=== PATIENT | female | born 1940 | race Caucasian/White ===

== ENCOUNTER 2016-09-26 11:26 | Inpatient (IN) | payer OTHER ==
[2016-09-26] MEDS ORDERED: CARDIZEM INJ 125 MG VIAL 125 MG in NS 100 ML IV 100 ML IV PRN (11:44)
[2016-09-26] MEDS ORDERED: CARDIZEM INJ 125 MG VIAL ONE (12:11)
[2016-09-26] MEDS ORDERED: NS 100 ML IV 100 ML IV ONE (12:13)
[2016-09-26 12:27] LABS: BASOPHILS % (AUTO) 0.8 % (0.2-1.0); EOSINOPHILS # (AUTO) 0.1 x10^3/uL (0.0-0.2); EOSINOPHILS % (AUTO) 2.4 % (0.9-2.9); HEMATOCRIT 35.2 % (36.0-47.0); HEMOGLOBIN 11.7 g/dL (12.0-16.0); LYMPHOCYTES # (AUTO) 0.9 X10^3/uL (1.3-2.9); LYMPHOCYTES % (AUTO) 17.8 % (21.0-51.0); MEAN CORPUSCULAR HEMOGLOBIN 33.5 pg (27.0-34.0); MEAN CORPUSCULAR HGB CONC 33.4 g/dL (33.0-35.0); MEAN CORPUSCULAR VOLUME 100.4 fL (80.0-100.0); MEAN PLATELET VOLUME 8.9 fL (7.4-11.0); MONOCYTES # (AUTO) 0.7 x10^3/uL (0.3-0.8); MONOCYTES % (AUTO) 14.4 % (0.0-13.0); NEUTROPHILS # (AUTO) 3.2 x10^3/uL (2.2-4.8); NEUTROPHILS % (AUTO) 64.6 % (42.0-75.0); PLATELET COUNT 133 X10^3/uL (150.0-450.0); RED CELL DISTRIBUTION WIDTH 14.3 % (11.6-16.5)
[2016-09-26] MEDS: NS 1000 ML 1,000 ML IV SCH (12:30)
[2016-09-26 12:38] LABS: ALANINE AMINOTRANSFERASE 25 Units/L (12-78); ALBUMIN 3.7 g/dL (3.4-5.0); ALKALINE PHOSPHATASE 39 Units/L (46-116); ASPARTATE AMINO TRANSFERASE 18 Units/L (15-37); BLOOD UREA NITROGEN 30 mg/dL (7-18); CALCIUM 8.9 mg/dL (8.5-10.1); CARBON DIOXIDE 30.7 mmol/L (21-32); CHLORIDE 103 mmol/L (98-107); CREATININE 1.57 mg/dL (0.55-1.02); GLUCOSE 108 mg/dL (65-99); MAGNESIUM 2.1 mg/dL (1.7-2.9); SODIUM 138 mmol/L (136-145); eGFR BLACK RACES 41 (>60); eGFR NON BLACK RACES 34 (>60)
[2016-09-26 12:51] LABS: CKMB % 0.9 % (<4); CREATINE KINASE 109 Units/L (26-192); TROPONIN I < 0.02 ng/mL (0-1.5)
[2016-09-26 13:05] VITALS: BMI 22.1
[2016-09-26 13:51] LABS: BILIRUBIN,URINE NEGATIVE (NEGATIVE); BLOOD/HEMOGLOBIN,URINE 1+ (NEGATIVE); GLUCOSE, URINE NEGATIVE (NEGATIVE); KETONES,URINE NEGATIVE (NEGATIVE); LEUKOCYTE ESTERASE ,URINE NEGATIVE (NEGATIVE); NITRITES,URINE NEGATIVE (NEGATIVE); PROTEIN,URINE NEGATIVE (NEGATIVE); UROBILINOGEN,URINE NORMAL (NORMAL)
[2016-09-26 14:00] LABS: APPEARANCE,URINE HAZY (CLEAR); BACTERIA,URINE NEGATIVE /HPF (NEGATIVE); COLOR,URINE STRAW (YELLOW); SQUAMOUS EPITHELIAL CELL,UR NEGATIVE /HPF (NEGATIVE)
[2016-09-26] MEDS ORDERED: XANAX PO PRN (14:01)
--- NOTE | 2016-09-26 14:14 | DR.H&P ---
H&P - History & Physical for Day of: H&P Date: 09/26/16 - Chief Complaint Chief Complaint: WEAKNESS, PALPITATION, DAHL - Allergies Allergies/Adverse Reactions: Allergies Allergy/AdvReac Type Severity Reaction Status Date / Time Acetaminophen Allergy Verified 09/26/16 13:06 [From NyQuil Nighttime Cold/Flu Medicine] Dextromethorphan Allergy Verified 09/26/16 13:06 [From NyQuil Nighttime Cold/Flu Medicine] Doxylamine Allergy Verified 09/26/16 13:06 [From NyQuil Nighttime Cold/Flu Medicine] Ethanol Allergy Verified 09/26/16 13:06 [From NyQuil Nighttime Cold/Flu Medicine] Pseudoephedrine Allergy Verified 09/26/16 13:06 [From NyQuil Nighttime Cold/Flu Medicine] - History of Present Illness History of Present Illness: PT IS 76WF DIRECT ADMIT FROM OUTPT STRESS TEST WITH AFIB WITH UNCONTROLLED RATE. PT SEEN BY DR SUE FOR DAHL, PALPITATIONS AND WEAKNESS. PT HAD 1/4 KIDNEY AND RENAL MASS REMOVED FEB 29, 2016, AFTER SUGERY PT HAD EPISODES OF A FIB, BUT RESOLVED. PT HAS NOT BEEN ON ANY MEDICATION FOR AFIB. PT HAS BEEN TAKING LOPRESSOR FOR SEVERAL WEEKS, WITH HAS IMPROVED PALPITATIONS. PT HAS PMH OF RENAL MASS, HTN, OA, LUPUS, RENAL INSUFF, ANEMIA. PLAN TO ADMIT TO ICU, START CARDIZEM DRIP, CARDIAC MONITORING - Past Medical History Past Medical History: Anxiety, Arthritis, Hypertension Additional Medical History: LUPUS, HX RENAL MASS - Past Surgical History Surgical History: Hysterectomy, Ortho Surgery, Other (1) Additional Surgical History: LEFT RENAL MASS AND 1/4 LEFT KIDNEY REMOVED PER [facility] [place]. FEB 29, 2016 - Family History Family Medical History: CT, Heart Failure, Hypertension - Social History Does patient currently use any type of tobacco product: No Have you used tobacco products in the last 12 months: No Type of Tobacco Use: None Does any household member use tobacco: No Alcohol Use: None Drug Use: None - Medications Home Medications: Gabapentin 300 mg PO HS 09/26/16 [History Confirmed 09/26/16] Lorazepam [ATIVAN 0.5 MG TAB *] 0.5 - 1 tab PO HS PRN 09/26/16 [History Confirmed 09/26/16] Metoprolol Tartrate [LOPRESSOR 25 MG *] 12.5 mg PO BID 09/26/16 [History Confirmed 09/26/16] Tizanidine HCl 4 mg PO HS 09/26/16 [History Confirmed 09/26/16] Tramadol HCl 1 tab PO BID PRN 09/26/16 [History Confirmed 09/26/16] - Review of Systems Constitutional: Weakness Eyes: No Symptoms Reported ENT: No Symptoms Reported Respiratory: Shortness of Breath Cardiovascular: Palpitations Gastrointestinal: No Symptoms Reported Genitourinary: No Symptoms Reported Musculoskeletal: No Symptoms Reported Skin: No Symptoms Reported Neurological: No Symptoms Reported - Physical Exam Vital Signs: Temperature 99.2 F Pulse Rate [Apical] 101 Respiratory Rate 19 Blood Pressure [Left Arm] 175/91 Blood Pressure [Right Arm] 118/71 Blood Pressure 175/91 O2 Sat by Pulse Oximetry 96 Oriented: Normal Eyes: Normal Ear: Normal Nose: Normal Throat: Normal Respiratory: RLL Diminished, LLL Diminished Cardiovascular: Tachycardia, Irregular : Normal Auscultation: Bowel Sounds: Normal Palpation: Normal Tenderness: Normal Skin: Normal Musculoskeletal: Normal Psychiatric: Anxiety Affect: Anxious Speech Pattern: Clear, Appropriate - Assessment/Plan (1) Afib Qualifiers: Atrial fibrillation type: A Status: Acute Plan: ADMIT ICU SERIAL CARDIAC ENZYMES, EKG'S. CARDIZEM DRIP, BP CONTROL. CONTINUOUS CARDIAC MONITORING (2) Lupus Qualifiers: Systemic lupus erythematosus type: S Systemic lupus erythematosus organ involvement: S Status: Acute (3) Hypertension Qualifiers: Hypertension type: H Status: Chronic
--- NOTE | 2016-09-26 14:29 | RAD ---
HISTORY: Atrial fibrillation Study: Portable chest Comparison: March 14, 2016 Findings: The trachea is midline. The cardiac silhouette is unremarkable. The lungs are clear without focal infiltrate or effusion. The bony thorax is unremarkable. IMPRESSION: 1. No acute cardiopulmonary disease. Reported By:
[2016-09-26 19:09] LABS: CKMB % 1.4 % (<4); CREATINE KINASE 73 Units/L (26-192); CREATINE KINASE MB < 1.0 ng/mL (0-4.0); TROPONIN I < 0.02 ng/mL (0-1.5)
[2016-09-26] MEDS: LOVENOX INJ 60 MG SYR SC SCH (20:58)
[2016-09-26] MEDS ORDERED: ULTRAM PO PRN ×2 (22:32→22:49)
[2016-09-26] MEDS ORDERED: ZYRTEC TAB 10 MG PO PRN (22:49)
[2016-09-26] MEDS ORDERED: NEURONTIN CAP 300 MG PO ONE (23:14)
[2016-09-26] MEDS: ATIVAN TAB 0.5 MG PO PRN (23:18)
[2016-09-26] MEDS: NEURONTIN CAP 300 MG PO SCH (23:19)
[2016-09-26] MEDS: CORDARONE TAB 200 MG PO SCH (23:19)
[2016-09-26 23:57] LABS: CKMB % 0.7 % (<4); CREATINE KINASE 155 Units/L (26-192); CREATINE KINASE MB < 1.0 ng/mL (0-4.0); TROPONIN I < 0.02 ng/mL (0-1.5)
[2016-09-27] MEDS: NS 1000 ML 1,000 ML IV SCH ×3 (02:36→20:18)
[2016-09-27 05:42] LABS: BASOPHILS % (AUTO) 0.2 % (0.2-1.0); EOSINOPHILS # (AUTO) 0.2 x10^3/uL (0.0-0.2); EOSINOPHILS % (AUTO) 4.1 % (0.9-2.9); HEMATOCRIT 31.7 % (36.0-47.0); HEMOGLOBIN 10.7 g/dL (12.0-16.0); LYMPHOCYTES % (AUTO) 26.7 % (21.0-51.0); MEAN CORPUSCULAR HGB CONC 33.8 g/dL (33.0-35.0); MEAN CORPUSCULAR VOLUME 100.5 fL (80.0-100.0); MEAN PLATELET VOLUME 8.7 fL (7.4-11.0); MONOCYTES # (AUTO) 0.7 x10^3/uL (0.3-0.8); MONOCYTES % (AUTO) 19.6 % (0.0-13.0); NEUTROPHILS # (AUTO) 1.8 x10^3/uL (2.2-4.8); NEUTROPHILS % (AUTO) 49.4 % (42.0-75.0); PLATELET COUNT 116 X10^3/uL (150.0-450.0); RED BLOOD COUNT 3.15 X10^6/uL (3.5-5.4); RED CELL DISTRIBUTION WIDTH 14.2 % (11.6-16.5); WHITE BLOOD COUNT 3.7 X10^3/uL (3.6-10.0)
[2016-09-27 05:50] LABS: ALANINE AMINOTRANSFERASE 20 Units/L (12-78); ALBUMIN 3.3 g/dL (3.4-5.0); ALKALINE PHOSPHATASE 33 Units/L (46-116); ASPARTATE AMINO TRANSFERASE 16 Units/L (15-37); BLOOD UREA NITROGEN 23 mg/dL (7-18); CALCIUM 8.7 mg/dL (8.5-10.1); CARBON DIOXIDE 28.6 mmol/L (21-32); CHLORIDE 107 mmol/L (98-107); CHOL/HDL RATIO 5.9 (0.0-5.0); CHOLESTEROL 142 mg/dL (0-200); COR CA(FOR HYPOALB) 9.3 mg/dL (8.5-10.1); GLUCOSE 98 mg/dL (65-99); HDL CHOLESTEROL 24 mg/dL (40-60); SODIUM 143 mmol/L (136-145); TOTAL PROTEIN 6.2 g/dL (6.4-8.2); TRIGLYCERIDES 166 mg/dL (0-150); eGFR BLACK RACES 51 (>60); eGFR NON BLACK RACES 42 (>60)
[2016-09-27] MEDS ORDERED: ZESTRIL TAB 20 MG ONE (08:16)
[2016-09-27] MEDS: LOVENOX INJ 60 MG SYR SC SCH ×2 (08:18→20:15)
[2016-09-27] MEDS: FOLIC ACID TAB 1 MG PO SCH (08:20)
[2016-09-27] MEDS: CORDARONE TAB 200 MG PO SCH ×2 (08:21→20:15)
[2016-09-27] MEDS: ZESTRIL TAB 20 MG PO SCH (08:21)
[2016-09-27] MEDS: PRILOSEC PO SCH ×2 (08:21→20:14)
[2016-09-27] MEDS: ASPIRIN EC 81 MG PO SCH (08:21)
[2016-09-27] MEDS: HYDROCHLOROTHIAZIDE 25 MG TAB PO SCH (08:21)
--- NOTE | 2016-09-27 17:59 | PCM.PROG ---
Progress Note - Progress Note for Day of Date: 09/27/16 - Subjective Subjective: PATIENT IS A 76-YEAR-OLD WHITE FEMALE WHO WAS ADMITTED ONE DAY AGO WITH COMPLAINTS OF PALPITATIONS AND SHORTNESS OF BREATH. pATIENT WAS HAVING A NUCLEAR STRESS TEST OUTPATIENT PER [facility] [place] WHEN HER ekg REVEALED ATRIAL FREE OF UNCONTROLLED RATE. pATIENT WAS ADMITTED TO icu WITH SERIAL CARDIAC ENZYMES WHICH WERE NEGATIVE. pATIENT WAS STARTED ON cARDIZEM DRIP ON ADMISSION AND AFTER BOLUS RATE IMPROVED. pATIENT WAS STARTED ON AMIODARONE AND CONVERTED TO NORMAL SINUS RHYTHM. pATIENT IS ON lOVENOX ANTICOAGULANT THERAPY. tHIS MORNING THE PATIENT'S cARDIZEM DRIP WAS AT 2.5 MG AND SHE REMAINED IN SINUS RHYTHM, SO DRIP WAS dc'D. pATIENT CONTINUES TO FEEL SLIGHT GENERALIZED WEAKNESS , BLOOD PRESSURE CONTROLLED. - Past Medical Family Social History Past Med/Fam/Surg Hx: No changes since H&P Allergies: Allergies Acetaminophen [From OrQuky Nighttime Cold/Flu Medicine] Allergy (Verified 13:06) Dextromethorphan [From OrQuky Nighttime Cold/Flu Medicine] Allergy (Verified 13:06) Doxylamine [From OrQuil Nighttime Cold/Flu Medicine] Allergy (Verified 09/26/16 13:06) Ethanol [From OrQuky Nighttime Cold/Flu Medicine] Allergy (Verified 09/26/16 13: 06) Pseudoephedrine [From OrQuky Nighttime Cold/Flu Medicine] Allergy (Verified 13:06) - Review of Systems ROS: No change since H&P - Vital Signs and I&O's Vital Signs: Temperature 98.7 F Pulse Rate [Apical] 72 Respiratory Rate 14 Blood Pressure [Left Arm] 175/91 Blood Pressure [Right Arm] 148/73 Blood Pressure 175/91 O2 Sat by Pulse Oximetry 98 Intake and Output: Intake & Output 09/25/16 09/26/16 09/27/16 09/28/16 11:59 11:59 11:59 11:59 Intake Total 1535 935 Output Total 500 800 Balance 1035 135 - Physical Exam Oriented: Normal Eyes: Normal Ear: Normal Nose: Normal Throat: Normal Cardiovascular: Tachycardia, Irregular : Normal Auscultation: Bowel Sounds: Normal Tenderness: Normal Skin: Normal Musculoskeletal: Normal Psychiatric: Anxiety Affect: Anxious Speech Pattern: Clear, Appropriate - Laboratory and Diagnostics Result Diagrams: 09/27/16 05:20 09/27/16 05:20 Labs: Laboratory WBC 3.7 X10^3/uL (3.6-10.0) 09/27/16 05:20 RBC 3.15 X10^6/uL (3.5-5.4) L 09/27/16 05:20 Hgb 10.7 g/dL (12.0-16.0) L 09/27/16 05:20 Hct 31.7 % (36.0-47.0) L 09/27/16 05:20 MCV 100.5 fL (80.0-100.0) H 09/27/16 05:20 MCH 34.0 pg (27.0-34.0) 09/27/16 05:20 MCHC 33.8 g/dL (33.0-35.0) 09/27/16 05:20 RDW 14.2 % (11.6-16.5) 09/27/16 05:20 Plt Count 116 X10^3/uL (150.0-450.0) L 09/27/16 05:20 MPV 8.7 fL (7.4-11.0) 09/27/16 05:20 Neut % 49.4 % (42.0-75.0) 09/27/16 05:20 Lymph % 26.7 % (21.0-51.0) 09/27/16 05:20 Hudson % 19.6 % (0.0-13.0) H 09/27/16 05:20 Eos % 4.1 % (0.9-2.9) H 09/27/16 05:20 Baso % 0.2 % (0.2-1.0) 09/27/16 05:20 Neut # 1.8 x10^3/uL (2.2-4.8) L 09/27/16 05:20 Lymph # 1.0 X10^3/uL (1.3-2.9) L 09/27/16 05:20 Hudson # 0.7 x10^3/uL (0.3-0.8) 09/27/16 05:20 Eos # 0.2 x10^3/uL (0.0-0.2) 09/27/16 05:20 Baso # 0.0 X10^3/uL (0.0-0.1) 09/27/16 05:20 Absolute Nucleated RBC 0.1 /100WBC 09/27/16 05:20 INR Target Range - 09/26/16 12:13 INR 1.02 (0.8-1.3) 09/26/16 12:13 PTT 22.0 SECONDS (22.9-36.5) L 09/26/16 12:13 PTT Comment - 09/26/16 12:13 Sodium 143 mmol/L (136-145) 09/27/16 05:20 Corrected Sodium TNP 09/27/16 05:20 Potassium 4.0 mmol/L (3.5-5.1) 09/27/16 05:20 Chloride 107 mmol/L (98-107) 09/27/16 05:20 Carbon Dioxide 28.6 mmol/L (21-32) 09/27/16 05:20 BUN 23 mg/dL (7-18) H 09/27/16 05:20 Creatinine 1.30 mg/dL (0.55-1.02) H 09/27/16 05:20 Est GFR (MDRD) Af Amer 51 (>60) L 09/27/16 05:20 Est GFR (MDRD) Non-Af 42 (>60) L 09/27/16 05:20 Glucose 98 mg/dL (65-99) 09/27/16 05:20 Calcium 8.7 mg/dL (8.5-10.1) 09/27/16 05:20 Corrected Calcium 9.3 mg/dL (8.5-10.1) 09/27/16 05:20 Magnesium 2.1 mg/dL (1.7-2.9) 09/26/16 12:13 Total Bilirubin 0.20 mg/dL (0.2-1.0) 09/27/16 05:20 AST 16 Units/L (15-37) 09/27/16 05:20 ALT 20 Units/L (12-78) 09/27/16 05:20 Alkaline Phosphatase 33 Units/L (46-116) L 09/27/16 05:20 Creatine Kinase 155 Units/L (26-192) 09/26/16 23:30 CK-MB (CK-2) < 1.0 ng/mL (0-4.0) 09/26/16 23:30 CK/CKMB % Calc 0.7 % (<4) 09/26/16 23:30 Troponin I < 0.02 ng/mL (0-1.5) 09/26/16 23:30 Total Protein 6.2 g/dL (6.4-8.2) L 09/27/16 05:20 Albumin 3.3 g/dL (3.4-5.0) L 09/27/16 05:20 Globulin 2.9 g/dL (2.5-4.5) 09/27/16 05:20 Albumin/Globulin Ratio 1.1 Ratio (1.1-2.1) 09/27/16 05:20 Triglycerides 166 mg/dL (0-150) H 09/27/16 05:20 Cholesterol 142 mg/dL (0-200) 09/27/16 05:20 LDL Cholesterol, Calc 85 mg/dL (0-100) 09/27/16 05:20 HDL Cholesterol 24 mg/dL (40-60) L 09/27/16 05:20 Cholesterol/HDL Ratio 5.9 (0.0-5.0) H 09/27/16 05:20 Specimen Type Clean catch urine 09/26/16 13:22 Urine Color Straw (YELLOW) 09/26/16 13:22 Urine Appearance Hazy (CLEAR) 09/26/16 13:22 Urine pH 7.0 (5.0 - 8.0) 09/26/16 13:22 Ur Specific Bath 1.005 (1.000-1.030) 09/26/16 13:22 Urine Protein Negative (NEGATIVE) 09/26/16 13:22 Urine Glucose (UA) Negative (NEGATIVE) 09/26/16 13:22 Urine Ketones Negative (NEGATIVE) 09/26/16 13:22 Urine Occult Blood 1+ (NEGATIVE) 09/26/16 13:22 Urine Nitrite Negative (NEGATIVE) 09/26/16 13:22 Urine Bilirubin Negative (NEGATIVE) 09/26/16 13:22 Urine Urobilinogen Normal (NORMAL) 09/26/16 13:22 Ur Leukocyte Esterase Negative (NEGATIVE) 09/26/16 13:22 Urine RBC 1-2 /HPF (NEGATIVE) 09/26/16 13:22 Urine WBC 0 /HPF (NEGATIVE) 09/26/16 13:22 Ur Squamous Epith Cells Negative /HPF (NEGATIVE) 09/26/16 13:22 Urine Bacteria Negative /HPF (NEGATIVE) 09/26/16 13:22 Ur Culture Indicated? No/not indicated 09/26/16 13:22 - Plan (1) Afib Status: Acute Qualifiers: Atrial fibrillation type: A Plan: CONTINUE CARDIAC MONITORING, ON LOVENOX AND AMIODERONE. D/C CARDIZEM DRIP. BP CONTROL (2) Lupus Status: Chronic Qualifiers: Systemic lupus erythematosus type: S Systemic lupus erythematosus organ involvement: S Plan: SYMPTOMATIC MANAGEMENT (3) Hypertension Status: Chronic Qualifiers: Hypertension type: H Plan: BP CONTROL. REPEAT AM LABS
[2016-09-27] MEDS: NEURONTIN CAP 300 MG PO SCH (20:14)
[2016-09-27] MEDS: NYSTATIN POWDER TOP SCH (20:21)
[2016-09-27] MEDS ORDERED: ZOCOR TAB 20 MG PO SCH (21:00)
[2016-09-27] MEDS: ATIVAN TAB 0.5 MG PO PRN (21:21)
[2016-09-28 05:23] LABS: BASOPHILS % (AUTO) 0.2 % (0.2-1.0); EOSINOPHILS # (AUTO) 0.1 x10^3/uL (0.0-0.2); EOSINOPHILS % (AUTO) 3.8 % (0.9-2.9); HEMATOCRIT 33.3 % (36.0-47.0); HEMOGLOBIN 11.3 g/dL (12.0-16.0); LYMPHOCYTES # (AUTO) 0.8 X10^3/uL (1.3-2.9); LYMPHOCYTES % (AUTO) 21.5 % (21.0-51.0); MEAN CORPUSCULAR HEMOGLOBIN 34.2 pg (27.0-34.0); MEAN CORPUSCULAR HGB CONC 33.9 g/dL (33.0-35.0); MEAN CORPUSCULAR VOLUME 100.8 fL (80.0-100.0); MONOCYTES # (AUTO) 0.7 x10^3/uL (0.3-0.8); MONOCYTES % (AUTO) 18.8 % (0.0-13.0); NEUTROPHILS # (AUTO) 2.1 x10^3/uL (2.2-4.8); NEUTROPHILS % (AUTO) 55.7 % (42.0-75.0); PLATELET COUNT 125 X10^3/uL (150.0-450.0); RED CELL DISTRIBUTION WIDTH 14.5 % (11.6-16.5); WHITE BLOOD COUNT 3.8 X10^3/uL (3.6-10.0)
[2016-09-28 05:38] LABS: ALANINE AMINOTRANSFERASE 20 Units/L (12-78); ALBUMIN 3.2 g/dL (3.4-5.0); ALKALINE PHOSPHATASE 36 Units/L (46-116); ASPARTATE AMINO TRANSFERASE 16 Units/L (15-37); BLOOD UREA NITROGEN 18 mg/dL (7-18); CALCIUM 8.8 mg/dL (8.5-10.1); CHLORIDE 106 mmol/L (98-107); COR CA(FOR HYPOALB) 9.4 mg/dL (8.5-10.1); CREATININE 1.25 mg/dL (0.55-1.02); GLUCOSE 100 mg/dL (65-99); SODIUM 142 mmol/L (136-145); TOTAL PROTEIN 6.3 g/dL (6.4-8.2); eGFR BLACK RACES 53 (>60); eGFR NON BLACK RACES 44 (>60)
[2016-09-28] MEDS: NS 1000 ML 1,000 ML IV SCH (05:59)
--- NOTE | 2016-09-28 07:04 | RAD ---
HISTORY: Atrial fibrillation, hypertension, shortness of breath Study: Single-view chest, done portably Comparison: September 26, 2016 Findings: Cardiac monitoring electrodes are noted on the chest. The trachea is midline. Heart size is upper no rmal with atherosclerotic calcification and uncoiling of the aortic arch. There is mild hyperinflati on of the lungs without infiltrate, CHF, pleural fluid or pneumothorax. Osseous structures are intac t. IMPRESSION: No acute cardiopulmonary disease. Reported By:
[2016-09-28] MEDS ORDERED: ZESTRIL TAB 20 MG ONE (08:30)
[2016-09-28] MEDS: FOLIC ACID TAB 1 MG PO SCH (09:12)
[2016-09-28] MEDS: HYDROCHLOROTHIAZIDE 25 MG TAB PO SCH (09:12)
[2016-09-28] MEDS: PRILOSEC PO SCH (09:12)
[2016-09-28] MEDS: ZESTRIL TAB 20 MG PO SCH (09:13)
[2016-09-28] MEDS: CORDARONE TAB 200 MG PO SCH (09:13)
[2016-09-28] MEDS: LOVENOX INJ 60 MG SYR SC SCH (09:13)
[2016-09-28] MEDS: NYSTATIN POWDER TOP SCH (09:13)
[2016-09-28] MEDS: ASPIRIN EC 81 MG PO SCH (09:13)
[2016-09-28] MEDS ORDERED: ELIQUIS PO SCH (12:45)
[2016-09-28 14:31] VITALS: BP 149/70
== END 2016-09-28 14:25 | disposition home or self-care (01) | DRG 310 ==
LOC: ICU 11:26
PROVIDERS: ADMIT Internal Medicine; ATTEND Internal Medicine
DX: I48.91 Unspecified atrial fibrillation (principal); R07.89 Other chest pain; R07.2 Precordial pain; R06.09 Other forms of dyspnea; R53.1 Weakness; I10 Essential (primary) hypertension; M32.8 Other forms of systemic lupus erythematosus; R06.02 Shortness of breath
CPT/HCPCS: 36415; 71010; 78452; 80053; 80061; 81001; 82550; 82553; 83735; 84484; 85025; 85610; 85730; 93005; 93010; 93017; A4222; A9502; J1650; J2785

== ENCOUNTER → 2016-09-26 | Outpatient (CLI) | payer OTHER ==
[2016-03-17 12:40] VITALS: BP 175/91
[~2016-09-26] MED LIST: LEXISCAN IV ONE
== END ==
LOC: RAD 08:04
PROVIDERS: ATTEND Physician Assistant
DX: R07.2 Precordial pain (principal)
CPT/HCPCS: 78452; 93017; A4222; A9502; J2785

== ENCOUNTER → 2017-03-24 | Outpatient (CLI) | payer OTHER | LOC: LAB 15:05 | PROVIDERS: ATTEND Internal Medicine Gastroenterology | DX: K64.0 First degree hemorrhoids (principal) | CPT/HCPCS: 82270 ==

== ENCOUNTER 2017-06-21 10:31 | Emergency (ER) | payer OTHER ==
[2017-06-21 10:33] VITALS: BP 130/63; BMI 24.7
--- NOTE | 2017-06-21 10:40 | DR.EXTPAIN ---
HPI - Time seen Time seen: 10:40 - PCP Primary Care Physician: NELSON NIELSON - Complaint/Symptoms Chief Complaint Doctor Comments: Patient reports that she fell today; presents with pain of the right gluteal area and ecchymosis of the right forearm. Chief Complaint:: PT. C/O RIGHT HIP PAIN S/P FALL. - Source History Provided: Patient - Mode of arrival Mode of Arrival: Wheelchair - Timing Onset of Chief Complaint: 06/20/17 PMH - PMH Past Medical History: Yes Past Medical History: Anxiety, Arthritis, Hypertension Past Surgical History: Yes Surgical History: Hysterectomy, Ortho Surgery, Other - Family History History of Family Medical Conditions: Yes Family Medical History: [place], Heart Failure, Hypertension - Social History Does patient currently use any type of tobacco product: No Have you used tobacco products in the last 12 months: No Type of Tobacco Use: None Does any household member use tobacco: No Alcohol Use: None Do you use any recreational Drugs:: No Lives With: Spouse Lives Where: Home - infectious screening In the last 2 months have you had wt loss of >10#?: NO Have you had fever, night sweats or hemotysis?: No Have you traveled outside the country in the last 6 months?: No Isolation: Standard ROS - Review of Systems Eyes: No Symptoms Reported ENTM: No Symptoms Reported Respiratoy: No Symptoms Reported Cardiovascular: No Symptoms Reported Gastrointestinal/Abdominal: No Symptoms Reported Genitourinary: No Symptoms Reported Neurological: No Symptoms Reported Musculoskeletal: No Symptoms Reported Integumentary: Lesions (ecchymosis of right forearm and right gluteus rahel) Hematologic/Lymphatic: No Symptoms Reported Endocrine: No Symptoms Reported Psychiatric: No Symptoms Reported All Other Systems: Reviewed and Negative PE - Vital Signs Vitals: Temperature 98.2 F Pulse Rate 82 Respiratory Rate 17 Blood Pressure [Left Arm] 175/91 Blood Pressure [Right Arm] 149/70 Blood Pressure 130/63 O2 Sat by Pulse Oximetry 97 - General Limitations: No Limitations General Appearance: Alert, Anxious - Head Head Exam: Normal Inspection, Atraumatic - Eyes Eye exam: Normal Appearance, PERRL, EOMI - ENT ENT Exam: Normal Exam - Neck Neck Exam: Normal Inspection, Full ROM - Chest Chest Inspection: Normal Inspection, Symmetric Chest Wall Rise - Respiratory Respiratory Exam: Normal Lung Sounds Bilat Respiratory Exam: Bilateral Clear to Auscultation - Cardiovascular Cardiovascular Exam: Regular Rate, Normal Rhythm - Abdominal Exam Abdominal Exam: Normal Inspection, Normal Bowel Sounds Abdominal Tenderness: negative: RUQ, RLQ, LUQ, LLQ, Epigastrium, Suprapubic, Diffuse, Mild, Moderate, Severe, Other - Extremities Extremities Exam: Tenderness (right forearm with ecchymosis of the proximal area ) - Upper Extremities Shoulder Exam: Normal Inspection Arm Exam: Normal Inspection Elbow Exam: Normal Inspection Forearm Exam: Normal Inspection, Abrasion, Ecchymosis (right ) Hand Exam: Normal Inspection Neuromotor Exam: Normal Exam Neurosensory Exam: Normal Exam Hand Tendon Exam: Flexor Digitorium Profundus (Location) - Lower Extremities Hip/Pelvis Exam: Tenderness, Ecchymosis (right glute) Course - Education/Counseling Educated On: Treatment, Diagnosis, Prognosis, Needs for Follow Up ROR - XRAY XRAY Interpreted by: Radiologist (Right forearm: No definite radial or ulnar fracture/dislocation. A tiny bone fragment at the tip of the ulnar styloid process may not be acute. Impression: No definite fracture. Follow up views of the wrist recommended if patient has sustained trauma to the ulnar styloid. Right Hip: No definite fracture or dislocation. Joint narrowing and bone proliferation at the acetabular margin. Feh demoral head is in normal poosition. Impressin: Osteoarthritis, no recent hip injury identified.) - Diagnosis Discharge Problem: Contusion of right forearm Qualifiers: Encounter type: initial encounter Qualified Code(s): S50.11XA - Contusion of right forearm, initial encounter Osteoarthritis of right hip Qualifiers: Osteoarthritis type: primary Qualified Code(s): M16.11 - Unilateral primary osteoarthritis, right hip - Discharge Plan Condition: Stable - Follow ups/Referrals Follow ups/Referrals: WAYLON ELKINS [Primary Care Provider] - 3 days - Instructions
[2017-06-21] MEDS ORDERED: MORPHINE SULFATE INJ 4 MG IM ONE (10:41)
[2017-06-21] MEDS ORDERED: MORPHINE SULFATE INJ 4 MG ONE (10:43)
--- NOTE | 2017-06-21 11:46 | RAD ---
Examination: Right forearm, two views History: Fell Findings: No definite radial or ulnar fracture/dislocation. A tiny bone fragment at the tip of the ul shira styloid process may not be acute. Impression: No definite fracture. See above description. Follow-up views of the wrist recommended if patient has sustained trauma to the ulnar styloid. Reported By:
--- NOTE | 2017-06-21 11:47 | RAD ---
Examination: Right hip, two views History: Fell Findings: No definite fracture or dislocation. Joint narrowing and bone proliferation at the acetabul ar margin. The femoral head is in normal position. Impression: Osteoarthritis, no recent hip injury identified. Reported By:
== END 2017-06-21 12:10 | disposition home or self-care (01) ==
LOC: ER 10:36
DX: S50.11XA Contusion of right forearm, initial encounter (principal); M16.11 Unilateral primary osteoarthritis, right hip; W19.XXXA Unspecified fall, initial encounter; Y92.9 Unspecified place or not applicable
CPT/HCPCS: 73090; 73501; 96372; 99282; J2270

== ENCOUNTER → 2017-07-12 | Outpatient (CLI) | payer OTHER ==
[2017-06-21 10:33] VITALS: BP 130/63
--- NOTE | 2017-07-12 15:54 | RAD ---
The examination: Lumbar spine, five views History: Pain after falling Findings: Frontal and lateral views were obtained including lateral projections in flexion and extens ion. There is a dextroscoliosis centered at L3. Alignment of vertebrae is normal. Disc space narrowing and osteophyte formation noted at multiple levels, most marked at L2-3 and L4-5. There is no instability or other vertebral displacement identified on flexion/extension. Impression: Lumbar scoliosis. Multilevel degenerative disc disease and spondylosis. No fracture or morteza mbar instability identified. Reported By:
--- NOTE | 2017-07-12 16:02 | US ---
History: Hematoma of right buttocks after fall 1 month ago Study: Ultrasound of the right buttock Findings: There is a new mass in the right buttock subcutaneously measuring 3.72 x 3.66 x 5.33 cm. Th e hematoma is heterogeneous in echogenicity. Impression: Large subcutaneous hematoma and right buttock Reported By:
== END ==
LOC: RAD 14:31
PROVIDERS: ATTEND Nurse Practitioner Family
DX: S06.5X0D Traumatic subdural hemorrhage without loss of consciousness, subsequent encounter (principal); X58.XXXD Exposure to other specified factors, subsequent encounter; M54.5 Low back pain
CPT/HCPCS: 72110; 76881

== ENCOUNTER → 2017-11-14 | Outpatient (CLI) | payer OTHER ==
[2017-11-14 09:54] LABS: BASOPHILS % (AUTO) 0.5 % (0.2-1.0); EOSINOPHILS # (AUTO) 0.1 x10^3/uL (0.0-0.2); EOSINOPHILS % (AUTO) 3.7 % (0.9-2.9); HEMATOCRIT 35.4 % (36.0-47.0); HEMOGLOBIN 12.1 g/dL (12.0-16.0); LYMPHOCYTES # (AUTO) 0.6 X10^3/uL (1.3-2.9); LYMPHOCYTES % (AUTO) 17.1 % (21.0-51.0); MEAN CORPUSCULAR HEMOGLOBIN 32.8 pg (27.0-34.0); MEAN CORPUSCULAR HGB CONC 34.1 g/dL (33.0-35.0); MEAN CORPUSCULAR VOLUME 96.1 fL (80.0-100.0); MEAN PLATELET VOLUME 7.8 fL (7.4-11.0); MONOCYTES # (AUTO) 0.6 x10^3/uL (0.3-0.8); MONOCYTES % (AUTO) 16.5 % (0.0-13.0); NEUTROPHILS # (AUTO) 2.1 x10^3/uL (2.2-4.8); NEUTROPHILS % (AUTO) 62.2 % (42.0-75.0); PLATELET COUNT 121 X10^3/uL (150.0-450.0); RED BLOOD COUNT 3.68 X10^6/uL (3.5-5.4); RED CELL DISTRIBUTION WIDTH 16.9 % (11.6-16.5); WHITE BLOOD COUNT 3.4 X10^3/uL (3.6-10.0)
[2017-11-14 10:19] LABS: ALBUMIN 3.9 g/dL (3.4-5.0); BILIRUBIN,DIRECT 0.07 mg/dL (0-0.2); FREE T4 (FREE THYROXINE) 1.37 ng/dL (0.76-1.46); TOTAL PROTEIN 7.3 g/dL (6.4-8.2); TSH (3RD GENERATION) 1.222 uIU/mL (0.358-3.74)
== END ==
LOC: LAB 08:56
PROVIDERS: ATTEND Physician Assistant
DX: I48.91 Unspecified atrial fibrillation (principal); Z79.899 Other long term (current) drug therapy; I10 Essential (primary) hypertension
CPT/HCPCS: 36415; 80076; 84439; 84443; 85025

== ENCOUNTER → 2017-11-22 | Outpatient (CLI) | payer OTHER | LOC: RAD 14:52 | PROVIDERS: ATTEND Physician Assistant | DX: I48.91 Unspecified atrial fibrillation (principal) | CPT/HCPCS: 93306 ==

== ENCOUNTER 2019-05-13 16:02 | Observation (INO) ==
[2019-05-13] MEDS ORDERED: TUSSIONEX PENNKINETIC SUSP PO PRN (16:23)
--- NOTE | 2019-05-13 16:58 | RAD ---
History: Shortness of breath and cough Study: PA and lateral chest Comparison: September 28, 2016 Findings: The lungs are clear and the heart and mediastinum are unremarkable. There is no edema or effusion or congestion. There is minimal dextroscoliosis of the thoracic spine. Impression: No evidence for active cardiopulmonary disease Reported By:
[2019-05-13] MEDS ORDERED: LEVAQUIN PREMIX IV 500 MG 500 MG/100 ML BAG IV SCH (17:00)
[2019-05-13] MEDS ORDERED: XOPENEX 1.25 MG/3 ML NEBULE NEB SCH (17:00)
[2019-05-13 17:14] LABS: BASOPHILS % (AUTO) 0.4 % (0.2-1.0); EOSINOPHILS % (AUTO) 0.3 % (0.9-2.9); HEMATOCRIT 39.3 % (36.0-47.0); HEMOGLOBIN 13.2 g/dL (12.0-16.0); LYMPHOCYTES # (AUTO) 0.7 X10^3/uL (1.3-2.9); LYMPHOCYTES % (AUTO) 8.8 % (21.0-51.0); MEAN CORPUSCULAR HEMOGLOBIN 32.7 pg (27.0-34.0); MEAN CORPUSCULAR HGB CONC 33.7 g/dL (33.0-35.0); MEAN CORPUSCULAR VOLUME 96.9 fL (80.0-100.0); MEAN PLATELET VOLUME 8.1 fL (7.4-11.0); MONOCYTES # (AUTO) 0.9 x10^3/uL (0.3-0.8); MONOCYTES % (AUTO) 10.5 % (0.0-13.0); NEUTROPHILS # (AUTO) 6.7 x10^3/uL (2.2-4.8); PLATELET COUNT 188 X10^3/uL (150.0-450.0); RED BLOOD COUNT 4.05 X10^6/uL (3.5-5.4); RED CELL DISTRIBUTION WIDTH 16.8 % (11.6-16.5); WHITE BLOOD COUNT 8.4 X10^3/uL (3.6-10.0)
[2019-05-13] MEDS ORDERED: NS 1000 ML 1,000 ML ONE (17:17)
[2019-05-13] MEDS ORDERED: ROCEPHIN VIAL 1 GRAM ONE (17:17)
[2019-05-13] MEDS ORDERED: PROTONIX INJ 40 MG VIAL ONE (17:18)
[2019-05-13] MEDS ORDERED: SOLU-Medrol 40 MG VIAL ONE (17:18)
[2019-05-13] MEDS ORDERED: NS 100 ML IV + SPIKE MINIBAG* 100 ML IV ONE (17:19)
[2019-05-13] MEDS ORDERED: LEVAQUIN PREMIX IV 500 MG 500 MG/100 ML BAG IV ONE (17:19)
[2019-05-13 17:27] LABS: ALANINE AMINOTRANSFERASE 29 Units/L (12-78); ALBUMIN 4.5 g/dL (3.4-5.0); ALKALINE PHOSPHATASE 55 Units/L (46-116); ASPARTATE AMINO TRANSFERASE 26 Units/L (15-37); BLOOD UREA NITROGEN 17 mg/dL (7-18); CALCIUM 9.7 mg/dL (8.5-10.1); CARBON DIOXIDE 31.7 mmol/L (21-32); CHLORIDE 98 mmol/L (98-107); CREATININE 1.72 mg/dL (0.55-1.02); SODIUM 139 mmol/L (136-145); TOTAL PROTEIN 8.5 g/dL (6.4-8.2); eGFR NON BLACK RACES 30 (>60)
[2019-05-13] MEDS: ROCEPHIN VIAL 1 GRAM 1 G in NS 100 ML IV + SPIKE MINIBAG* 100 ML IV SCH (17:52)
[2019-05-13] MEDS: NS 1000 ML 1,000 ML IV SCH (17:53)
[2019-05-13] MEDS: SOLU-Medrol 40 MG VIAL IVP SCH ×2 (17:53→22:30)
[2019-05-13] MEDS: PROTONIX INJ 40 MG VIAL IVP SCH (17:55)
--- NOTE | 2019-05-13 18:06 | DR.H&P ---
H&P - History & Physical for Day of: H&P Date: 05/13/19 - Chief Complaint Chief Complaint: fever, ccc, wheezing, weakness - History of Present Illness History of Present Illness: PT IS 79 WF DIRECT ADMIT FROM DR ROSE OFFICE WITH FEVER 101, DIFFUSE WHEEZING ON EXAM AND HOARSE BARKING COUGH. PT CO ONSET END OF LAST WEEK. PT CO NAUSEA WITH VOMITING X 1. PT HAD HX OF "KIDNEY CANCER, IN REMISSION" HTN, OA, MIKE, AFIB. PT ADMITTED FOR TREATMENT OF ACUTE ILLNESS. - Past Medical History Past Medical History: Anxiety, Arthritis, Hypertension, Renal Disease Additional Medical History: LUPUS, HX RENAL MASS, AFIB - Past Surgical History Surgical History: Hysterectomy, Ortho Surgery, Other Additional Surgical History: LEFT RENAL MASS AND 1/4 LEFT KIDNEY REMOVED PER [place] FEB 29, 2016 - Family History Family Medical History: [place], Heart Failure, Hypertension - Social History Does patient currently use any type of tobacco product: No Have you used tobacco products in the last 12 months: No Type of Tobacco Use: None Does any household member use tobacco: No Alcohol Use: None Drug Use: None Risks, benefits, and alternatives of opioids discussed: Yes Prescription drug monitoring program results: PDMP reviewed and no concerns identified - Medications Home Medications: dextromethorphan [From NyQuil] Allergy (Verified 06/21/17 10:39) doxylamine [From NyQuil] Allergy (Verified 06/21/17 10:39) pseudoephedrine [From NyQuil] Allergy (Verified 06/21/17 10:39) - Review of Systems Constitutional: Fever, Chills, Weakness Eyes: No Symptoms Reported ENT: Nose Congestion, Mouth Pain, Throat Pain Respiratory: Cough, Shortness of Breath, SOB with Excertion, Pleuritic Pain, Wheezing Cardiovascular: No Symptoms Reported, Edema Gastrointestinal: Nausea, Vomiting Genitourinary: No Symptoms Reported Musculoskeletal: Back Pain Skin: No Symptoms Reported Neurological: Weakness - Physical Exam Vital Signs: Blood Pressure [Left Arm] 175/91 Blood Pressure [Right Arm] 149/70 Blood Pressure 130/63 Oriented: Normal Eyes: Normal Ear: Normal Nose: Normal Throat: Red, Dry Respiratory: Wheezes Throughout Cardiovascular: Irregular. negative: Edema : Normal Auscultation: Bowel Sounds: Normal Palpation: Normal Tenderness: Normal Skin: Decreased Turgur Musculoskeletal: Back:Thoracic, Back:Lumbar Psychiatric: Anxiety Affect: Anxious Speech Pattern: Clear, Appropriate - Assessment/Plan (1) Acute bronchitis Status: Acute Plan: ADMIT, RESP CONSULT. BLOOD AND SPUTUM CULTURE ON ADMISSION. CBC CMP FLU SWAB. GENTLE IV HYDRATION, CXR AND EKG ON ADMISSION. IV ATBX THERAPY, STRICT I & OS, BP CONTROL (2) Fever Status: Acute (3) Afib Status: Acute (4) GERD (gastroesophageal reflux disease) Status: Chronic (5) Hypertension Status: Chronic (6) Lupus Status: Chronic - Allergies Allergies/Adverse Reactions: Allergies Allergy/AdvReac Type Severity Reaction Status Date / Time dextromethorphan Allergy Verified 06/21/17 10:39 [From NyQuil] doxylamine [From NyQuil] Allergy Verified 06/21/17 10:39 pseudoephedrine [From NyQuil] Allergy Verified 06/21/17 10:39
[2019-05-13 18:22] VITALS: BMI 24.0
[2019-05-13] MEDS: PULMICORT NEB TX 0.5 MG NEB SCH ×2 (18:31→21:10)
[2019-05-13] MEDS: XOPENEX 1.25 MG/3 ML NEBULE NEB SCH (18:31)
[2019-05-13] MEDS ORDERED: AMBIEN PO PRN (21:00)
[2019-05-13] MEDS ORDERED: PREVNAR 13 IM ONE (21:00)
[2019-05-13] MEDS ORDERED: AFLURIA II4 or FLUARIX II4 IM ONE (21:00)
[2019-05-13] MEDS: ELIQUIS PO SCH (21:50)
[2019-05-13] MEDS ORDERED: NEURONTIN CAP 300 MG PO SCH (22:04)
[2019-05-13] MEDS: LOPRESSOR TAB 25 MG PO SCH (22:30)
[2019-05-13 22:54] LABS: BILIRUBIN,URINE NEGATIVE (NEGATIVE); BLOOD/HEMOGLOBIN,URINE 1+ (NEGATIVE); GLUCOSE, URINE NEGATIVE (NEGATIVE); KETONES,URINE NEGATIVE (NEGATIVE); LEUKOCYTE ESTERASE ,URINE 2+ (NEGATIVE); NITRITES,URINE NEGATIVE (NEGATIVE); PROTEIN,URINE 1+ (NEGATIVE); UROBILINOGEN,URINE NORMAL (NORMAL)
[2019-05-13 23:04] LABS: APPEARANCE,URINE CLEAR (CLEAR); BACTERIA,URINE TRACE /HPF (NEGATIVE); COLOR,URINE YELLOW (YELLOW); RBC,URINE 0-2 /HPF (0-3); SQUAMOUS EPITHELIAL CELL,UR RARE /HPF (NEGATIVE)
[2019-05-14] MEDS: XOPENEX 1.25 MG/3 ML NEBULE NEB SCH ×4 (00:55→17:51)
[2019-05-14] MEDS ORDERED: AFLURIA II4 or FLUARIX II4 IM ONE (05:26)
[2019-05-14] MEDS: SOLU-Medrol 40 MG VIAL IVP SCH ×3 (05:29→21:59)
[2019-05-14 05:32] LABS: BASOPHILS % (AUTO) 0 % (0.2-1.0); HEMATOCRIT 37.5 % (36.0-47.0); HEMOGLOBIN 12.5 g/dL (12.0-16.0); LYMPHOCYTES # (AUTO) 0.4 X10^3/uL (1.3-2.9); LYMPHOCYTES % (AUTO) 8.9 % (21.0-51.0); MEAN CORPUSCULAR HEMOGLOBIN 32.6 pg (27.0-34.0); MEAN CORPUSCULAR HGB CONC 33.4 g/dL (33.0-35.0); MEAN CORPUSCULAR VOLUME 97.5 fL (80.0-100.0); MEAN PLATELET VOLUME 8.7 fL (7.4-11.0); MONOCYTES # (AUTO) 0.1 x10^3/uL (0.3-0.8); MONOCYTES % (AUTO) 2.3 % (0.0-13.0); NEUTROPHILS # (AUTO) 4.3 x10^3/uL (2.2-4.8); NEUTROPHILS % (AUTO) 88.8 % (42.0-75.0); PLATELET COUNT 164 X10^3/uL (150.0-450.0); RED BLOOD COUNT 3.84 X10^6/uL (3.5-5.4); RED CELL DISTRIBUTION WIDTH 16.6 % (11.6-16.5); WHITE BLOOD COUNT 4.9 X10^3/uL (3.6-10.0)
[2019-05-14 05:44] LABS: ALANINE AMINOTRANSFERASE 17 Units/L (12-78); ALBUMIN 3.6 g/dL (3.4-5.0); ALKALINE PHOSPHATASE 50 Units/L (46-116); ASPARTATE AMINO TRANSFERASE 20 Units/L (15-37); BLOOD UREA NITROGEN 18 mg/dL (7-18); CALCIUM 8.8 mg/dL (8.5-10.1); CARBON DIOXIDE 26.3 mmol/L (21-32); CHLORIDE 100 mmol/L (98-107); COR NA(FOR HYPERGLY) 140 mmol/L (136-145); SODIUM 138 mmol/L (136-145); TOTAL PROTEIN 7.3 g/dL (6.4-8.2); eGFR NON BLACK RACES 33 (>60)
[2019-05-14] MEDS ORDERED: POTASSIUM CHL 40 MEQ/NS 0.45% 500 ML IV PRN (05:59)
[2019-05-14] MEDS ORDERED: MAGNESIUM SULFATE 1 GRAM/100 mL PREMIX 1 GM/100 ML BAG IV PRN (05:59)
[2019-05-14] MEDS ORDERED: POTASSIUM CHL 60 MEQ/NS 0.45% 500 ML IV PRN (05:59)
[2019-05-14] MEDS ORDERED: KLOR-CON PO PRN (05:59)
[2019-05-14] MEDS ORDERED: K-DUR TAB 20 MEQ PO PRN (05:59)
[2019-05-14] MEDS ORDERED: MICRO K EXTEN CAP 10 MEQ PO PRN (05:59)
[2019-05-14] MEDS ORDERED: K-RIDER 10 MEQ/NS 100 ML 10 MEQ/100 ML BAG IV PRN (05:59)
[2019-05-14] MEDS ORDERED: POTASSIUM CHLORIDE LIQ 20 MEQ UDC PO PRN (05:59)
[2019-05-14] MEDS: NS 1000 ML 1,000 ML IV SCH ×3 (07:40→21:59)
[2019-05-14] MEDS ORDERED: LEVAQUIN PREMIX IV 250 MG 250 MG/50 ML BAG IV SCH (09:00)
[2019-05-14] MEDS: PULMICORT NEB TX 0.5 MG NEB SCH ×2 (09:08→20:55)
[2019-05-14] MEDS: ELIQUIS PO SCH ×2 (09:20→21:18)
[2019-05-14] MEDS: PROTONIX INJ 40 MG VIAL IVP SCH (09:20)
[2019-05-14] MEDS: LOPRESSOR TAB 25 MG PO SCH ×2 (09:21→21:19)
[2019-05-14] MEDS: ROCEPHIN VIAL 1 GRAM 1 G in NS 100 ML IV + SPIKE MINIBAG* 100 ML IV SCH (09:55)
[2019-05-14 12:49] LABS: CALCIUM 8.6 mg/dL (8.5-10.1); CARBON DIOXIDE 24.9 mmol/L (21-32); CREATININE 1.8 mg/dL (0.55-1.02)
[2019-05-14] MEDS ORDERED: PREVNAR 13 IM ONE (17:36)
[2019-05-15] MEDS: XOPENEX 1.25 MG/3 ML NEBULE NEB SCH ×2 (00:55→05:50)
[2019-05-15] MEDS: NS 1000 ML 1,000 ML IV SCH (02:53)
[2019-05-15 05:16] LABS: BASOPHILS % (AUTO) 0.2 % (0.2-1.0); HEMATOCRIT 32.6 % (36.0-47.0); HEMOGLOBIN 10.8 g/dL (12.0-16.0); LYMPHOCYTES # (AUTO) 0.8 X10^3/uL (1.3-2.9); LYMPHOCYTES % (AUTO) 4.7 % (21.0-51.0); MEAN CORPUSCULAR HGB CONC 33.2 g/dL (33.0-35.0); MEAN CORPUSCULAR VOLUME 99.4 fL (80.0-100.0); MEAN PLATELET VOLUME 9.1 fL (7.4-11.0); MONOCYTES # (AUTO) 0.9 x10^3/uL (0.3-0.8); MONOCYTES % (AUTO) 4.8 % (0.0-13.0); NEUTROPHILS # (AUTO) 16.1 x10^3/uL (2.2-4.8); NEUTROPHILS % (AUTO) 90.3 % (42.0-75.0); PLATELET COUNT 170 X10^3/uL (150.0-450.0); RED BLOOD COUNT 3.28 X10^6/uL (3.5-5.4); RED CELL DISTRIBUTION WIDTH 17.1 % (11.6-16.5)
[2019-05-15 05:30] LABS: ALBUMIN 2.9 g/dL (3.4-5.0); CALCIUM 8.1 mg/dL (8.5-10.1); CARBON DIOXIDE 23.8 mmol/L (21-32); CREATININE 1.58 mg/dL (0.55-1.02); TOTAL PROTEIN 5.8 g/dL (6.4-8.2)
[2019-05-15 05:53] LABS: WHITE BLOOD COUNT 17.8 X10^3/uL (3.6-10.0)
[2019-05-15 05:54] LABS: PLATELET MORPHOLOGY COMMENT NORMAL (NORMAL)
[2019-05-15] MEDS: SOLU-Medrol 40 MG VIAL IVP SCH (07:14)
[2019-05-15] MEDS: PROTONIX INJ 40 MG VIAL IVP SCH (08:34)
[2019-05-15] MEDS: ELIQUIS PO SCH (08:34)
[2019-05-15] MEDS: ROCEPHIN VIAL 1 GRAM 1 G in NS 100 ML IV + SPIKE MINIBAG* 100 ML IV SCH (08:34)
[2019-05-15] MEDS: LOPRESSOR TAB 25 MG PO SCH (08:35)
[2019-05-15] MEDS: PULMICORT NEB TX 0.5 MG NEB SCH (09:12)
[2019-05-15 09:52] VITALS: BP 125/57
== END 2019-05-15 11:05 | disposition home or self-care (01) ==
LOC: MED/SURG
PROVIDERS: ADMIT Internal Medicine; ATTEND Internal Medicine
CPT/HCPCS: 36415; 71020; 71046; 80048; 80053; 81001; 83735; 85025; 85610; 87040; 87502; 90674; 90686; 93005; 94640; 94760; 96360; 96361; 96372; 96374; A4222; C9113; 90670; G0378; J0696; J1956; J2920; J7030; J7050; J7626

== ENCOUNTER 2019-05-22 12:13 | Observation (INO) ==
--- NOTE | 2019-05-22 13:09 | RAD ---
HISTORY: Acute bronchitis, shortness of breath, suspected pneumonia, cough. Study: Two-view chest Comparison: 05/13/2019. Findings: Trachea is midline. Heart size is normal. There is atherosclerotic calcification and slight uncoiling of the aortic arch. There is senile hyperinflation of the lungs without infiltrate, CHF or pleural fluid. There is a gentle thoracolumbar scoliosis. IMPRESSION: No acute cardiopulmonary disease. Reported By:
[2019-05-22 13:20] LABS: BASOPHILS # (AUTO) 0.1 X10^3/uL (0.0-0.1); BASOPHILS % (AUTO) 0.5 % (0.2-1.0); EOSINOPHILS # (AUTO) 0.1 x10^3/uL (0.0-0.2); EOSINOPHILS % (AUTO) 0.6 % (0.9-2.9); HEMATOCRIT 35.8 % (36.0-47.0); LYMPHOCYTES # (AUTO) 0.4 X10^3/uL (1.3-2.9); LYMPHOCYTES % (AUTO) 3.3 % (21.0-51.0); MEAN CORPUSCULAR HEMOGLOBIN 32.4 pg (27.0-34.0); MEAN CORPUSCULAR HGB CONC 33.6 g/dL (33.0-35.0); MEAN CORPUSCULAR VOLUME 96.5 fL (80.0-100.0); MEAN PLATELET VOLUME 7.9 fL (7.4-11.0); MONOCYTES # (AUTO) 1.5 x10^3/uL (0.3-0.8); MONOCYTES % (AUTO) 13.1 % (0.0-13.0); NEUTROPHILS # (AUTO) 9.6 x10^3/uL (2.2-4.8); NEUTROPHILS % (AUTO) 82.5 % (42.0-75.0); PLATELET COUNT 202 X10^3/uL (150.0-450.0); RED BLOOD COUNT 3.71 X10^6/uL (3.5-5.4); RED CELL DISTRIBUTION WIDTH 16.1 % (11.6-16.5); WHITE BLOOD COUNT 11.6 X10^3/uL (3.6-10.0)
[2019-05-22] MEDS: NS 1000 ML 1,000 ML IV SCH ×3 (13:22→13:56)
[2019-05-22 13:28] LABS: ALANINE AMINOTRANSFERASE 15 Units/L (12-78); ALBUMIN 3.2 g/dL (3.4-5.0); ALKALINE PHOSPHATASE 53 Units/L (46-116); ASPARTATE AMINO TRANSFERASE 18 Units/L (15-37); BLOOD UREA NITROGEN 23 mg/dL (7-18); CALCIUM 9.3 mg/dL (8.5-10.1); CARBON DIOXIDE 24.8 mmol/L (21-32); CHLORIDE 97 mmol/L (98-107); COR CA(FOR HYPOALB) 9.9 mg/dL (8.5-10.1); CREATININE 1.82 mg/dL (0.55-1.02); SODIUM 133 mmol/L (136-145); TOTAL PROTEIN 7.9 g/dL (6.4-8.2); eGFR NON BLACK RACES 28 (>60)
[2019-05-22 14:16] LABS: MYCOPLASMA PNEUMONIAE IGM AB NEGATIVE (NEGATIVE)
[2019-05-22] MEDS: DUONEB 0.5 MG/3 MG NEB SCH ×2 (16:40→20:12)
[2019-05-22] MEDS ORDERED: ZOFRAN INJ 4 MG VIAL IVP PRN (18:26)
--- NOTE | 2019-05-22 18:31 | DR.H&P ---
H&P - History & Physical for Day of: H&P Date: 05/22/19 - Chief Complaint Chief Complaint: WEAKNESS, COUGH, FEVER - History of Present Illness History of Present Illness: 79 WF DIRECT ADMIT FROM DR ROSE OFFICE AFTER SHE PRESENTED FOR FOLLOW UP ON BRONCHITIS. PT STATES SHE HAD BEEN ON COUCH FOR THE PAST WEEK, FELT VERY TIRED, AND NAUSEA. PT CONTINUED TO CO COUGH AND CHEST CONGESTION. PT HAS BEEN ON PO ANTIBIOTICS SINCE HOSPITAL D/C WHEN SHE WAS TREATED FOR AB. PT TEMP IN OFFICE 101.6. PT WAS GIVEN 2 TYLENOL ES, WITH REPEAT TEMP 102.8, WITH HYPERTENSION. PT HAS HX OF LUPUS, HTN, A FIB, RENAL CA WITH PARTIAL NEPHRECTOMY. PT ADMITTED FOR TREATMENT OF FAILED OUTPT RESPIRATORY ILLNESS. - Past Medical History Past Medical History: Anxiety, Arthritis, Hypertension, Renal Disease Additional Medical History: LUPUS, HX RENAL MASS, AFIB - Past Surgical History Surgical History: Hysterectomy, Ortho Surgery Additional Surgical History: LEFT RENAL MASS AND 1/4 LEFT KIDNEY REMOVED PER [place] FEB 29, 2016 - Family History Family Medical History: [place], Heart Failure, Hypertension - Social History Does patient currently use any type of tobacco product: No Have you used tobacco products in the last 12 months: No Type of Tobacco Use: None Does any household member use tobacco: No Alcohol Use: None Drug Use: None - Medications Home Medications: dextromethorphan [From NyQuil] Allergy (Verified 06/21/17 10:39) doxylamine [From NyQuil] Allergy (Verified 06/21/17 10:39) pseudoephedrine [From NyQuil] Allergy (Verified 06/21/17 10:39) CONTINUE taking the following medications hydrochlorothiazide 25 mg PO DAILY 05/22/19 [History] - Review of Systems Constitutional: Fever, Weakness, Malaise Eyes: No Symptoms Reported ENT: No Symptoms Reported Respiratory: Cough, Shortness of Breath, SOB with Excertion, Wheezing Cardiovascular: No Symptoms Reported, Light Headedness Gastrointestinal: No Symptoms Reported, Nausea Genitourinary: No Symptoms Reported Musculoskeletal: Back Pain Skin: No Symptoms Reported Neurological: Weakness - Physical Exam Vital Signs: Temperature 99 F Pulse Rate [Left Brachial] 76 Pulse Rate 70 Respiratory Rate 18 Blood Pressure [Left Arm] 174/68 Blood Pressure 130/63 O2 Sat by Pulse Oximetry 96 Oriented: Normal Eyes: Normal Ear: Normal Nose: Normal Throat: Normal Respiratory: RML Diminished, RLL Diminished, LML Diminished, LLL Diminished Cardiovascular: Normal : Normal Auscultation: Bowel Sounds: Normal Palpation: Normal Tenderness: Epigastric, Mild Skin: Decreased Turgur Musculoskeletal: Back:Thoracic, Back:Lumbar Psychiatric: Depression Mood Description: Depressed Affect: Depressed Speech Pattern: Clear, Appropriate - Assessment/Plan (1) Acute bronchitis Status: Acute Plan: ADMIT, BC, UC SPUTUM CULTURE ON ADMISSION. ADMISSION LABS, CXR ON ADMISSION. FLU SWAB, RESP CONSULT. IV HYDRATION, IV ATBX, PRN SUPPLEMENTAL O2. NAUSEA CONTROL, FEVER CONTROL, VERIFY HOME MEDICATIONS (2) Fever Status: Acute (3) Anxiety Status: Chronic (4) Dehydration Status: Acute (5) GERD (gastroesophageal reflux disease) Status: Chronic (6) Hypertension Status: Chronic (7) Lupus Status: Chronic - Allergies Allergies/Adverse Reactions: Allergies Allergy/AdvReac Type Severity Reaction Status Date / Time dextromethorphan Allergy Verified 06/21/17 10:39 [From NyQuil] doxylamine [From NyQuil] Allergy Verified 06/21/17 10:39 pseudoephedrine [From NyQuil] Allergy Verified 06/21/17 10:39
[2019-05-22] MEDS: PROTONIX INJ 40 MG VIAL IVP SCH (18:37)
[2019-05-22] MEDS: ROCEPHIN VIAL 1 GRAM 1 G in NS 100 ML IV + SPIKE MINIBAG* 100 ML IV SCH (18:38)
[2019-05-22] MEDS: PULMICORT NEB TX 0.5 MG NEB SCH (20:12)
[2019-05-22] MEDS: ZOCOR TAB 20 MG PO SCH (20:27)
[2019-05-22] MEDS: AMBIEN PO SCH (20:27)
[2019-05-22] MEDS: PriLOSEC PO SCH (20:27)
[2019-05-22] MEDS: ZANAFLEX PO SCH (20:27)
[2019-05-22] MEDS: LOPRESSOR TAB 25 MG PO SCH (20:27)
[2019-05-22] MEDS: ROBITUSSIN (PLAIN) PO SCH (20:27)
[2019-05-22] MEDS: FOLIC ACID TAB 1 MG PO SCH (20:27)
[2019-05-22] MEDS: NORVASC TAB 5 MG PO SCH (20:27)
[2019-05-22] MEDS ORDERED: TYLENOL 325 MG TAB PO PRN (20:53)
--- NOTE | 2019-05-22 21:14 | RAD ---
HISTORY: 79-year-old female with fever and abdominal distention. History kidney cancer. Prior hysterectomy and left nephrectomy Study: Single view the abdomen. Comparison: CT abdomen and pelvis 03/23/2016 Findings: Evaluation of the abdomen demonstrates a nonobstructive bowel gas pattern gas and stool throughout colon. No radiographic evidence free intraperitoneal air. No pathological soft tissue mass or calcification can be observed. The bony structures are grossly intact. IMPRESSION: 1. No evidence for acute abdominal pathology identified. Reported By:
[2019-05-22] MEDS ORDERED: TYLENOL 325 MG TAB PO ONE (21:33)
[2019-05-22 23:43] LABS: BILIRUBIN,URINE NEGATIVE (NEGATIVE); BLOOD/HEMOGLOBIN,URINE 2+ (NEGATIVE); GLUCOSE, URINE NEGATIVE (NEGATIVE); KETONES,URINE NEGATIVE (NEGATIVE); LEUKOCYTE ESTERASE ,URINE 1+ (NEGATIVE); NITRITES,URINE NEGATIVE (NEGATIVE); PROTEIN,URINE 3+ (NEGATIVE); UROBILINOGEN,URINE NORMAL (NORMAL)
[2019-05-22 23:51] LABS: APPEARANCE,URINE CLEAR (CLEAR); BACTERIA,URINE NEGATIVE /HPF (NEGATIVE); COLOR,URINE YELLOW (YELLOW); SQUAMOUS EPITHELIAL CELL,UR MODERATE /HPF (NEGATIVE)
[2019-05-23] MEDS: NS 1000 ML 1,000 ML IV SCH ×3 (02:32→18:14)
[2019-05-23 05:15] LABS: BASOPHILS % (AUTO) 0.3 % (0.2-1.0); EOSINOPHILS # (AUTO) 0.1 x10^3/uL (0.0-0.2); EOSINOPHILS % (AUTO) 0.9 % (0.9-2.9); HEMATOCRIT 27.8 % (36.0-47.0); LYMPHOCYTES # (AUTO) 0.5 X10^3/uL (1.3-2.9); LYMPHOCYTES % (AUTO) 8.5 % (21.0-51.0); MEAN CORPUSCULAR HEMOGLOBIN 33.1 pg (27.0-34.0); MEAN CORPUSCULAR HGB CONC 33.9 g/dL (33.0-35.0); MEAN CORPUSCULAR VOLUME 97.6 fL (80.0-100.0); MEAN PLATELET VOLUME 7.8 fL (7.4-11.0); MONOCYTES # (AUTO) 1.1 x10^3/uL (0.3-0.8); MONOCYTES % (AUTO) 17.8 % (0.0-13.0); NEUTROPHILS # (AUTO) 4.4 x10^3/uL (2.2-4.8); NEUTROPHILS % (AUTO) 72.5 % (42.0-75.0); PLATELET COUNT 142 X10^3/uL (150.0-450.0); RED BLOOD COUNT 2.85 X10^6/uL (3.5-5.4)
[2019-05-23 05:16] LABS: HEMOGLOBIN 9.4 g/dL (12.0-16.0)
[2019-05-23 05:28] LABS: ALBUMIN 2.2 g/dL (3.4-5.0); CARBON DIOXIDE 29.8 mmol/L (21-32); COR CA(FOR HYPOALB) 9.4 mg/dL (8.5-10.1); CREATININE 1.64 mg/dL (0.55-1.02); TOTAL PROTEIN 5.8 g/dL (6.4-8.2)
[2019-05-23] MEDS ORDERED: MICRO K EXTEN CAP 10 MEQ PO PRN (05:34)
[2019-05-23] MEDS ORDERED: K-DUR TAB 20 MEQ PO PRN (05:34)
[2019-05-23] MEDS ORDERED: POTASSIUM CHL 60 MEQ/NS 0.45% 500 ML IV PRN (05:34)
[2019-05-23] MEDS ORDERED: KLOR-CON PO PRN (05:34)
[2019-05-23] MEDS ORDERED: K-RIDER 10 MEQ/NS 100 ML 10 MEQ/100 ML BAG IV PRN (05:34)
[2019-05-23] MEDS ORDERED: POTASSIUM CHL 40 MEQ/NS 0.45% 500 ML IV PRN (05:34)
[2019-05-23] MEDS ORDERED: POTASSIUM CHLORIDE LIQ 20 MEQ UDC PO PRN (05:34)
[2019-05-23 05:35] LABS: PLATELET MORPHOLOGY COMMENT NORMAL (NORMAL)
[2019-05-23] MEDS ORDERED: ZESTRIL TAB 20 MG ONE (08:52)
[2019-05-23] MEDS: ROBITUSSIN (PLAIN) PO SCH ×4 (09:39→20:33)
[2019-05-23] MEDS: PriLOSEC PO SCH ×2 (09:39→20:34)
[2019-05-23] MEDS: FOLIC ACID TAB 1 MG PO SCH ×2 (09:39→20:33)
[2019-05-23] MEDS: ZESTRIL TAB 20 MG PO SCH (09:40)
[2019-05-23] MEDS: NORVASC TAB 5 MG PO SCH (09:40)
[2019-05-23] MEDS: ROCEPHIN VIAL 1 GRAM 1 G in NS 100 ML IV + SPIKE MINIBAG* 100 ML IV SCH (09:40)
[2019-05-23] MEDS: LOPRESSOR TAB 25 MG PO SCH ×2 (09:40→20:34)
[2019-05-23] MEDS: CORDARONE TAB 200 MG PO SCH (09:40)
[2019-05-23] MEDS: ZANAFLEX PO SCH ×2 (09:41→20:33)
[2019-05-23] MEDS: PROTONIX INJ 40 MG VIAL IVP SCH (09:41)
[2019-05-23] MEDS: PULMICORT NEB TX 0.5 MG NEB SCH ×2 (09:46→21:25)
[2019-05-23] MEDS: DUONEB 0.5 MG/3 MG NEB SCH ×4 (09:46→21:24)
[2019-05-23] MEDS: SOLU-Medrol 40 MG VIAL IVP SCH ×3 (11:23→21:24)
--- NOTE | 2019-05-23 12:51 | CT ---
HISTORY: Fever, dizziness Study: CT brain without contrast Comparison: June 08, 2014 Technique: Multiple axial images of the brain were obtained from the skull base to the vertex without administration of IV contrast. AEC was utilized. Findings: No acute intraparenchymal hemorrhage or mass can be identified. No extra-axial fluid collections are seen. No alteration in the attenuation of the brain parenchyma can be identified to suggest acute or subacute ischemic change. The ventricular system is symmetric and nondilated. There is mild age-appropriate global cerebral volume loss. The extracranial structures are grossly unremarkable. IMPRESSION: No acute intracranial process can be identified. Reported By:
--- NOTE | 2019-05-23 12:54 | CT ---
HISTORY: Fever, dizziness Study: CT paranasal sinuses without contrast Comparison: None Technique: Multiple axial images of the paranasal sinuses were obtained from the mandible to superior portions of the orbits. AEC was utilized. Findings: There is mild chronic bilateral ethmoid and left maxillary sinus mucosal thickening with a small amount of inflammatory debris noted in the left sphenoid sinus as well. The right sphenoid sinus is hypoplastic. The sphenoid ethmoidal and frontal recesses are patent. The ostiomeatal units are intact. There is nasal septal deviation to the left. The mastoids are clear. No destructive osseous lesion is identified. There is cervical spondylosis. Vascular calcifications are noted. IMPRESSION: Mild chronic paranasal sinus mucosal disease. Reported By:
--- NOTE | 2019-05-23 13:06 | CT ---
HISTORY: Dizziness, fever, dyspnea Study: CT chest without contrast Comparison: January 26, 2016 and June 10, 2014 Technique: Multiple axial images of the chest were obtained from the thoracic inlet to the upper abdomen without the administration of IV contrast. AEC was utilized. Findings: There is a calcified nodule in the right lobe of the thyroid with substernal extension of the left lobe for which repeat ultrasound is recommended. There is no pericardial effusion observed. The thoracic aorta is normal in its contour without evidence for aneurysmal dilatation. Scattered coronary and aortic atherosclerosis are noted. Evaluation of the lung parenchyma demonstrates linear pleuro parenchymal scarring and smooth benign-appearing pleural thickening in the lung bases with mild cylindrical postinflammatory traction bronchiectasis in the right lower lobe. Cervical calcified pulmonary granulomas are noted. There is no pathologic hilar or mediastinal lymphadenopathy. There is no effusion or pneumothorax. No destructive osseous lesions are seen. There is left renal atrophy with probable postsurgical and/or post radiation change along the lower pole. IMPRESSION: Chronic changes as above without acute finding. Incidental thyroid nodularity for which repeat ultrasound is recommended on a routine outpatient nonemergent basis. Reported By:
[2019-05-23] MEDS: AMBIEN PO SCH (20:34)
[2019-05-23] MEDS: ZOCOR TAB 20 MG PO SCH (20:34)
[2019-05-24] MEDS: SOLU-Medrol 40 MG VIAL IVP SCH ×2 (05:23→14:17)
[2019-05-24 05:24] LABS: BASOPHILS % (AUTO) 0.2 % (0.2-1.0); EOSINOPHILS % (AUTO) 0.1 % (0.9-2.9); HEMATOCRIT 29.1 % (36.0-47.0); LYMPHOCYTES # (AUTO) 0.4 X10^3/uL (1.3-2.9); LYMPHOCYTES % (AUTO) 6.9 % (21.0-51.0); MEAN CORPUSCULAR HEMOGLOBIN 33.7 pg (27.0-34.0); MEAN CORPUSCULAR HGB CONC 34.3 g/dL (33.0-35.0); MEAN CORPUSCULAR VOLUME 98.1 fL (80.0-100.0); MEAN PLATELET VOLUME 8.4 fL (7.4-11.0); MONOCYTES # (AUTO) 0.4 x10^3/uL (0.3-0.8); MONOCYTES % (AUTO) 6.2 % (0.0-13.0); NEUTROPHILS # (AUTO) 5.3 x10^3/uL (2.2-4.8); NEUTROPHILS % (AUTO) 86.6 % (42.0-75.0); PLATELET COUNT 163 X10^3/uL (150.0-450.0); RED BLOOD COUNT 2.97 X10^6/uL (3.5-5.4); RED CELL DISTRIBUTION WIDTH 16.5 % (11.6-16.5); WHITE BLOOD COUNT 6.1 X10^3/uL (3.6-10.0)
[2019-05-24 05:41] LABS: ALBUMIN 2.5 g/dL (3.4-5.0); CALCIUM 7.9 mg/dL (8.5-10.1); CARBON DIOXIDE 24.3 mmol/L (21-32); COR CA(FOR HYPOALB) 9.1 mg/dL (8.5-10.1); CREATININE 1.23 mg/dL (0.55-1.02); TOTAL PROTEIN 6.4 g/dL (6.4-8.2)
[2019-05-24] MEDS ORDERED: ZESTRIL TAB 20 MG ONE (08:13)
[2019-05-24] MEDS: ROCEPHIN VIAL 1 GRAM 1 G in NS 100 ML IV + SPIKE MINIBAG* 100 ML IV SCH (08:19)
[2019-05-24] MEDS: ZESTRIL TAB 20 MG PO SCH (08:20)
[2019-05-24] MEDS: LOPRESSOR TAB 25 MG PO SCH (08:20)
[2019-05-24] MEDS: PriLOSEC PO SCH (08:21)
[2019-05-24] MEDS: CORDARONE TAB 200 MG PO SCH (08:21)
[2019-05-24] MEDS: ROBITUSSIN (PLAIN) PO SCH ×2 (08:21→13:41)
[2019-05-24] MEDS: ZANAFLEX PO SCH (08:21)
[2019-05-24] MEDS: FOLIC ACID TAB 1 MG PO SCH (08:21)
[2019-05-24] MEDS: NORVASC TAB 5 MG PO SCH (08:21)
[2019-05-24] MEDS: PROTONIX INJ 40 MG VIAL IVP SCH (08:22)
[2019-05-24] MEDS ORDERED: CLARITIN PO SCH (09:00)
[2019-05-24] MEDS ORDERED: FLONASE NASAL SPRAY ENOSTRIL SCH (09:00)
[2019-05-24] MEDS: PULMICORT NEB TX 0.5 MG NEB SCH (09:04)
[2019-05-24] MEDS: DUONEB 0.5 MG/3 MG NEB SCH ×2 (09:04→12:16)
[2019-05-24] MEDS: NS 1000 ML 1,000 ML IV SCH (12:15)
[2019-05-24 12:21] VITALS: BP 143/69
--- NOTE | 2019-05-24 13:55 | US ---
HISTORY: Thyroid nodule Study: Ultrasound of the thyroid Comparison: 01/26/2016. Technique: Grayscale and color Doppler ultrasound of the thyroid gland is provided. Findings: Neither lobe is enlarged. There is some thick appearance of the left thyroid gland. Right lobe measures 1.22 x 1.8 x 4 cm. Small nodules are present throughout the right lobe. There is a small dominant nodule seen in the upper pole of the right thyroid lobe. This measures up to 0.98 cm in maximum dimension. The nodule is nearly isoechoic, solid, wider than tall and contains a few punctate calcifications. The nodule represents a TI-RADS TR 4-moderately suspicious nodule. Since the nodule is less than 1.5 cm in diameter, biopsy will not be recommended at this time. Follow-up ultrasound examination in 12 months is suggested. Color Doppler flow is normal. Isthmus measures 5.2 mm in thickness. No evidence of isthmic nodule is seen. Left lobe measures 2.56 x 3.45 x 3 cm. The echoes are heterogeneous in the left thyroid lobe but no discrete nodule is seen. Color Doppler flow is normal. No evidence of jugular adenopathy is seen. IMPRESSION: TI-RADS TR 4-moderately suspicious nodule in the upper pole of the right thyroid gland. Since this is only 0.98 cm in maximum dimension, biopsy will not be recommended at this time. Twelve month ultrasound follow-up is suggested. Reported By:
== END 2019-05-24 15:30 | disposition home or self-care (01) ==
LOC: MED/SURG
PROVIDERS: ADMIT Internal Medicine; ATTEND Internal Medicine
DX: R26.89 Other abnormalities of gait and mobility; Z85.528 Personal history of other malignant neoplasm of kidney; R50.9 Fever, unspecified; N28.9 Disorder of kidney and ureter, unspecified; I48.91 Unspecified atrial fibrillation; F41.8 Other specified anxiety disorders; E86.0 Dehydration; R42 Dizziness and giddiness; R06.02 Shortness of breath; M32.9 Systemic lupus erythematosus, unspecified; J20.9 Acute bronchitis, unspecified; Z90.5 Acquired absence of kidney; I10 Essential (primary) hypertension; R53.1 Weakness; K21.9 Gastro-esophageal reflux disease without esophagitis; J01.91 Acute recurrent sinusitis, unspecified
CPT/HCPCS: 36415; 70450; 70486; 71020; 71046; 71250; 74000; 74018; 76536; 80053; 81001; 83735; 85025; 86738; 87040; 87070; 87086; 87205; 87502; 94640; 94760; 96360; 96361; 96374; 97110; 97162; A4222; C9113; G0378; J0696; J2920; J3490; J7030; J7050; J7620; J7626

== ENCOUNTER 2019-10-14 13:23 | Inpatient (IN) ==
[2019-10-14] MEDS: NS 1000 ML 1,000 ML IV SCH (16:01)
[2019-10-14] MEDS: ROCEPHIN VIAL 1 GRAM 1 G in NS 100 ML IV + SPIKE MINIBAG* 100 ML IV SCH (16:05)
[2019-10-14 16:32] LABS: BASOPHILS % (AUTO) 0.2 % (0.2-1.0); EOSINOPHILS # (AUTO) 0.2 x10^3/uL (0.0-0.2); EOSINOPHILS % (AUTO) 3.7 % (0.9-2.9); HEMATOCRIT 34.5 % (36.0-47.0); HEMOGLOBIN 11.4 g/dL (12.0-16.0); LYMPHOCYTES # (AUTO) 0.5 X10^3/uL (1.3-2.9); MEAN CORPUSCULAR HEMOGLOBIN 31.2 pg (27.0-34.0); MEAN CORPUSCULAR VOLUME 94.8 fL (80.0-100.0); MEAN PLATELET VOLUME 7.2 fL (7.4-11.0); MONOCYTES # (AUTO) 0.8 x10^3/uL (0.3-0.8); MONOCYTES % (AUTO) 13.1 % (0.0-13.0); NEUTROPHILS # (AUTO) 4.8 x10^3/uL (2.2-4.8); PLATELET COUNT 260 X10^3/uL (150.0-450.0); RED BLOOD COUNT 3.64 X10^6/uL (3.5-5.4); RED CELL DISTRIBUTION WIDTH 15.6 % (11.6-16.5); WHITE BLOOD COUNT 6.4 X10^3/uL (3.6-10.0)
--- NOTE | 2019-10-14 16:33 | RAD ---
HISTORY:Shortness of breathStudy: Single view chestComparison:NoneFindings:No infiltrate, effusion, or pneumothorax identified .Cardiac and mediastinal contours are within normal limits .The soft tissues are intact .IMPRESSION:1. No acute cardiopulmonary abnormality.Electronically signed by: ZAC MERCADO (Oct 14, 2019 16:31:04)
[2019-10-14 16:46] LABS: ALANINE AMINOTRANSFERASE 21 Units/L (12-78); ALBUMIN 2.9 g/dL (3.4-5.0); ALKALINE PHOSPHATASE 67 Units/L (46-116); ASPARTATE AMINO TRANSFERASE 19 Units/L (15-37); BLOOD UREA NITROGEN 27 mg/dL (7-18); CALCIUM 9.1 mg/dL (8.5-10.1); CARBON DIOXIDE 30.8 mmol/L (21-32); CHLORIDE 97 mmol/L (98-107); CREATININE 1.65 mg/dL (0.55-1.02); MAGNESIUM 2.5 mg/dL (1.7-2.9); SODIUM 134 mmol/L (136-145); TOTAL PROTEIN 6.7 g/dL (6.4-8.2); eGFR NON BLACK RACES 32 (>60)
--- NOTE | 2019-10-14 17:38 | DR.H&P ---
H&P - History & Physical for Day of: H&P Date: 10/14/19 - Chief Complaint Chief Complaint: weakness, dehydration, intractable lower back and right hip pain - History of Present Illness History of Present Illness: PT IS 79 WF DIRECT ADMIT WITH ACUTE RENAL FAILURE, DEHYDRATION AND WEAKNESS. PT HAD FALL ONE WEEK AGO WITH ER VISIT AT THAT TIME. PT HAD NEGATIVE XRAY OF RIGHT HIP. PT'S FAMILY REPORTS SHE HAD BEEN "BED BOUND" SINCE FALL. CANNOT EAT OR DRINK MUCH, HAD N/V AFTER ATTEMPTS TO EAT. PT CANNOT BEAR WEIGHT ON RIGHT HIP, CO INTRACTABLE LOWER BACK PAIN. PT HAD HX OF LEFT RENAL CA, HTN, OA, ANEMIA, AFIB, LUPUS. PT ADMITTED FOR TREATMENT OF ACUTE ILLNESS. - Past Medical History Past Medical History: Hypertension, Renal Disease, Anxiety, Arthritis Additional Medical History: LUPUS, HX RENAL MASS, AFIB - Past Surgical History Surgical History: Hysterectomy, Ortho Surgery Additional Surgical History: LEFT RENAL MASS AND 1/4 LEFT KIDNEY REMOVED PER [place] FEB 29, 2016 - Family History Family Medical History: MD, Heart Failure, Hypertension - Social History Does patient currently use any type of tobacco product: No Have you used tobacco products in the last 12 months: No Type of Tobacco Use: None Does any household member use tobacco: No Alcohol Use: None Drug Use: None Risks, benefits, and alternatives of opioids discussed: No - Medications Home Medications: dextromethorphan [From NyQuil] Allergy (Verified 06/21/17 10:39) doxylamine [From NyQuil] Allergy (Verified 06/21/17 10:39) pseudoephedrine [From NyQuil] Allergy (Verified 06/21/17 10:39) - Review of Systems Constitutional: Weakness Eyes: No Symptoms Reported ENT: No Symptoms Reported Respiratory: No Symptoms Reported Cardiovascular: Edema Gastrointestinal: Nausea, Vomiting Genitourinary: No Symptoms Reported Musculoskeletal: Back Pain, Leg Pain Skin: No Symptoms Reported Neurological: Weakness - Physical Exam Vital Signs: Temperature 98.7 F Pulse Rate [Left] 60 Respiratory Rate 20 Blood Pressure [Left Arm] 149/66 Blood Pressure [Right Arm] 139/69 Blood Pressure 148/66 O2 Sat by Pulse Oximetry 94 Oriented: Normal Eyes: Normal Ear: Normal Nose: Normal Throat: Normal Respiratory: RLL Diminished, LLL Diminished Cardiovascular: Normal, Edema : Normal Auscultation: Bowel Sounds: Normal Palpation: Normal Tenderness: Normal Skin: Decreased Turgur, Bruising Musculoskeletal: Normal, Right, Hip, Thigh, Back:Thoracic, Back:Lumbar, Tender Psychiatric: Anxiety Affect: Anxious Speech Pattern: Clear, Appropriate - Assessment/Plan (1) Acute renal failure Status: Acute Plan: ADMIT, GENTLE IV HYDRATION. ADMISSION LABS, CBC CMP AMYLASE LIPASE, UA AND UC. PAIN AND NAUSEA CONTROL, AM LABS. L SPINE AND RIGHT HIP CT. PT CONSULT. PT/INR, BP CONTROL (2) Fall Status: Acute (3) Nausea & vomiting Status: Acute (4) Dehydration Status: Acute (5) Hypertension Status: Chronic (6) Lupus Status: Chronic (7) GERD (gastroesophageal reflux disease) Status: Chronic - Allergies Allergies/Adverse Reactions: Allergies Allergy/AdvReac Type Severity Reaction Status Date / Time dextromethorphan Allergy Verified 06/21/17 10:39 [From NyQuil] doxylamine [From NyQuil] Allergy Verified 06/21/17 10:39 pseudoephedrine [From NyQuil] Allergy Verified 06/21/17 10:39
[2019-10-14 17:42] VITALS: BMI 23.3
[2019-10-14 17:43] LABS: AMYLASE 54 Units/L (25-115); LIPASE 159 Units/L (73-393)
[2019-10-14 17:53] LABS: APPEARANCE,URINE CLEAR (CLEAR); BACTERIA,URINE NEGATIVE /HPF (NEGATIVE); BILIRUBIN,URINE NEGATIVE (NEGATIVE); BLOOD/HEMOGLOBIN,URINE NEGATIVE (NEGATIVE); COLOR,URINE YELLOW (YELLOW); GLUCOSE, URINE NEGATIVE (NEGATIVE); KETONES,URINE NEGATIVE (NEGATIVE); LEUKOCYTE ESTERASE ,URINE 1+ (NEGATIVE); NITRITES,URINE NEGATIVE (NEGATIVE); PROTEIN,URINE NEGATIVE (NEGATIVE); RBC,URINE NONE SEEN /HPF (0-3); SQUAMOUS EPITHELIAL CELL,UR RARE /HPF (NEGATIVE); UROBILINOGEN,URINE NORMAL (NORMAL)
[2019-10-14] MEDS: AMBIEN PO SCH (20:59)
[2019-10-14] MEDS: LOPRESSOR TAB 25 MG PO SCH (20:59)
[2019-10-15] MEDS: NS 1000 ML 1,000 ML IV SCH ×2 (03:45→18:34)
[2019-10-15 05:03] LABS: BASOPHILS % (AUTO) 0.4 % (0.2-1.0); EOSINOPHILS # (AUTO) 0.5 x10^3/uL (0.0-0.2); EOSINOPHILS % (AUTO) 8.5 % (0.9-2.9); HEMOGLOBIN 11.8 g/dL (12.0-16.0); LYMPHOCYTES # (AUTO) 0.7 X10^3/uL (1.3-2.9); LYMPHOCYTES % (AUTO) 13.2 % (21.0-51.0); MEAN CORPUSCULAR HGB CONC 33.7 g/dL (33.0-35.0); MEAN CORPUSCULAR VOLUME 94.8 fL (80.0-100.0); MEAN PLATELET VOLUME 7.7 fL (7.4-11.0); MONOCYTES # (AUTO) 0.8 x10^3/uL (0.3-0.8); MONOCYTES % (AUTO) 13.7 % (0.0-13.0); NEUTROPHILS # (AUTO) 3.6 x10^3/uL (2.2-4.8); NEUTROPHILS % (AUTO) 64.2 % (42.0-75.0); PLATELET COUNT 268 X10^3/uL (150.0-450.0); WHITE BLOOD COUNT 5.7 X10^3/uL (3.6-10.0)
[2019-10-15 05:13] LABS: ALANINE AMINOTRANSFERASE 16 Units/L (12-78); ALBUMIN 2.7 g/dL (3.4-5.0); ALKALINE PHOSPHATASE 70 Units/L (46-116); ASPARTATE AMINO TRANSFERASE 20 Units/L (15-37); BLOOD UREA NITROGEN 22 mg/dL (7-18); CALCIUM 8.8 mg/dL (8.5-10.1); CARBON DIOXIDE 28.1 mmol/L (21-32); CHLORIDE 101 mmol/L (98-107); COR CA(FOR HYPOALB) 9.8 mg/dL (8.5-10.1); CREATININE 1.45 mg/dL (0.55-1.02); SODIUM 137 mmol/L (136-145); TOTAL PROTEIN 6.5 g/dL (6.4-8.2); eGFR NON BLACK RACES 37 (>60)
--- NOTE | 2019-10-15 07:50 | CT ---
HISTORYFall, right hip painSTUDYLOWER EXT W/O CONTechnique: Axial noncontrast images with coronal and sagittal reformats. Dose reduction procedures were used with mA/kv adjusted for body size.COMPARISONNonFINDINGSThe bones are osteopenic. Bilateral facet arthropathy is present at L4-5 and L5-S1. There is a fracture of the right sacral ala present. The fracture involves the right SI joint. The SI joints are otherwise normal. There is a fracture of the distal right superior pubic ramus which is visible only on the sagittal series. The the remainder of the pelvic bones appear intact. The hip joints are bilaterally intact. The proximal femurs are intact. No pelvic soft tissue abnormality of significance is identified. No periarticular soft tissue abnormality identified.IMPRESSIONIntra-articular fracture of the right sacral alaFracture of the distal right superior pubic ramus visible only on the sagittal images.Intact proximal femurs bilaterally.Electronically signed by: GIOVANI BILLINGS (Oct 15, 2019 07:49:34)
--- NOTE | 2019-10-15 08:08 | CT ---
HISTORYLow back pain secondary to fall, right hip painSTUDYCT of the lumbar spine without contrastCOMPARISONNo recent comparison studiesNoncontrast CT of the lumbar spine is performed in the axial plane and is subsequently reconstructed with multiplanar reformats.Radiation dose reduction was achieved through individualized adjustment of kVP and/or mA, through adaptive statistical iterative reconstruction, and/or through automated tube current modulation.FINDINGSThe intrinsic density of the liver is greater than that of the spleen. Postsurgical changes of the lower pole the left kidney are observed, consisting of parenchymal volume loss with adjacent perinephric calcification likely related to partial nephrectomy. There is aneurysmal dilatation of the abdominal aorta which measures up to 3.3 cm in maximum diameter.No perivertebral or retroperitoneal fluid collections are identified. The bladder is moderately distended at the time of the scan but maintains a thin wall. Diverticulosis of the colon is evidentGeneralized osteopenia is observed. The lumbar spine is anatomically aligned. There is an acute fracture associated with the right sacral ala with slight posterior depression and intra-articular extension of the fracture into the right SI joint is observed. The fracture consist of vertical to oblique anterior to posterior component as well as a lower transverse component with mild comminution which extends over a length of least 2 cm and is best appreciated at the level of S1. There is a separate contour irregularity associated with the S3-S4 level consistent with an old, healed fracture site.With regards to the lumbar spine. The vertebral body heights are adequately maintained. There is degenerative disc space narrowing with vacuum disc defect of severe etiology at L4-5 and moderate etiology at L5-S1. Multilevel spondylosis and facet hypertrophy are evident.There is congenital narrowing of the spinal canal exacerbated by bulging disc and posterior disc osteophyte complexes throughout the lumbar spine. This is most conspicuous at L4-5 where there is moderate diffuse circumferential disc bulge, and L5-S1, where there is a broad-based disc bulge. Within limitations of a noncontrast CT, no large protrusion or extrusion type disc herniations are identified.Spinal stenosis is severe at L4-5 and L5-S1. Neural foraminal compromise is also severe at L4-5 and L5-S1, with impingement of the exiting nerve roots. Neural foraminal compromise is moderate at L3-4 level.Coronal reconstruction demonstrates evidence of dextroscoliosis of the lumbar spine which is centered at L5 of mild severity.There is also a fracture associated with the far anterior right superior pubic ramus which is seen only on the last imaging slice.IMPRESSIONFindings are consistent with a right sacral ala fracture with intra-articular extension into the SI joint. Please see above for complete detailsFindings consistent with acute fracture of the anterior margin of the right superior pubic ramusCongenital narrowing of the spinal canal exacerbated by multilevel bulging discs and posterior disc osteophyte complexes, resulting in severe spinal stenosis at L4-5 and L5-S1.Mild dextroscoliosis of the lumbar spine which is centered at L4-5, associated with locally advanced disc space narrowing at L4-5 and L5-S1.Multilevel facet hypertrophy combined with bulging disc contributing to varying degrees of multilevel neural foraminal compromise from the levels of L3-4 through L5-S1. A detailed level by level analysis is provided above.Bilobed infrarenal abdominal aortic aneurysm measures up to 3.3 cm.Postsurgical changes of partial left nephrectomyIntrinsic hyperattenuation of the liver parenchyma may be associated with hemochromatosis or Satya's disease, related to multiple prior transfusions or associated with various medical therapies including amiodarone or gold therapy. Clinical correlation is recommended.Electronically signed by: VALENTINO MCNEAL (Oct 15, 2019 08:06:26)
[2019-10-15] MEDS: LOPRESSOR TAB 25 MG PO SCH ×2 (09:16→20:22)
[2019-10-15] MEDS: ROCEPHIN VIAL 1 GRAM 1 G in NS 100 ML IV + SPIKE MINIBAG* 100 ML IV SCH (09:16)
[2019-10-15] MEDS ORDERED: LOVENOX INJ 30 MG SYR SC SCH (11:00)
[2019-10-15] MEDS: ZESTRIL TAB 20 MG PO SCH (13:48)
[2019-10-15] MEDS ORDERED: ZESTRIL TAB 20 MG ONE (13:50)
[2019-10-15] MEDS: NORCO 7.5/325 MG TAB PO PRN (19:26)
[2019-10-15] MEDS: AMBIEN PO SCH (20:21)
[2019-10-16 05:10] LABS: BASOPHILS % (AUTO) 0.4 % (0.2-1.0); EOSINOPHILS # (AUTO) 0.3 x10^3/uL (0.0-0.2); EOSINOPHILS % (AUTO) 7.4 % (0.9-2.9); HEMATOCRIT 32.9 % (36.0-47.0); HEMOGLOBIN 11.1 g/dL (12.0-16.0); LYMPHOCYTES # (AUTO) 0.9 X10^3/uL (1.3-2.9); LYMPHOCYTES % (AUTO) 20.4 % (21.0-51.0); MEAN CORPUSCULAR HEMOGLOBIN 31.8 pg (27.0-34.0); MEAN CORPUSCULAR HGB CONC 33.8 g/dL (33.0-35.0); MEAN PLATELET VOLUME 7.6 fL (7.4-11.0); MONOCYTES # (AUTO) 0.7 x10^3/uL (0.3-0.8); MONOCYTES % (AUTO) 16.7 % (0.0-13.0); NEUTROPHILS # (AUTO) 2.5 x10^3/uL (2.2-4.8); NEUTROPHILS % (AUTO) 55.1 % (42.0-75.0); PLATELET COUNT 257 X10^3/uL (150.0-450.0); RED CELL DISTRIBUTION WIDTH 14.9 % (11.6-16.5); WHITE BLOOD COUNT 4.5 X10^3/uL (3.6-10.0)
[2019-10-16 05:21] LABS: ALANINE AMINOTRANSFERASE 15 Units/L (12-78); ALBUMIN 2.5 g/dL (3.4-5.0); ALKALINE PHOSPHATASE 63 Units/L (46-116); ASPARTATE AMINO TRANSFERASE 18 Units/L (15-37); BLOOD UREA NITROGEN 13 mg/dL (7-18); CALCIUM 8.6 mg/dL (8.5-10.1); CARBON DIOXIDE 27.5 mmol/L (21-32); CHLORIDE 105 mmol/L (98-107); COR CA(FOR HYPOALB) 9.8 mg/dL (8.5-10.1); CREATININE 1.19 mg/dL (0.55-1.02); SODIUM 140 mmol/L (136-145); TOTAL PROTEIN 6.1 g/dL (6.4-8.2); eGFR NON BLACK RACES 46 (>60)
[2019-10-16] MEDS ORDERED: MORPHINE SULFATE INJ 2 MG INJ IVP PRN (09:05)
[2019-10-16] MEDS: ROCEPHIN VIAL 1 GRAM 1 G in NS 100 ML IV + SPIKE MINIBAG* 100 ML IV SCH (09:40)
[2019-10-16] MEDS: LOPRESSOR TAB 25 MG PO SCH ×2 (09:40→21:01)
[2019-10-16] MEDS: PROTONIX INJ 40 MG VIAL IVP SCH ×2 (09:40→21:01)
[2019-10-16] MEDS: ZESTRIL TAB 20 MG PO SCH (09:40)
[2019-10-16] MEDS ORDERED: ZESTRIL TAB 20 MG ONE (09:42)
--- NOTE | 2019-10-16 10:26 | RAD ---
HISTORYHTN. AFIBSTUDYCHEST, 1 VIEWCOMPARISONApril 2019FINDINGSThe trachea is midline. The cardiac silhouette is at the upper limits of normal. The lungs are relatively clear without focal infiltrate or effusion. The great knob is partially calcified.IMPRESSIONNo acute cardiopulmonary disease.Electronically signed by: TEENA MICHELE (Oct 16, 2019 10:25:14)
[2019-10-16] MEDS: NS 1000 ML 1,000 ML IV SCH ×2 (12:50→21:02)
--- NOTE | 2019-10-16 16:00 | US ---
HISTORYRUQ PAINSTUDYUltrasound GALL BLADDERCOMPARISONCT 10/04/2019TECHNIQUEMultiple sung scale and color flow Doppler images of the right upper quadrant of the abdomen were obtained with image documentation.FINDINGSNo hepatic abnormality is seen. Hepatopetal portal venous flow is seen on Doppler ultrasound.Gallbladder appears normal. No biliary ductal dilation.Visualized portions of the pancreas appear normal.3 cm exophytic simple appearing cyst in the mid right kidney. No hydronephrosis in the right kidney. Right kidney measures 11.1 cm in length.Visualized portions of the IVC appear normal. There is a 3.9 cm aneurysm of the mid abdominal aorta. Atherosclerotic plaque is seen.IMPRESSIONBenign-appearing 3 cm right renal cyst.3.9 cm mid to distal abdominal aortic aneurysm.Electronically signed by: Aries Cantrell (Oct 16, 2019 15:58:52)
[2019-10-16] MEDS: ELIQUIS PO SCH (21:00)
[2019-10-16] MEDS: AMBIEN PO SCH (21:00)
[2019-10-17] MEDS: NS 1000 ML 1,000 ML IV SCH ×2 (03:00→17:00)
[2019-10-17 06:34] LABS: BASOPHILS % (AUTO) 0.2 % (0.2-1.0); EOSINOPHILS # (AUTO) 0.2 x10^3/uL (0.0-0.2); EOSINOPHILS % (AUTO) 3.5 % (0.9-2.9); HEMATOCRIT 34.2 % (36.0-47.0); HEMOGLOBIN 11.4 g/dL (12.0-16.0); LYMPHOCYTES # (AUTO) 0.7 X10^3/uL (1.3-2.9); LYMPHOCYTES % (AUTO) 12.3 % (21.0-51.0); MEAN CORPUSCULAR HEMOGLOBIN 31.3 pg (27.0-34.0); MEAN CORPUSCULAR HGB CONC 33.2 g/dL (33.0-35.0); MEAN CORPUSCULAR VOLUME 94.2 fL (80.0-100.0); MEAN PLATELET VOLUME 7.2 fL (7.4-11.0); MONOCYTES # (AUTO) 0.8 x10^3/uL (0.3-0.8); MONOCYTES % (AUTO) 13.6 % (0.0-13.0); NEUTROPHILS % (AUTO) 70.4 % (42.0-75.0); PLATELET COUNT 277 X10^3/uL (150.0-450.0); RED BLOOD COUNT 3.63 X10^6/uL (3.5-5.4); RED CELL DISTRIBUTION WIDTH 15.4 % (11.6-16.5); WHITE BLOOD COUNT 5.7 X10^3/uL (3.6-10.0)
[2019-10-17 06:50] LABS: ALBUMIN 2.6 g/dL (3.4-5.0); CARBON DIOXIDE 24.9 mmol/L (21-32); COR CA(FOR HYPOALB) 10.1 mg/dL (8.5-10.1); CREATININE 1.29 mg/dL (0.55-1.02); TOTAL PROTEIN 6.3 g/dL (6.4-8.2)
[2019-10-17] MEDS ORDERED: ZESTRIL TAB 20 MG ONE (08:48)
[2019-10-17] MEDS: ZESTRIL TAB 20 MG PO SCH (09:18)
[2019-10-17] MEDS: ELIQUIS PO SCH ×2 (09:18→21:18)
[2019-10-17] MEDS: ROCEPHIN VIAL 1 GRAM 1 G in NS 100 ML IV + SPIKE MINIBAG* 100 ML IV SCH (09:18)
[2019-10-17] MEDS: PROTONIX INJ 40 MG VIAL IVP SCH ×2 (09:19→21:17)
[2019-10-17] MEDS: LOPRESSOR TAB 25 MG PO SCH ×2 (09:20→21:19)
[2019-10-17] MEDS: PERIACTIN TAB 4 MG PO SCH (17:00)
[2019-10-17] MEDS: NORCO 7.5/325 MG TAB PO PRN (19:01)
[2019-10-17] MEDS: AMBIEN PO SCH (21:18)
[2019-10-17] MEDS: NEURONTIN CAP 300 MG PO PRN (21:20)
[2019-10-18] MEDS: NS 1000 ML 1,000 ML IV SCH ×2 (04:18→19:30)
[2019-10-18] MEDS: NORCO 7.5/325 MG TAB PO PRN ×2 (04:18→19:30)
[2019-10-18] MEDS: PERIACTIN TAB 4 MG PO SCH ×3 (05:35→18:03)
[2019-10-18 06:11] LABS: BASOPHILS % (AUTO) 0.3 % (0.2-1.0); EOSINOPHILS # (AUTO) 0.3 x10^3/uL (0.0-0.2); EOSINOPHILS % (AUTO) 5.1 % (0.9-2.9); HEMATOCRIT 32.2 % (36.0-47.0); HEMOGLOBIN 10.9 g/dL (12.0-16.0); LYMPHOCYTES # (AUTO) 0.8 X10^3/uL (1.3-2.9); LYMPHOCYTES % (AUTO) 13.6 % (21.0-51.0); MEAN CORPUSCULAR HEMOGLOBIN 31.5 pg (27.0-34.0); MEAN CORPUSCULAR HGB CONC 33.7 g/dL (33.0-35.0); MEAN CORPUSCULAR VOLUME 93.5 fL (80.0-100.0); MONOCYTES # (AUTO) 0.8 x10^3/uL (0.3-0.8); MONOCYTES % (AUTO) 14.3 % (0.0-13.0); NEUTROPHILS # (AUTO) 3.9 x10^3/uL (2.2-4.8); NEUTROPHILS % (AUTO) 66.7 % (42.0-75.0); PLATELET COUNT 294 X10^3/uL (150.0-450.0); RED BLOOD COUNT 3.45 X10^6/uL (3.5-5.4); RED CELL DISTRIBUTION WIDTH 15.4 % (11.6-16.5); WHITE BLOOD COUNT 5.8 X10^3/uL (3.6-10.0)
[2019-10-18 06:22] LABS: ALANINE AMINOTRANSFERASE 17 Units/L (12-78); ALBUMIN 2.6 g/dL (3.4-5.0); ALKALINE PHOSPHATASE 77 Units/L (46-116); ASPARTATE AMINO TRANSFERASE 21 Units/L (15-37); BLOOD UREA NITROGEN 7 mg/dL (7-18); CALCIUM 9.1 mg/dL (8.5-10.1); CARBON DIOXIDE 25.6 mmol/L (21-32); CHLORIDE 106 mmol/L (98-107); COR CA(FOR HYPOALB) 10.2 mg/dL (8.5-10.1); SODIUM 141 mmol/L (136-145); TOTAL PROTEIN 6.1 g/dL (6.4-8.2); eGFR NON BLACK RACES 51 (>60)
[2019-10-18] MEDS ORDERED: ZESTRIL TAB 20 MG ONE (08:50)
[2019-10-18] MEDS: ROCEPHIN VIAL 1 GRAM 1 G in NS 100 ML IV 100 ML IV SCH (09:05)
[2019-10-18] MEDS: ZESTRIL TAB 20 MG PO SCH (09:05)
[2019-10-18] MEDS: PROTONIX INJ 40 MG VIAL IVP SCH ×2 (09:05→20:20)
[2019-10-18] MEDS: ELIQUIS PO SCH ×2 (09:05→20:21)
[2019-10-18] MEDS: LOPRESSOR TAB 25 MG PO SCH ×2 (09:06→20:21)
[2019-10-18] MEDS: AMBIEN PO SCH (20:20)
[2019-10-18] MEDS: NEURONTIN CAP 300 MG PO PRN (20:21)
[2019-10-19] MEDS: NS 1000 ML 1,000 ML IV SCH ×2 (05:41→09:08)
[2019-10-19] MEDS: PERIACTIN TAB 4 MG PO SCH ×3 (05:41→16:40)
[2019-10-19 06:17] LABS: BASOPHILS % (AUTO) 0.3 % (0.2-1.0); EOSINOPHILS # (AUTO) 0.3 x10^3/uL (0.0-0.2); EOSINOPHILS % (AUTO) 5.8 % (0.9-2.9); HEMATOCRIT 31.7 % (36.0-47.0); HEMOGLOBIN 10.7 g/dL (12.0-16.0); LYMPHOCYTES # (AUTO) 1.2 X10^3/uL (1.3-2.9); LYMPHOCYTES % (AUTO) 22.7 % (21.0-51.0); MEAN CORPUSCULAR HEMOGLOBIN 31.7 pg (27.0-34.0); MEAN CORPUSCULAR HGB CONC 33.7 g/dL (33.0-35.0); MEAN CORPUSCULAR VOLUME 93.9 fL (80.0-100.0); MONOCYTES # (AUTO) 0.8 x10^3/uL (0.3-0.8); MONOCYTES % (AUTO) 16.1 % (0.0-13.0); NEUTROPHILS # (AUTO) 2.8 x10^3/uL (2.2-4.8); NEUTROPHILS % (AUTO) 55.1 % (42.0-75.0); PLATELET COUNT 266 X10^3/uL (150.0-450.0); RED BLOOD COUNT 3.37 X10^6/uL (3.5-5.4); RED CELL DISTRIBUTION WIDTH 15.5 % (11.6-16.5); WHITE BLOOD COUNT 5.1 X10^3/uL (3.6-10.0)
[2019-10-19 06:53] LABS: ALANINE AMINOTRANSFERASE 19 Units/L (12-78); ALBUMIN 2.4 g/dL (3.4-5.0); ALKALINE PHOSPHATASE 87 Units/L (46-116); ASPARTATE AMINO TRANSFERASE 20 Units/L (15-37); BLOOD UREA NITROGEN 14 mg/dL (7-18); CALCIUM 8.7 mg/dL (8.5-10.1); CARBON DIOXIDE 26.6 mmol/L (21-32); CHLORIDE 107 mmol/L (98-107); CREATININE 1.22 mg/dL (0.55-1.02); SODIUM 141 mmol/L (136-145); TOTAL PROTEIN 5.9 g/dL (6.4-8.2); eGFR NON BLACK RACES 45 (>60)
[2019-10-19] MEDS ORDERED: ZESTRIL TAB 20 MG ONE (08:53)
[2019-10-19] MEDS: ELIQUIS PO SCH ×2 (09:07→20:34)
[2019-10-19] MEDS: ZESTRIL TAB 20 MG PO SCH (09:08)
[2019-10-19] MEDS: PROTONIX INJ 40 MG VIAL IVP SCH ×2 (09:08→20:35)
[2019-10-19] MEDS: ROCEPHIN VIAL 1 GRAM 1 G in NS 100 ML IV 100 ML IV SCH (09:08)
[2019-10-19] MEDS: LOPRESSOR TAB 25 MG PO SCH ×2 (09:08→20:35)
[2019-10-19] MEDS: NORCO 7.5/325 MG TAB PO PRN (18:06)
[2019-10-19] MEDS: AMBIEN PO SCH (20:34)
[2019-10-20] MEDS: PERIACTIN TAB 4 MG PO SCH ×3 (06:32→15:43)
[2019-10-20 07:15] LABS: ALANINE AMINOTRANSFERASE 23 Units/L (12-78); ALBUMIN 3.3 g/dL (3.4-5.0); ALKALINE PHOSPHATASE 127 Units/L (46-116); ASPARTATE AMINO TRANSFERASE 23 Units/L (15-37); BLOOD UREA NITROGEN 14 mg/dL (7-18); CALCIUM 9.9 mg/dL (8.5-10.1); CARBON DIOXIDE 28.3 mmol/L (21-32); CHLORIDE 103 mmol/L (98-107); COR CA(FOR HYPOALB) 10.5 mg/dL (8.5-10.1); CREATININE 1.33 mg/dL (0.55-1.02); SODIUM 141 mmol/L (136-145); TOTAL PROTEIN 7.9 g/dL (6.4-8.2); eGFR NON BLACK RACES 41 (>60)
[2019-10-20 07:34] LABS: BASOPHILS % (AUTO) 0.2 % (0.2-1.0); EOSINOPHILS # (AUTO) 0.4 x10^3/uL (0.0-0.2); EOSINOPHILS % (AUTO) 6.5 % (0.9-2.9); HEMATOCRIT 39.2 % (36.0-47.0); HEMOGLOBIN 13.1 g/dL (12.0-16.0); LYMPHOCYTES # (AUTO) 1.1 X10^3/uL (1.3-2.9); MEAN CORPUSCULAR HEMOGLOBIN 31.5 pg (27.0-34.0); MEAN CORPUSCULAR HGB CONC 33.4 g/dL (33.0-35.0); MEAN CORPUSCULAR VOLUME 94.5 fL (80.0-100.0); MONOCYTES # (AUTO) 0.7 x10^3/uL (0.3-0.8); MONOCYTES % (AUTO) 10.6 % (0.0-13.0); NEUTROPHILS # (AUTO) 4.4 x10^3/uL (2.2-4.8); NEUTROPHILS % (AUTO) 66.7 % (42.0-75.0); PLATELET COUNT 351 X10^3/uL (150.0-450.0); RED BLOOD COUNT 4.15 X10^6/uL (3.5-5.4); RED CELL DISTRIBUTION WIDTH 15.9 % (11.6-16.5); WHITE BLOOD COUNT 6.6 X10^3/uL (3.6-10.0)
[2019-10-20] MEDS ORDERED: K-DUR TAB 20 MEQ PO PRN (08:25)
[2019-10-20] MEDS ORDERED: KLOR-CON PO PRN (08:25)
[2019-10-20] MEDS ORDERED: POTASSIUM CHL 60 MEQ/NS 0.45% 500 ML IV PRN (08:25)
[2019-10-20] MEDS ORDERED: K-RIDER 10 MEQ/NS 100 ML 10 MEQ/100 ML BAG IV PRN (08:25)
[2019-10-20] MEDS ORDERED: POTASSIUM CHLORIDE LIQ 20 MEQ UDC PO PRN (08:25)
[2019-10-20] MEDS ORDERED: MICRO K EXTEN CAP 10 MEQ PO PRN (08:25)
[2019-10-20] MEDS ORDERED: POTASSIUM CHL 40 MEQ/NS 0.45% 500 ML IV PRN (08:25)
[2019-10-20] MEDS ORDERED: ZESTRIL TAB 20 MG ONE (09:11)
[2019-10-20] MEDS: ZESTRIL TAB 20 MG PO SCH (09:15)
[2019-10-20] MEDS: ELIQUIS PO SCH ×2 (09:17→21:52)
[2019-10-20] MEDS: ROCEPHIN VIAL 1 GRAM 1 G in NS 100 ML IV 100 ML IV SCH (09:17)
[2019-10-20] MEDS: LOPRESSOR TAB 25 MG PO SCH ×2 (09:17→21:53)
[2019-10-20] MEDS: PROTONIX INJ 40 MG VIAL IVP SCH ×2 (09:17→21:53)
[2019-10-20] MEDS: NS 1000 ML 1,000 ML IV SCH ×2 (10:15→19:39)
[2019-10-20] MEDS: MAGNESIUM SULFATE 1 GRAM/100 mL PREMIX 1 GM/100 ML BAG IV PRN ×4 (10:16→13:26)
[2019-10-20] MEDS: AMBIEN PO SCH (21:52)
[2019-10-20] MEDS: NORCO 7.5/325 MG TAB PO PRN (21:53)
[2019-10-21] MEDS: NS 1000 ML 1,000 ML IV SCH (01:23)
[2019-10-21] MEDS: PERIACTIN TAB 4 MG PO SCH ×2 (05:56→14:49)
[2019-10-21 06:33] LABS: BASOPHILS % (AUTO) 0.3 % (0.2-1.0); EOSINOPHILS # (AUTO) 0.5 x10^3/uL (0.0-0.2); EOSINOPHILS % (AUTO) 10.2 % (0.9-2.9); HEMATOCRIT 33.6 % (36.0-47.0); HEMOGLOBIN 11.4 g/dL (12.0-16.0); LYMPHOCYTES % (AUTO) 21.1 % (21.0-51.0); MEAN CORPUSCULAR HEMOGLOBIN 31.5 pg (27.0-34.0); MEAN CORPUSCULAR HGB CONC 33.8 g/dL (33.0-35.0); MEAN CORPUSCULAR VOLUME 93.1 fL (80.0-100.0); MEAN PLATELET VOLUME 6.9 fL (7.4-11.0); MONOCYTES # (AUTO) 0.7 x10^3/uL (0.3-0.8); MONOCYTES % (AUTO) 14.5 % (0.0-13.0); NEUTROPHILS # (AUTO) 2.6 x10^3/uL (2.2-4.8); NEUTROPHILS % (AUTO) 53.9 % (42.0-75.0); PLATELET COUNT 269 X10^3/uL (150.0-450.0); RED CELL DISTRIBUTION WIDTH 16.2 % (11.6-16.5); WHITE BLOOD COUNT 4.8 X10^3/uL (3.6-10.0)
[2019-10-21 06:54] LABS: ALANINE AMINOTRANSFERASE 15 Units/L (12-78); ALBUMIN 2.6 g/dL (3.4-5.0); ALKALINE PHOSPHATASE 90 Units/L (46-116); ASPARTATE AMINO TRANSFERASE 18 Units/L (15-37); BLOOD UREA NITROGEN 13 mg/dL (7-18); CALCIUM 9.1 mg/dL (8.5-10.1); CARBON DIOXIDE 26.1 mmol/L (21-32); CHLORIDE 105 mmol/L (98-107); COR CA(FOR HYPOALB) 10.2 mg/dL (8.5-10.1); CREATININE 1.21 mg/dL (0.55-1.02); MAGNESIUM 2.1 mg/dL (1.7-2.9); SODIUM 140 mmol/L (136-145); TOTAL PROTEIN 6.2 g/dL (6.4-8.2); eGFR NON BLACK RACES 46 (>60)
[2019-10-21] MEDS ORDERED: ZESTRIL TAB 20 MG ONE (09:06)
[2019-10-21] MEDS: ROCEPHIN VIAL 1 GRAM 1 G in NS 100 ML IV 100 ML IV SCH (09:21)
[2019-10-21] MEDS: ELIQUIS PO SCH (09:21)
[2019-10-21] MEDS: PROTONIX INJ 40 MG VIAL IVP SCH (09:21)
[2019-10-21] MEDS: ZESTRIL TAB 20 MG PO SCH (09:21)
[2019-10-21] MEDS: LOPRESSOR TAB 25 MG PO SCH (09:28)
[2019-10-21 13:28] VITALS: BP 136/65
== END 2019-10-21 15:25 | disposition home health service (06) | DRG 683 ==
LOC: MED/SURG
PROVIDERS: ADMIT Internal Medicine; ATTEND Internal Medicine
DX: W18.39XA Other fall on same level, initial encounter; R53.1 Weakness; K21.9 Gastro-esophageal reflux disease without esophagitis; I48.91 Unspecified atrial fibrillation; N17.8 Other acute kidney failure; M25.551 Pain in right hip; Z79.01 Long term (current) use of anticoagulants; I10 Essential (primary) hypertension; Z85.528 Personal history of other malignant neoplasm of kidney; I71.4 Abdominal aortic aneurysm, without rupture; S32.511A Fracture of superior rim of right pubis, initial encounter for closed fracture; E86.0 Dehydration; N39.0 Urinary tract infection, site not specified; R94.31 Abnormal electrocardiogram [ECG] [EKG]; R26.89 Other abnormalities of gait and mobility; R11.2 Nausea with vomiting, unspecified; Z91.81 History of falling

== ENCOUNTER 2020-07-15 15:17 | Inpatient (IN) ==
[2020-07-15 15:38] VITALS: BMI 24.7
[2020-07-15] MEDS ORDERED: NS 1000 ML 1,000 ML ONE ×2 (15:55→17:51)
[2020-07-15] MEDS ORDERED: NS 1000 ML 1,000 ML IV ONE (16:09)
--- NOTE | 2020-07-15 16:43 | DR.DIZZY ---
HPI Time seen Time Seen by Provider: 07/15/20 16:05 PCP Primary Care Physician: HEMANT HPI Comment HPI Comment: An 80 y/o female presenting with a host of COVID-19 related symptoms to include: tiredness, fever, cough, body aches, SOB> She was diagnosed with COVID over 1 week ago. Others include nausea/vomiting. Her VIDEO NETWORK ENGINEER sent her to get outpt. labs., ABG and a CXR done at this facility today. Based on those tests reports, she was sent to the ED here. Complaint Chief Complaint:: PT C/O BEING DIAGNOSED WITH COVID APPROX 1 1/2 WEEKS AGO. PT STATES SHE HAS INCREASED WEAKNESS, NAUSEA VOMITING, DECREASED APETITE, BODY ACHES, AND COUGHING. PT STATES HER DAUGHTER SPOKE TO PCP AND WAS UPDATED ON SYMPTOMS. PT WAS SENT TO HOSPITAL FOR AN OUTPATIENT PCXR AND LABS. PT WAS SENT HERE D/T HAVING PNUEMONIA. COVID-19 Coronavirus risk:travel/contact w/high risk person: No Has patient experienced Coronavirus symptoms: Yes Coronavirus symptoms experienced: Coughing and Shortness of Breath Source History Provided: Patient Mode of Arrival Mode of Arrival: Ambulatory Timing Onset of Chief Complaint: 07/15/20 Came on: Gradually Location of Weakness Weakness Location: Generalized Context Stroke Symptoms: None Associated signs and symptoms Associated Signs and Symptoms: Weak PMH PMH Past Medical History: Yes Past Medical History: Anxiety, Arthritis, Hypertension and Renal Disease Past Surgical History: Yes Surgical History: Hysterectomy and Ortho Surgery Family History History of Family Medical Conditions: Yes Family Medical History: [place], Heart Failure and Hypertension Social History Does any household member use tobacco: No Alcohol Use: None Do you use any recreational Drugs:: No Lives With: Family Lives Where: Home Travel Risk Coronavirus risk:travel/contact w/high risk person: No Has patient experienced Coronavirus symptoms: Yes Coronavirus symptoms experienced: Coughing and Shortness of Breath Infectious screening In the last 2 months have you had wt loss of >10#?: NO Have you had fever, night sweats or hemotysis?: No Have you traveled outside the country in the last 6 months?: No Isolation: Droplet ROS Review of Systems Constitutional: Chills, Fever, Weakness and Loss of Appetite Eyes: No Symptoms Reported ENTM: No Symptoms Reported Respiratoy: Productive Cough and Short of Breath Cardiovascular: No Symptoms Reported Gastrointestinal/Abdominal: Nausea and Vomiting Genitourinary: No Symptoms Reported Neurological: No Symptoms Reported Musculoskeletal: No Symptoms Reported Integumentary: No Symptoms Reported Hematologic/Lymphatic: No Symptoms Reported Endocrine: No Symptoms Reported Psychiatric: No Symptoms Reported PE Vital Signs Vitals: Temperature 98.3 F Pulse Rate [Right Radial] 125 Pulse Rate 104 Respiratory Rate 20 Blood Pressure [Left Arm] 118/66 Blood Pressure [Right Arm] 136/65 Blood Pressure 95/56 O2 Sat by Pulse Oximetry 92 General Limitations: No Limitations General Appearance: Alert and In No Apparent Distress Head Head Exam: Normal Inspection, Atraumatic and Normocephalic Eyes Eye exam: Normal Appearance and EOMI ENT ENT Exam: Normal Exam, Normal Oropharynx, Normal External Ear Exam and Mucous Membranes Moist Neck Neck Exam: Normal Inspection, Full ROM and Trachea Midline Chest Chest Inspection: Normal Inspection and Symmetric Chest Wall Rise Respiratory Respiratory Exam: Normal Lung Sounds Bilat Cardiovascular Cardiovascular Exam: Regular Rate, Normal Rhythm, +S1 and +S2 Abdominal Exam Abdominal Exam: Normal Inspection, Normal Bowel Sounds and Soft Rectal Rectal Exam: Deferred Extremeties Extremities Exam: Normal Inspection and Full ROM Back Back Exam: Normal Inspection and Full ROM Neurologic Neurological Exam: Alert and Oriented X3 Psychiatric Psychiatric Exam: Normal Affect and Normal Mood Skin Skin Exam: Dry and Normal Color ROR Labs Reviewed Laboratory Results Reviewed?: Yes EKG Rate: 137 Success: Normal Rhythm: Afib Block: None Hypertrophy: None ST: Normal Opioid Opioid Risk Tool Age (Caleb box if 16-45): No History of Preadolescent Sexual Abuse: No Total: 0 Total Score Risk Category: Low Risk Copyright: Perry HAAS predicting aberrant behaviors Diagnosis Discharge Problem: Pneumonia due to COVID-19 virus, CKD (chronic kidney disease) stage 4, GFR 15- 29 ml/min Hypertension Qualifiers: Hypertension type: essential hypertension Qualified Code(s): I10 - Essential (primary) hypertension Afib Qualifiers: Atrial fibrillation type: persistent (not longstanding) Qualified Code(s): I48.19 - Other persistent atrial fibrillation
[2020-07-15] MEDS ORDERED: VIBRAMYCIN PO ONE (17:41)
[2020-07-15] MEDS ORDERED: REMDESIVIR 200 MG in NS 250 ML IV 250 ML IV ONE ×2 (18:24→19:06)
[2020-07-15] MEDS ORDERED: NS 1000 ML 1,000 ML IV SCH (19:00)
[2020-07-15] MEDS ORDERED: SOLU-Medrol 125 MG VIAL ONE (20:07)
[2020-07-15] MEDS ORDERED: LOPRESSOR TAB 50 MG ONE (20:07)
[2020-07-15] MEDS ORDERED: ZINC SULFATE ONE (20:07)
[2020-07-15] MEDS ORDERED: LOVENOX INJ 30 MG SYR SC ONE (20:07)
[2020-07-15] MEDS ORDERED: THIAMINE HCL INJ ONE (20:07)
[2020-07-15] MEDS ORDERED: PEPCID TAB 40 MG ONE (20:07)
[2020-07-15] MEDS ORDERED: NS 100 ML IV 100 ML IV ONE (20:08)
[2020-07-15] MEDS ORDERED: PEPCID TAB 40 MG PO SCH (21:00)
[2020-07-15] MEDS ORDERED: VIBRAMYCIN PO SCH (21:00)
[2020-07-15] MEDS ORDERED: LOVENOX INJ 30 MG SYR SC SCH (21:00)
[2020-07-15] MEDS: ASCORBIC ACID INJ MULTI-DOSE VIAL 1,500 MG in NS 100 ML IV 100 ML IV SCH (21:26)
[2020-07-15] MEDS: THIAMINE HCL INJ IVP SCH (21:27)
[2020-07-15] MEDS: SOLU-Medrol 40 MG VIAL IVP SCH (21:29)
[2020-07-15] MEDS: LOPRESSOR TAB 25 MG PO SCH (21:30)
[2020-07-15] MEDS: NS 1000 ML 1,000 ML IV SCH (21:30)
[2020-07-15] MEDS: ZINC SULFATE PO SCH (22:10)
[2020-07-16] MEDS ORDERED: ASCORBIC ACID INJ MULTI-DOSE VIAL IV ONE ×3 (00:37→19:28)
[2020-07-16] MEDS ORDERED: NS 100 ML IV 100 ML IV ONE ×2 (00:37→19:28)
[2020-07-16] MEDS: ASCORBIC ACID INJ MULTI-DOSE VIAL 1,500 MG in NS 100 ML IV 100 ML IV SCH ×4 (02:31→21:00)
[2020-07-16] MEDS ORDERED: SOLU-Medrol 40 MG VIAL ONE ×3 (04:32→19:28)
[2020-07-16] MEDS: SOLU-Medrol 40 MG VIAL IVP SCH ×3 (05:21→22:02)
--- NOTE | 2020-07-16 05:41 | RAD ---
PROCEDURE: Chest X-ray 1 View .HISTORY: COVID PNEUMONIA .TECHNIQUE: AP view .COMPARISON: 07/15/2020.TECHNICAL QUALITY: Satisfactory .FINDINGS:Unremarkable cardiomediastinal silhouette.Normal central vascularity.Some increased density to the right upper lobe pneumonia. Increased patchy consolidation lung bases. No pleural fluid or pneumothorax.IMPRESSION:Increasing pneumonia is described above.Electronically signed by: Jonathan Smith (Jul 16, 2020 05:39:26)
[2020-07-16] MEDS ORDERED: NS 1000 ML 1,000 ML ONE ×2 (06:22→20:05)
[2020-07-16] MEDS: NS 1000 ML 1,000 ML IV SCH ×3 (06:26→21:00)
[2020-07-16 06:41] LABS: BASOPHILS % (AUTO) 0.1 % (0.2-1.0); HEMATOCRIT 37.7 % (36.0-47.0); HEMOGLOBIN 12.4 g/dL (12.0-16.0); LYMPHOCYTES # (AUTO) 0.3 X10^3/uL (1.3-2.9); LYMPHOCYTES % (AUTO) 5.3 % (21.0-51.0); MEAN CORPUSCULAR HEMOGLOBIN 31.2 pg (27.0-34.0); MEAN CORPUSCULAR VOLUME 94.6 fL (80.0-100.0); MEAN PLATELET VOLUME 8.9 fL (7.4-11.0); MONOCYTES # (AUTO) 0.1 x10^3/uL (0.3-0.8); MONOCYTES % (AUTO) 2.5 % (0.0-13.0); NEUTROPHILS # (AUTO) 4.5 x10^3/uL (2.2-4.8); NEUTROPHILS % (AUTO) 92.1 % (42.0-75.0); PLATELET COUNT 117 X10^3/uL (150.0-450.0); RED BLOOD COUNT 3.98 X10^6/uL (3.5-5.4); RED CELL DISTRIBUTION WIDTH 16.5 % (11.6-16.5); WHITE BLOOD COUNT 4.9 X10^3/uL (3.6-10.0)
[2020-07-16 07:01] LABS: ALBUMIN 2.6 g/dL (3.4-5.0); CALCIUM 7.5 mg/dL (8.5-10.1); CARBON DIOXIDE 21.1 mmol/L (21-32); COR CA(FOR HYPOALB) 8.6 mg/dL (8.5-10.1); CREATININE 1.58 mg/dL (0.55-1.02); TOTAL PROTEIN 6.3 g/dL (6.4-8.2)
[2020-07-16 08:21] LABS: BAND NEUTROPHILS % 4 % (0-10); PLATELET MORPHOLOGY COMMENT NORMAL (NORMAL)
[2020-07-16] MEDS ORDERED: IVERMECTIN PO ONE (08:38)
[2020-07-16] MEDS ORDERED: K-DUR TAB 20 MEQ PO SCH (09:00)
[2020-07-16] MEDS ORDERED: VITAMIN D (1.25MG) PO SCH (09:00)
[2020-07-16] MEDS ORDERED: LASIX IVP SCH (09:00)
[2020-07-16] MEDS ORDERED: LIPITOR TAB 80 MG PO SCH (09:00)
[2020-07-16] MEDS ORDERED: DECADRON TAB PO SCH (09:00)
[2020-07-16] MEDS ORDERED: VITAMIN A PO SCH (09:00)
[2020-07-16] MEDS ORDERED: THIAMINE HCL INJ ONE ×2 (09:21→19:28)
[2020-07-16] MEDS ORDERED: PEPCID TAB 20 MG ONE (09:21)
[2020-07-16] MEDS ORDERED: LOPRESSOR TAB 50 MG ONE ×2 (09:21→19:28)
[2020-07-16] MEDS ORDERED: TRICOR TAB 160 MG ONE (09:22)
[2020-07-16] MEDS ORDERED: K-DUR TAB 20 MEQ PO ONE (09:22)
[2020-07-16] MEDS ORDERED: LIPITOR TAB 80 MG ONE (09:22)
[2020-07-16] MEDS ORDERED: LASIX ONE (09:22)
[2020-07-16] MEDS ORDERED: PROTONIX INJ 40 MG VIAL ONE (09:22)
[2020-07-16] MEDS ORDERED: REMDESIVIR IV ONE (09:22)
[2020-07-16] MEDS ORDERED: ZITHROMAX INJ 500 MG VIAL IV ONE (09:23)
[2020-07-16] MEDS ORDERED: NS 250 ML IV 500 ML IV ONE (09:23)
[2020-07-16] MEDS: ELIQUIS PO SCH ×2 (09:26→22:04)
[2020-07-16] MEDS ORDERED: NS 50 ML IV 50 ML IV ONE ×2 (09:28→14:18)
[2020-07-16] MEDS ORDERED: NS 250 ML IV 250 ML IV ONE (09:28)
[2020-07-16] MEDS: LOPRESSOR TAB 25 MG PO SCH ×2 (09:30→21:00)
[2020-07-16] MEDS: PEPCID TAB 20 MG PO SCH (09:30)
[2020-07-16] MEDS: PROTONIX INJ 40 MG VIAL IVP SCH (09:31)
[2020-07-16] MEDS: REMDESIVIR 100 MG in NS 250 ML IV 250 ML IV SCH (09:32)
[2020-07-16] MEDS: THIAMINE HCL INJ IVP SCH ×2 (09:33→21:00)
[2020-07-16] MEDS: TRICOR TAB 160 MG PO SCH (09:34)
[2020-07-16] MEDS: ZITHROMAX INJ 500 MG VIAL 250 MG in NS 250 ML IV 250 ML IV SCH (09:38)
[2020-07-16] MEDS: PULMICORT NEB TX 0.5 MG NEB SCH ×2 (11:40→20:35)
[2020-07-16] MEDS: XOPENEX 1.25 MG/3 ML NEBULE NEB SCH ×4 (11:41→20:35)
[2020-07-16] MEDS: ZINC SULFATE PO SCH ×2 (11:45→22:05)
[2020-07-16] MEDS ORDERED: XANAX PO PRN (15:01)
[2020-07-16] MEDS ORDERED: ZINC SULFATE ONE (19:28)
[2020-07-16] MEDS: ZOCOR TAB 20 MG PO SCH (21:00)
[2020-07-16] MEDS: AMBIEN PO SCH (21:00)
[2020-07-17] MEDS ORDERED: ASCORBIC ACID INJ MULTI-DOSE VIAL IV ONE ×2 (01:55→14:03)
[2020-07-17] MEDS ORDERED: NS 100 ML IV 100 ML IV ONE ×2 (01:55→14:02)
[2020-07-17] MEDS: ASCORBIC ACID INJ MULTI-DOSE VIAL 1,500 MG in NS 100 ML IV 100 ML IV SCH ×4 (02:04→21:50)
[2020-07-17] MEDS ORDERED: SOLU-Medrol 40 MG VIAL ONE (04:28)
[2020-07-17 04:59] LABS: ABG BASE EXCESS -2.4 mmol/L (-2.0-2.0); ABG HCO3 21.4 mmol/L (22-26)
[2020-07-17 05:00] LABS: ABG ALLEN TEST POSS
[2020-07-17] MEDS ORDERED: NS 1000 ML 1,000 ML ONE (05:13)
--- NOTE | 2020-07-17 05:41 | RAD ---
PROCEDURE: Chest X-ray 1 View .HISTORY: Short of breath.TECHNIQUE: AP view .COMPARISON: 07/16/2020.TECHNICAL QUALITY: Satisfactory .FINDINGS:Unremarkable cardiomediastinal silhouette.Normal central vascularity.Mild improvement in the consolidation right upper lobe and unchanged at the right base. Questionable mild consolidation left base. No pleural fluid or pneumothorax.IMPRESSION:Improving consolidation right upper lobe and unchanged at the bases.Electronically signed by: Jonathan Smith (Jul 17, 2020 05:39:14)
[2020-07-17] MEDS: NS 1000 ML 1,000 ML IV SCH (06:23)
[2020-07-17] MEDS: SOLU-Medrol 40 MG VIAL IVP SCH ×3 (06:23→21:50)
[2020-07-17 06:53] LABS: BASOPHILS % (AUTO) 0.1 % (0.2-1.0); HEMOGLOBIN 10.6 g/dL (12.0-16.0); LYMPHOCYTES # (AUTO) 0.4 X10^3/uL (1.3-2.9); LYMPHOCYTES % (AUTO) 4.5 % (21.0-51.0); MEAN CORPUSCULAR HEMOGLOBIN 31.4 pg (27.0-34.0); MEAN CORPUSCULAR HGB CONC 33.1 g/dL (33.0-35.0); MEAN CORPUSCULAR VOLUME 94.8 fL (80.0-100.0); MEAN PLATELET VOLUME 8.9 fL (7.4-11.0); MONOCYTES # (AUTO) 0.6 x10^3/uL (0.3-0.8); MONOCYTES % (AUTO) 6.1 % (0.0-13.0); NEUTROPHILS # (AUTO) 8.4 x10^3/uL (2.2-4.8); NEUTROPHILS % (AUTO) 89.3 % (42.0-75.0); PLATELET COUNT 131 X10^3/uL (150.0-450.0); RED BLOOD COUNT 3.37 X10^6/uL (3.5-5.4); RED CELL DISTRIBUTION WIDTH 16.5 % (11.6-16.5); WHITE BLOOD COUNT 9.4 X10^3/uL (3.6-10.0)
[2020-07-17 07:00] LABS: ALBUMIN 2.5 g/dL (3.4-5.0); CALCIUM 7.3 mg/dL (8.5-10.1); CARBON DIOXIDE 22.4 mmol/L (21-32); COR CA(FOR HYPOALB) 8.5 mg/dL (8.5-10.1); CREATININE 1.55 mg/dL (0.55-1.02); MAGNESIUM 2.2 mg/dL (1.7-2.9); TOTAL PROTEIN 5.5 g/dL (6.4-8.2)
[2020-07-17] MEDS: PULMICORT NEB TX 0.5 MG NEB SCH ×2 (09:10→22:15)
[2020-07-17] MEDS: XOPENEX 1.25 MG/3 ML NEBULE NEB SCH ×4 (09:10→22:15)
[2020-07-17] MEDS: ELIQUIS PO SCH ×2 (09:11→21:50)
[2020-07-17] MEDS: LOPRESSOR TAB 25 MG PO SCH ×2 (09:11→21:50)
[2020-07-17] MEDS: PEPCID TAB 20 MG PO SCH (09:12)
[2020-07-17] MEDS: PROTONIX INJ 40 MG VIAL IVP SCH (09:13)
[2020-07-17] MEDS: REMDESIVIR 100 MG in NS 250 ML IV 250 ML IV SCH (09:16)
[2020-07-17] MEDS ORDERED: LASIX ONE (09:57)
[2020-07-17] MEDS ORDERED: ZOFRAN INJ 4 MG VIAL ONE (10:16)
[2020-07-17] MEDS: ZOFRAN INJ 4 MG VIAL IVP NR ×2 (10:18→10:19)
[2020-07-17] MEDS: ZITHROMAX INJ 500 MG VIAL 250 MG in NS 250 ML IV 250 ML IV SCH (10:19)
[2020-07-17] MEDS: TRICOR TAB 160 MG PO SCH (10:20)
[2020-07-17] MEDS: NS 1/2 + KCL 20 MEQ/L 1,000 ML IV SCH ×2 (10:20→21:50)
[2020-07-17] MEDS: THIAMINE HCL INJ IVP SCH ×2 (10:20→21:50)
[2020-07-17] MEDS: LASIX IVP SCH (10:21)
[2020-07-17] MEDS: ZINC SULFATE PO SCH (12:00)
[2020-07-17] MEDS ORDERED: ZINC SULFATE ONE (13:55)
--- NOTE | 2020-07-17 15:46 | DR.H&P ---
H&P - History & Physical for Day of: H&P Date: 07/15/20 - Chief Complaint Chief Complaint: COVID 19+ PNEUMONIA, SOB, WEAKNESS - History of Present Illness History of Present Illness: An 80 y/o female presenting with a host of COVID-19 related symptoms to include: tiredness, fever, cough, body aches, SOB> She was diagnosed with COVID over 1 week ago. Others include nausea/vomiting. 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 labs., ABG and a CXR done at this facility today. Based on those tests reports, she was sent to the ED here. - Past Medical History Past Medical History: Hypertension, Renal Disease, Anxiety, Arthritis Additional Medical History: LUPUS, HX RENAL MASS, AFIB - Past Surgical History Surgical History: Hysterectomy, Ortho Surgery Additional Surgical History: LEFT RENAL MASS AND 1/4 LEFT KIDNEY REMOVED PER [place] FEB 29, 2016 - Family History Family Medical History: [place], Heart Failure, Hypertension - Social History Does patient currently use any type of tobacco product: No Have you used tobacco products in the last 12 months: No Type of Tobacco Use: None Does any household member use tobacco: No Alcohol Use: None Drug Use: None - Medications Home Medications: dextromethorphan [From NyQuil] Allergy (Verified 06/21/17 10:39) doxylamine [From NyQuil] Allergy (Verified 06/21/17 10:39) pseudoephedrine [From NyQuil] Allergy (Verified 06/21/17 10:39) - Review of Systems Constitutional: Fever, Chills, Weakness Eyes: No Symptoms Reported ENT: No Symptoms Reported Respiratory: Cough, Shortness of Breath, SOB with Excertion, Wheezing Cardiovascular: Light Headedness Gastrointestinal: Nausea Genitourinary: No Symptoms Reported Musculoskeletal: No Symptoms Reported Skin: No Symptoms Reported Neurological: No Symptoms Reported - Physical Exam Vital Signs: Temperature 98.3 F Pulse Rate [Right Radial] 75 Pulse Rate 116 Respiratory Rate 18 Blood Pressure [Left Arm] 123/58 Blood Pressure [Right Arm] 136/65 Blood Pressure 120/72 O2 Sat by Pulse Oximetry 79 Oriented: Normal Eyes: Normal Ear: Normal Nose: Normal Throat: Dry Respiratory: Diminished Throughout Cardiovascular: Tachycardia : Normal Auscultation: Bowel Sounds: Normal Palpation: Normal Tenderness: Normal Skin: Decreased Turgur Musculoskeletal: Back:Lumbar Psychiatric: Anxiety Affect: Anxious Speech Pattern: Clear, Appropriate - Assessment/Plan (1) Pneumonia due to COVID-19 virus Status: Acute Plan: ADMIT, IV ATBX THERAPY. RESP THERAPY, CXR ABG ON ADMISSION AND REPEAT IN THE AM. IV REMDESIVIR, IV SOLU MEDROL. IV HYDRATION, AM LABS. VERIFY HOME MEDICATION, CONTINUE ELIQUIS (2) Nausea & vomiting Status: Acute (3) Acute renal failure Status: Acute (4) Dehydration Status: Acute (5) Afib Qualifiers: Atrial fibrillation type: persistent (not longstanding) Qualified Code(s): I48.19 - Other persistent atrial fibrillation Status: Chronic (6) Hypertension Qualifiers: Hypertension type: essential hypertension Qualified Code(s): I10 - Essential (primary) hypertension Status: Chronic (7) Lupus Status: Chronic (8) GERD (gastroesophageal reflux disease) Status: Chronic - Allergies Allergies/Adverse Reactions: Allergies Allergy/AdvReac Type Severity Reaction Status Date / Time dextromethorphan Allergy Verified 06/21/17 10:39 [From NyQuil] doxylamine [From NyQuil] Allergy Verified 06/21/17 10:39 pseudoephedrine [From NyQuil] Allergy Verified 06/21/17 10:39
[2020-07-17] MEDS ORDERED: XOPENEX 1.25 MG/3 ML NEBULE NEB ONE (16:45)
[2020-07-17] MEDS: AMBIEN PO SCH (21:50)
[2020-07-17] MEDS: ZOCOR TAB 20 MG PO SCH (21:50)
[2020-07-18] MEDS: ASCORBIC ACID INJ MULTI-DOSE VIAL 1,500 MG in NS 100 ML IV 100 ML IV SCH ×4 (02:45→21:20)
[2020-07-18] MEDS: SOLU-Medrol 40 MG VIAL IVP SCH ×2 (06:15→13:51)
--- NOTE | 2020-07-18 06:50 | RAD ---
HISTORY:Pneumonia, COVID-19Study: Single view chestComparison:YesterdayFindings:Upright view demonstrates stable rounded infiltrates in the right lung. The lower infiltrate has a cavitary appearance. CT recommended for further evaluation. No pneumothorax identified. Stable cardiomegaly with mild rightward tracheal deviation which could be due to vascular tortuosity.IMPRESSION:Right lung infiltrates with cavitary appearance of the lower lobe infiltrate. CT is recommended for better characterization.Electronically signed by: ZAC MERCADO (Jul 18, 2020 06:49:34)
[2020-07-18 07:03] LABS: BASOPHILS % (AUTO) 0.2 % (0.2-1.0); HEMATOCRIT 32.1 % (36.0-47.0); HEMOGLOBIN 10.2 g/dL (12.0-16.0); LYMPHOCYTES # (AUTO) 0.4 X10^3/uL (1.3-2.9); LYMPHOCYTES % (AUTO) 2.5 % (21.0-51.0); MEAN CORPUSCULAR HGB CONC 31.7 g/dL (33.0-35.0); MEAN CORPUSCULAR VOLUME 94.7 fL (80.0-100.0); MEAN PLATELET VOLUME 9.2 fL (7.4-11.0); MONOCYTES # (AUTO) 0.7 x10^3/uL (0.3-0.8); MONOCYTES % (AUTO) 4.7 % (0.0-13.0); NEUTROPHILS # (AUTO) 12.9 x10^3/uL (2.2-4.8); NEUTROPHILS % (AUTO) 92.6 % (42.0-75.0); PLATELET COUNT 149 X10^3/uL (150.0-450.0); RED BLOOD COUNT 3.39 X10^6/uL (3.5-5.4); RED CELL DISTRIBUTION WIDTH 16.4 % (11.6-16.5)
[2020-07-18 07:05] LABS: ABG ALLEN TEST POSS; ABG BASE EXCESS 2.8 mmol/L (-2.0-2.0); ABG HCO3 26.1 mmol/L (22-26)
[2020-07-18 07:06] LABS: ALBUMIN 2.5 g/dL (3.4-5.0); CALCIUM 7.3 mg/dL (8.5-10.1); CARBON DIOXIDE 22.8 mmol/L (21-32); COR CA(FOR HYPOALB) 8.5 mg/dL (8.5-10.1); CREATININE 1.43 mg/dL (0.55-1.02); MAGNESIUM 1.9 mg/dL (1.7-2.9); TOTAL PROTEIN 5.5 g/dL (6.4-8.2)
[2020-07-18 07:35] LABS: BAND NEUTROPHILS % 2 % (0-10)
[2020-07-18 07:36] LABS: PLATELET MORPHOLOGY COMMENT NORMAL (NORMAL)
[2020-07-18] MEDS: PULMICORT NEB TX 0.5 MG NEB SCH ×2 (09:12→21:20)
[2020-07-18] MEDS: XOPENEX 1.25 MG/3 ML NEBULE NEB SCH ×4 (09:12→21:20)
[2020-07-18] MEDS: LASIX IVP SCH (09:43)
[2020-07-18] MEDS: ELIQUIS PO SCH ×2 (09:43→21:21)
[2020-07-18] MEDS: LOPRESSOR TAB 25 MG PO SCH ×2 (09:43→21:21)
[2020-07-18] MEDS: PEPCID TAB 20 MG PO SCH (09:44)
[2020-07-18] MEDS: PROTONIX INJ 40 MG VIAL IVP SCH (09:44)
[2020-07-18] MEDS: REMDESIVIR 100 MG in NS 250 ML IV 250 ML IV SCH (09:44)
[2020-07-18] MEDS: THIAMINE HCL INJ IVP SCH ×2 (09:45→21:23)
[2020-07-18] MEDS: TRICOR TAB 160 MG PO SCH (09:45)
[2020-07-18] MEDS: ZITHROMAX INJ 500 MG VIAL 250 MG in NS 250 ML IV 250 ML IV SCH (09:46)
[2020-07-18] MEDS: K-DUR TAB 20 MEQ PO SCH (09:55)
[2020-07-18] MEDS: ZINC SULFATE PO SCH ×3 (10:01→23:26)
--- NOTE | 2020-07-18 11:37 | CT ---
HISTORY:COVID-19 pneumonia, possible cavitary lesionStudy: CT chest without contrastComparison:Same day radiograph, abdomen CT 10/04/2019Technique: Multiple axial images of the chest were obtained from the thoracic inlet to the upper abdomen without IV contrast. Dose reduction techniques including Automated Exposure Control (AEC) and adjustment of mA and kV were utilized.Findings:Please note evaluation is limited without IV contrast. There is moderate cardiomegaly. No aortic aneurysm. 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 There are scattered multifocal ground-glass infiltrates in both lungs, greater on the right and most confluent in the right upper lobe. No cavitary lesion is identified as questioned on radiography. No pleural effusion or pneumothorax. Airways are patentThe soft tissues and osseous structures appear intact. There is a partially visualized abdominal aortic aneurysm measuring up to 3.55 centimeters AP dimension. There are post treatment changes of the left kidney.IMPRESSION:1. Multifocal ground-glass infiltrates most prominent in the right upper lobe compatible with COVID-19 pneumonia. No cavitary mass identified.2. Moderate cardiomegaly.3. Stable partially visualized abdominal aortic aneurysm. 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
[2020-07-18] MEDS ORDERED: POTASSIUM CHL 40 MEQ/NS 0.45% 500 ML IV PRN (13:25)
[2020-07-18] MEDS ORDERED: POTASSIUM CHLORIDE LIQ 20 MEQ UDC PO PRN (13:25)
[2020-07-18] MEDS ORDERED: K-RIDER 10 MEQ/NS 100 ML 10 MEQ/100 ML BAG IV PRN (13:25)
[2020-07-18] MEDS ORDERED: POTASSIUM CHL 60 MEQ/NS 0.45% 500 ML IV PRN (13:25)
[2020-07-18] MEDS ORDERED: MICRO K EXTEN CAP 10 MEQ PO PRN (13:25)
[2020-07-18] MEDS ORDERED: KLOR-CON PO PRN (13:25)
[2020-07-18] MEDS: K-DUR TAB 20 MEQ PO PRN ×2 (13:50→16:23)
[2020-07-18] MEDS ORDERED: K-DUR TAB 20 MEQ PO PRN (14:49)
[2020-07-18] MEDS ORDERED: MAGNESIUM SULFATE 1 GRAM/100 mL PREMIX 1 GM/100 ML BAG IV PRN (14:49)
[2020-07-18] MEDS: ZOCOR TAB 20 MG PO SCH (21:21)
[2020-07-18] MEDS: AMBIEN PO SCH (21:21)
[2020-07-18] MEDS ORDERED: LOPRESSOR INJ 5 MG AMP IVP ONE (22:31)
[2020-07-18] MEDS ORDERED: LANOXIN INJ IVP ONE (22:56)
[2020-07-18] MEDS ORDERED: LANOXIN INJ IVP SCH (23:00)
[2020-07-19] MEDS: SOLU-Medrol 40 MG VIAL IVP SCH ×2 (00:15→05:26)
[2020-07-19] MEDS: NS 1/2 + KCL 20 MEQ/L 1,000 ML IV SCH ×3 (01:18→03:35)
[2020-07-19] MEDS ORDERED: LOPRESSOR INJ 5 MG AMP IVP ONE (01:54)
[2020-07-19] MEDS ORDERED: LOPRESSOR INJ 5 MG AMP IVP PRN (01:55)
[2020-07-19] MEDS: ASCORBIC ACID INJ MULTI-DOSE VIAL 1,500 MG in NS 100 ML IV 100 ML IV SCH (02:23)
[2020-07-19 04:08] LABS: ABG ALLEN TEST POSS; ABG HCO3 27.4 mmol/L (22-26)
[2020-07-19 05:03] LABS: BASOPHILS % (AUTO) 0.1 % (0.2-1.0); HEMATOCRIT 33.8 % (36.0-47.0); HEMOGLOBIN 11.3 g/dL (12.0-16.0); LYMPHOCYTES # (AUTO) 0.3 X10^3/uL (1.3-2.9); LYMPHOCYTES % (AUTO) 2.7 % (21.0-51.0); MEAN CORPUSCULAR HEMOGLOBIN 31.2 pg (27.0-34.0); MEAN CORPUSCULAR HGB CONC 33.4 g/dL (33.0-35.0); MEAN CORPUSCULAR VOLUME 93.6 fL (80.0-100.0); MEAN PLATELET VOLUME 9.2 fL (7.4-11.0); MONOCYTES # (AUTO) 0.8 x10^3/uL (0.3-0.8); MONOCYTES % (AUTO) 7.2 % (0.0-13.0); NEUTROPHILS # (AUTO) 9.4 x10^3/uL (2.2-4.8); PLATELET COUNT 161 X10^3/uL (150.0-450.0); RED BLOOD COUNT 3.61 X10^6/uL (3.5-5.4); RED CELL DISTRIBUTION WIDTH 16.8 % (11.6-16.5); WHITE BLOOD COUNT 10.5 X10^3/uL (3.6-10.0)
[2020-07-19 05:11] LABS: ALBUMIN 2.8 g/dL (3.4-5.0); CALCIUM 8.1 mg/dL (8.5-10.1); CARBON DIOXIDE 27.6 mmol/L (21-32); COR CA(FOR HYPOALB) 9.1 mg/dL (8.5-10.1); CREATININE 1.4 mg/dL (0.55-1.02); MAGNESIUM 2.1 mg/dL (1.7-2.9); TOTAL PROTEIN 5.8 g/dL (6.4-8.2)
--- NOTE | 2020-07-19 07:06 | RAD ---
HISTORY:COVID-19 pneumoniaStudy: Single view chestComparison:YesterdayFINDINGS/IMPRESSION:Lung volumes are reduced. Bilateral lung infiltrates appears similar with perhaps slightly improved aeration in the right upper lobe. Rounded opacity at the right lung base appears stable and was not shown to be cavitary on previous CT. No effusion or pneumothorax identified. Stable cardiomegaly.Electronically signed by: ZAC MERCADO (Jul 19, 2020 07:05:43)
[2020-07-19] MEDS: TRICOR TAB 160 MG PO SCH (08:45)
[2020-07-19] MEDS: ELIQUIS PO SCH (08:45)
[2020-07-19] MEDS: K-DUR TAB 20 MEQ PO SCH (08:45)
[2020-07-19] MEDS: LOPRESSOR TAB 25 MG PO SCH (08:45)
[2020-07-19] MEDS: PROTONIX INJ 40 MG VIAL IVP SCH (08:45)
[2020-07-19] MEDS: PEPCID TAB 20 MG PO SCH (08:45)
[2020-07-19] MEDS: XOPENEX 1.25 MG/3 ML NEBULE NEB SCH (08:54)
[2020-07-19] MEDS: PULMICORT NEB TX 0.5 MG NEB SCH (08:54)
[2020-07-19] MEDS ORDERED: CORDARONE TAB 200 MG PO SCH (10:00)
[2020-07-19] MEDS: ZINC SULFATE PO SCH (10:25)
[2020-07-19 12:49] VITALS: BP 116/83
== END 2020-07-19 14:15 | disposition home or self-care (01) | DRG 177 ==
LOC: ER 15:33 → OBS 18:24 → ER 18:33 → OBS 07-16 21:19 → MED/SURG 07-17 20:15
PROVIDERS: ADMIT Internal Medicine; ATTEND Internal Medicine
DX: R53.1 Weakness; U07.1 COVID-19; J12.82 Pneumonia due to coronavirus disease 2019; K21.9 Gastro-esophageal reflux disease without esophagitis; I12.9 Hypertensive chronic kidney disease with stage 1 through stage 4 chronic kidney disease, or unspecified chronic kidney disease; R79.82 Elevated C-reactive protein (CRP); R26.89 Other abnormalities of gait and mobility; E87.6 Hypokalemia; Z85.528 Personal history of other malignant neoplasm of kidney; N18.4 Chronic kidney disease, stage 4 (severe); R94.31 Abnormal electrocardiogram [ECG] [EKG]; I48.19 Other persistent atrial fibrillation; N17.8 Other acute kidney failure; R06.02 Shortness of breath; M32.9 Systemic lupus erythematosus, unspecified; Z79.01 Long term (current) use of anticoagulants; R79.89 Other specified abnormal findings of blood chemistry; Z20.822 Contact with and (suspected) exposure to COVID-19

== ENCOUNTER 2020-12-24 11:14 | Inpatient (IN) ==
[2020-12-24] MEDS ORDERED: ZOFRAN INJ 4 MG VIAL IVP PRN (12:44)
[2020-12-24] MEDS: NS 1000 ML 1,000 ML IV SCH (15:16)
[2020-12-24] MEDS: ROBITUSSIN (PLAIN) PO SCH ×3 (15:16→20:50)
[2020-12-24] MEDS: ROCEPHIN VIAL 1 GRAM 1 G in NS 100 ML IV + SPIKE MINIBAG* 100 ML IV SCH (15:16)
[2020-12-24] MEDS: PROTONIX INJ 40 MG VIAL IVP SCH ×2 (15:16→20:50)
[2020-12-24] MEDS: SOLU-Medrol 40 MG VIAL IVP SCH ×3 (15:17→21:03)
[2020-12-24 16:06] LABS: ABG BASE EXCESS 2.8 mmol/L (-2.0-2.0); ABG HCO3 26.1 mmol/L (22-26)
[2020-12-24 16:07] LABS: BASOPHILS % (AUTO) 0.3 % (0.2-1.0); EOSINOPHILS # (AUTO) 0.2 x10^3/uL (0.0-0.2); EOSINOPHILS % (AUTO) 2.5 % (0.9-2.9); HEMATOCRIT 34.8 % (36.0-47.0); HEMOGLOBIN 11.6 g/dL (12.0-16.0); LYMPHOCYTES % (AUTO) 14.6 % (21.0-51.0); MEAN CORPUSCULAR HEMOGLOBIN 30.3 pg (27.0-34.0); MEAN CORPUSCULAR HGB CONC 33.4 g/dL (33.0-35.0); MEAN CORPUSCULAR VOLUME 90.6 fL (80.0-100.0); MEAN PLATELET VOLUME 7.6 fL (7.4-11.0); MONOCYTES # (AUTO) 0.6 x10^3/uL (0.3-0.8); MONOCYTES % (AUTO) 9.1 % (0.0-13.0); NEUTROPHILS # (AUTO) 5.2 x10^3/uL (2.2-4.8); NEUTROPHILS % (AUTO) 73.5 % (42.0-75.0); PLATELET COUNT 214 X10^3/uL (150.0-450.0); RED BLOOD COUNT 3.84 X10^6/uL (3.5-5.4); RED CELL DISTRIBUTION WIDTH 16.2 % (11.6-16.5); WHITE BLOOD COUNT 7.1 X10^3/uL (3.6-10.0)
[2020-12-24 16:17] LABS: ALANINE AMINOTRANSFERASE 20 Units/L (12-78); ALBUMIN 2.8 g/dL (3.4-5.0); ALKALINE PHOSPHATASE 50 Units/L (46-116); ASPARTATE AMINO TRANSFERASE 16 Units/L (15-37); BLOOD UREA NITROGEN 22 mg/dL (7-18); CALCIUM 8.6 mg/dL (8.5-10.1); CARBON DIOXIDE 28.3 mmol/L (21-32); CHLORIDE 105 mmol/L (98-107); COR CA(FOR HYPOALB) 9.6 mg/dL (8.5-10.1); CREATININE 1.44 mg/dL (0.55-1.02); SODIUM 143 mmol/L (136-145); TOTAL PROTEIN 6.2 g/dL (6.4-8.2); eGFR NON BLACK RACES 37 (>60)
[2020-12-24 16:19] VITALS: BMI 23.7
[2020-12-24 16:21] LABS: LACTIC ACID 0.6 mmol/L (0.4-2.0)
[2020-12-24] MEDS: PULMICORT NEB TX 0.5 MG NEB SCH ×2 (16:21→20:01)
[2020-12-24] MEDS: XOPENEX 1.25 MG/3 ML NEBULE NEB SCH ×3 (16:21→20:01)
[2020-12-24 16:29] LABS: RSV AG DETECTION NEGATIVE (NEGATIVE)
--- NOTE | 2020-12-24 18:22 | DR.H&P ---
H&P - History & Physical for Day of: H&P Date: 12/24/20 - Chief Complaint Chief Complaint: fever, cough, chest congestion, weakness - History of Present Illness History of Present Illness: PT IS 80 WF DIRECT ADMIT FROM DR ELKINS OFFICE WITH CO CCC OVER 3 WEEKS WITH NEW ONSET FEVER THIS WEEK. PT TEMP IN OFFICE 102. PT HAD NEGATIVE FLU SWAB IN OFFICE. PT HAD ROCEPHIN 1GM IM X 3 DOSES AND COMPLETED 10DAYS OF AMOXIL AND ZITHROMAX PACK PRIOR TO ADMISSION. PT HAD COVID IN JUL 2020, PT DENIES THE COVID VACCINE. PT HAS PMH OF HTN, LUPUS, RENAL CA IN REMISSION, RENAL DISEASE, OA, MIKE, AFIB, BEND UP ANTICOAGULANT THERAPY. - Past Medical History Past Medical History: Hypertension, Renal Disease, Anxiety, Arthritis Additional Medical History: LUPUS, HX RENAL MASS, AFIB - Past Surgical History Surgical History: Hysterectomy, Ortho Surgery Additional Surgical History: LEFT RENAL MASS AND 1/4 LEFT KIDNEY REMOVED PER [place], [place] FEB 29, 2016 - Family History Family Medical History: [place], Heart Failure, Hypertension - Social History Does patient currently use any type of tobacco product: No Have you used tobacco products in the last 12 months: No Type of Tobacco Use: None Does any household member use tobacco: No Alcohol Use: None Drug Use: Prescription Drugs - Medications Home Medications: dextromethorphan [From NyQuil] Allergy (Verified 06/21/17 10:39) doxylamine [From NyQuil] Allergy (Verified 06/21/17 10:39) pseudoephedrine [From NyQuil] Allergy (Verified 06/21/17 10:39) CONTINUE taking the following medications amoxicillin 500 mg PO BID 12/24/20 [History] gabapentin 300 mg PO BID 12/24/20 [History] losartan 50 mg PO DAILY 12/24/20 [History] - Review of Systems Constitutional: Fever, Weakness, Malaise Eyes: No Symptoms Reported ENT: Throat Pain Respiratory: Cough, SOB with Excertion, Sputum, Wheezing Cardiovascular: No Symptoms Reported Gastrointestinal: Nausea Genitourinary: No Symptoms Reported Musculoskeletal: Back Pain Skin: No Symptoms Reported Neurological: Weakness - Physical Exam Vital Signs: Temperature 99.8 F Pulse Rate [Right] 75 Respiratory Rate 20 Blood Pressure [Right Arm] 136/65 Blood Pressure [Left Arm] 116/83 Blood Pressure 129/84 O2 Sat by Pulse Oximetry 92 Oriented: Normal Eyes: Normal Ear: Normal Nose: Normal Throat: Dry Respiratory: RLL Diminished, LLL Diminished Cardiovascular: Tachycardia, Irregular : Normal Auscultation: Bowel Sounds: Normal Palpation: Normal Tenderness: Normal Skin: Decreased Turgur Musculoskeletal: Back:Thoracic, Back:Lumbar Psychiatric: Anxiety Affect: Anxious Speech Pattern: Clear, Appropriate - Assessment/Plan (1) Bronchopneumonia Status: Acute Plan: ADMIT, PNEUMONIA PROTOCOL. RO COVID 19. ABG ON ADMISSION, CXR, IV HYDRATION. STRICT I&OS, IV ROCEPHIN, RESP THERAPY, EKG AND CARDIAC MONITORING. RSV SWAB, VERIFY AND CONTINUE HOME MEDICATION FOR AFIB. (2) Dehydration Status: Acute (3) Afib Qualifiers: Atrial fibrillation type: persistent (not longstanding) Qualified Code(s): I48.19 - Other persistent atrial fibrillation Status: Chronic (4) Hypertension Qualifiers: Hypertension type: essential hypertension Qualified Code(s): I10 - Essential (primary) hypertension Status: Chronic (5) Lupus Status: Chronic (6) GERD (gastroesophageal reflux disease) Status: Chronic - Allergies Allergies/Adverse Reactions: Allergies Allergy/AdvReac Type Severity Reaction Status Date / Time dextromethorphan Allergy Verified 06/21/17 10:39 [From NyQuil] doxylamine [From NyQuil] Allergy Verified 06/21/17 10:39 pseudoephedrine [From NyQuil] Allergy Verified 06/21/17 10:39
[2020-12-24] MEDS: LOPRESSOR TAB 25 MG PO SCH (20:50)
[2020-12-24] MEDS: AMBIEN PO SCH (20:50)
[2020-12-24] MEDS: NEURONTIN CAP 300 MG PO SCH (20:50)
[2020-12-24] MEDS: ELIQUIS PO SCH (20:50)
[2020-12-25] MEDS: NS 1000 ML 1,000 ML IV SCH ×3 (03:20→17:55)
[2020-12-25] MEDS: SOLU-Medrol 40 MG VIAL IVP SCH (05:16)
[2020-12-25 05:21] LABS: BASOPHILS % (AUTO) 0.4 % (0.2-1.0); HEMATOCRIT 34.2 % (36.0-47.0); HEMOGLOBIN 11.3 g/dL (12.0-16.0); LYMPHOCYTES # (AUTO) 0.5 X10^3/uL (1.3-2.9); LYMPHOCYTES % (AUTO) 8.9 % (21.0-51.0); MEAN CORPUSCULAR HEMOGLOBIN 29.8 pg (27.0-34.0); MEAN CORPUSCULAR HGB CONC 33.1 g/dL (33.0-35.0); MEAN CORPUSCULAR VOLUME 90.1 fL (80.0-100.0); MEAN PLATELET VOLUME 7.3 fL (7.4-11.0); MONOCYTES # (AUTO) 0.1 x10^3/uL (0.3-0.8); MONOCYTES % (AUTO) 1.9 % (0.0-13.0); NEUTROPHILS # (AUTO) 5.5 x10^3/uL (2.2-4.8); NEUTROPHILS % (AUTO) 88.8 % (42.0-75.0); PLATELET COUNT 210 X10^3/uL (150.0-450.0); RED BLOOD COUNT 3.79 X10^6/uL (3.5-5.4); RED CELL DISTRIBUTION WIDTH 16.3 % (11.6-16.5); WHITE BLOOD COUNT 6.2 X10^3/uL (3.6-10.0)
[2020-12-25 05:30] LABS: ALBUMIN 2.6 g/dL (3.4-5.0); CALCIUM 8.5 mg/dL (8.5-10.1); CARBON DIOXIDE 23.4 mmol/L (21-32); COR CA(FOR HYPOALB) 9.6 mg/dL (8.5-10.1); CREATININE 1.61 mg/dL (0.55-1.02); TOTAL PROTEIN 6.3 g/dL (6.4-8.2)
--- NOTE | 2020-12-25 06:17 | RAD ---
HISTORYShortness of breathSTUDYChest AP iztivaucIRRSIYTODM87/17/2021FINDINGSThe heart is within normal limits in size. The joshua are normal. The aorta is calcified. The lungs are free of acute infiltrates. No pleural effusions are identified. Bony thorax is unremarkable.IMPRESSIONLungs clearElectronically signed by: GIOVANI BILLINGS (Dec 25, 2020 06:15:04)
[2020-12-25 06:42] LABS: BILIRUBIN,URINE NEGATIVE (NEGATIVE); BLOOD/HEMOGLOBIN,URINE 1+ (NEGATIVE); GLUCOSE, URINE 4+ (NEGATIVE); KETONES,URINE NEGATIVE (NEGATIVE); LEUKOCYTE ESTERASE ,URINE NEGATIVE (NEGATIVE); NITRITES,URINE NEGATIVE (NEGATIVE); PROTEIN,URINE 2+ (NEGATIVE); UROBILINOGEN,URINE NORMAL (NORMAL)
[2020-12-25 07:01] LABS: APPEARANCE,URINE CLEAR (CLEAR); BACTERIA,URINE NEGATIVE /HPF (NEGATIVE); COLOR,URINE YELLOW (YELLOW); RBC,URINE 0-2 /HPF (0-3); SQUAMOUS EPITHELIAL CELL,UR FEW /HPF (NEGATIVE)
[2020-12-25] MEDS: PULMICORT NEB TX 0.5 MG NEB SCH ×2 (08:20→21:00)
[2020-12-25] MEDS: XOPENEX 1.25 MG/3 ML NEBULE NEB SCH ×5 (08:20→21:00)
[2020-12-25] MEDS ORDERED: ZESTRIL TAB 20 MG ONE (08:23)
[2020-12-25] MEDS: NEURONTIN CAP 300 MG PO SCH ×2 (08:53→20:53)
[2020-12-25] MEDS: LOPRESSOR TAB 25 MG PO SCH ×2 (08:53→20:53)
[2020-12-25] MEDS: ROCEPHIN VIAL 1 GRAM 1 G in NS 100 ML IV + SPIKE MINIBAG* 100 ML IV SCH (08:53)
[2020-12-25] MEDS: NORVASC TAB 5 MG PO SCH (08:53)
[2020-12-25] MEDS: PROTONIX INJ 40 MG VIAL IVP SCH ×2 (08:53→20:54)
[2020-12-25] MEDS: ROBITUSSIN (PLAIN) PO SCH ×4 (08:53→20:54)
[2020-12-25] MEDS: ELIQUIS PO SCH ×2 (08:53→20:53)
[2020-12-25] MEDS: MILK OF MAGNESIA PO PRN ×2 (08:54→20:54)
[2020-12-25] MEDS: ZESTRIL TAB 20 MG PO SCH (08:54)
[2020-12-25] MEDS: CORDARONE TAB 200 MG PO SCH (12:15)
[2020-12-25] MEDS ORDERED: TYLENOL 325 MG TAB PO PRN (15:44)
[2020-12-25] MEDS: AMBIEN PO SCH (20:54)
[2020-12-26 05:31] LABS: BASOPHILS % (AUTO) 0.1 % (0.2-1.0); HEMATOCRIT 32.6 % (36.0-47.0); HEMOGLOBIN 10.9 g/dL (12.0-16.0); LYMPHOCYTES # (AUTO) 0.9 X10^3/uL (1.3-2.9); LYMPHOCYTES % (AUTO) 4.5 % (21.0-51.0); MEAN CORPUSCULAR HEMOGLOBIN 30.2 pg (27.0-34.0); MEAN CORPUSCULAR HGB CONC 33.5 g/dL (33.0-35.0); MEAN CORPUSCULAR VOLUME 90.1 fL (80.0-100.0); MEAN PLATELET VOLUME 7.6 fL (7.4-11.0); MONOCYTES # (AUTO) 1.1 x10^3/uL (0.3-0.8); MONOCYTES % (AUTO) 5.7 % (0.0-13.0); NEUTROPHILS # (AUTO) 17.7 x10^3/uL (2.2-4.8); NEUTROPHILS % (AUTO) 89.7 % (42.0-75.0); PLATELET COUNT 260 X10^3/uL (150.0-450.0); RED BLOOD COUNT 3.61 X10^6/uL (3.5-5.4); RED CELL DISTRIBUTION WIDTH 16.5 % (11.6-16.5); WHITE BLOOD COUNT 19.7 X10^3/uL (3.6-10.0)
[2020-12-26 05:51] LABS: ALBUMIN 2.3 g/dL (3.4-5.0); CALCIUM 8.7 mg/dL (8.5-10.1); CARBON DIOXIDE 22.7 mmol/L (21-32); COR CA(FOR HYPOALB) 10.1 mg/dL (8.5-10.1); CREATININE 1.58 mg/dL (0.55-1.02); TOTAL PROTEIN 5.5 g/dL (6.4-8.2)
[2020-12-26] MEDS ORDERED: ZESTRIL TAB 20 MG ONE (08:43)
[2020-12-26] MEDS: XOPENEX 1.25 MG/3 ML NEBULE NEB SCH ×2 (09:13→12:22)
[2020-12-26] MEDS: PULMICORT NEB TX 0.5 MG NEB SCH (09:13)
[2020-12-26] MEDS: CORDARONE TAB 200 MG PO SCH (09:24)
[2020-12-26] MEDS: ELIQUIS PO SCH (09:25)
[2020-12-26] MEDS: NEURONTIN CAP 300 MG PO SCH (09:25)
[2020-12-26] MEDS: ROBITUSSIN (PLAIN) PO SCH ×2 (09:25→13:21)
[2020-12-26] MEDS: PROTONIX INJ 40 MG VIAL IVP SCH (09:25)
[2020-12-26] MEDS: NORVASC TAB 5 MG PO SCH (09:25)
[2020-12-26] MEDS: LOPRESSOR TAB 25 MG PO SCH (09:25)
[2020-12-26] MEDS: ZESTRIL TAB 20 MG PO SCH (09:26)
--- NOTE | 2020-12-26 12:51 | W.DIS.FURT ---
Summary of Discharge Discharge Summary of Date Date of Exam: 12/26/20 Admission Date Date of Admission: 12/24/20 Admission Diagnosis Patient Problems (Updated 12/24/20 @ 18:26 by JULISSA MARCOS) Bronchopneumonia (Acute) J18.0 Dehydration (Acute) E86.0 Afib (Chronic) I48.91 Hypertension (Chronic) I10 Lupus (Chronic) M32.9 GERD (gastroesophageal reflux disease) (Chronic) K21.9 Vital Signs: Vital Signs (72 hours) 12/24/20 13:20 12/24/20 16:00 12/24/20 16:19 Temperature 99.8 F H 99.0 F 99.8 F H Pulse Rate Pulse Rate [Right] 93 H 75 Respiratory Rate 20 22 20 Blood Pressure 129/84 Blood Pressure [Left Arm] Blood Pressure [Right Arm] 130/69 136/65 O2 Sat by Pulse Oximetry 93 L 90 L 92 L 12/24/20 20:00 12/24/20 21:46 12/25/20 00:00 Temperature 97.9 F 98.0 F Pulse Rate 76 Pulse Rate [Right] 74 72 Respiratory Rate 20 16 Blood Pressure Blood Pressure [Left Arm] Blood Pressure [Right Arm] 122/56 131/61 O2 Sat by Pulse Oximetry 95 96 96 12/25/20 04:00 12/25/20 08:00 12/25/20 08:20 Temperature 97.5 F L 97.7 F Pulse Rate 79 Pulse Rate [Right] 66 78 Respiratory Rate 18 24 Blood Pressure Blood Pressure [Left Arm] Blood Pressure [Right Arm] 143/69 191/70 O2 Sat by Pulse Oximetry 97 99 97 12/25/20 12:00 12/25/20 15:52 12/25/20 16:00 Temperature 97.4 F L 98.9 F Pulse Rate Pulse Rate [Right] 90 82 Respiratory Rate 22 20 22 Blood Pressure Blood Pressure [Left Arm] Blood Pressure [Right Arm] 136/67 184/76 O2 Sat by Pulse Oximetry 99 96 12/25/20 16:52 12/25/20 20:00 12/25/20 21:00 Temperature 97.8 F Pulse Rate 90 Pulse Rate [Right] 86 Respiratory Rate 20 18 Blood Pressure Blood Pressure [Left Arm] 142/69 Blood Pressure [Right Arm] O2 Sat by Pulse Oximetry 90 L 98 12/26/20 00:00 12/26/20 04:00 12/26/20 08:00 Temperature 98 F 98.4 F 97.9 F Pulse Rate Pulse Rate [Right] 86 83 79 Respiratory Rate 18 18 18 Blood Pressure Blood Pressure [Left Arm] 142/72 137/64 130/61 Blood Pressure [Right Arm] O2 Sat by Pulse Oximetry 96 94 L 94 L 12/26/20 09:13 Temperature Pulse Rate 78 Pulse Rate [Right] Respiratory Rate Blood Pressure Blood Pressure [Left Arm] Blood Pressure [Right Arm] O2 Sat by Pulse Oximetry 98 Labs: Laboratory Last Values WBC 19.7 X10^3/uL (3.6-10.0) H D 12/26/20 04:45 RBC 3.61 X10^6/uL (3.5-5.4) 12/26/20 04:45 Hgb 10.9 g/dL (12.0-16.0) L 12/26/20 04:45 Hct 32.6 % (36.0-47.0) L 12/26/20 04:45 MCV 90.1 fL (80.0-100.0) 12/26/20 04:45 MCH 30.2 pg (27.0-34.0) 12/26/20 04:45 MCHC 33.5 g/dL (33.0-35.0) 12/26/20 04:45 RDW 16.5 % (11.6-16.5) 12/26/20 04:45 Plt Count 260 X10^3/uL (150.0-450.0) 12/26/20 04:45 MPV 7.6 fL (7.4-11.0) 12/26/20 04:45 Neut % (Auto) 89.7 % (42.0-75.0) H 12/26/20 04:45 Lymph % (Auto) 4.5 % (21.0-51.0) L 12/26/20 04:45 [place] % (Auto) 5.7 % (0.0-13.0) 12/26/20 04:45 Eos % (Auto) 0.0 % (0.9-2.9) L 12/26/20 04:45 Baso % (Auto) 0.1 % (0.2-1.0) L 12/26/20 04:45 Neut # (Auto) 17.7 x10^3/uL (2.2-4.8) H 12/26/20 04:45 Lymph # (Auto) 0.9 X10^3/uL (1.3-2.9) L 12/26/20 04:45 [place] # (Auto) 1.1 x10^3/uL (0.3-0.8) H 12/26/20 04:45 Eos # (Auto) 0.0 x10^3/uL (0.0-0.2) 12/26/20 04:45 Baso # (Auto) 0.0 X10^3/uL (0.0-0.1) 12/26/20 04:45 Absolute Nucleated RBC 0.0 /100WBC 12/26/20 04:45 Sample Site Lb 12/24/20 16:00 ABG pH 7.480 (7.35-7.45) H 12/24/20 16:00 ABG pCO2 35.0 mmHg (35.0-45.0) 12/24/20 16:00 ABG pO2 59.0 mmHg (80.0-100.0) L 12/24/20 16:00 ABG HCO3 26.1 mmol/L (22-26) H 12/24/20 16:00 ABG O2 Saturation 92.0 % (90-100) 12/24/20 16:00 ABG Base Excess 2.8 mmol/L (-2.0-2.0) H 12/24/20 16:00 Arjun Test Na 12/24/20 16:00 A-a Gradient 47.0 mmHg 12/24/20 16:00 FiO2 21.0 12/24/20 16:00 Blood Gas Comments Pt dagoberto well cdn 12/24/20 16:00 Sodium 147 mmol/L (136-145) H 12/26/20 04:45 Corrected Sodium 148 mmol/L (136-145) H 12/26/20 04:45 Potassium 4.1 mmol/L (3.5-5.1) 12/26/20 04:45 Chloride 113 mmol/L (98-107) H 12/26/20 04:45 Carbon Dioxide 22.7 mmol/L (21-32) 12/26/20 04:45 BUN 19 mg/dL (7-18) H 12/26/20 04:45 Creatinine 1.58 mg/dL (0.55-1.02) H 12/26/20 04:45 Est GFR (MDRD) Af Amer 40 (>60) L 12/26/20 04:45 Est GFR (MDRD) Non-Af 33 (>60) L 12/26/20 04:45 Glucose 130 mg/dL (65-99) H 12/26/20 04:45 Lactic Acid 0.6 mmol/L (0.4-2.0) 12/24/20 15:53 Calcium 8.7 mg/dL (8.5-10.1) 12/26/20 04:45 Corrected Calcium 10.1 mg/dL (8.5-10.1) 12/26/20 04:45 Total Bilirubin 0.20 mg/dL (0.2-1.0) 12/26/20 04:45 AST 16 Units/L (15-37) 12/26/20 04:45 ALT 16 Units/L (12-78) 12/26/20 04:45 Alkaline Phosphatase 70 Units/L (46-116) 12/26/20 04:45 Total Protein 5.5 g/dL (6.4-8.2) L 12/26/20 04:45 Albumin 2.3 g/dL (3.4-5.0) L 12/26/20 04:45 Globulin 3.2 g/dL (2.5-4.5) 12/26/20 04:45 Albumin/Globulin Ratio 0.7 Ratio (1.1-2.1) L 12/26/20 04:45 Specimen Type Clean catch urine 12/25/20 06:28 Urine Color Yellow (YELLOW) 12/25/20 06:28 Urine Appearance Clear (CLEAR) 12/25/20 06: Urine pH 6.0 (5.0 - 8.0) 12/25/20 06: Ur Specific [place] 1.015 (1.000-1.030) 12/25/20 06: Urine Protein 2+ (NEGATIVE) 12/25/20 06: Urine Glucose (UA) 4+ (NEGATIVE) 12/25/20 06: Urine Ketones Negative (NEGATIVE) 12/25/20 06: Urine Occult Blood 1+ (NEGATIVE) 12/25/20 06:28 Urine Nitrite Negative (NEGATIVE) 12/25/20 06:28 Urine Bilirubin Negative (NEGATIVE) 12/25/20 06:28 Urine Urobilinogen Normal (NORMAL) 12/25/20 06:28 Ur Leukocyte Esterase Negative (NEGATIVE) 12/25/20 06:28 Urine RBC 0-2 /HPF (0-3) 12/25/20 06:28 Urine WBC 0-2 /HPF (0-5) 12/25/20 06:28 Ur Squamous Epith Cells Few /HPF (NEGATIVE) 12/25/20 06:28 Urine Bacteria Negative /HPF (NEGATIVE) 12/25/20 06:28 Ur Culture Indicated? Yes/culture set up 12/25/20 06:28 RSV Nasal Swab Negative (NEGATIVE) 12/24/20 16:00 SARS CoV-2 RNA Rapid HAILEY Negative (NEGATIVE) 12/24/20 11:40 Reason For Visit: BRONCHITIS FAIL OP TX Discharge Date Discharge Date: 12/26/20 Discharge Diagnosis All Active Problems (Updated 12/24/20 @ 18:26 by JULISSA MARCOS) Pneumonia due to COVID-19 virus (Acute) CKD (chronic kidney disease) stage 4, GFR 15-29 ml/min (Acute) Acute bronchitis (Acute) Bronchopneumonia (Acute) Nausea & vomiting (Acute) Fall (Acute) Acute renal failure (Acute) Dehydration (Acute) AAA (abdominal aortic aneurysm) (Chronic) Osteoarthritis of right hip (Chronic) Afib (Chronic) Hypertension (Chronic) Lupus (Chronic) History of cardiac arrhythmia (Chronic) GERD (gastroesophageal reflux disease) (Chronic) Anxiety (Chronic) Plan of Treatment: Continue with present treatment and follow up plan. Pt is to keep follow up appointment as instructed and take medications as ordered. Discharge Medications Discharge Medications: dextromethorphan [From NyQuil] Allergy (Verified 06/21/17 10:39) doxylamine [From NyQuil] Allergy (Verified 06/21/17 10:39) pseudoephedrine [From NyQuil] Allergy (Verified 06/21/17 10:39) CONTINUE taking the following medications amoxicillin 500 mg PO BID 12/24/20 [History] gabapentin 300 mg PO BID 12/24/20 [History] losartan 50 mg PO DAILY 12/24/20 [History] Follow up and Referral Follow Up: 3 Days (Julissa Marcos) Discharge Disposition Assessment: 80 y/o admitted after failing outpt therapy for bronchpneumonia; improved during stay and was ready to go home today ("I will go home today"). Exam is clear and she is ambulatory without oxygen; wbc elevation exacerbated by steroids. Discharge Disposition: home Discharge Condition: good Discharge Plan Discharge Plan Patient Disposition: 01 HOME, SELF-CARE Condition: Stable Health Concerns: Post Hospitalization: new medications and changes needed to prevent readmission or further decline. Pt educated and given instructions on all concerns. Plan of Treatment: Continue with present treatment and follow up plan. Pt is to keep follow up appointment as instructed and take medications as ordered. Assessment: 80 y/o admitted after failing outpt therapy for bronchpneumonia; improved during stay and was ready to go home today ("I will go home today"). Exam is clear and she is ambulatory without oxygen; wbc elevation exacerbated by steroids. Prescriptions: New cefdinir 300 mg capsule 300 mg PO BID Qty: 20 RF: 0 prednisone 20 mg tablet 20 mg PO DAILY Qty: 10 RF: 0 Continued lisinopril [Prinivil] 20 MG tablet 20 mg PO DAILY RF: 0 amlodipine [Norvasc] 5 MG tablet 5 mg PO DAILY RF: 0 methotrexate sodium 2.5 mg Tablet 5 cap PO WEEKLY RF: 0 omeprazole 20 MG capsule,delayed release(DR/EC) 20 mg PO BID RF: 0 folic acid 1 MG tablet 1 mg PO BID RF: 0 tizanidine 4 MG tablet 4 mg PO BID PRNRF: 0 metoprolol tartrate 25 MG tablet 12.5 mg PO BID RF: 0 zolpidem 10 mg Tablet 10 mg PO HS RF: 0 simvastatin 20 mg Tablet 20 mg PO HS RF: 0 acetaminophen-codeine 300-60 mg Tablet 1 tab PO Q8H PRNRF: 0 amiodarone 200 mg tablet 200 mg PO DAILY RF: 0 Eliquis 5 mg tablet 5 mg PO BID RF: 0 losartan 50 mg tablet 50 mg PO DAILY RF: 0 gabapentin 300 mg capsule 300 mg PO BID RF: 0 Discontinued amoxicillin 500 mg tablet 500 mg PO BID RF: 0 Follow ups/Referrals Follow ups/Referrals: JULISSA MARCOS [Primary Care Provider] - 1 WEEK Instructions Instructions: Acute Bronchitis, Adult, [id number] Stand Alone Forms: Excuse From Work or School, Precautions for COVID19, Patient Portal, Social Distancing
[2020-12-26 12:55] VITALS: BP 139/65
== END 2020-12-26 13:46 | disposition home or self-care (01) | DRG 195 ==
LOC: OBS 11:19 → MED/SURG 13:20
PROVIDERS: ADMIT Internal Medicine; ATTEND Internal Medicine
DX: Z79.01 Long term (current) use of anticoagulants; R94.31 Abnormal electrocardiogram [ECG] [EKG]; R53.1 Weakness; K21.9 Gastro-esophageal reflux disease without esophagitis; J18.0 Bronchopneumonia, unspecified organism; E86.0 Dehydration; I48.91 Unspecified atrial fibrillation; M32.9 Systemic lupus erythematosus, unspecified; I10 Essential (primary) hypertension

== ENCOUNTER 2023-02-16 12:50 | Observation (INO) ==
[2023-02-16 16:30] VITALS: BMI 26.5
[2023-02-16] MEDS: NS 1,000 ML IV 1,000 ML IV SCH (16:36)
[2023-02-16] MEDS: NORCO 5/325 MG TAB PO PRN ×2 (16:45→20:43)
--- NOTE | 2023-02-16 16:53 | CT ---
EXAM:LUMBAR SPINE W/O CONHISTORY:FALL, C/O LOWER BACK PAINCOMPARISON:None.TECHNIQUE:Noncontras t lumbar spine CT is performed in the axial plane and reconstructed with multi planer reformats.FINDINGS:Diminished bone mineral density is observed. The SI joints are maintained without ankylosis and there is no diastasis of the SI joints. No retroperitoneal or paravertebral fluid collections are identified. There is scarring of the lower pole of the left kidney with subcapsular calcification. The partially imaged abdominal aorta appears aneurysmal below the renal arteries measuring at least 4 cm transversely. Please note that the full extent of this aneurysm can not be conclusively decided on this exam because the aorta is not fully imaged. There is evidence of diverticulosis of the sigmoid colon without diverticulitis. Mild pleural thickening of the posterior lung bases.Compression fracture is demonstrated with respect to the T12 vertebral body segment. There is mild height loss estimated at 25% with a at least 4 mm of retropulsion of the superior corner which contributes to mild central spinal stenosis. No pars defects or additional acute fracture sites are demonstrated within the lumbar spine. Moderate disc space narrowing with vacuum effect is observed at L4-5. Mild disc space narrowing with vacuum effect is observed at L5-S1. Facet hypertrophy becomes progressively more conspicuous in the caudal direction. There is a smooth contour irregularity along the ventral margin of the sacrococcygeal junction. However this appears chronic and most likely corresponds to an old healed fracture site with subsequent bony remodeling. There is mild, symmetric bilateral hip osteoarthrosis.The coronal reconstruction shows evidence of mild scoliosis of the lower lumbar spine which is centered at L4-5, where degenerative findings are most concentrated. Bulging discs and facet hypertrophy contribute to multilevel spinal stenosis and neural foraminal narrowing particularly between the levels of L3-4 and L5-S1.IMPRESSION:Acute T12 compression fracture with mild height loss of at least 25%. There is at least 4 mm of posterior retropulsion into the spinal canal contributing to mild central spinal stenosis.Remodeling of the sacrococcygeal junction related to a more chronic, healed fracture sitePartially imaged infrarenal abdominal aortic aneurysm measuring at least 4 cm. Routine follow-up ultrasound suggested for more detailed characterization.Additional chronic degenerative findings as detailed above.THIS IS AN ELECTRONICALLY VERIFIED FINAL REPORT02/16/2023 4:49 PM - Electronically signed by Cody Dave MD
[2023-02-16 16:56] LABS: ALANINE AMINOTRANSFERASE 40 Units/L (12-78); ALBUMIN 3.8 g/dL (3.4-5.0); ALKALINE PHOSPHATASE 65 Units/L (46-116); ASPARTATE AMINO TRANSFERASE 35 Units/L (15-37); BASOPHILS % (AUTO) 0.5 % (0.2-1.0); BLOOD UREA NITROGEN 24 mg/dL (7-18); CALCIUM 9.1 mg/dL (8.5-10.1); CARBON DIOXIDE 26.8 mmol/L (21-32); CHLORIDE 101 mmol/L (98-107); CREATININE 1.67 mg/dL (0.55-1.02); EOSINOPHILS # (AUTO) 0.1 x10^3/uL (0.0-0.2); EOSINOPHILS % (AUTO) 0.8 % (0.9-2.9); GLUCOSE 97 mg/dL (65-99); HEMATOCRIT 37.4 % (36.0-47.0); HEMOGLOBIN 12.2 g/dL (12.0-16.0); LYMPHOCYTES % (AUTO) 12.3 % (21.0-51.0); MEAN CORPUSCULAR HGB CONC 32.6 g/dL (33.0-35.0); MEAN CORPUSCULAR VOLUME 92.1 fL (80.0-100.0); MONOCYTES # (AUTO) 0.4 x10^3/uL (0.3-0.8); MONOCYTES % (AUTO) 4.8 % (0.0-13.0); NEUTROPHILS # (AUTO) 6.9 x10^3/uL (2.2-4.8); NEUTROPHILS % (AUTO) 81.6 % (42.0-75.0); PLATELET COUNT 192 X10^3/uL (150.0-450.0); RED BLOOD COUNT 4.07 X10^6/uL (3.5-5.4); RED CELL DISTRIBUTION WIDTH 18.9 % (11.6-16.5); SODIUM 138 mmol/L (136-145); TOTAL PROTEIN 7.3 g/dL (6.4-8.2); WHITE BLOOD COUNT 8.5 X10^3/uL (3.6-10.0); eGFR NON BLACK RACES 31 (>60)
[2023-02-16] MEDS: NEURONTIN CAP 300 MG PO SCH (20:44)
[2023-02-16] MEDS: PriLOSEC PO SCH (20:44)
[2023-02-16] MEDS: ZOCOR TAB 20 MG PO SCH (20:45)
[2023-02-16] MEDS: ZANAFLEX PO PRN (20:45)
[2023-02-16] MEDS: LOPRESSOR TAB 25 MG PO SCH (20:45)
[2023-02-17] MEDS: NORCO 5/325 MG TAB PO PRN ×3 (01:23→15:12)
[2023-02-17 02:50] LABS: BILIRUBIN,URINE NEGATIVE (NEGATIVE); BLOOD/HEMOGLOBIN,URINE NEGATIVE (NEGATIVE); GLUCOSE, URINE NEGATIVE (NEGATIVE); KETONES,URINE NEGATIVE (NEGATIVE); LEUKOCYTE ESTERASE ,URINE NEGATIVE (NEGATIVE); NITRITES,URINE NEGATIVE (NEGATIVE); PROTEIN,URINE 2+ (NEGATIVE); UROBILINOGEN,URINE NORMAL (NORMAL)
[2023-02-17 02:57] LABS: APPEARANCE,URINE CLEAR (CLEAR); COLOR,URINE YELLOW (YELLOW)
[2023-02-17 02:58] LABS: BACTERIA,URINE TRACE /HPF (NEGATIVE); HYALINE CASTS, URINE RARE /LPF (NEGATIVE); RBC,URINE 0-2 /HPF (0-3); SQUAMOUS EPITHELIAL CELL,UR RARE /HPF (NEGATIVE)
[2023-02-17] MEDS: NS 1,000 ML IV 1,000 ML IV SCH ×2 (05:10→17:13)
[2023-02-17 06:18] LABS: BASOPHILS % (AUTO) 0.4 % (0.2-1.0); EOSINOPHILS # (AUTO) 0.2 x10^3/uL (0.0-0.2); HEMATOCRIT 31.1 % (36.0-47.0); HEMOGLOBIN 10.3 g/dL (12.0-16.0); LYMPHOCYTES # (AUTO) 0.9 X10^3/uL (1.3-2.9); LYMPHOCYTES % (AUTO) 14.1 % (21.0-51.0); MEAN CORPUSCULAR HEMOGLOBIN 30.3 pg (27.0-34.0); MEAN CORPUSCULAR VOLUME 91.9 fL (80.0-100.0); MONOCYTES # (AUTO) 0.3 x10^3/uL (0.3-0.8); MONOCYTES % (AUTO) 4.6 % (0.0-13.0); NEUTROPHILS # (AUTO) 5.1 x10^3/uL (2.2-4.8); NEUTROPHILS % (AUTO) 77.9 % (42.0-75.0); PLATELET COUNT 163 X10^3/uL (150.0-450.0); RED BLOOD COUNT 3.38 X10^6/uL (3.5-5.4); RED CELL DISTRIBUTION WIDTH 19.3 % (11.6-16.5); WHITE BLOOD COUNT 6.5 X10^3/uL (3.6-10.0)
[2023-02-17 06:42] LABS: ALBUMIN 2.9 g/dL (3.4-5.0); CALCIUM 8.1 mg/dL (8.5-10.1); CARBON DIOXIDE 24.1 mmol/L (21-32); CREATININE 1.57 mg/dL (0.55-1.02); POTASSIUM 4.5 mmol/L (3.5-5.1); TOTAL PROTEIN 5.8 g/dL (6.4-8.2)
[2023-02-17] MEDS: NEURONTIN CAP 300 MG PO SCH ×2 (09:37→21:13)
[2023-02-17] MEDS: LOPRESSOR TAB 25 MG PO SCH ×2 (09:37→21:14)
[2023-02-17] MEDS: COZAAR PO SCH (09:37)
[2023-02-17] MEDS: NORVASC TAB 5 MG PO SCH (09:38)
[2023-02-17] MEDS: PriLOSEC PO SCH ×2 (09:43→21:14)
[2023-02-17] MEDS: CORDARONE TAB 200 MG PO SCH (09:44)
[2023-02-17] MEDS: ELIQUIS PO SCH ×2 (12:39→21:13)
--- NOTE | 2023-02-17 16:06 | RAD ---
HISTORYabd pain, swellingSTUDYACUTE ABDOMEN x-ray SERIES, one view chest and two views abdomenCOMPARISONX-ray 02/13/2023FINDINGSThere is prominent scoliosis in the upper thoracic spine, unchanged. There is persistent prominence of the aortic arch. This is likely a chronic appearance. 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 Likely cardiomegaly is present without suggestion of CHF. Probable mild bronchiectasis is seen in the right lower lung, chronic. No acute infiltrate is seen.No evidence of free intraperitoneal air. There is increased small and large bowel air. This may be mild to moderate ileus. Probable mild constipation is seen in the cecum with diminished fecal burden in the ascending colon compared to prior study. Phleboliths are seen in the pelvis. No suspicious air-fluid levels are seen.IMPRESSIONLikely persistent ileus with diminished constipation.Electronically signed by: Aries Cantrell (Feb 17, 2023 16:06:00)
[2023-02-17] MEDS: ZOCOR TAB 20 MG PO SCH (21:13)
[2023-02-17] MEDS: ZANAFLEX PO PRN (21:23)
[2023-02-18 01:16] VITALS: RESP 18
[2023-02-18] MEDS: NS 1,000 ML IV 1,000 ML IV SCH (05:36)
[2023-02-18 06:44] LABS: BASOPHILS # (AUTO) 0.1 X10^3/uL (0.0-0.1); BASOPHILS % (AUTO) 0.8 % (0.2-1.0); EOSINOPHILS # (AUTO) 0.3 x10^3/uL (0.0-0.2); EOSINOPHILS % (AUTO) 4.1 % (0.9-2.9); HEMATOCRIT 29.6 % (36.0-47.0); HEMOGLOBIN 9.7 g/dL (12.0-16.0); LYMPHOCYTES # (AUTO) 1.1 X10^3/uL (1.3-2.9); LYMPHOCYTES % (AUTO) 15.5 % (21.0-51.0); MEAN CORPUSCULAR HEMOGLOBIN 30.4 pg (27.0-34.0); MEAN CORPUSCULAR HGB CONC 32.8 g/dL (33.0-35.0); MEAN CORPUSCULAR VOLUME 92.4 fL (80.0-100.0); MEAN PLATELET VOLUME 8.3 fL (7.4-11.0); MONOCYTES # (AUTO) 0.4 x10^3/uL (0.3-0.8); NEUTROPHILS # (AUTO) 5.4 x10^3/uL (2.2-4.8); NEUTROPHILS % (AUTO) 74.6 % (42.0-75.0); PLATELET COUNT 170 X10^3/uL (150.0-450.0); RED CELL DISTRIBUTION WIDTH 18.7 % (11.6-16.5); WHITE BLOOD COUNT 7.2 X10^3/uL (3.6-10.0)
[2023-02-18 07:04] LABS: ALANINE AMINOTRANSFERASE 25 Units/L (12-78); ALBUMIN 2.6 g/dL (3.4-5.0); ALKALINE PHOSPHATASE 62 Units/L (46-116); ASPARTATE AMINO TRANSFERASE 27 Units/L (15-37); BLOOD UREA NITROGEN 21 mg/dL (7-18); CALCIUM 7.7 mg/dL (8.5-10.1); CARBON DIOXIDE 25.8 mmol/L (21-32); CHLORIDE 107 mmol/L (98-107); COR CA(FOR HYPOALB) 8.8 mg/dL (8.5-10.1); CREATININE 1.31 mg/dL (0.55-1.02); GLUCOSE 99 mg/dL (65-99); POTASSIUM 4.4 mmol/L (3.5-5.1); SODIUM 139 mmol/L (136-145); TOTAL PROTEIN 5.5 g/dL (6.4-8.2); eGFR NON BLACK RACES 41 (>60)
[2023-02-18] MEDS: ELIQUIS PO SCH (08:34)
[2023-02-18] MEDS: LOPRESSOR TAB 25 MG PO SCH (08:35)
[2023-02-18] MEDS: NORVASC TAB 5 MG PO SCH (08:35)
[2023-02-18] MEDS: NEURONTIN CAP 300 MG PO SCH (08:35)
[2023-02-18] MEDS: CORDARONE TAB 200 MG PO SCH (08:35)
[2023-02-18] MEDS: PriLOSEC PO SCH (08:36)
[2023-02-18] MEDS: COZAAR PO SCH (08:36)
[2023-02-18] MEDS: NORCO 5/325 MG TAB PO PRN (08:46)
[2023-02-18 12:12] VITALS: BP 136/81; PULSE 61; TEMP 97.7; O2SAT 93
--- NOTE | 2023-02-24 13:25 | W.DIS.FURT ---
Summary of Discharge Discharge Summary of Date Date of Exam: 02/18/23 Admission Date Date of Admission: 02/16/23 Admission Diagnosis Hospital Course: Ms. Quinn is a 83-year-old female with a past medical history of atrial fibrillation, hypertension, GERD, hyperlipidemia presented after having a fall. She was seen outpatient and had some imaging done. Initial x-rays did not show any acute fracture or dislocation. Patient continued to have pain and was seen at her PCPs office. Lumbar CT was done on 02/16/2023 which showed a T12 compression fracture. Patient was admitted for further management and Ortho consult. She was started on pain medications and her pain was well controlled. Dr. Salter was notified and recommended a TLSO brace and outpatient follow- up. That brace was not available at the hospital and patient would need to be fitted for the brace. He recommended seeing the patient in his office and will have the brace made. Her pain was well controlled. She was also having some abdominal pain and distention. KUB showed possible ileus and constipation. She was told to drink plenty of fluids, high-fiber and can take stool softener [id number]. She reports taking Tylenol 3 at home for pain control. She was stable for discharge and will follow-up with orthopedics outpatient. Vital Signs: Vital Signs (72 hours) 02/16/23 15:57 02/16/23 16:45 02/16/23 16:00 Temperature 98.3 F Pulse Rate [Left Radial] 71 Respiratory Rate 22 18 Blood Pressure [Right Arm] 170/74 O2 Sat by Pulse Oximetry 98 Oxygen Delivery Method Room Air Room Air 02/16/23 17:45 02/16/23 20:43 02/16/23 19:00 Temperature Pulse Rate [Left Radial] Respiratory Rate 22 20 Blood Pressure [Right Arm] O2 Sat by Pulse Oximetry Oxygen Delivery Method Room Air 02/16/23 20:00 02/16/23 21:43 02/17/23 00:00 Temperature 97.9 F 97.9 F Pulse Rate [Left Radial] 120 H 68 Respiratory Rate 20 20 18 Blood Pressure [Right Arm] 133/92 162/80 O2 Sat by Pulse Oximetry 97 95 Oxygen Delivery Method Room Air Room Air 02/17/23 01:23 02/17/23 03:50 02/17/23 02:23 Temperature 98.0 F Pulse Rate [Left Radial] 55 L Respiratory Rate 18 20 18 Blood Pressure [Right Arm] 116/79 O2 Sat by Pulse Oximetry 93 L Oxygen Delivery Method Room Air 02/17/23 08:00 02/17/23 07:00 02/17/23 10:20 Temperature 97.0 F L Pulse Rate [Left Radial] 51 L Respiratory Rate 18 18 Blood Pressure [Right Arm] 124/82 O2 Sat by Pulse Oximetry 93 L Oxygen Delivery Method Room Air Room Air 02/17/23 11:20 02/17/23 12:00 02/17/23 15:12 Temperature 97.9 F Pulse Rate [Left Radial] 56 L Respiratory Rate 18 18 18 Blood Pressure [Right Arm] 148/70 O2 Sat by Pulse Oximetry 93 L Oxygen Delivery Method Room Air 02/17/23 16:00 02/17/23 16:12 02/17/23 19:00 Temperature 97.7 F Pulse Rate [Left Radial] 63 Respiratory Rate 18 18 Blood Pressure [Right Arm] 170/75 O2 Sat by Pulse Oximetry 93 L Oxygen Delivery Method Room Air Room Air 02/17/23 20:00 02/18/23 00:00 02/18/23 04:00 Temperature 98.2 F 98.4 F 98.2 F Pulse Rate [Left Radial] 70 63 57 L Respiratory Rate 20 18 18 Blood Pressure [Right Arm] 158/75 122/59 133/62 O2 Sat by Pulse Oximetry 96 94 L 93 L Oxygen Delivery Method Room Air Room Air Room Air 02/18/23 08:46 02/18/23 08:00 02/18/23 07:00 Temperature 97.9 F Pulse Rate [Left Radial] 64 Respiratory Rate 18 18 Blood Pressure [Right Arm] 157/70 O2 Sat by Pulse Oximetry 92 L Oxygen Delivery Method Room Air Room Air 02/18/23 09:46 02/18/23 12:00 Temperature 97.7 F Pulse Rate [Left Radial] 61 Respiratory Rate 18 18 Blood Pressure [Right Arm] 136/81 O2 Sat by Pulse Oximetry 93 L Oxygen Delivery Method Room Air Labs: Laboratory Last Values WBC 7.2 X10^3/uL (3.6-10.0) 02/18/23 05:58 RBC 3.20 X10^6/uL (3.5-5.4) L 02/18/23 05:58 Hgb 9.7 g/dL (12.0-16.0) L 02/18/23 05:58 Hct 29.6 % (36.0-47.0) L 02/18/23 05:58 MCV 92.4 fL (80.0-100.0) 02/18/23 05:58 MCH 30.4 pg (27.0-34.0) 02/18/23 05:58 MCHC 32.8 g/dL (33.0-35.0) L 02/18/23 05:58 RDW 18.7 % (11.6-16.5) H 02/18/23 05:58 Plt Count 170 X10^3/uL (150.0-450.0) 02/18/23 05:58 MPV 8.3 fL (7.4-11.0) 02/18/23 05:58 Neut % (Auto) 74.6 % (42.0-75.0) 02/18/23 05:58 Lymph % (Auto) 15.5 % (21.0-51.0) L 02/18/23 05:58 [place] % (Auto) 5.0 % (0.0-13.0) 02/18/23 05:58 Eos % (Auto) 4.1 % (0.9-2.9) H 02/18/23 05:58 Baso % (Auto) 0.8 % (0.2-1.0) 02/18/23 05:58 Neut # (Auto) 5.4 x10^3/uL (2.2-4.8) H 02/18/23 05:58 Lymph # (Auto) 1.1 X10^3/uL (1.3-2.9) L 02/18/23 05:58 [place] # (Auto) 0.4 x10^3/uL (0.3-0.8) 02/18/23 05:58 Eos # (Auto) 0.3 x10^3/uL (0.0-0.2) H 02/18/23 05:58 Baso # (Auto) 0.1 X10^3/uL (0.0-0.1) 02/18/23 05:58 Absolute Nucleated RBC 0.1 /100WBC 02/18/23 05:58 Sodium 139 mmol/L (136-145) 02/18/23 05:58 Corrected Sodium TNP 02/18/23 05:58 Potassium 4.4 mmol/L (3.5-5.1) 02/18/23 05:58 Chloride 107 mmol/L (98-107) 02/18/23 05:58 Carbon Dioxide 25.8 mmol/L (21-32) 02/18/23 05:58 BUN 21 mg/dL (7-18) H 02/18/23 05:58 Creatinine 1.31 mg/dL (0.55-1.02) H 02/18/23 05:58 Est GFR (MDRD) Af Amer 50 (>60) L 02/18/23 05:58 Est GFR (MDRD) Non-Af 41 (>60) L 02/18/23 05:58 Glucose 99 mg/dL (65-99) 02/18/23 05:58 Calcium 7.7 mg/dL (8.5-10.1) L 02/18/23 05:58 Corrected Calcium 8.8 mg/dL (8.5-10.1) 02/18/23 05:58 Total Bilirubin 0.30 mg/dL (0.2-1.0) 02/18/23 05:58 AST 27 Units/L (15-37) 02/18/23 05:58 ALT 25 Units/L (12-78) 02/18/23 05:58 Alkaline Phosphatase 62 Units/L (46-116) 02/18/23 05:58 Total Protein 5.5 g/dL (6.4-8.2) L 02/18/23 05:58 Albumin 2.6 g/dL (3.4-5.0) L 02/18/23 05:58 Globulin 2.9 g/dL (2.5-4.5) 02/18/23 05:58 Albumin/Globulin Ratio 0.9 Ratio (1.1-2.1) L 02/18/23 05:58 Specimen Type Clean catch urine 02/17/23 02:37 Urine Color Yellow (YELLOW) 02/17/23 02:37 Urine Appearance Clear (CLEAR) 02/17/23 02:37 Urine pH 7.0 (5.0 - 8.0) 02/17/23 02:37 Ur Specific [place] 1.010 (1.000-1.030) 02/17/23 02:37 Urine Protein 2+ (NEGATIVE) 02/17/23 02:37 Urine Glucose (UA) Negative (NEGATIVE) 02/17/23 02:37 Urine Ketones Negative (NEGATIVE) 02/17/23 02:37 Urine Blood Negative (NEGATIVE) 02/17/23 02:37 Urine Nitrite Negative (NEGATIVE) 02/17/23 02:37 Urine Bilirubin Negative (NEGATIVE) 02/17/23 02:37 Urine Urobilinogen Normal (NORMAL) 02/17/23 02:37 Ur Leukocyte Esterase Negative (NEGATIVE) 02/17/23 02:37 Urine RBC 0-2 /HPF (0-3) 02/17/23 02:37 Urine WBC None seen /HPF (0-5) 02/17/23 02:37 Ur Squamous Epith Cells Rare /HPF (NEGATIVE) 02/17/23 02:37 Urine Bacteria Trace /HPF (NEGATIVE) 02/17/23 02:37 Hyaline Casts Rare /LPF (NEGATIVE) 02/17/23 02:37 Urine Mucus Few /HPF (NEGATIVE) 02/17/23 02:37 Ur Culture Indicated? No/not indicated 02/17/23 02:37 Reason For Visit: INTRACTABLE LOWER BACK PAIN S/P FALL Discharge Diagnosis All Active Problems (Updated 12/01/22 @ 10:15 by GERARDO BOONE) Right knee pain (Acute) Pneumonia due to COVID-19 virus (Acute) CKD (chronic kidney disease) stage 4, GFR 15-29 ml/min (Acute) Acute bronchitis (Acute) Bronchopneumonia (Acute) Strain of chest wall (Acute) Blunt head trauma (Acute) Fracture, nasal (Acute) Nausea & vomiting (Acute) Fall (Acute) Acute renal failure (Acute) Dehydration (Acute) AAA (abdominal aortic aneurysm) (Chronic) Osteoarthritis of right hip (Chronic) Afib (Chronic) Hypertension (Chronic) Lupus (Chronic) History of cardiac arrhythmia (Chronic) GERD (gastroesophageal reflux disease) (Chronic) Anxiety (Chronic) Plan of Treatment: Continue with present treatment and follow up plan. Pt is to keep follow up appointment as instructed and take medications as ordered. Discharge Medications Discharge Medications: dextromethorphan [From NyQuil] Allergy (Verified 06/21/17 10:39) doxylamine [From NyQuil] Allergy (Verified 06/21/17 10:39) pseudoephedrine [From NyQuil] Allergy (Verified 06/21/17 10:39) CONTINUE taking the following medications apixaban 5 mg tablet (Eliquis) 5 mg PO BID 02/16/23 [History] Discharge Disposition Discharge Condition: Stable Discharge Plan Discharge Plan Hospital Course: Ms. Quinn is a 83-year-old female with a past medical history of atrial fibrillation, hypertension, GERD, hyperlipidemia presented after having a fall. She was seen outpatient and had some imaging done. Initial x-rays did not show any acute fracture or dislocation. Patient continued to have pain and was seen at her PCPs office. Lumbar CT was done on 02/16/2023 which showed a T12 compression fracture. Patient was admitted for further management and Ortho consult. She was started on pain medications and her pain was well controlled. Dr. Salter was notified and recommended a TLSO brace and outpatient follow- up. That brace was not available at the hospital and patient would need to be fitted for the brace. He recommended seeing the patient in his office and will have the brace made. Her pain was well controlled. She was also having some abdominal pain and distention. KUB showed possible ileus and constipation. She was told to drink plenty of fluids, high-fiber and can take stool softener [id number]. She reports taking Tylenol 3 at home for pain control. She was stable for discharge and will follow-up with orthopedics outpatient. Patient Disposition: 01 HOME, SELF-CARE Condition: Stable Health Concerns: Post Hospitalization: new medications and changes needed to prevent readmission or further decline. Pt educated and given instructions on all concerns. Plan of Treatment: Continue with present treatment and follow up plan. Pt is to keep follow up appointment as instructed and take medications as ordered. Prescription drug monitoring program results: PDMP reviewed and no concerns identified Prescriptions: Continued amlodipine [Norvasc] 5 MG tablet 10 mg PO DAILY methotrexate sodium 2.5 mg Tablet 5 cap PO WEEKLY Patient Comments: pt takes 3 capsules weekly on Monday Rx Instructions: every monday omeprazole 20 MG capsule,delayed release(DR/EC) 20 mg PO BID tizanidine 4 MG tablet 4 mg PO BID PRN metoprolol tartrate 25 MG tablet 12.5 mg PO BID simvastatin 20 mg Tablet 20 mg PO HS acetaminophen-codeine 300-60 mg Tablet 1 tab PO Q8H PRN amiodarone 200 mg tablet 200 mg PO DAILY Eliquis 5 mg Tablet 5 mg PO BID losartan 50 mg tablet 50 mg PO DAILY gabapentin 300 mg capsule 300 mg PO BID Discontinued cephalexin 500 mg capsule 500 mg PO TID Orders to Discharge Patient Discharge Orders: Discharge (Routine); Ordered 02/18/23 Ordered By: Delisa Abrams Follow ups/Referrals Follow ups/Referrals: DANIEL MARCOS [Primary Care Provider] - 1 WEEK Stephon Salter [CONSULTING PHYSICIAN] - 1 WEEK PRIYA MITCHELL [REFERRING] - 1 WEEK Instructions Instructions: Musculoskeletal Pain Stand Alone Forms: Excuse From Work or School, Post Hospital Follow Up Care
== END 2023-02-18 13:48 | disposition home or self-care (01) ==
LOC: MED/SURG
PROVIDERS: ADMIT Internal Medicine; ATTEND Internal Medicine
DX: Z91.81 History of falling; R10.84 Generalized abdominal pain; R26.89 Other abnormalities of gait and mobility; I48.91 Unspecified atrial fibrillation; W18.39XA Other fall on same level, initial encounter; E78.2 Mixed hyperlipidemia; I10 Essential (primary) hypertension; M54.59 Other low back pain; M48.54XA Collapsed vertebra, not elsewhere classified, thoracic region, initial encounter for fracture; K21.9 Gastro-esophageal reflux disease without esophagitis

== ENCOUNTER 2023-09-25 14:54 | Inpatient (IN) ==
[2023-09-25 16:45] VITALS: BMI 24.2
[2023-09-25] MEDS: PULMICORT NEB TX 0.5 MG NEB SCH (17:33)
[2023-09-25] MEDS: XOPENEX 1.25 MG/3 ML NEBULE NEB SCH (17:33)
--- NOTE | 2023-09-25 17:37 | DR.H&P ---
H&P History & Physical for Day of: H&P Date: 09/25/23 Chief Complaint Chief Complaint: WEAKNESS, CCC, SOB Allergies Allergies Allergy/AdvReac Type Severity Reaction Status Date / Time dextromethorphan Allergy Verified 06/21/17 10:39 [From NyQuil] doxylamine [From NyQuil] Allergy Verified 06/21/17 10:39 pseudoephedrine [From NyQuil] Allergy Verified 06/21/17 10:39 History of Present Illness History of Present Illness: PT IS 83 WF, DIRECT ADMIT FROM DR ELKINS OFFICE WITH CO SICK FOR 3 WEEKS FOLLOWING COVID. PT TOOK LAGEVRO, THEN ZITHROMAX, PREDNISONE AND IM ROCEPHIN AND KENALOG IM WITHOUT IMPROVEMENT. PT CO DIFFUSE WEAKNESS AND SOB. PT REPORTS USING NEBULIZER AT HOME ALSO. PT HAS PMH OF LUPUS, HX RENAL DISEASE, HTN, AFIB, ASSISTED ANTICOAGULANT THERAPY, GERD AND OA. PT ADMITTED FOR TREATMENT AND EVALUATION OF ACUTE ILLNESS. Past Medical History Past Medical History: Anxiety, Arthritis, Hypertension and Renal Disease Additional Medical History: LUPUS, HX RENAL MASS, AFIB Past Surgical History Surgical History: Hysterectomy and Ortho Surgery Additional Surgical History: LEFT RENAL MASS AND 1/4 LEFT KIDNEY REMOVED PER [facility], [place] FEB 29, 2016 Family History Family Medical History: Heart Failure and Hypertension Social History Does patient currently use any type of tobacco product: No Have you used tobacco products in the last 12 months: No Type of Tobacco Use: None Alcohol Use: None Drug Use: None Medications Home Medications: Home Medications Medication Instructions Recorded Confirmed Type amlodipine 5 mg tablet (Norvasc) 10 mg PO DAILY 06/08/14 09/25/23 History methotrexate sodium 2.5 mg tablet 5 cap PO WEEKLY 06/08/14 09/25/23 History omeprazole 20 mg capsule,delayed 20 mg PO BID 06/08/14 09/25/23 History release metoprolol tartrate 25 mg tablet 12.5 mg PO BID 09/26/16 09/25/23 History tizanidine 4 mg tablet 4 mg PO BID PRN 09/26/16 02/16/23 History acetaminophen 300 mg-codeine 60 mg 1 tab PO Q8H PRN 10/17/19 02/16/23 History tablet simvastatin 20 mg tablet 20 mg PO HS 10/17/19 09/25/23 History amiodarone 200 mg tablet 200 mg PO DAILY 07/18/20 09/25/23 History gabapentin 300 mg capsule 300 mg PO BID 12/24/20 02/16/23 History losartan 50 mg tablet 50 mg PO DAILY 12/24/20 02/16/23 History apixaban 5 mg tablet (Eliquis) 5 mg PO BID 02/16/23 09/25/23 History Review of Systems Constitutional: Chills, Sweats, Weakness and Malaise Eyes: No Symptoms Reported ENT: Nose Congestion Respiratory: Cough, Shortness of Breath and Wheezing Cardiovascular: No Symptoms Reported Gastrointestinal: Nausea Genitourinary: No Symptoms Reported Musculoskeletal: Back Pain Skin: No Symptoms Reported Neurological: Other (ARNOLD AND DIZZY ) Physical Exam Vital Signs: Vital Signs Temperature 97.2 F Pulse Rate [Left Radial] 106 Respiratory Rate 20 Blood Pressure [Right Arm] 137/84 O2 Sat by Pulse Oximetry 96 Oriented: Normal Eyes: Normal Nose: Discharge Respiratory: Wheezes Throughout, RLL Diminished and LLL Diminished Cardiovascular: Normal Tenderness: Normal Skin: Decreased Turgur Musculoskeletal: Back:Lumbar Psychiatric: Normal Mood Description: Anxious Affect: Depressed Speech Pattern: Clear Assessment/Plan (1) Pneumonia due to COVID-19 virus: Narrative Support Text: ADMIT, IV HYDRATION RESP CONSULT PRN SUPPLEMENTAL O2 IV ZITHROMAX, CXR ON ADMISSION VERIFY HOME MEDICATIONS Status: Acute (2) Acute renal failure: Status: Acute (3) Dehydration: Status: Acute (4) Lupus: Status: Chronic (5) History of cardiac arrhythmia: Status: Chronic (6) Afib: Qualifiers: Atrial fibrillation type: persistent (not longstanding) Qualified Code(s): I48.19 - Other persistent atrial fibrillation Status: Chronic (7) Primary hypertension: Status: None
[2023-09-25] MEDS: CLARITIN PO SCH (17:51)
[2023-09-25] MEDS: PROTONIX INJ 40 MG VIAL IVP SCH (17:51)
[2023-09-25] MEDS: ZITHROMAX INJ 500 MG VIAL 500 MG in D5W 250 ML IV 250 ML IV SCH (17:52)
[2023-09-25] MEDS: NS 1,000 ML IV 1,000 ML IV SCH (17:52)
[2023-09-25] MEDS: TUSSIONEX PENNKINETIC SUSP PO PRN (17:57)
[2023-09-25 17:59] LABS: BASOPHILS % (AUTO) 0.4 % (0.2-1.0); EOSINOPHILS # (AUTO) 0.1 x10^3/uL (0.0-0.2); EOSINOPHILS % (AUTO) 1.6 % (0.9-2.9); HEMATOCRIT 37.7 % (36.0-47.0); HEMOGLOBIN 12.4 g/dL (12.0-16.0); LYMPHOCYTES # (AUTO) 0.9 X10^3/uL (1.3-2.9); LYMPHOCYTES % (AUTO) 16.6 % (21.0-51.0); MEAN CORPUSCULAR HEMOGLOBIN 32.3 pg (27.0-34.0); MEAN CORPUSCULAR VOLUME 97.9 fL (80.0-100.0); MEAN PLATELET VOLUME 7.6 fL (7.4-11.0); MONOCYTES # (AUTO) 0.7 x10^3/uL (0.3-0.8); MONOCYTES % (AUTO) 14.2 % (0.0-13.0); NEUTROPHILS # (AUTO) 3.5 x10^3/uL (2.2-4.8); NEUTROPHILS % (AUTO) 67.2 % (42.0-75.0); PLATELET COUNT 243 X10^3/uL (150.0-450.0); RED BLOOD COUNT 3.85 X10^6/uL (3.5-5.4); RED CELL DISTRIBUTION WIDTH 16.7 % (11.6-16.5); WHITE BLOOD COUNT 5.1 X10^3/uL (3.6-10.0)
[2023-09-25 18:06] LABS: CALCIUM 9.2 mg/dL (8.5-10.1); CARBON DIOXIDE 27.4 mmol/L (21-32); CREATININE 1.8 mg/dL (0.55-1.02); MAGNESIUM 2.6 mg/dL (2.0-2.9); TOTAL PROTEIN 7.3 g/dL (6.4-8.2)
[2023-09-25 18:10] LABS: POTASSIUM 4.9 mmol/L (3.5-5.1)
[2023-09-25] MEDS: LOPRESSOR TAB 25 MG PO SCH (21:14)
[2023-09-25] MEDS: ELIQUIS PO SCH (21:14)
[2023-09-25] MEDS: ZOCOR TAB 20 MG PO SCH (21:14)
[2023-09-25 22:40] LABS: BILIRUBIN,URINE NEGATIVE (NEGATIVE); BLOOD/HEMOGLOBIN,URINE NEGATIVE (NEGATIVE); GLUCOSE, URINE NEGATIVE (NEGATIVE); KETONES,URINE NEGATIVE (NEGATIVE); LEUKOCYTE ESTERASE ,URINE NEGATIVE (NEGATIVE); NITRITES,URINE NEGATIVE (NEGATIVE); PROTEIN,URINE NEGATIVE (NEGATIVE); UROBILINOGEN,URINE NORMAL (NORMAL)
[2023-09-25 22:45] LABS: APPEARANCE,URINE CLEAR (CLEAR); COLOR,URINE STRAW (YELLOW)
[2023-09-26] MEDS: TESSALON PERLES PO PRN (02:34)
--- NOTE | 2023-09-26 04:06 | EKG ---
Test Reason : hypertension protocol Blood Pressure : */* mmHG Vent. Rate : 67 BPM Atrial Rate : 67 BPM P-R Int : 166 ms QRS Dur : 60 ms QT Int : 440 ms P-R-T Axes : 44 -24 38 degrees QTc Int : 464 ms Normal sinus rhythm Possible Left atrial enlargement Low voltage QRS Inferior infarct , age undetermined Cannot rule out Anteroseptal infarct , age undetermined Abnormal ECG No previous ECGs available Confirmed by Roland Ty MD ([id number]) on 09/26/2023 7:52:51 AM Referred By: Confirmed By: Roland Ty MD
[2023-09-26] MEDS: CATAPRES TAB 0.1 MG PO ONE (04:24)
[2023-09-26 05:14] LABS: BASOPHILS # (AUTO) 0.1 X10^3/uL (0.0-0.1); BASOPHILS % (AUTO) 1.9 % (0.2-1.0); EOSINOPHILS # (AUTO) 0.1 x10^3/uL (0.0-0.2); EOSINOPHILS % (AUTO) 2.8 % (0.9-2.9); HEMATOCRIT 35.2 % (36.0-47.0); HEMOGLOBIN 11.5 g/dL (12.0-16.0); LYMPHOCYTES # (AUTO) 0.8 X10^3/uL (1.3-2.9); LYMPHOCYTES % (AUTO) 16.2 % (21.0-51.0); MEAN CORPUSCULAR HEMOGLOBIN 31.8 pg (27.0-34.0); MEAN CORPUSCULAR HGB CONC 32.7 g/dL (33.0-35.0); MEAN CORPUSCULAR VOLUME 97.3 fL (80.0-100.0); MEAN PLATELET VOLUME 7.8 fL (7.4-11.0); MONOCYTES # (AUTO) 0.7 x10^3/uL (0.3-0.8); MONOCYTES % (AUTO) 13.2 % (0.0-13.0); NEUTROPHILS # (AUTO) 3.3 x10^3/uL (2.2-4.8); NEUTROPHILS % (AUTO) 65.9 % (42.0-75.0); PLATELET COUNT 245 X10^3/uL (150.0-450.0); RED BLOOD COUNT 3.61 X10^6/uL (3.5-5.4); RED CELL DISTRIBUTION WIDTH 16.9 % (11.6-16.5)
[2023-09-26 05:30] LABS: ALANINE AMINOTRANSFERASE 25 Units/L (12-78); ALBUMIN 2.7 g/dL (3.4-5.0); ALKALINE PHOSPHATASE 54 Units/L (46-116); ASPARTATE AMINO TRANSFERASE 23 Units/L (15-37); BLOOD UREA NITROGEN 20 mg/dL (7-18); CALCIUM 8.8 mg/dL (8.5-10.1); CARBON DIOXIDE 30.9 mmol/L (21-32); CHLORIDE 107 mmol/L (98-107); COR CA(FOR HYPOALB) 9.8 mg/dL (8.5-10.1); CREATININE 1.36 mg/dL (0.55-1.02); GLUCOSE 88 mg/dL (65-99); POTASSIUM 4.6 mmol/L (3.5-5.1); SODIUM 141 mmol/L (136-145); TOTAL PROTEIN 6.6 g/dL (6.4-8.2); eGFR NON BLACK RACES 39 (>60)
[2023-09-26] MEDS: SOLU-Medrol 40 MG VIAL IVP SCH (06:15)
--- NOTE | 2023-09-26 07:23 | RAD ---
EXAM:Two-view chestHISTORY:COVID, bronchitisCOMPARISON:02/09/2021FINDINGS: Heart size is normal. Jacquelyn are normal. Aorta is calcified and mildly ectatic. Lung [place] are clear. No pleural effusions are identified. Bony thorax is unremarkable.IMPRESSION:Lungs clearTHIS IS AN ELECTRONICALLY VERIFIED FINAL REPORT09/26/2023 7:20 AM - Electronically signed by Russell Rucker MD
[2023-09-26] MEDS: NORVASC TAB 5 MG PO SCH (09:22)
[2023-09-26] MEDS: CORDARONE TAB 200 MG PO SCH (09:24)
[2023-09-26] MEDS ORDERED: AMBIEN PO PRN (09:25)
[2023-09-27 06:31] LABS: BASOPHILS % (AUTO) 0.1 % (0.2-1.0); HEMATOCRIT 31.1 % (36.0-47.0); HEMOGLOBIN 10.1 g/dL (12.0-16.0); LYMPHOCYTES % (AUTO) 7.8 % (21.0-51.0); MEAN CORPUSCULAR HEMOGLOBIN 31.5 pg (27.0-34.0); MEAN CORPUSCULAR HGB CONC 32.4 g/dL (33.0-35.0); MEAN CORPUSCULAR VOLUME 97.3 fL (80.0-100.0); MEAN PLATELET VOLUME 7.9 fL (7.4-11.0); MONOCYTES # (AUTO) 0.7 x10^3/uL (0.3-0.8); MONOCYTES % (AUTO) 5.8 % (0.0-13.0); NEUTROPHILS # (AUTO) 10.6 x10^3/uL (2.2-4.8); NEUTROPHILS % (AUTO) 86.3 % (42.0-75.0); PLATELET COUNT 257 X10^3/uL (150.0-450.0); RED CELL DISTRIBUTION WIDTH 16.7 % (11.6-16.5); WHITE BLOOD COUNT 12.3 X10^3/uL (3.6-10.0)
[2023-09-27 06:34] LABS: ALBUMIN 2.4 g/dL (3.4-5.0); CALCIUM 8.9 mg/dL (8.5-10.1); COR CA(FOR HYPOALB) 10.2 mg/dL (8.5-10.1); CREATININE 1.53 mg/dL (0.55-1.02); POTASSIUM 4.8 mmol/L (3.5-5.1); TOTAL PROTEIN 5.8 g/dL (6.4-8.2)
--- NOTE | 2023-09-27 08:00 | RAD ---
EXAM: CHEST, 1 VIEW HISTORY: BRONCHITIS, POST COVID; HTN, HEART FAILURE SX: NEPHRECTOMY, HYST, ORTHO COMPARISON: Prior study or studies were utilized for comparison during interpretation with the most relevant alfredo ed 09/25/2023 TECHNIQUE: CHEST, 1 VIEW FINDINGS: Chest: Lines and tubes: None Mediastinum: Cardiac and mediastinal shadow is within normal limits for size and contour. Pulmonary vessels: No pulmonary vascular congestion. Lung [place]: No suspicious airspace opacity. Pleura: No effusion. No pneumothorax. Bones and soft tissues: No acute osseous or soft tissue abnormality. IMPRESSION: 1. No acute cardiopulmonary abnormality THIS IS AN ELECTRONICALLY VERIFIED FINAL REPORT 09/27/2023 7:57 AM - Electronically signed by Tonio Keen MD
[2023-09-27] MEDS: ROBITUSSIN DM PO SCH (10:13)
[2023-09-27] MEDS: LOPRESSOR TAB 25 MG PO ONE (18:23)
[2023-09-27] MEDS: AMBIEN PO PRN (20:36)
[2023-09-27] MEDS ORDERED: XOPENEX 1.25 MG/3 ML NEBULE NEB SCH (21:00)
--- NOTE | 2023-09-28 06:02 | RAD ---
EXAM: CHEST, 1 VIEW HISTORY: BRONCHITIS-FAILED OUTPT TREATMENT; HTN, HEART FAILURE SX: NEPHRECTOMY, HYST, ORTHO COMPARISON: 09/27/2023 FINDINGS: The cardiomediastinal silhouette is stable. Chronic interstitial changes in the lungs. No acute airspace disease. No pneumothorax or effusion. No acute osseous abnormality. IMPRESSION: No acute cardiopulmonary disease. THIS IS AN ELECTRONICALLY VERIFIED FINAL REPORT 09/28/2023 5:58 AM - Electronically signed by Russell Rucker MD
[2023-09-28 06:33] LABS: BASOPHILS % (AUTO) 0.1 % (0.2-1.0); HEMATOCRIT 31.6 % (36.0-47.0); HEMOGLOBIN 10.4 g/dL (12.0-16.0); LYMPHOCYTES # (AUTO) 1.4 X10^3/uL (1.3-2.9); LYMPHOCYTES % (AUTO) 10.7 % (21.0-51.0); MEAN CORPUSCULAR HEMOGLOBIN 32.2 pg (27.0-34.0); MEAN CORPUSCULAR VOLUME 97.6 fL (80.0-100.0); MEAN PLATELET VOLUME 7.9 fL (7.4-11.0); MONOCYTES # (AUTO) 1.7 x10^3/uL (0.3-0.8); MONOCYTES % (AUTO) 13.1 % (0.0-13.0); NEUTROPHILS # (AUTO) 9.7 x10^3/uL (2.2-4.8); NEUTROPHILS % (AUTO) 76.1 % (42.0-75.0); PLATELET COUNT 271 X10^3/uL (150.0-450.0); RED BLOOD COUNT 3.24 X10^6/uL (3.5-5.4); RED CELL DISTRIBUTION WIDTH 17.5 % (11.6-16.5); WHITE BLOOD COUNT 12.8 X10^3/uL (3.6-10.0)
[2023-09-28 06:41] LABS: ALANINE AMINOTRANSFERASE 34 Units/L (12-78); ALBUMIN 2.3 g/dL (3.4-5.0); ALKALINE PHOSPHATASE 66 Units/L (46-116); ASPARTATE AMINO TRANSFERASE 40 Units/L (15-37); BLOOD UREA NITROGEN 30 mg/dL (7-18); CALCIUM 8.6 mg/dL (8.5-10.1); CARBON DIOXIDE 26.4 mmol/L (21-32); CHLORIDE 109 mmol/L (98-107); CREATININE 1.44 mg/dL (0.55-1.02); GLUCOSE 87 mg/dL (65-99); SODIUM 141 mmol/L (136-145); TOTAL PROTEIN 5.7 g/dL (6.4-8.2); eGFR NON BLACK RACES 37 (>60)
[2023-09-28 06:43] LABS: POTASSIUM 4.9 mmol/L (3.5-5.1)
[2023-09-28 07:06] LABS: BAND NEUTROPHILS % 3 % (0-10); PLATELET MORPHOLOGY COMMENT NORMAL (NORMAL)
[2023-09-28 08:15] VITALS: PULSE 70; RESP 16; TEMP 98; O2SAT 93
[2023-09-28 08:19] VITALS: BP 152/86
[2023-09-28] MEDS ORDERED: SOLU-Medrol 40 MG VIAL IVP SCH (09:00)
[2023-09-28] MEDS: LASIX IVP ONE (10:08)
[2023-09-28] MEDS: SOLU-Medrol 40 MG VIAL IVP ONE (10:09)
[2023-09-28] MEDS: K-DUR TAB 20 MEQ PO SCH (10:09)
--- NOTE | 2023-09-28 14:44 | PCM.PROG ---
Progress Note Progress Note for Day of Date of Exam: 09/27/23 Subjective Subjective: This is an 83 year old white female patient who was admitted from our office on 09/25/23 having failed outpatient bronchopneumonia. The patient was covid-19 positive the first week of August and has failed two rounds of oral antibiotics with antitussive, duonebs. Upon admission, patients labs revealed dehydration and she was started on gentle IV hydration. We obtained a chest xray that was clear. We started the patient on IV antibiotics, respiratory therapy, supplemental 02 as needed, low dose corticosteroids, and resumed home medications. Sputum cultures obtained and pending. Also obtained urine cultures that are back this morning and indicated contamination. AIT resulted Parainfluenza virus (PIV types 1, 2 ,3, 4). AM repeat chest xray showed no acute cardiopulmonary findings. Morning labs: WBC 12.3, hgb 10.1, BUN 27/creatinine 1.53, BNP 109. Vitals: 181/83-88-18-97.3-96% room air. Past Medical Family Social History Allergies: Allergies dextromethorphan [From NyQuil] Allergy (Verified 06/21/17 10:39) doxylamine [From NyQuil] Allergy (Verified 06/21/17 10:39) pseudoephedrine [From NyQuil] Allergy (Verified 06/21/17 10:39) Vital Signs and I&O's Vital Signs: Vital Signs Temperature 98 F Temperature 98.6 F Pulse Rate [Left Radial] 70 Pulse Rate [Left Radial] 98 Respiratory Rate 16 Respiratory Rate 16 Respiratory Rate 19 Blood Pressure [Right Arm] 152/86 Blood Pressure [Right Arm] 170/75 Blood Pressure [Right Arm] 171/76 O2 Sat by Pulse Oximetry 93 O2 Sat by Pulse Oximetry 96 Intake and Output: Intake & Output 09/25/23 09/26/23 09/27/23 09/28/23 11:59 11:59 11:59 11:59 Intake Total 1132 / 1132 1338 / 1338 2533 / 2533 Balance 1132 / 1132 1338 / 1338 2533 / 2533 Physical Exam Oriented: Normal Eyes: Normal Nose: Discharge Respiratory: Diminished and Wheezes Cardiovascular: Edema (trace lower extremity edema) Tenderness: Diffuse, RUQ, LUQ (likely related to coughing) and Mild Skin: Decreased [place] Musculoskeletal: Back:Lumbar Psychiatric: Normal Mood Description: Anxious Affect: Depressed Speech Pattern: Clear and Appropriate Laboratory and Diagnostics 09/28/23 05:24 09/28/23 05:24 Labs: 09/26/23 12:57 Sputum - Expectorated Sputum Sputum Culture - Final 09/26/23 12:57 Sputum - Expectorated Sputum - Final 09/25/23 22:28 Urine,Clean Catch Urine Culture - Final Laboratory WBC 12.8 X10^3/uL (3.6-10.0) H 09/28/23 05:24 RBC 3.24 X10^6/uL (3.5-5.4) L 09/28/23 05:24 Hgb 10.4 g/dL (12.0-16.0) L 09/28/23 05:24 Hct 31.6 % (36.0-47.0) L 09/28/23 05:24 MCV 97.6 fL (80.0-100.0) 09/28/23 05:24 MCH 32.2 pg (27.0-34.0) 09/28/23 05:24 MCHC 33.0 g/dL (33.0-35.0) 09/28/23 05:24 RDW 17.5 % (11.6-16.5) H 09/28/23 05:24 Plt Count 271 X10^3/uL (150.0-450.0) 09/28/23 05:24 Plt Count Comment Adequate (ADEQUATE) 09/28/23 05:24 MPV 7.9 fL (7.4-11.0) 09/28/23 05:24 Neut % (Auto) 76.1 % (42.0-75.0) H 09/28/23 05:24 Lymph % (Auto) 10.7 % (21.0-51.0) L 09/28/23 05:24 [place] % (Auto) 13.1 % (0.0-13.0) H 09/28/23 05:24 Eos % (Auto) 0.0 % (0.9-2.9) L 09/28/23 05:24 Baso % (Auto) 0.1 % (0.2-1.0) L 09/28/23 05:24 Neut # (Auto) 9.7 x10^3/uL (2.2-4.8) H 09/28/23 05:24 Lymph # (Auto) 1.4 X10^3/uL (1.3-2.9) 09/28/23 05:24 [place] # (Auto) 1.7 x10^3/uL (0.3-0.8) H 09/28/23 05:24 Eos # (Auto) 0.0 x10^3/uL (0.0-0.2) 09/28/23 05:24 Baso # (Auto) 0.0 X10^3/uL (0.0-0.1) 09/28/23 05:24 Absolute Nucleated RBC 0.3 /100WBC 09/28/23 05:24 Total Counted 100 09/28/23 05:24 Neutrophils % (Manual) 66 % (39-76) 09/28/23 05:24 Band Neutrophils % 3 % (0-10) 09/28/23 05:24 Lymphocytes % (Manual) 20 % (13-43) 09/28/23 05:24 Monocytes % (Manual) 11 % (4-9) H 09/28/23 05:24 Plt Morphology Comment Normal (NORMAL) 09/28/23 05:24 RBC Morphology Normal (NORMAL) 09/28/23 05:24 D-Dimer 0.33 ug/ml (0.0-0.57) 09/25/23 17:40 Sodium 141 mmol/L (136-145) 09/28/23 05:24 Corrected Sodium TNP 09/28/23 05:24 Potassium 4.9 mmol/L (3.5-5.1) 09/28/23 05:24 Chloride 109 mmol/L (98-107) H 09/28/23 05:24 Carbon Dioxide 26.4 mmol/L (21-32) 09/28/23 05:24 BUN 30 mg/dL (7-18) H 09/28/23 05:24 Creatinine 1.44 mg/dL (0.55-1.02) H 09/28/23 05:24 Est GFR (MDRD) Af Amer 45 (>60) L 09/28/23 05:24 Est GFR (MDRD) Non-Af 37 (>60) L 09/28/23 05:24 Glucose 87 mg/dL (65-99) 09/28/23 05:24 Calcium 8.6 mg/dL (8.5-10.1) 09/28/23 05:24 Corrected Calcium 10.0 mg/dL (8.5-10.1) 09/28/23 05:24 Magnesium 2.6 mg/dL (2.0-2.9) 09/25/23 17:40 Total Bilirubin 0.20 mg/dL (0.2-1.0) 09/28/23 05:24 AST 40 Units/L (15-37) H 09/28/23 05:24 ALT 34 Units/L (12-78) 09/28/23 05:24 Alkaline Phosphatase 66 Units/L (46-116) 09/28/23 05:24 B-Natriuretic Peptide 109 pg/mL (0-79) H 09/25/23 17:40 Total Protein 5.7 g/dL (6.4-8.2) L 09/28/23 05:24 Albumin 2.3 g/dL (3.4-5.0) L 09/28/23 05:24 Globulin 3.4 g/dL (2.5-4.5) 09/28/23 05:24 Albumin/Globulin Ratio 0.7 Ratio (1.1-2.1) L 09/28/23 05:24 Specimen Type Clean catch urine 09/25/23 22: Urine Color Straw (YELLOW) 09/25/23 22: Urine Appearance Clear (CLEAR) 09/25/23 22: Urine pH 7.0 (5.0 - 8.0) 09/25/23 22:28 Ur Specific Gray 1.015 (1.000-1.030) 09/25/23 22: Urine Protein Negative (NEGATIVE) 09/25/23 22:28 Urine Glucose (UA) Negative (NEGATIVE) 09/25/23 22: Urine Ketones Negative (NEGATIVE) 09/25/23: Urine Blood Negative (NEGATIVE) 09/25/23 22: Urine Nitrite Negative (NEGATIVE) 09/25/23 22: Urine Bilirubin Negative (NEGATIVE) 09/25/23 22: Urine Urobilinogen Normal (NORMAL) 09/25/23 22:28 Ur Leukocyte Esterase Negative (NEGATIVE) 03/25/24 22:28 Resp Viral Panel (PCR) See scanned report 09/25/23 20:20 Plan (1) Pneumonia due to COVID-19 virus: Status: Acute Plan: Physical therapy consult. Continue IV abx, respiratory therapy, supplemental 02 as needed, low dose corticosteroids, I&O's, blood pressure control. Continue home medications. (2) Acute renal failure: Status: Acute (3) Dehydration: Status: Acute (4) Lupus: Status: Chronic (5) History of cardiac arrhythmia: Status: Chronic (6) Afib: Status: Chronic Qualifiers: Atrial fibrillation type: persistent (not longstanding) Qualified Code(s): I48.19 - Other persistent atrial fibrillation (7) Primary hypertension: Status: None
--- NOTE | 2023-09-28 14:45 | PCM.DCPLAN ---
DISCHARGE SUMMARY Admission Date Date of Admission: 09/25/23 Discharge Date Discharge Date: 09/28/23 Admission Diagnoses (1) Pneumonia due to COVID-19 virus: Status: Acute (2) Acute renal failure: Status: Acute (3) Dehydration: Status: Acute (4) Lupus: Status: Chronic (5) History of cardiac arrhythmia: Status: Chronic (6) Afib: Status: Chronic (7) Primary hypertension: Status: None Discharge Diagnoses Discharge Diagnosis: Resolved pneumonia, improved dehyration, add bronchitis- same as admission Discharge Medications Discharge Medications: Home Medication List benzonatate 100 mg capsule 100 mg PO TID PRN 09/25/23 [History] azithromycin 250 mg tablet (Zithromax) 250 mg PO QDAY 7 days #7 tabs 09/28/23 [Rx] prednisone 5 mg tablet 5 mg PO QDAY #21 tabs 09/28/23 [Rx] Prescriptions: azithromycin [Zithromax] HEMANT,DANIEL prednisone HEMANT,[facility] Hospital Course Vital Signs: Vital Signs Temperature 98 F Temperature 98.6 F Pulse Rate [Left Radial] 70 Pulse Rate [Left Radial] 98 Respiratory Rate 16 Respiratory Rate 16 Respiratory Rate 19 Blood Pressure [Right Arm] 152/86 Blood Pressure [Right Arm] 170/75 Blood Pressure [Right Arm] 171/76 O2 Sat by Pulse Oximetry 93 O2 Sat by Pulse Oximetry 96 Latest Lab Results: Laboratory Last Values WBC 12.8 X10^3/uL (3.6-10.0) H 09/28/23 05:24 RBC 3.24 X10^6/uL (3.5-5.4) L 09/28/23 05:24 Hgb 10.4 g/dL (12.0-16.0) L 09/28/23 05:24 Hct 31.6 % (36.0-47.0) L 09/28/23 05:24 MCV 97.6 fL (80.0-100.0) 09/28/23 05:24 MCH 32.2 pg (27.0-34.0) 09/28/23 05:24 MCHC 33.0 g/dL (33.0-35.0) 09/28/23 05:24 RDW 17.5 % (11.6-16.5) H 09/28/23 05:24 Plt Count 271 X10^3/uL (150.0-450.0) 09/28/23 05:24 Plt Count Comment Adequate (ADEQUATE) 09/28/23 05:24 MPV 7.9 fL (7.4-11.0) 09/28/23 05:24 Neut % (Auto) 76.1 % (42.0-75.0) H 09/28/23 05:24 Lymph % (Auto) 10.7 % (21.0-51.0) L 09/28/23 05:24 [place] % (Auto) 13.1 % (0.0-13.0) H 09/28/23 05:24 Eos % (Auto) 0.0 % (0.9-2.9) L 09/28/23 05:24 Baso % (Auto) 0.1 % (0.2-1.0) L 09/28/23 05:24 Neut # (Auto) 9.7 x10^3/uL (2.2-4.8) H 09/28/23 05:24 Lymph # (Auto) 1.4 X10^3/uL (1.3-2.9) 09/28/23 05:24 [place] # (Auto) 1.7 x10^3/uL (0.3-0.8) H 09/28/23 05:24 Eos # (Auto) 0.0 x10^3/uL (0.0-0.2) 09/28/23 05:24 Baso # (Auto) 0.0 X10^3/uL (0.0-0.1) 09/28/23 05:24 Absolute Nucleated RBC 0.3 /100WBC 09/28/23 05:24 Total Counted 100 09/28/23 05:24 Neutrophils % (Manual) 66 % (39-76) 09/28/23 05:24 Band Neutrophils % 3 % (0-10) 09/28/23 05:24 Lymphocytes % (Manual) 20 % (13-43) 09/28/23 05:24 Monocytes % (Manual) 11 % (4-9) H 09/28/23 05:24 Plt Morphology Comment Normal (NORMAL) 09/28/23 05:24 RBC Morphology Normal (NORMAL) 09/28/23 05:24 D-Dimer 0.33 ug/ml (0.0-0.57) 09/25/23 17:40 Sodium 141 mmol/L (136-145) 09/28/23 05:24 Corrected Sodium TNP 09/28/23 05:24 Potassium 4.9 mmol/L (3.5-5.1) 09/28/23 05:24 Chloride 109 mmol/L (98-107) H 09/28/23 05:24 Carbon Dioxide 26.4 mmol/L (21-32) 09/28/23 05:24 BUN 30 mg/dL (7-18) H 09/28/23 05:24 Creatinine 1.44 mg/dL (0.55-1.02) H 09/28/23 05:24 Est GFR (MDRD) Af Amer 45 (>60) L 09/28/23 05:24 Est GFR (MDRD) Non-Af 37 (>60) L 09/28/23 05:24 Glucose 87 mg/dL (65-99) 09/28/23 05:24 Calcium 8.6 mg/dL (8.5-10.1) 09/28/23 05:24 Corrected Calcium 10.0 mg/dL (8.5-10.1) 09/28/23 05:24 Magnesium 2.6 mg/dL (2.0-2.9) 09/25/23 17:40 Total Bilirubin 0.20 mg/dL (0.2-1.0) 09/28/23 05:24 AST 40 Units/L (15-37) H 09/28/23 05:24 ALT 34 Units/L (12-78) 09/28/23 05:24 Alkaline Phosphatase 66 Units/L (46-116) 09/28/23 05:24 B-Natriuretic Peptide 109 pg/mL (0-79) H 09/25/23 17:40 Total Protein 5.7 g/dL (6.4-8.2) L 09/28/23 05:24 Albumin 2.3 g/dL (3.4-5.0) L 09/28/23 05:24 Globulin 3.4 g/dL (2.5-4.5) 09/28/23 05:24 Albumin/Globulin Ratio 0.7 Ratio (1.1-2.1) L 09/28/23 05:24 Specimen Type Clean catch urine 09/25/23 22: Urine Color Straw (YELLOW) 09/25/23 22: Urine Appearance Clear (CLEAR) 09/25/23: Urine pH 7.0 (5.0 - 8.0) 09/25/23 22: Ur Specific [place] 1.015 (1.000-1.030) 09/25/23 22: Urine Protein Negative (NEGATIVE) 09/25/23: Urine Glucose (UA) Negative (NEGATIVE) 09/25/23: Urine Ketones Negative (NEGATIVE) 09/25/23 22: Urine Blood Negative (NEGATIVE) 09/25/23: Urine Nitrite Negative (NEGATIVE) 09/25/23: Urine Bilirubin Negative (NEGATIVE) 09/25/23: Urine Urobilinogen Normal (NORMAL) 09/25/23: Ur Leukocyte Esterase Negative (NEGATIVE) 09/25/23: Resp Viral Panel (PCR) See scanned report 09/25/23 20:20 Hospital Course: This is an 83 year old white female patient who was admitted from our office on 09/25/23 having failed outpatient bronchopneumonia. The patient was covid-19 positive the first week of August and has failed two rounds of oral antibiotics with antitussive, duonebs. Upon admission, patients labs revealed dehydration and she was started on gentle IV hydration. We obtained a chest xray that was clear. We started the patient on IV antibiotics, respiratory therapy, supplemental 02 as needed, low dose corticosteroids, and resumed home medications. Sputum cultures obtained and showed normal rama. Also obtained urine cultures and indicated contamination. AIT resulted Parainfluenza virus (PIV types 1, 2 ,3, 4). Obtained a repeat chest xray this morning that continues to show no acute cardiopulmonary abnormalities. Morning labs: WBC 12.8, hgb 10.4, BUN 30/creatinine 1.44. Vitals: 170/75-70-16-98.0-93% room air. Patient did have some trace lower extremity edema on exam, so we treated the patient with a one time dose of lasix with potassium. Patient stated that she is feeling much improved, so we will allow the patient to discharge home on zithromax and prednisone. She will need to follow up with her primary care provider. She is scheduled for an appointment with PCP on 10/03/23 at 3PM. Please see discharge plan for list of discharge medications and modifications that we made, electronic medical record for diagnostic tests and labs. The patient was instructed to return to the ER if condition changed or worsened unexpectedly.
== END 2023-09-28 11:40 | disposition home or self-care (01) | DRG 194 ==
LOC: MED/SURG
PROVIDERS: ADMIT Internal Medicine; ATTEND Internal Medicine
DX: J18.0 Bronchopneumonia, unspecified organism; E86.0 Dehydration; R60.0 Localized edema; B34.8 Other viral infections of unspecified site; N17.8 Other acute kidney failure; I48.19 Other persistent atrial fibrillation; K21.9 Gastro-esophageal reflux disease without esophagitis; U09.9 Post COVID-19 condition, unspecified; M32.8 Other forms of systemic lupus erythematosus; R53.1 Weakness; Z79.01 Long term (current) use of anticoagulants; R06.02 Shortness of breath; I10 Essential (primary) hypertension; R51.9 Headache, unspecified

== ENCOUNTER 2024-01-11 12:11 | Inpatient (IN) ==
--- NOTE | 2024-01-11 15:01 | EKG ---
Test Reason : WEAKNESS, SOB Blood Pressure : */* mmHG Vent. Rate : 61 BPM Atrial Rate : 61 BPM P-R Int : 168 ms QRS Dur : 54 ms QT Int : 430 ms P-R-T Axes : 13 -27 33 degrees QTc Int : 432 ms Normal sinus rhythm Low voltage QRS Inferior infarct (cited on or before 26-SEP-2023) Possible Anterolateral infarct (cited on or before 26-SEP-2023) Abnormal ECG When compared with ECG of 26-SEP-2023 03:50, Questionable change in initial forces of Septal leads Confirmed by Balwinder Barger ([id number]) on 01/15/2024 8:58:42 AM Referred By: Confirmed By: Balwinder Barger
[2024-01-11] MEDS: ROCEPHIN VIAL 1 GRAM 1 G in NS 100 ML IV 100 ML IV SCH (15:31)
[2024-01-11] MEDS: NS 1,000 ML IV 1,000 ML IV SCH (15:31)
[2024-01-11 15:34] LABS: BASOPHILS % (AUTO) 0.2 % (0.2-1.0); EOSINOPHILS # (AUTO) 0.2 x10^3/uL (0.0-0.2); EOSINOPHILS % (AUTO) 3.6 % (0.9-2.9); HEMATOCRIT 32.1 % (36.0-47.0); HEMOGLOBIN 10.7 g/dL (12.0-16.0); LYMPHOCYTES # (AUTO) 0.6 X10^3/uL (1.3-2.9); LYMPHOCYTES % (AUTO) 11.3 % (21.0-51.0); MEAN CORPUSCULAR HEMOGLOBIN 31.8 pg (27.0-34.0); MEAN CORPUSCULAR HGB CONC 33.3 g/dL (33.0-35.0); MEAN CORPUSCULAR VOLUME 95.7 fL (80.0-100.0); MEAN PLATELET VOLUME 7.9 fL (7.4-11.0); MONOCYTES # (AUTO) 0.5 x10^3/uL (0.3-0.8); MONOCYTES % (AUTO) 7.9 % (0.0-13.0); NEUTROPHILS # (AUTO) 4.4 x10^3/uL (2.2-4.8); PLATELET COUNT 170 X10^3/uL (150.0-450.0); RED BLOOD COUNT 3.35 X10^6/uL (3.5-5.4); WHITE BLOOD COUNT 5.7 X10^3/uL (3.6-10.0)
[2024-01-11 15:36] LABS: RETICULOCYTE % 1.4 % (0.8-2.2)
[2024-01-11 15:47] VITALS: BMI 24.8
[2024-01-11 15:51] LABS: ALANINE AMINOTRANSFERASE 26 Units/L (12-78); ALBUMIN 3.1 g/dL (3.4-5.0); ALKALINE PHOSPHATASE 57 Units/L (46-116); ASPARTATE AMINO TRANSFERASE 30 Units/L (15-37); BLOOD UREA NITROGEN 26 mg/dL (7-18); CALCIUM 9.3 mg/dL (8.5-10.1); CARBON DIOXIDE 24.8 mmol/L (21-32); CHLORIDE 104 mmol/L (98-107); CREATININE 1.62 mg/dL (0.55-1.02); GLUCOSE 94 mg/dL (65-99); MAGNESIUM 2.2 mg/dL (2.0-2.9); POTASSIUM 4.4 mmol/L (3.5-5.1); SODIUM 138 mmol/L (136-145); TOTAL PROTEIN 6.5 g/dL (6.4-8.2); eGFR NON BLACK RACES 32 (>60)
--- NOTE | 2024-01-11 18:09 | DR.H&P ---
H&P History & Physical for Day of: H&P Date: 01/11/24 Chief Complaint Chief Complaint: WEAKNESS, SOB, DECREASE URINATION History of Present Illness History of Present Illness: PT IS 83 WF, DIRECT ADMIT FROM DR ELKINS OFFICE WI TH CO DIFFUSE WEAKNESS, WORSE FOR PAST 4-5 DAYS. PT REPORTS SOB WORSE ON EXERTION AND POOR URINE OUTPT. PT HAS PMH OF LUPUS, RENAL DISEASE, AFIB, HYPERTENSIVE AND OA. PT IS ON ELIQUIS BUT DENIES ANY BLOOD IN STOOL. PT CO NAUSEA AND BLOOD PRESSURE IN OFFICE 102/60, PULSE 58. PT ADMITTED FOR TREATMENT AND EVALUATION OF ACUTE ILLNESS. Past Medical History Past Medical History: Anxiety, Arthritis, Hypertension and Renal Disease Additional Medical History: LUPUS, HX RENAL MASS, AFIB Past Surgical History Surgical History: Hysterectomy and Ortho Surgery Additional Surgical History: LEFT RENAL MASS AND 1/4 LEFT KIDNEY REMOVED PER [facility] [place] FEB 29, 2016 Family History Family Medical History: Heart Failure and Hypertension Social History Does any household member use tobacco: No Alcohol Use: None Drug Use: None Medications Home Medications: Home Medications Medication Instructions Recorded Confirmed Type amlodipine 5 mg tablet (Norvasc) 10 mg PO DAILY 06/08/14 01/11/24 History omeprazole 20 mg capsule,delayed 20 mg PO BID 06/08/14 01/11/24 History release metoprolol tartrate 25 mg tablet 12.5 mg PO BID 09/26/16 01/11/24 History simvastatin 20 mg tablet 20 mg PO HS 10/17/19 01/11/24 History amiodarone 200 mg tablet 200 mg PO DAILY 07/18/20 01/11/24 History gabapentin 300 mg capsule 300 mg PO BID 12/24/20 01/11/24 History (Neurontin) apixaban 5 mg tablet (Eliquis) 5 mg PO BID 02/16/23 01/11/24 History losartan 50 mg tablet 50 mg PO QDAY 01/11/24 01/11/24 History tizanidine 4 mg tablet 4 mg PO BID 01/11/24 01/11/24 History Allergies Allergies Allergy/AdvReac Type Severity Reaction Status Date / Time dextromethorphan Allergy Verified 06/21/17 10:39 [From NyQuil] doxylamine [From NyQuil] Allergy Verified 06/21/17 10:39 pseudoephedrine [From NyQuil] Allergy Verified 06/21/17 10:39 Labs 01/11/24 15:21 01/11/24 15:13 Labs: Laboratory WBC 5.7 X10^3/uL (3.6-10.0) 01/11/24 15:21 RBC 3.35 X10^6/uL (3.5-5.4) L 01/11/24 15:21 Hgb 10.7 g/dL (12.0-16.0) L 01/11/24 15:21 Hct 32.1 % (36.0-47.0) L 01/11/24 15:21 MCV 95.7 fL (80.0-100.0) 01/11/24 15:21 MCH 31.8 pg (27.0-34.0) 01/11/24 15:21 MCHC 33.3 g/dL (33.0-35.0) 01/11/24 15:21 RDW 18.0 % (11.6-16.5) H 01/11/24 15:21 Plt Count 170 X10^3/uL (150.0-450.0) 01/11/24 15:21 MPV 7.9 fL (7.4-11.0) 01/11/24 15:21 Neut % (Auto) 77.0 % (42.0-75.0) H 01/11/24 15:21 Lymph % (Auto) 11.3 % (21.0-51.0) L 01/11/24 15:21 [place] % (Auto) 7.9 % (0.0-13.0) 01/11/24 15:21 Eos % (Auto) 3.6 % (0.9-2.9) H 01/11/24 15:21 Baso % (Auto) 0.2 % (0.2-1.0) 01/11/24 15:21 Neut # (Auto) 4.4 x10^3/uL (2.2-4.8) 01/11/24 15:21 Lymph # (Auto) 0.6 X10^3/uL (1.3-2.9) L 01/11/24 15:21 [place] # (Auto) 0.5 x10^3/uL (0.3-0.8) 01/11/24 15:21 Eos # (Auto) 0.2 x10^3/uL (0.0-0.2) 01/11/24 15:21 Baso # (Auto) 0.0 X10^3/uL (0.0-0.1) 01/11/24 15:21 Absolute Nucleated RBC 0.2 /100WBC 01/11/24 15:21 Absolute Retic 0.0470 10^6/uL 01/11/24 15:21 Percent Retic 1.40 % (0.8-2.2) 01/11/24 15:21 Sodium 138 mmol/L (136-145) 01/11/24 15:13 Corrected Sodium TNP 01/11/24 15:13 Potassium 4.4 mmol/L (3.5-5.1) 01/11/24 15:13 Chloride 104 mmol/L (98-107) 01/11/24 15:13 Carbon Dioxide 24.8 mmol/L (21-32) 01/11/24 15:13 BUN 26 mg/dL (7-18) H 01/11/24 15:13 Creatinine 1.62 mg/dL (0.55-1.02) H 01/11/24 15:13 Est GFR (MDRD) Af Amer 39 (>60) L 01/11/24 15:13 Est GFR (MDRD) Non-Af 32 (>60) L 01/11/24 15:13 Glucose 94 mg/dL (65-99) 01/11/24 15:13 Calcium 9.3 mg/dL (8.5-10.1) 01/11/24 15:13 Corrected Calcium 10.0 mg/dL (8.5-10.1) 01/11/24 15:13 Magnesium 2.2 mg/dL (2.0-2.9) 01/11/24 15:13 Iron 39 ug/dL (50-175) L 01/11/24 15:13 TIBC 230 ug/dL (250-450) L 01/11/24 15:13 Transferrin 185 mg/dL (202-364) L 01/11/24 15:13 Ferritin 153 ng/mL (8-252) 01/11/24 15:13 Total Bilirubin 0.30 mg/dL (0.2-1.0) 01/11/24 15:13 AST 30 Units/L (15-37) 01/11/24 15:13 ALT 26 Units/L (12-78) 01/11/24 15:13 Alkaline Phosphatase 57 Units/L (46-116) 01/11/24 15:13 Creatine Kinase 39 Units/L (26-192) 01/11/24 15:13 Troponin I High Sens 4.9 ng/L (4.0-60.0) 01/11/24 15:13 B-Natriuretic Peptide 60.7 pg/mL (0-79) 01/11/24 15:21 Total Protein 6.5 g/dL (6.4-8.2) 01/11/24 15:13 Albumin 3.1 g/dL (3.4-5.0) L 01/11/24 15:13 Globulin 3.4 g/dL (2.5-4.5) 01/11/24 15:13 Albumin/Globulin Ratio 0.9 Ratio (1.1-2.1) L 01/11/24 15:13 Vitamin B12 448 pg/mL (193-986) 01/11/24 15:13 Folate 2.9 ng/mL (>8.6) L 01/11/24 15:13 Review of Systems Constitutional: Sweats, Weakness and Malaise Eyes: No Symptoms Reported ENT: No Symptoms Reported Respiratory: SOB with Excertion Cardiovascular: Edema Gastrointestinal: Nausea Genitourinary: Other (DECREASE URINE OUTPT) Musculoskeletal: Back Pain Neurological: Weakness and Other (DIZZINESS) Physical Exam Vital Signs: Vital Signs Temperature 98.6 F Temperature 98.5 F Pulse Rate [Left Brachial] 62 Pulse Rate [Left Brachial] 63 Respiratory Rate 18 Respiratory Rate 18 Blood Pressure [Left Arm] 144/67 Blood Pressure [Left Arm] 138/76 O2 Sat by Pulse Oximetry 94 O2 Sat by Pulse Oximetry 96 Oriented: Normal Eyes: Normal Nose: Normal Throat: Dry Respiratory: RLL Diminished and LLL Diminished Cardiovascular: Bradycardia and Edema Auscultation: Bowel Sounds: Normal Palpation: Normal Tenderness: Normal Skin: Decreased Turgur Musculoskeletal: Back:Lumbar and Motor Deficit Psychiatric: Depression Affect: Flat Speech Pattern: Clear and Appropriate Assessment/Plan (1) Dehydration: Narrative Support Text: ADMIT, IV HYDRATION I&OS, BP CONTROL CARDIAC MONITORING OCCULT STOOL, ANEMIA PANEL ON ADMISSION LABS UA/UC START IV ROCEPHIN BC ON ADMISSION Status: Acute (2) Urinary tract infection: Status: Acute (3) Acute renal failure: Status: Acute (4) Hypertension: Qualifiers: Hypertension type: essential hypertension Qualified Code(s): I10 - Essential (primary) hypertension Status: Chronic (5) Afib: Qualifiers: Atrial fibrillation type: persistent (not longstanding) Qualified Code(s): I48.19 - Other persistent atrial fibrillation Status: Chronic (6) Lupus: Status: Chronic (7) GERD (gastroesophageal reflux disease): Status: Chronic
[2024-01-11 19:20] LABS: BILIRUBIN,URINE NEGATIVE (NEGATIVE); BLOOD/HEMOGLOBIN,URINE NEGATIVE (NEGATIVE); GLUCOSE, URINE NEGATIVE (NEGATIVE); KETONES,URINE NEGATIVE (NEGATIVE); LEUKOCYTE ESTERASE ,URINE 1+ (NEGATIVE); NITRITES,URINE NEGATIVE (NEGATIVE); PROTEIN,URINE 1+ (NEGATIVE); UROBILINOGEN,URINE NORMAL (NORMAL)
[2024-01-11 19:31] LABS: APPEARANCE,URINE CLEAR (CLEAR); COLOR,URINE PALE YELLOW (YELLOW)
[2024-01-11 19:32] LABS: BACTERIA,URINE NEGATIVE /HPF (NEGATIVE); RBC,URINE 0-2 /HPF (0-3); SQUAMOUS EPITHELIAL CELL,UR RARE /HPF (NEGATIVE)
[2024-01-11] MEDS: PriLOSEC PO SCH (20:19)
[2024-01-11] MEDS: ZOCOR TAB 20 MG PO SCH (20:19)
[2024-01-11] MEDS: ELIQUIS PO SCH (20:19)
[2024-01-11] MEDS: LOPRESSOR TAB 25 MG PO SCH (20:19)
--- NOTE | 2024-01-11 20:26 | RAD ---
EXAMINATION:CHEST, 1 VIEWHISTORY:SOB, WEAKNESS; .COMPARISON STUDY:Chest x-ray 09/20/2023TECHNIQUE:Single frontal erect view of the chestFINDINGS:Lungs are expanded. Subtle prominent interstitial markings in both lungs. No focal area of pulmonary consolidation. Mild cardiac silhouette enlargement. Normal pulmonary vascular pattern. Bones are intact.IMPRESSION:Mild cardiac silhouette enlargement. Subtle interstitial markings in both lungs.THIS IS AN ELECTRONICALLY VERIFIED FINAL REPORT01/11/2024 8:23 PM - Electronically signed by Haleigh Benito MD
[2024-01-11] MEDS: TYLENOL 325 MG TAB PO PRN (21:32)
[2024-01-12 05:00] LABS: BASOPHILS % (AUTO) 0.3 % (0.2-1.0); EOSINOPHILS # (AUTO) 0.2 x10^3/uL (0.0-0.2); HEMATOCRIT 33.2 % (36.0-47.0); LYMPHOCYTES # (AUTO) 0.8 X10^3/uL (1.3-2.9); LYMPHOCYTES % (AUTO) 12.9 % (21.0-51.0); MEAN CORPUSCULAR HEMOGLOBIN 31.5 pg (27.0-34.0); MEAN CORPUSCULAR HGB CONC 33.1 g/dL (33.0-35.0); MEAN CORPUSCULAR VOLUME 95.2 fL (80.0-100.0); MEAN PLATELET VOLUME 7.8 fL (7.4-11.0); MONOCYTES # (AUTO) 0.5 x10^3/uL (0.3-0.8); MONOCYTES % (AUTO) 7.8 % (0.0-13.0); NEUTROPHILS # (AUTO) 4.4 x10^3/uL (2.2-4.8); PLATELET COUNT 167 X10^3/uL (150.0-450.0); RED BLOOD COUNT 3.49 X10^6/uL (3.5-5.4); RED CELL DISTRIBUTION WIDTH 17.8 % (11.6-16.5); WHITE BLOOD COUNT 5.8 X10^3/uL (3.6-10.0)
[2024-01-12 05:12] LABS: ALANINE AMINOTRANSFERASE 19 Units/L (12-78); ALBUMIN 2.8 g/dL (3.4-5.0); ALKALINE PHOSPHATASE 49 Units/L (46-116); ASPARTATE AMINO TRANSFERASE 28 Units/L (15-37); BLOOD UREA NITROGEN 19 mg/dL (7-18); CARBON DIOXIDE 23.6 mmol/L (21-32); CHLORIDE 107 mmol/L (98-107); CREATININE 1.42 mg/dL (0.55-1.02); GLUCOSE 88 mg/dL (65-99); POTASSIUM 3.8 mmol/L (3.5-5.1); SODIUM 141 mmol/L (136-145); TOTAL PROTEIN 5.9 g/dL (6.4-8.2); eGFR NON BLACK RACES 37 (>60)
[2024-01-12] MEDS ORDERED: CONSULT PHARMACY - POTASSIUM & MAGNESIUM XX SCH (06:00)
[2024-01-12] MEDS: K-DUR TAB 20 MEQ PO SCH (06:03)
[2024-01-12] MEDS: PULMICORT NEB TX 0.5 MG NEB SCH (09:37)
[2024-01-12] MEDS: COZAAR PO SCH (10:39)
[2024-01-12] MEDS: CORDARONE TAB 200 MG PO SCH (10:39)
[2024-01-12] MEDS: SOLU-Medrol 40 MG VIAL IVP ONE (10:40)
[2024-01-12] MEDS: ROBITUSSIN DM PO SCH (15:01)
--- NOTE | 2024-01-12 15:44 | RAD ---
EXAM:CHEST x-ray, 1 VIEWHISTORY:SOB; HX- HTN, RENAL DISEASE -COMPARISON:X-ray 01/11/2024FINDINGS:Persistent abnormal interstitial densities are seen in the lungs. These are new since August. Heart is normal in size. No focal infiltrate, pneumothorax, or pleural effusion is seen.IMPRESSION:Abnormal interstitial densities lungs are concerning for atypical pneumonia. Consider viral pneumonia such as COVID-19. Continued x-ray follow up to document resolution is recommended.THIS IS AN ELECTRONICALLY VERIFIED FINAL REPORT01/12/2024 3:41 PM - Electronically signed by Aries Cantrell MD
[2024-01-12] MEDS: ZANAFLEX PO SCH (20:32)
[2024-01-13 06:05] LABS: HEMOGLOBIN 11.6 g/dL (12.0-16.0); MEAN CORPUSCULAR HGB CONC 32.9 g/dL (33.0-35.0); RED BLOOD COUNT 3.71 X10^6/uL (3.5-5.4); WHITE BLOOD COUNT 6.2 X10^3/uL (3.6-10.0)
[2024-01-13 06:21] LABS: ALBUMIN 2.9 g/dL (3.4-5.0); CALCIUM 9.4 mg/dL (8.5-10.1); CARBON DIOXIDE 23.7 mmol/L (21-32); COR CA(FOR HYPOALB) 10.3 mg/dL (8.5-10.1); CREATININE 1.16 mg/dL (0.55-1.02); POTASSIUM 4.7 mmol/L (3.5-5.1); TOTAL PROTEIN 6.4 g/dL (6.4-8.2)
[2024-01-13 06:23] LABS: BASOPHILS % (AUTO) 0.2 % (0.2-1.0); HEMATOCRIT 35.4 % (36.0-47.0); LYMPHOCYTES # (AUTO) 0.5 X10^3/uL (1.3-2.9); LYMPHOCYTES % (AUTO) 7.3 % (21.0-51.0); MEAN CORPUSCULAR HEMOGLOBIN 31.3 pg (27.0-34.0); MEAN CORPUSCULAR VOLUME 95.2 fL (80.0-100.0); MEAN PLATELET VOLUME 8.1 fL (7.4-11.0); MONOCYTES # (AUTO) 0.4 x10^3/uL (0.3-0.8); MONOCYTES % (AUTO) 6.9 % (0.0-13.0); NEUTROPHILS # (AUTO) 5.3 x10^3/uL (2.2-4.8); NEUTROPHILS % (AUTO) 85.6 % (42.0-75.0); PLATELET COUNT 187 X10^3/uL (150.0-450.0)
--- NOTE | 2024-01-13 07:20 | RAD ---
EXAMINATION: CHEST, 1 VIEW HISTORY: Pneumonia; HX: CHF, RI, HTN, CARDIAC STENTS . COMPARISON STUDY: Chest x-ray 01/12/2024 TECHNIQUE: Single frontal erect view of the chest FINDINGS: Lungs are expanded. Subtle streaky opacities in both lungs. Mild cardiac silhouette enlargement. N ormal pulmonary vascular pattern. CP angles are sharp. Bones are intact. IMPRESSION: Mild cardiac silhouette enlargement. Subtle streaky opacities in both lungs. THIS IS AN ELECTRONICALLY VERIFIED FINAL REPORT 01/13/2024 7:17 AM - Electronically signed by Haleigh Benito MD
--- NOTE | 2024-01-13 12:07 | PCM.PROG ---
Progress Note Progress Note for Day of Date of Exam: 01/13/24 Subjective Subjective: Patient is a 83-year-old female admitted for dehydration with acute on chronic renal insufficiency, bronchitis, and urinary tract infection. This morning she is resting comfortably in bed. No acute events overnight. She does report improvement in her symptoms. Labs/imaging: WBC 6.2, hemoglobin 11.6, platelets 187, sodium 140, potassium 4.7, creatinine 1.16, glucose 116, checks x-ray was obtained that did not reveal any acute cardiopulmonary findings. Urine culture shows contamination. Blood culture negative. She is currently receiving gentle IV hydration. Continue with I's and O's. Bronchodilators scheduled. Continue with Rocephin for bronchitis. She will also continue with antibiotics for her urinary tract infection. Home medications have been resumed. Otherwise continue with current treatment plan. Continue closely monitor and follow-up labs/imaging. Past Medical Family Social History Allergies: Allergies doxylamine [From NyQuil] Allergy (Verified 06/21/17 10:39) pseudoephedrine [From NyQuil] Allergy (Verified 06/21/17 10:39) Review of Systems ROS changes noted: see HPI Vital Signs and I&O's Vital Signs: Vital Signs Temperature 97.1 F Temperature 97.5 F Pulse Rate [Left Brachial] 67 Pulse Rate [Left Brachial] 65 Pulse Rate 64 Pulse Rate 64 Respiratory Rate 17 Respiratory Rate 20 Respiratory Rate 18 Blood Pressure [Right Arm] 181/75 Blood Pressure [Right Arm] 150/70 Blood Pressure 186/81 O2 Sat by Pulse Oximetry 91 O2 Sat by Pulse Oximetry 93 O2 Sat by Pulse Oximetry 93 O2 Sat by Pulse Oximetry 91 Intake and Output: Intake & Output 01/10/24 01/11/24 01/12/24 01/13/24 23:59 23:59 23:59 23:59 Intake Total 839 / 839 2290 / 2290 110 / 110 Output Total 600 / 600 Balance 239 / 239 2290 / 2290 110 / 110 Physical Exam Oriented: Normal Eyes: Normal Nose: Normal Throat: Dry Respiratory: Normal Cardiovascular: Normal Auscultation: Bowel Sounds: Normal Tenderness: Normal Skin: Decreased Turgur Musculoskeletal: Back:Lumbar and Motor Deficit Speech Pattern: Clear and Appropriate Laboratory and Diagnostics 01/13/24 05:45 01/13/24 05:45 Labs: 01/11/24 15:21 Blood Blood Culture - Preliminary 01/11/24 15:13 Blood Blood Culture - Preliminary 01/11/24 19:00 Urine,Clean Catch Urine Culture - Final Laboratory WBC 6.2 X10^3/uL (3.6-10.0) 01/13/24 05:45 RBC 3.71 X10^6/uL (3.5-5.4) 01/13/24 05:45 Hgb 11.6 g/dL (12.0-16.0) L 01/13/24 05:45 Hct 35.4 % (36.0-47.0) L 01/13/24 05:45 MCV 95.2 fL (80.0-100.0) 01/13/24 05:45 MCH 31.3 pg (27.0-34.0) 01/13/24 05:45 MCHC 32.9 g/dL (33.0-35.0) L 01/13/24 05:45 RDW 18.0 % (11.6-16.5) H 01/13/24 05:45 Plt Count 187 X10^3/uL (150.0-450.0) 01/13/24 05:45 MPV 8.1 fL (7.4-11.0) 01/13/24 05:45 Neut % (Auto) 85.6 % (42.0-75.0) H 01/13/24 05:45 Lymph % (Auto) 7.3 % (21.0-51.0) L 01/13/24 05:45 [place] % (Auto) 6.9 % (0.0-13.0) 01/13/24 05:45 Eos % (Auto) 0.0 % (0.9-2.9) L 01/13/24 05:45 Baso % (Auto) 0.2 % (0.2-1.0) 01/13/24 05:45 Neut # (Auto) 5.3 x10^3/uL (2.2-4.8) H 01/13/24 05:45 Lymph # (Auto) 0.5 X10^3/uL (1.3-2.9) L 01/13/24 05:45 [place] # (Auto) 0.4 x10^3/uL (0.3-0.8) 01/13/24 05:45 Eos # (Auto) 0.0 x10^3/uL (0.0-0.2) 01/13/24 05:45 Baso # (Auto) 0.0 X10^3/uL (0.0-0.1) 01/13/24 05:45 Absolute Nucleated RBC 0.1 /100WBC 01/13/24 05:45 Absolute Retic 0.0470 10^6/uL 01/11/24 15:21 Percent Retic 1.40 % (0.8-2.2) 01/11/24 15:21 Sodium 140 mmol/L (136-145) 01/13/24 05:45 Corrected Sodium 140 mmol/L (136-145) 01/13/24 05:45 Potassium 4.7 mmol/L (3.5-5.1) 01/13/24 05:45 Chloride 106 mmol/L (98-107) 01/13/24 05:45 Carbon Dioxide 23.7 mmol/L (21-32) 01/13/24 05:45 BUN 19 mg/dL (7-18) H 01/13/24 05:45 Creatinine 1.16 mg/dL (0.55-1.02) H 01/13/24 05:45 Est GFR (MDRD) Af Amer 57 (>60) L 01/13/24 05:45 Est GFR (MDRD) Non-Af 47 (>60) L 01/13/24 05:45 Glucose 116 mg/dL (65-99) H 01/13/24 05:45 Calcium 9.4 mg/dL (8.5-10.1) 01/13/24 05:45 Corrected Calcium 10.3 mg/dL (8.5-10.1) H 01/13/24 05:45 Magnesium 2.0 mg/dL (2.0-2.9) 01/13/24 05:45 Iron 39 ug/dL (50-175) L 01/11/24 15:13 TIBC 230 ug/dL (250-450) L 01/11/24 15:13 Transferrin 185 mg/dL (202-364) L 01/11/24 15:13 Ferritin 153 ng/mL (8-252) 01/11/24 15:13 Total Bilirubin 0.20 mg/dL (0.2-1.0) 01/13/24 05:45 AST 22 Units/L (15-37) 01/13/24 05:45 ALT 19 Units/L (12-78) 01/13/24 05:45 Alkaline Phosphatase 55 Units/L (46-116) 01/13/24 05:45 Creatine Kinase 39 Units/L (26-192) 01/11/24 15:13 Troponin I High Sens 4.9 ng/L (4.0-60.0) 01/11/24 15:13 B-Natriuretic Peptide 60.7 pg/mL (0-79) 01/11/24 15:21 Total Protein 6.4 g/dL (6.4-8.2) 01/13/24 05:45 Albumin 2.9 g/dL (3.4-5.0) L 01/13/24 05:45 Globulin 3.5 g/dL (2.5-4.5) 01/13/24 05:45 Albumin/Globulin Ratio 0.8 Ratio (1.1-2.1) L 01/13/24 05:45 Vitamin B12 448 pg/mL (193-986) 01/11/24 15:13 Folate 2.9 ng/mL (>8.6) L 01/11/24 15:13 Specimen Type Clean catch urine 01/11/24 19:00 Urine Color Pale yellow (YELLOW) 01/11/24 19:00 Urine Appearance Clear (CLEAR) 01/11/24 19:00 Urine pH 7.0 (5.0 - 8.0) 01/11/24 19:00 Ur Specific [place] 1.010 (1.000-1.030) 01/11/24 19:00 Urine Protein 1+ (NEGATIVE) 01/11/24 19:00 Urine Glucose (UA) Negative (NEGATIVE) 01/11/24 19:00 Urine Ketones Negative (NEGATIVE) 01/11/24 19:00 Urine Blood Negative (NEGATIVE) 01/11/24 19:00 Urine Nitrite Negative (NEGATIVE) 01/11/24 19:00 Urine Bilirubin Negative (NEGATIVE) 01/11/24 19:00 Urine Urobilinogen Normal (NORMAL) 01/11/24 19:00 Ur Leukocyte Esterase 1+ (NEGATIVE) 01/11/24 19:00 Urine RBC 0-2 /HPF (0-3) 01/11/24 19:00 Urine WBC 3-5 /HPF (0-5) 01/11/24 19:00 Ur Squamous Epith Cells Rare /HPF (NEGATIVE) 01/11/24 19:00 Urine Bacteria Negative /HPF (NEGATIVE) 01/11/24 19:00 Ur Culture Indicated? Yes/culture set up 01/11/24 19:00 SARS-CoV-2 (PCR) Negative (NEGATIVE) 01/12/24 12:10 Influenza Type A (PCR) Negative (NEGATIVE) 01/12/24 12:10 Influenza Type B (PCR) Negative (NEGATIVE) 01/12/24 12:10 RSV (PCR) Negative (NEGATIVE) 01/12/24 12:10 Plan (1) Dehydration: Status: Acute (2) Urinary tract infection: Status: Acute (3) Acute renal failure: Status: Acute (4) Hypertension: Status: Chronic Qualifiers: Hypertension type: essential hypertension Qualified Code(s): I10 - Essential (primary) hypertension (5) Afib: Status: Chronic Qualifiers: Atrial fibrillation type: persistent (not longstanding) Qualified Code(s): I48.19 - Other persistent atrial fibrillation (6) Lupus: Status: Chronic (7) GERD (gastroesophageal reflux disease): Status: Chronic
[2024-01-13] MEDS: XOPENEX 1.25 MG/3 ML NEBULE NEB SCH (13:31)
[2024-01-14 04:06] LABS: BILIRUBIN,URINE NEGATIVE (NEGATIVE); BLOOD/HEMOGLOBIN,URINE NEGATIVE (NEGATIVE); GLUCOSE, URINE NEGATIVE (NEGATIVE); KETONES,URINE NEGATIVE (NEGATIVE); LEUKOCYTE ESTERASE ,URINE NEGATIVE (NEGATIVE); NITRITES,URINE NEGATIVE (NEGATIVE); PROTEIN,URINE 1+ (NEGATIVE); UROBILINOGEN,URINE NORMAL (NORMAL)
[2024-01-14 04:11] LABS: APPEARANCE,URINE CLEAR (CLEAR); COLOR,URINE YELLOW (YELLOW)
[2024-01-14 04:12] LABS: BACTERIA,URINE NEGATIVE /HPF (NEGATIVE); HYALINE CASTS, URINE RARE /LPF (NEGATIVE); RBC,URINE 0-2 /HPF (0-3); SQUAMOUS EPITHELIAL CELL,UR RARE /HPF (NEGATIVE)
--- NOTE | 2024-01-14 06:22 | RAD ---
EXAMINATION:CHEST, 1 VIEWHISTORY:PNEUMONIA; HX: HTN .COMPARISON STUDY:Chest x-ray 01/13/2024TECHNIQUE:Single AP view of the chestFINDINGS:Lungs are expanded. Subtle prominent interstitial markings in both lungs. Mild cardiac silhouette enlargement. Mild tortuosity thoracic aortic arch. Normal pulmonary vascular pattern. Bones are intact.IMPRESSION:Subtle prominent interstitial markings in both lungs.Mild cardiac silhouette enlargement with mild tortuosity thoracic aortic arch.THIS IS AN ELECTRONICALLY VERIFIED FINAL REPORT01/14/2024 6:19 AM - Electronically signed by Haleigh Benito MD
[2024-01-14 06:49] LABS: BASOPHILS % (AUTO) 0.2 % (0.2-1.0); EOSINOPHILS # (AUTO) 0.2 x10^3/uL (0.0-0.2); EOSINOPHILS % (AUTO) 2.2 % (0.9-2.9); HEMATOCRIT 29.8 % (36.0-47.0); HEMOGLOBIN 9.9 g/dL (12.0-16.0); LYMPHOCYTES # (AUTO) 0.9 X10^3/uL (1.3-2.9); LYMPHOCYTES % (AUTO) 12.1 % (21.0-51.0); MEAN CORPUSCULAR HEMOGLOBIN 31.7 pg (27.0-34.0); MEAN CORPUSCULAR HGB CONC 33.1 g/dL (33.0-35.0); MEAN CORPUSCULAR VOLUME 95.8 fL (80.0-100.0); MEAN PLATELET VOLUME 7.6 fL (7.4-11.0); MONOCYTES # (AUTO) 0.6 x10^3/uL (0.3-0.8); MONOCYTES % (AUTO) 8.3 % (0.0-13.0); NEUTROPHILS % (AUTO) 77.2 % (42.0-75.0); PLATELET COUNT 178 X10^3/uL (150.0-450.0); RED BLOOD COUNT 3.11 X10^6/uL (3.5-5.4); RED CELL DISTRIBUTION WIDTH 17.7 % (11.6-16.5); WHITE BLOOD COUNT 7.7 X10^3/uL (3.6-10.0)
[2024-01-14 07:04] LABS: ALANINE AMINOTRANSFERASE 36 Units/L (12-78); ALBUMIN 2.6 g/dL (3.4-5.0); ALKALINE PHOSPHATASE 52 Units/L (46-116); ASPARTATE AMINO TRANSFERASE 56 Units/L (15-37); BLOOD UREA NITROGEN 23 mg/dL (7-18); CARBON DIOXIDE 27.4 mmol/L (21-32); CHLORIDE 108 mmol/L (98-107); COR CA(FOR HYPOALB) 10.1 mg/dL (8.5-10.1); CREATININE 1.28 mg/dL (0.55-1.02); GLUCOSE 93 mg/dL (65-99); MAGNESIUM 1.9 mg/dL (2.0-2.9); POTASSIUM 4.2 mmol/L (3.5-5.1); SODIUM 142 mmol/L (136-145); TOTAL PROTEIN 5.5 g/dL (6.4-8.2); eGFR NON BLACK RACES 42 (>60)
[2024-01-14 07:40] VITALS: BP 115/59; PULSE 65; RESP 19; TEMP 97.4; O2SAT 93
[2024-01-14] MEDS ORDERED: CONSULT PHARMACY - POTASSIUM & MAGNESIUM XX SCH (08:00)
[2024-01-14] MEDS: MAG-OX TAB PO SCH (09:49)
== END 2024-01-14 11:30 | disposition home or self-care (01) | DRG 690 ==
LOC: MED/SURG → OBSVTOIN 14:16
PROVIDERS: ADMIT Internal Medicine; ATTEND Internal Medicine
DX: E83.42 Hypomagnesemia; R06.02 Shortness of breath; N18.9 Chronic kidney disease, unspecified; K21.9 Gastro-esophageal reflux disease without esophagitis; F41.8 Other specified anxiety disorders; N17.8 Other acute kidney failure; R94.31 Abnormal electrocardiogram [ECG] [EKG]; M32.9 Systemic lupus erythematosus, unspecified; J20.8 Acute bronchitis due to other specified organisms; E86.0 Dehydration; Z20.822 Contact with and (suspected) exposure to COVID-19; Z79.01 Long term (current) use of anticoagulants; R53.1 Weakness; N39.0 Urinary tract infection, site not specified; I48.19 Other persistent atrial fibrillation; I12.9 Hypertensive chronic kidney disease with stage 1 through stage 4 chronic kidney disease, or unspecified chronic kidney disease

== ENCOUNTER 2024-01-22 11:37 | Inpatient (IN) ==
--- NOTE | 2024-01-22 13:01 | EKG ---
Test Reason : SOB, HX AIB Blood Pressure : */* mmHG Vent. Rate : 71 BPM Atrial Rate : 71 BPM P-R Int : 158 ms QRS Dur : 66 ms QT Int : 438 ms P-R-T Axes : 28 -20 42 degrees QTc Int : 475 ms Normal sinus rhythm Low voltage QRS Borderline ECG When compared with ECG of 11-JAN-2024 14:41, Borderline criteria for Anterior infarct are no longer present Borderline criteria for Anterolateral infarct are no longer present Criteria for Inferior infarct are no longer present T wave inversion no longer evident in Anterior leads Confirmed by Roland Ty MD ([id number]) on 01/23/2024 7:31:58 AM Referred By: Confirmed By: Roland Ty MD
[2024-01-22 13:22] LABS: ABG BASE EXCESS 1.2 mmol/L (-2.0-2.0)
[2024-01-22 13:23] LABS: ABG PO2 < 37.0 mmHg (80.0-100.0)
[2024-01-22 13:30] LABS: BASOPHILS # (AUTO) 0.1 X10^3/uL (0.0-0.1); BASOPHILS % (AUTO) 0.5 % (0.2-1.0); EOSINOPHILS # (AUTO) 0.1 x10^3/uL (0.0-0.2); HEMATOCRIT 31.8 % (36.0-47.0); HEMOGLOBIN 10.3 g/dL (12.0-16.0); LYMPHOCYTES # (AUTO) 1.2 X10^3/uL (1.3-2.9); LYMPHOCYTES % (AUTO) 10.5 % (21.0-51.0); MEAN CORPUSCULAR HGB CONC 32.5 g/dL (33.0-35.0); MEAN CORPUSCULAR VOLUME 95.4 fL (80.0-100.0); MONOCYTES # (AUTO) 1.8 x10^3/uL (0.3-0.8); MONOCYTES % (AUTO) 16.6 % (0.0-13.0); NEUTROPHILS # (AUTO) 7.9 x10^3/uL (2.2-4.8); NEUTROPHILS % (AUTO) 71.4 % (42.0-75.0); PLATELET COUNT 274 X10^3/uL (150.0-450.0); RED BLOOD COUNT 3.33 X10^6/uL (3.5-5.4); RED CELL DISTRIBUTION WIDTH 18.3 % (11.6-16.5)
--- NOTE | 2024-01-22 13:30 | DR.H&P ---
H&P History & Physical for Day of: H&P Date: 01/22/24 Chief Complaint Chief Complaint: weakness, sob History of Present Illness History of Present Illness: PT IS 83 WF, DIRECT ADMIT FROM DR ROSE OFFICE WITH CO SOB AND VERY WEAK. PT WAS DC FROM [facility] ONE WEEK AGO WITH PNEUMONIA. PT REPORTS SHE WAS FEELING SOME BETTER ON DC BUT HAS LOST HER APPETITE AND BEEN EXTREMELY SOB. PT HAS TAKE PO ATBX THAT SHE RECEIVED ON DC. PT HAS PMH OF AFIB AND REPORT SHE HAS BEEN TAKING ELIQUIS AND OTHER PRESCRIPTION MEDICATION. PT WAS ACCOMPANIED BY HER SPOUSE AND SON. PTS O2 SAT IN OFFICE 69-72% ON ROOM AIR Past Medical History Past Medical History: Anxiety, Arthritis, Hypertension and Renal Disease Additional Medical History: LUPUS, HX RENAL MASS, AFIB Past Surgical History Surgical History: Hysterectomy and Ortho Surgery Additional Surgical History: LEFT RENAL MASS AND 1/4 LEFT KIDNEY REMOVED PER [facility] [place] FEB 29, 2016 Family History Family Medical History: Heart Failure and Hypertension Medications Home Medications: Home Medications Medication Instructions Recorded Confirmed Type amlodipine 5 mg tablet (Norvasc) 10 mg PO DAILY 06/08/14 01/11/24 History omeprazole 20 mg capsule,delayed 20 mg PO BID 06/08/14 01/11/24 History release metoprolol tartrate 25 mg tablet 12.5 mg PO BID 09/26/16 01/11/24 History simvastatin 20 mg tablet 20 mg PO HS 10/17/19 01/11/24 History amiodarone 200 mg tablet 200 mg PO DAILY 07/18/20 01/11/24 History gabapentin 300 mg capsule 300 mg PO BID 12/24/20 01/11/24 History (Neurontin) apixaban 5 mg tablet (Eliquis) 5 mg PO BID 02/16/23 01/11/24 History losartan 50 mg tablet 50 mg PO QDAY 01/11/24 01/22/24 History tizanidine 4 mg tablet 4 mg PO DAILY 01/11/24 01/22/24 History Allergies Allergies Allergy/AdvReac Type Severity Reaction Status Date / Time doxylamine [From NyQuil] Allergy Verified 01/22/24 13:04 pseudoephedrine [From NyQuil] Allergy Verified 01/22/24 13:04 Review of Systems Constitutional: Chills, Sweats and Weakness Eyes: No Symptoms Reported ENT: Nose Congestion Respiratory: Cough, Shortness of Breath and SOB with Excertion Cardiovascular: Edema Gastrointestinal: Other (LOSS OF APPETITE) Genitourinary: No Symptoms Reported Musculoskeletal: No Symptoms Reported Skin: No Symptoms Reported Neurological: Weakness Physical Exam Vital Signs: Vital Signs Temperature 98.3 F Pulse Rate [Left Brachial] 70 Respiratory Rate 20 Blood Pressure [Left Arm] 137/63 O2 Sat by Pulse Oximetry 91 Oriented: Normal Eyes: Normal Ear: Normal Nose: Normal Throat: Normal Respiratory: Wheezes Throughout, RLL Diminished and LLL Diminished Cardiovascular: Edema Auscultation: Bowel Sounds: Normal Palpation: Normal Tenderness: Normal Skin: Decreased Turgur Musculoskeletal: Motor Deficit Psychiatric: Anxiety Affect: Anxious Speech Pattern: Clear and Appropriate Assessment/Plan (1) Acute dyspnea: Narrative Support Text: ADMIT, RESP CONSULT ABG ON ROOM AIR CARDIAC ENZYMES, EKG ON ADMISSION CXRM SUPPLEMENTAL O2 Status: Acute (2) Weakness: Status: Acute (3) Afib: Qualifiers: Atrial fibrillation type: persistent (not longstanding) Qualified Code(s): I48.19 - Other persistent atrial fibrillation Status: Chronic (4) Hypertension: Qualifiers: Hypertension type: essential hypertension Qualified Code(s): I10 - Essential (primary) hypertension Status: Chronic (5) Anxiety: Status: Chronic (6) GERD (gastroesophageal reflux disease): Status: Chronic
[2024-01-22 13:47] LABS: ALANINE AMINOTRANSFERASE 22 Units/L (12-78); ALBUMIN 2.8 g/dL (3.4-5.0); ALKALINE PHOSPHATASE 56 Units/L (46-116); ASPARTATE AMINO TRANSFERASE 26 Units/L (15-37); BLOOD UREA NITROGEN 29 mg/dL (7-18); CALCIUM 8.5 mg/dL (8.5-10.1); CARBON DIOXIDE 27.8 mmol/L (21-32); CHLORIDE 99 mmol/L (98-107); COR CA(FOR HYPOALB) 9.5 mg/dL (8.5-10.1); CREATININE 1.92 mg/dL (0.55-1.02); GLUCOSE 95 mg/dL (65-99); POTASSIUM 4.7 mmol/L (3.5-5.1); SODIUM 134 mmol/L (136-145); TOTAL PROTEIN 6.1 g/dL (6.4-8.2); eGFR NON BLACK RACES 26 (>60)
[2024-01-22 14:06] VITALS: BMI 23.2
[2024-01-22] MEDS ORDERED: XOPENEX 1.25 MG/3 ML NEBULE NEB ONE (16:21)
[2024-01-22] MEDS: XOPENEX 1.25 MG/3 ML NEBULE NEB SCH (16:26)
[2024-01-22] MEDS: PROTONIX INJ 40 MG VIAL IVP SCH (18:36)
[2024-01-22] MEDS: NS 1,000 ML IV 1,000 ML IV SCH (18:36)
[2024-01-22] MEDS: ROCEPHIN VIAL 1 GRAM 1 G in NS 100 ML IV 100 ML IV SCH (18:37)
[2024-01-22] MEDS: SOLU-Medrol 40 MG VIAL IVP SCH (18:37)
[2024-01-22] MEDS: ZANAFLEX PO SCH (18:37)
[2024-01-22 18:51] LABS: BILIRUBIN,URINE NEGATIVE (NEGATIVE); BLOOD/HEMOGLOBIN,URINE NEGATIVE (NEGATIVE); GLUCOSE, URINE NEGATIVE (NEGATIVE); KETONES,URINE NEGATIVE (NEGATIVE); LEUKOCYTE ESTERASE ,URINE 2+ (NEGATIVE); NITRITES,URINE NEGATIVE (NEGATIVE); PH,URINE 6.5 (5.0 - 8.0); PROTEIN,URINE 2+ (NEGATIVE); UROBILINOGEN,URINE NORMAL (NORMAL)
[2024-01-22 19:02] LABS: APPEARANCE,URINE CLEAR (CLEAR); COLOR,URINE PALE YELLOW (YELLOW)
[2024-01-22 19:03] LABS: BACTERIA,URINE TRACE /HPF (NEGATIVE); RBC,URINE 0-2 /HPF (0-3); SQUAMOUS EPITHELIAL CELL,UR RARE /HPF (NEGATIVE)
[2024-01-22] MEDS ORDERED: ZITHROMAX INJ 500 MG VIAL IV ONE (19:47)
[2024-01-22] MEDS: ZITHROMAX INJ 500 MG VIAL 500 MG in NS 250 ML IV 250 ML IV SCH (19:55)
[2024-01-22] MEDS: LOPRESSOR TAB 25 MG PO SCH (20:23)
[2024-01-22] MEDS: ZOCOR TAB 20 MG PO SCH (20:24)
[2024-01-22] MEDS: NEURONTIN CAP 300 MG PO SCH (20:24)
[2024-01-22] MEDS: ELIQUIS PO SCH (20:24)
[2024-01-22] MEDS ORDERED: PriLOSEC PO SCH (21:00)
[2024-01-22] MEDS ORDERED: ELIQUIS PO SCH (21:00)
[2024-01-22] MEDS: PULMICORT NEB TX 0.5 MG NEB SCH (21:26)
[2024-01-23 06:24] LABS: BASOPHILS % (AUTO) 0.3 % (0.2-1.0); HEMATOCRIT 30.6 % (36.0-47.0); HEMOGLOBIN 10.1 g/dL (12.0-16.0); LYMPHOCYTES # (AUTO) 0.4 X10^3/uL (1.3-2.9); LYMPHOCYTES % (AUTO) 6.8 % (21.0-51.0); MEAN CORPUSCULAR HEMOGLOBIN 31.5 pg (27.0-34.0); MEAN CORPUSCULAR VOLUME 95.3 fL (80.0-100.0); MEAN PLATELET VOLUME 8.3 fL (7.4-11.0); MONOCYTES # (AUTO) 0.3 x10^3/uL (0.3-0.8); NEUTROPHILS # (AUTO) 5.8 x10^3/uL (2.2-4.8); NEUTROPHILS % (AUTO) 88.9 % (42.0-75.0); PLATELET COUNT 283 X10^3/uL (150.0-450.0); RED BLOOD COUNT 3.21 X10^6/uL (3.5-5.4); RED CELL DISTRIBUTION WIDTH 18.1 % (11.6-16.5); WHITE BLOOD COUNT 6.5 X10^3/uL (3.6-10.0)
[2024-01-23 06:48] LABS: ALBUMIN 2.4 g/dL (3.4-5.0); CALCIUM 8.4 mg/dL (8.5-10.1); CARBON DIOXIDE 23.7 mmol/L (21-32); COR CA(FOR HYPOALB) 9.7 mg/dL (8.5-10.1); CREATININE 1.55 mg/dL (0.55-1.02); POTASSIUM 4.5 mmol/L (3.5-5.1); TOTAL PROTEIN 5.8 g/dL (6.4-8.2)
--- NOTE | 2024-01-23 07:16 | RAD ---
EXAM:CHEST, PA/LAT ADULTHISTORY:SOB, RECENT PNEUMONIACOMPARISON:None.TECHNIQUE:Two views of the chestFINDINGS:Background coarsening of the interstitium and hazy ground-glass attenuation observed without interval change. No pleural fluid collections are identified. The heart size is upper range of normal caliber for technique with tortuous uncoiled thoracic aorta configuration. There is no radiographic evidence of pneumothorax or free air beneath the diaphragm. No acute osseous abnormalities of the chest. Scoliotic curvature of the upper thoracic spine is noted.IMPRESSION:Residual background coarsening of the interstitium and hazy ground-glass attenuation. This may be associated with sequelae of an atypical pneumonia patternContinued radiographic follow-up recommendedTHIS IS AN ELECTRONICALLY VERIFIED FINAL REPORT01/23/2024 7:13 AM - Electronically signed by Cody Dave MD
[2024-01-23 08:33] LABS: ABG BASE EXCESS -1.4 mmol/L (-2.0-2.0); ABG HCO3 22.8 mmol/L (22-26)
--- NOTE | 2024-01-23 09:17 | RAD ---
EXAM:Portable chestHISTORY:PneumoniaCOMPARISON: 024FINDINGS:Heart size is normal. Jacquelyn are normal. Aorta is calcified and ectatic. The arch is likely dilated. Finding is stable. Chest CT with contrast may be of further diagnostic value in assessing the aortic arch. Diffuse interstitial prominence is again identified. There may also be some bilateral upper lobe ground-glass infiltrates present indicative of an acute pneumonia. This could be further evaluated with chest CT also. No alveolar infiltrates or areas of consolidation identified. No pleural effusion or pneumothorax identified.IMPRESSION:Redemonstration of prominent interstitial and now with a question of bilateral upper lobe ground-glass infiltrates possibly indicative of acute pneumonia. Chest CT would be of further diagnostic value.Calcified ectatic thoracic aorta with likely dilatation of the arch which could be better evaluated with chest CT with CONTRASTTHIS IS AN ELECTRONICALLY VERIFIED FINAL REPORT01/23/2024 9:14 AM - Electronically signed by Russell Rucker MD
[2024-01-23] MEDS: COZAAR PO SCH (09:26)
[2024-01-23] MEDS: NORVASC TAB 5 MG PO SCH (09:26)
[2024-01-23] MEDS: CORDARONE TAB 200 MG PO SCH (09:27)
[2024-01-23] MEDS: LOPRESSOR TAB 25 MG PO ONE (17:45)
[2024-01-23] MEDS: ZANAFLEX PO SCH (20:33)
--- NOTE | 2024-01-23 23:13 | CT ---
EXAM: CT chest with contrast HISTORY: Hypoxia. Dyspnea. COMPARISON: One view of the chest from the same day. CT chest from 07/18/2020. TECHNIQUE: Multiple axial images of the chest were obtained from the thoracic inlet to the upper abdomen after t he administration of IV contrast. Dose reduction techniques including Automated Exposure Control (AE C) and adjustment of mA and kV were utilized. FINDINGS: HEART: Mildly enlarged without pericardial effusion. Mild coronary artery calcification. THORACIC AORTA: Normal caliber with moderate calcification. Aberrant right subclavian artery. LYMPH NODES: No lymphadenopathy. LUNGS: Generalized bilateral ground-glass opacities with interlobular septal thickening. Lateral lef t upper lobe solid noncalcified pleural-based nodule measuring 5 mm on image 25 of series 4, not seen previously. No pneumothorax or pleural effusion. UPPER ABDOMEN: Infrarenal abdominal aortic aneurysm measuring 4.4 x 4.3 cm on image 66 of series 4. BONES: Interval compression deformity of T12 with moderate loss of vertebral body height and retropul yung resulting in moderate spinal canal stenosis. Mild spondylosis without other abnormalities. ADDITIONAL FINDINGS:None. IMPRESSION: 1. Mild cardiomegaly with probable pulmonary edema versus atelectasis versus atypical pneumonia. 2. 5 mm left upper lobe pleural-based nodule should be re-evaluated by CT chest without contrast in 12 months if the patient is considered to be at high risk for malignancy. 3. Additional findings as above. THIS IS AN ELECTRONICALLY VERIFIED FINAL REPORT 01/23/2024 11:10 PM - Electronically signed by Wero Beth MD
[2024-01-24] MEDS: RESTORIL CAP 15 MG PO PRN (01:55)
[2024-01-24 06:28] LABS: BASOPHILS % (AUTO) 0.1 % (0.2-1.0); HEMATOCRIT 31.1 % (36.0-47.0); LYMPHOCYTES # (AUTO) 0.5 X10^3/uL (1.3-2.9); LYMPHOCYTES % (AUTO) 3.3 % (21.0-51.0); MEAN CORPUSCULAR HEMOGLOBIN 30.7 pg (27.0-34.0); MEAN CORPUSCULAR HGB CONC 32.2 g/dL (33.0-35.0); MEAN CORPUSCULAR VOLUME 95.2 fL (80.0-100.0); MONOCYTES # (AUTO) 1.1 x10^3/uL (0.3-0.8); MONOCYTES % (AUTO) 6.6 % (0.0-13.0); NEUTROPHILS # (AUTO) 15.1 x10^3/uL (2.2-4.8); PLATELET COUNT 336 X10^3/uL (150.0-450.0); RED BLOOD COUNT 3.26 X10^6/uL (3.5-5.4); RED CELL DISTRIBUTION WIDTH 17.9 % (11.6-16.5); WHITE BLOOD COUNT 16.7 X10^3/uL (3.6-10.0)
[2024-01-24 07:05] LABS: ALBUMIN 2.5 g/dL (3.4-5.0); CALCIUM 8.6 mg/dL (8.5-10.1); COR CA(FOR HYPOALB) 9.8 mg/dL (8.5-10.1); CREATININE 1.4 mg/dL (0.55-1.02); POTASSIUM 4.4 mmol/L (3.5-5.1); TOTAL PROTEIN 5.9 g/dL (6.4-8.2)
[2024-01-24] MEDS: LOPRESSOR TAB 25 MG PO SCH (09:02)
[2024-01-24] MEDS: LASIX IVP SCH (09:05)
[2024-01-24] MEDS: SOLU-Medrol 40 MG VIAL IVP SCH (09:05)
--- NOTE | 2024-01-24 13:22 | RAD ---
EXAM:CHEST, PA/LAT ADULTHISTORY:PNEUMONIA HYPOXIA;COMPARISON:No relevant prior studies were available for comparison at the time of interpretation.TECHNIQUE:CHEST, PA/LAT ADULTFINDINGS:Chest:Lines and tubes: NoneMediastinum: Cardiac and mediastinal shadow is within normal limits for size and contour.Pulmonary vessels: No pulmonary vascular congestion.Lung de la paz: Increased interstitial opacities are noted. Patchy airspace opacities are notedPleura: No effusion. No pneumothorax.Bones and soft tissues: No acute osseous or soft tissue abnormality.IMPRESSION:1. Increased interstitial and airspace opacities without significant change from yesterdayTHIS IS AN ELECTRONICALLY VERIFIED FINAL REPORT01/24/2024 1:20 PM - Electronically signed by Tonio Keen MD
[2024-01-25 05:56] LABS: ABG BASE EXCESS -1.9 mmol/L (-2.0-2.0); ABG HCO3 22.2 mmol/L (22-26)
[2024-01-25 05:58] LABS: ABG ALLEN TEST POS
[2024-01-25 06:43] LABS: BASOPHILS % (AUTO) 0.1 % (0.2-1.0); HEMATOCRIT 29.4 % (36.0-47.0); HEMOGLOBIN 9.4 g/dL (12.0-16.0); LYMPHOCYTES # (AUTO) 0.7 X10^3/uL (1.3-2.9); LYMPHOCYTES % (AUTO) 3.7 % (21.0-51.0); MEAN CORPUSCULAR HEMOGLOBIN 30.7 pg (27.0-34.0); MEAN CORPUSCULAR HGB CONC 32.1 g/dL (33.0-35.0); MEAN CORPUSCULAR VOLUME 95.9 fL (80.0-100.0); MEAN PLATELET VOLUME 8.3 fL (7.4-11.0); MONOCYTES # (AUTO) 0.9 x10^3/uL (0.3-0.8); MONOCYTES % (AUTO) 5.3 % (0.0-13.0); NEUTROPHILS # (AUTO) 16.1 x10^3/uL (2.2-4.8); NEUTROPHILS % (AUTO) 90.9 % (42.0-75.0); PLATELET COUNT 348 X10^3/uL (150.0-450.0); RED BLOOD COUNT 3.06 X10^6/uL (3.5-5.4); RED CELL DISTRIBUTION WIDTH 18.6 % (11.6-16.5); WHITE BLOOD COUNT 17.7 X10^3/uL (3.6-10.0)
[2024-01-25 06:59] LABS: PLATELET MORPHOLOGY COMMENT NORMAL (NORMAL)
[2024-01-25 07:01] LABS: ALBUMIN 2.3 g/dL (3.4-5.0); CALCIUM 8.4 mg/dL (8.5-10.1); CARBON DIOXIDE 22.8 mmol/L (21-32); COR CA(FOR HYPOALB) 9.8 mg/dL (8.5-10.1); CREATININE 1.49 mg/dL (0.55-1.02); POTASSIUM 4.3 mmol/L (3.5-5.1); TOTAL PROTEIN 5.3 g/dL (6.4-8.2)
[2024-01-25] MEDS: KLOR-CON 10 MEQ TAB PO SCH (09:54)
[2024-01-25] MEDS: LASIX IVP SCH (09:54)
--- NOTE | 2024-01-25 12:16 | RAD ---
EXAM: CHEST, PA/LAT ADULT HISTORY: PNEUMONIA, CHF; COMPARISON: Prior study or studies were utilized for comparison during interpretation with the most relevant alfredo ed yesterday TECHNIQUE: CHEST, PA/LAT ADULT FINDINGS: Chest: Lines and tubes: None Mediastinum: Cardiac and mediastinal shadow is within normal limits for size and contour. Pulmonary vessels: No pulmonary vascular congestion. Lung de la paz: Slight improvement in airspace opacities Pleura: No effusion. No pneumothorax. Bones and soft tissues: No acute osseous or soft tissue abnormality. IMPRESSION: 1. Improving airspace opacities THIS IS AN ELECTRONICALLY VERIFIED FINAL REPORT 01/25/2024 12:13 PM - Electronically signed by Tonio Keen MD
[2024-01-26] MEDS: TYLENOL 325 MG TAB PO PRN (05:02)
[2024-01-26 06:35] LABS: BASOPHILS % (AUTO) 0.1 % (0.2-1.0); HEMATOCRIT 28.6 % (36.0-47.0); HEMOGLOBIN 9.1 g/dL (12.0-16.0); LYMPHOCYTES # (AUTO) 0.6 X10^3/uL (1.3-2.9); LYMPHOCYTES % (AUTO) 4.3 % (21.0-51.0); MEAN CORPUSCULAR HEMOGLOBIN 30.4 pg (27.0-34.0); MEAN CORPUSCULAR HGB CONC 31.9 g/dL (33.0-35.0); MEAN CORPUSCULAR VOLUME 95.3 fL (80.0-100.0); MEAN PLATELET VOLUME 8.2 fL (7.4-11.0); MONOCYTES # (AUTO) 0.9 x10^3/uL (0.3-0.8); MONOCYTES % (AUTO) 6.4 % (0.0-13.0); NEUTROPHILS # (AUTO) 12.9 x10^3/uL (2.2-4.8); NEUTROPHILS % (AUTO) 89.2 % (42.0-75.0); PLATELET COUNT 341 X10^3/uL (150.0-450.0); RED CELL DISTRIBUTION WIDTH 18.6 % (11.6-16.5); WHITE BLOOD COUNT 14.5 X10^3/uL (3.6-10.0)
[2024-01-26 06:47] LABS: ALBUMIN 2.3 g/dL (3.4-5.0); CALCIUM 8.1 mg/dL (8.5-10.1); CARBON DIOXIDE 22.6 mmol/L (21-32); COR CA(FOR HYPOALB) 9.5 mg/dL (8.5-10.1); CREATININE 1.61 mg/dL (0.55-1.02)
[2024-01-26] MEDS: SOLU-Medrol 40 MG VIAL IVP SCH (09:50)
[2024-01-26] MEDS: ROBITUSSIN DM PO SCH (10:04)
[2024-01-26] MEDS: AMBIEN PO PRN (20:51)
[2024-01-27 09:17] LABS: MONOCYTES # (AUTO) 1.9 x10^3/uL (0.3-0.8); RED CELL DISTRIBUTION WIDTH 18.4 % (11.6-16.5); WHITE BLOOD COUNT 15.1 X10^3/uL (3.6-10.0)
[2024-01-27 09:20] LABS: BASOPHILS % (AUTO) 0.2 % (0.2-1.0); HEMATOCRIT 30.8 % (36.0-47.0); HEMOGLOBIN 9.8 g/dL (12.0-16.0); LYMPHOCYTES % (AUTO) 6.4 % (21.0-51.0); MEAN CORPUSCULAR HEMOGLOBIN 30.3 pg (27.0-34.0); MEAN CORPUSCULAR HGB CONC 31.7 g/dL (33.0-35.0); MEAN CORPUSCULAR VOLUME 95.6 fL (80.0-100.0); MONOCYTES % (AUTO) 12.2 % (0.0-13.0); NEUTROPHILS # (AUTO) 12.3 x10^3/uL (2.2-4.8); NEUTROPHILS % (AUTO) 81.2 % (42.0-75.0); PLATELET COUNT 346 X10^3/uL (150.0-450.0); RED BLOOD COUNT 3.22 X10^6/uL (3.5-5.4)
[2024-01-27 09:26] LABS: ALBUMIN 2.4 g/dL (3.4-5.0); CALCIUM 8.5 mg/dL (8.5-10.1); CARBON DIOXIDE 26.7 mmol/L (21-32); COR CA(FOR HYPOALB) 9.8 mg/dL (8.5-10.1); CREATININE 1.41 mg/dL (0.55-1.02); POTASSIUM 4.1 mmol/L (3.5-5.1); TOTAL PROTEIN 5.2 g/dL (6.4-8.2)
[2024-01-27 10:01] LABS: ANISOCYTOSIS SLIGHT; PLATELET MORPHOLOGY COMMENT NORMAL (NORMAL)
[2024-01-27 10:03] LABS: TARGET CELLS SLIGHT
--- NOTE | 2024-01-27 13:50 | DR.PROGNOT ---
HOSPITAL PROGRESS NOTE Progress Note for Day of: Progress Note Date: 01/27/24 Chief Complaint Chief Complaint: Pneumonia History of Present Illness History of Present Illness: Patient seen with at bedside. She is wearin g her O2. She is feeling much better each day. She does have O2 needed for discharge in her room. Sputum culture did grow out bacteria sensitive to Rocephin so azithromycin was stopped today. Nurses and patient with no other overnight concerns. PE: Elderly female no acute distress. Hearing intact to conversation. Extraocular movements grossly normal. Heart regular rate and rhythm. Lungs diminished with some bronchial sounds but good air movement. Bowel sounds are present. Mood affect appropriate. Alert and oriented x 4. She is wearing her O2. Past Medical Family Social History Allergies: Allergies doxylamine [From NyQuil] Allergy (Verified 01/22/24 13:04) pseudoephedrine [From NyQuil] Allergy (Verified 01/22/24 13:04) Vital Signs Vital Signs: Vital Signs Temperature 97.8 F Temperature 97.0 F Pulse Rate [Left Brachial] 66 Pulse Rate [Left Brachial] 72 Pulse Rate 66 Respiratory Rate 17 Respiratory Rate 18 Blood Pressure [Right Arm] 146/68 Blood Pressure [Right Arm] 147/63 O2 Sat by Pulse Oximetry 100 O2 Sat by Pulse Oximetry 96 O2 Sat by Pulse Oximetry 100 Physical Exam Oriented: Normal Eyes: Normal Ear: Normal Nose: Normal Throat: Normal Cardiovascular: Edema GI:Auscultation: Normal GI:Palpation: Normal GI: Tenderness: Normal Skin: Decreased Turgur Musculoskeletal: Motor Deficit Psychiatric: Anxiety Affect: Anxious Speech Pattern: Clear Laboratory and Diagnostics 01/27/24 08:55 01/27/24 08:55 Labs: 01/22/24 13:15 Sputum - Expectorated Sputum Sputum Culture - Final Enterobacte Amnigenus Biogrp 1 01/22/24 13:15 Sputum - Expectorated Sputum - Final 01/22/24 18:06 Blood Blood Culture - Preliminary 01/22/24 18:00 Blood Blood Culture - Preliminary 01/22/24 18:20 Urine,Clean Catch Urine Culture - Final Laboratory WBC 15.1 X10^3/uL (3.6-10.0) H 01/27/24 08:55 RBC 3.22 X10^6/uL (3.5-5.4) L 01/27/24 08:55 Hgb 9.8 g/dL (12.0-16.0) L 01/27/24 08:55 Hct 30.8 % (36.0-47.0) L 01/27/24 08:55 MCV 95.6 fL (80.0-100.0) 01/27/24 08:55 MCH 30.3 pg (27.0-34.0) 01/27/24 08:55 MCHC 31.7 g/dL (33.0-35.0) L 01/27/24 08:55 RDW 18.4 % (11.6-16.5) H 01/27/24 08:55 Plt Count 346 X10^3/uL (150.0-450.0) 01/27/24 08:55 Plt Count Comment Adequate (ADEQUATE) 01/27/24 08:55 MPV 8.0 fL (7.4-11.0) 01/27/24 08:55 Neut % (Auto) 81.2 % (42.0-75.0) H 01/27/24 08:55 Lymph % (Auto) 6.4 % (21.0-51.0) L 01/27/24 08:55 [place] % (Auto) 12.2 % (0.0-13.0) 01/27/24 08:55 Eos % (Auto) 0.0 % (0.9-2.9) L 01/27/24 08:55 Baso % (Auto) 0.2 % (0.2-1.0) 01/27/24 08:55 Neut # (Auto) 12.3 x10^3/uL (2.2-4.8) H 01/27/24 08:55 Lymph # (Auto) 1.0 X10^3/uL (1.3-2.9) L 01/27/24 08:55 [place] # (Auto) 1.9 x10^3/uL (0.3-0.8) H 01/27/24 08:55 Eos # (Auto) 0.0 x10^3/uL (0.0-0.2) 01/27/24 08:55 Baso # (Auto) 0.0 X10^3/uL (0.0-0.1) 01/27/24 08:55 Absolute Nucleated RBC 0.3 /100WBC 01/27/24 08:55 Total Counted 100 01/27/24 08:55 Neutrophils % (Manual) 82 % (39-76) H 01/27/24 08:55 Lymphocytes % (Manual) 6 % (13-43) L 01/27/24 08:55 Monocytes % (Manual) 12 % (4-9) H 01/27/24 08:55 Plt Morphology Comment Normal (NORMAL) 01/27/24 08:55 RBC Morphology Abnormal (NORMAL) A 01/27/24 08:55 Anisocytosis Slight A 01/27/24 08:55 Target Cells Slight A 01/27/24 08:55 D-Dimer 0.89 ug/ml (0.0-0.57) H 01/22/24 13:20 Sample Site Rr 01/25/24 05:50 ABG pH 7.410 (7.35-7.45) 01/25/24 05:50 ABG pCO2 35.0 mmHg (35.0-45.0) 01/25/24 05:50 ABG pO2 46.0 mmHg (80.0-100.0) L* 01/25/24 05:50 ABG HCO3 22.2 mmol/L (22-26) 01/25/24 05:50 ABG O2 Saturation 82.0 % (90-100) L* 01/25/24 05:50 ABG Base Excess -1.9 mmol/L (-2.0-2.0) 01/25/24 05:50 Arjun Test Pos 01/25/24 05:50 A-a Gradient 60.0 mmHg 01/25/24 05:50 FiO2 21.0 01/25/24 05:50 Blood Gas Comments Carlos Alberto well ae 01/25/24 05:50 Sodium 145 mmol/L (136-145) 01/27/24 08:55 Corrected Sodium 146 mmol/L (136-145) H 01/27/24 08:55 Potassium 4.1 mmol/L (3.5-5.1) 01/27/24 08:55 Chloride 111 mmol/L (98-107) H 01/27/24 08:55 Carbon Dioxide 26.7 mmol/L (21-32) 01/27/24 08:55 BUN 37 mg/dL (7-18) H 01/27/24 08:55 Creatinine 1.41 mg/dL (0.55-1.02) H 01/27/24 08:55 Est GFR (MDRD) Af Amer 46 (>60) L 01/27/24 08:55 Est GFR (MDRD) Non-Af 38 (>60) L 01/27/24 08:55 Glucose 125 mg/dL (65-99) H 01/27/24 08:55 Lactic Acid 0.7 mmol/L (0.4-2.0) 01/22/24 18:06 Calcium 8.5 mg/dL (8.5-10.1) 01/27/24 08:55 Corrected Calcium 9.8 mg/dL (8.5-10.1) 01/27/24 08:55 Total Bilirubin 0.20 mg/dL (0.2-1.0) 01/27/24 08:55 AST 62 Units/L (15-37) H 01/27/24 08:55 ALT 53 Units/L (12-78) 01/27/24 08:55 Alkaline Phosphatase 79 Units/L (46-116) 01/27/24 08:55 Creatine Kinase 70 Units/L (26-192) 01/23/24 00:56 Troponin I High Sens 5.6 ng/L (4.0-60.0) 01/23/24 00:56 B-Natriuretic Peptide 175 pg/mL (0-79) H 01/22/24 13:20 Total Protein 5.2 g/dL (6.4-8.2) L 01/27/24 08:55 Albumin 2.4 g/dL (3.4-5.0) L 01/27/24 08:55 Globulin 2.8 g/dL (2.5-4.5) 01/27/24 08:55 Albumin/Globulin Ratio 0.9 Ratio (1.1-2.1) L 01/27/24 08:55 Specimen Type Clean catch urine 01/22/24 18:20 Urine Color Pale yellow (YELLOW) 01/22/24 18:20 Urine Appearance Clear (CLEAR) 01/22/24 18:20 Urine pH 6.5 (5.0 - 8.0) 01/22/24 18:20 Ur Specific [place] 1.010 (1.000-1.030) 01/22/24 18:20 Urine Protein 2+ (NEGATIVE) 01/22/24 18:20 Urine Glucose (UA) Negative (NEGATIVE) 01/22/24 18:20 Urine Ketones Negative (NEGATIVE) 01/22/24 18:20 Urine Blood Negative (NEGATIVE) 01/22/24 18:20 Urine Nitrite Negative (NEGATIVE) 01/22/24 18:20 Urine Bilirubin Negative (NEGATIVE) 01/22/24 18:20 Urine Urobilinogen Normal (NORMAL) 01/22/24 18:20 Ur Leukocyte Esterase 2+ (NEGATIVE) 01/22/24 18:20 Urine RBC 0-2 /HPF (0-3) 01/22/24 18:20 Urine WBC 5-10 /HPF (0-5) A 01/22/24 18:20 Ur Squamous Epith Cells Rare /HPF (NEGATIVE) 01/22/24 18:20 Urine Bacteria Trace /HPF (NEGATIVE) 01/22/24 18:20 Ur Culture Indicated? Yes/culture set up 01/22/24 18:20 SARS-CoV-2 (PCR) Negative (NEGATIVE) 01/22/24 18:20 Influenza Type A (PCR) Negative (NEGATIVE) 01/22/24 18:20 Influenza Type B (PCR) Negative (NEGATIVE) 01/22/24 18:20 RSV (PCR) Negative (NEGATIVE) 01/22/24 18:20 Assessment and Plan 1: Community-acquired pneumonia. Positive for Enterobacter. Stop azithromycin continue Rocephin. Will plan to de-escalate to oral antibiotics tomorrow possibly discharge. 2: Acute hypoxemic respiratory failure. This secondary to her pneumonia. Will need to discharge home home O2 but hopefully should be off of it in few weeks. 3: Atrial fibrillation. Continue Eliquis. I do agree with outpatient cardiology evaluation. 4: Pulmonary hypertension. Follow-up with pulmonology and cardiology as an outpatient. Continue O2.
[2024-01-28 05:44] LABS: BASOPHILS # (AUTO) 0.1 X10^3/uL (0.0-0.1); BASOPHILS % (AUTO) 0.3 % (0.2-1.0); EOSINOPHILS % (AUTO) 0.1 % (0.9-2.9); HEMOGLOBIN 9.6 g/dL (12.0-16.0); LYMPHOCYTES % (AUTO) 6.4 % (21.0-51.0); MEAN CORPUSCULAR HEMOGLOBIN 30.3 pg (27.0-34.0); MEAN CORPUSCULAR HGB CONC 31.9 g/dL (33.0-35.0); MEAN PLATELET VOLUME 8.1 fL (7.4-11.0); MONOCYTES % (AUTO) 12.4 % (0.0-13.0); NEUTROPHILS # (AUTO) 13.2 x10^3/uL (2.2-4.8); NEUTROPHILS % (AUTO) 80.8 % (42.0-75.0); PLATELET COUNT 332 X10^3/uL (150.0-450.0); RED BLOOD COUNT 3.16 X10^6/uL (3.5-5.4); RED CELL DISTRIBUTION WIDTH 18.2 % (11.6-16.5); WHITE BLOOD COUNT 16.3 X10^3/uL (3.6-10.0)
[2024-01-28 06:14] LABS: ALANINE AMINOTRANSFERASE 71 Units/L (12-78); ALBUMIN 2.4 g/dL (3.4-5.0); ALKALINE PHOSPHATASE 80 Units/L (46-116); ASPARTATE AMINO TRANSFERASE 63 Units/L (15-37); BLOOD UREA NITROGEN 34 mg/dL (7-18); CALCIUM 8.5 mg/dL (8.5-10.1); CARBON DIOXIDE 23.7 mmol/L (21-32); CHLORIDE 110 mmol/L (98-107); COR CA(FOR HYPOALB) 9.8 mg/dL (8.5-10.1); CREATININE 1.27 mg/dL (0.55-1.02); GLUCOSE 101 mg/dL (65-99); POTASSIUM 4.3 mmol/L (3.5-5.1); SODIUM 142 mmol/L (136-145); TOTAL PROTEIN 5.1 g/dL (6.4-8.2); eGFR NON BLACK RACES 43 (>60)
[2024-01-28 07:35] LABS: ANISOCYTOSIS SLIGHT; PLATELET MORPHOLOGY COMMENT NORMAL (NORMAL)
--- NOTE | 2024-01-28 08:39 | RAD ---
EXAM:Chest PA and lateral viewsHISTORY:SOBCOMPARISON:01/27/2024 09/25/2023FINDINGS:Heart size upper normal with aortic dilatation. Vascular congestion and diffuse interstitial prominence bilaterally. There is no evidence for consolidation or pleural effusion.IMPRESSION:No change since 1 day prior. Interstitial prominence may be congestive or inflammatory. These findings are relatively acute, not present on an older chest exam 09/25/2023.THIS IS AN ELECTRONICALLY VERIFIED FINAL REPORT01/28/2024 8:35 AM - Electronically signed by Bravo Stein MD
--- NOTE | 2024-01-28 11:46 | NOTE.SOAP ---
Soap Note Note for Day of Date of Exam: 01/28/24 Subjective Data Subjective Data: Pt continues to slowly improve. Doesn't feel comfortable going home today. Family and nursing at bedside. No overnight events. Objective Data Objective Data: WD/WN female in NAD, wearing NC. Lungs clearer today with faint rhonchi b/l. Irregularly irregular rhythm with no tachycardia. Bowel sounds present. Mood and affect appropriate. Assessment Assessment: 1) Community acquired PNA- continue current. 2) Acute hypoxemic respiratory failure- continue O2. 3)Afib- continue current. Rate-controlled.
[2024-01-29 06:20] LABS: BASOPHILS % (AUTO) 0.1 % (0.2-1.0); EOSINOPHILS % (AUTO) 0.2 % (0.9-2.9); HEMATOCRIT 29.9 % (36.0-47.0); HEMOGLOBIN 9.7 g/dL (12.0-16.0); LYMPHOCYTES # (AUTO) 1.1 X10^3/uL (1.3-2.9); LYMPHOCYTES % (AUTO) 7.7 % (21.0-51.0); MEAN CORPUSCULAR HEMOGLOBIN 30.7 pg (27.0-34.0); MEAN CORPUSCULAR HGB CONC 32.4 g/dL (33.0-35.0); MEAN CORPUSCULAR VOLUME 94.8 fL (80.0-100.0); MEAN PLATELET VOLUME 8.8 fL (7.4-11.0); MONOCYTES # (AUTO) 1.6 x10^3/uL (0.3-0.8); MONOCYTES % (AUTO) 11.6 % (0.0-13.0); NEUTROPHILS # (AUTO) 11.3 x10^3/uL (2.2-4.8); NEUTROPHILS % (AUTO) 80.4 % (42.0-75.0); PLATELET COUNT 227 X10^3/uL (150.0-450.0); RED BLOOD COUNT 3.15 X10^6/uL (3.5-5.4); RED CELL DISTRIBUTION WIDTH 18.3 % (11.6-16.5); WHITE BLOOD COUNT 14.1 X10^3/uL (3.6-10.0)
[2024-01-29 06:43] LABS: ALBUMIN 2.1 g/dL (3.4-5.0); CALCIUM 8.6 mg/dL (8.5-10.1); CARBON DIOXIDE 24.2 mmol/L (21-32); COR CA(FOR HYPOALB) 10.1 mg/dL (8.5-10.1); CREATININE 1.15 mg/dL (0.55-1.02); POTASSIUM 4.8 mmol/L (3.5-5.1); TOTAL PROTEIN 4.9 g/dL (6.4-8.2)
[2024-01-29 06:53] LABS: ANISOCYTOSIS SLIGHT; PLATELET MORPHOLOGY COMMENT NORMAL (NORMAL)
[2024-01-29 07:04] LABS: ABG ALLEN TEST POS; ABG BASE EXCESS 1.9 mmol/L (-2.0-2.0); ABG HCO3 25.6 mmol/L (22-26)
--- NOTE | 2024-01-29 08:26 | RAD ---
EXAM:CHEST, PA/LAT ADULTHISTORY:DYSPNEA, SHORTNESS OF BREATH;COMPARISON:Prior study or studies were utilized for comparison during interpretation with the most relevant dated 01/28/2024TECHNIQUE:CHEST, PA/LAT ADULTFINDINGS:Chest:Lines and tubes: Cardiac leads overlie the chest.Mediastinum: Borderline cardiomegaly.Pulmonary vessels: No pulmonary vascular congestion.Lung de la paz: Increased interstitial opacities are notedPleura: No effusion. No pneumothorax.Bones and soft tissues: No acute osseous or soft tissue abnormality.IMPRESSION:1. Persistent increased interstitial opacities may be infectious/inflammatory. No significant change from yesterdayTHIS IS AN ELECTRONICALLY VERIFIED FINAL REPORT01/29/2024 8:23 AM - Electronically signed by Tonio Keen MD
--- NOTE | 2024-01-29 08:33 | RAD ---
EXAM:CHEST, 1 VIEWHISTORY:Dypsnea;COMPARISON:Prior study or studies were utilized for comparison during interpretation with the most relevant dated 01/25/2024TECHNIQUE:CHEST, 1 VIEWFINDINGS:Chest:Lines and tubes: Cardiac leads overlie the chest.Mediastinum: Cardiomegaly.Pulmonary vessels: No pulmonary vascular congestion.Lung de la paz: Interstitial markings and hyperinflation of the lungs with diaphragmatic flattening.Pleura: No effusion. No pneumothorax.Bones and soft tissues: No acute osseous or soft tissue abnormality.IMPRESSION:1. No acute cardiopulmonary abnormality2. Stigmata of COPDTHIS IS AN ELECTRONICALLY VERIFIED FINAL REPORT01/29/2024 8:29 AM - Electronically signed by Tonio Keen MD
[2024-01-29] MEDS: K-DUR TAB 20 MEQ PO ONE (13:44)
[2024-01-29] MEDS: LASIX IVP ONE (13:44)
[2024-01-29] MEDS: LASIX PO ONE (14:52)
[2024-01-29 20:01] VITALS: BP 131/62
[2024-01-30] MEDS: LASIX PO ONE (05:06)
[2024-01-30] MEDS: K-DUR TAB 20 MEQ PO ONE (05:07)
[2024-01-30 08:26] VITALS: O2SAT 97
[2024-01-30] MEDS: ZITHROMAX TAB 250 MG PO SCH (08:44)
--- NOTE | 2024-01-30 10:09 | RAD ---
EXAM: CHEST, 1 VIEW HISTORY: F/U PNEUMONIA ; CARDIAC ARRHYTHMIA, HTN, PNA, GERD, LUPUS, ANEMIA, KIDNEY CA SX: LEFT PARTIAL NEPHREC DIANE COMPARISON: Prior study or studies were utilized for comparison during interpretation with the most relevant alfredo ed 01/29/2024 TECHNIQUE: CHEST, 1 VIEW FINDINGS: Chest: Lines and tubes: Cardiac leads overlie the chest. Mediastinum: Borderline cardiomegaly. Pulmonary vessels: No pulmonary vascular congestion. Lung de la paz: No suspicious airspace opacity. Pleura: No effusion. No pneumothorax. Bones and soft tissues: No acute osseous or soft tissue abnormality. IMPRESSION: 1. No acute cardiopulmonary abnormality THIS IS AN ELECTRONICALLY VERIFIED FINAL REPORT 01/30/2024 10:06 AM - Electronically signed by Tonio Keen MD
[2024-01-30] MEDS: MAGIC MOUTHWASH (Orig. Formula) MT SCH (10:17)
[2024-01-30] MEDS: LOPRESSOR TAB 25 MG PO ONE (11:06)
[2024-01-30 12:14] VITALS: RESP 22
[2024-01-30 13:51] VITALS: PULSE 78; TEMP 98.6
--- NOTE | 2024-02-02 09:21 | PCM.PROG ---
Progress Note Progress Note for Day of Date of Exam: 01/26/24 Subjective Subjective: The patient is an 83-year-old white female patient of our private practice with bilateral pneumonia. The patient has been on IV antibiotics, respiratory therapy, and supplemental O2 since admission. She has a chest xray yesterday that showed Improving airspace opacities. Her sputum culture resulted enterobacte amneigenus biogrp yesterday. Patient complains that she continues to be short of breath upon exertion, but improved. She is cooperating well with physical therapy. AM labs: wbc 14.5, hgb 9.1, bun 34/creatinine 1.61. Past Medical Family Social History Allergies: Allergies doxylamine [From NyQuil] Allergy (Verified 01/22/24 13:04) pseudoephedrine [From NyQuil] Allergy (Verified 01/22/24 13:04) Vital Signs and I&O's Intake and Output: Intake & Output 01/30/24 01/31/24 02/01/24 02/02/24 11:59 11:59 11:59 11:59 Intake Total 770 / 770 Balance 770 / 770 Physical Exam Oriented: Normal Eyes: Normal Ear: Normal Nose: Normal Throat: Normal Respiratory: Diminished and Wheezes Cardiovascular: Edema Auscultation: Bowel Sounds: Normal Tenderness: Normal Skin: Decreased Turgur Musculoskeletal: Motor Deficit Psychiatric: Anxiety Affect: Anxious Speech Pattern: Clear Laboratory and Diagnostics 01/29/24 05:52 01/29/24 05:52 Labs: 01/22/24 18:06 Blood Blood Culture - Final 01/22/24 18:00 Blood Blood Culture - Final 01/22/24 13:15 Sputum - Expectorated Sputum Sputum Culture - Final Enterobacte Amnigenus Biogrp 1 01/22/24 13:15 Sputum - Expectorated Sputum - Final 01/22/24 18:20 Urine,Clean Catch Urine Culture - Final Laboratory WBC 14.1 X10^3/uL (3.6-10.0) H 01/29/24 05:52 RBC 3.15 X10^6/uL (3.5-5.4) L 01/29/24 05:52 Hgb 9.7 g/dL (12.0-16.0) L 01/29/24 05:52 Hct 29.9 % (36.0-47.0) L 01/29/24 05:52 MCV 94.8 fL (80.0-100.0) 01/29/24 05:52 MCH 30.7 pg (27.0-34.0) 01/29/24 05:52 MCHC 32.4 g/dL (33.0-35.0) L 01/29/24 05:52 RDW 18.3 % (11.6-16.5) H 01/29/24 05:52 Plt Count 227 X10^3/uL (150.0-450.0) 01/29/24 05:52 Plt Count Comment Adequate (ADEQUATE) 01/29/24 05:52 MPV 8.8 fL (7.4-11.0) 01/29/24 05:52 Neut % (Auto) 80.4 % (42.0-75.0) H 01/29/24 05:52 Lymph % (Auto) 7.7 % (21.0-51.0) L 01/29/24 05:52 [place] % (Auto) 11.6 % (0.0-13.0) 01/29/24 05:52 Eos % (Auto) 0.2 % (0.9-2.9) L 01/29/24 05:52 Baso % (Auto) 0.1 % (0.2-1.0) L 01/29/24 05:52 Neut # (Auto) 11.3 x10^3/uL (2.2-4.8) H 01/29/24 05:52 Lymph # (Auto) 1.1 X10^3/uL (1.3-2.9) L 01/29/24 05:52 [place] # (Auto) 1.6 x10^3/uL (0.3-0.8) H 01/29/24 05:52 Eos # (Auto) 0.0 x10^3/uL (0.0-0.2) 01/29/24 05:52 Baso # (Auto) 0.0 X10^3/uL (0.0-0.1) 01/29/24 05:52 Absolute Nucleated RBC 0.2 /100WBC 01/29/24 05:52 Total Counted 100 01/29/24 05:52 Neutrophils % (Manual) 72 % (39-76) 01/29/24 05:52 Lymphocytes % (Manual) 9 % (13-43) L 01/29/24 05:52 Monocytes % (Manual) 19 % (4-9) H 01/29/24 05:52 Atypical Lymphocytes Few A 01/29/24 05:52 Plt Morphology Comment Normal (NORMAL) 01/29/24 05:52 RBC Morphology Abnormal (NORMAL) A 01/29/24 05:52 Anisocytosis Slight A 01/29/24 05:52 Target Cells Slight A 01/27/24 08:55 D-Dimer 0.89 ug/ml (0.0-0.57) H 01/22/24 13:20 Sample Site Rra 01/29/24 07:00 ABG pH 7.460 (7.35-7.45) H 01/29/24 07:00 ABG pCO2 36.0 mmHg (35.0-45.0) 01/29/24 07:00 ABG pO2 51.0 mmHg (80.0-100.0) L 01/29/24 07:00 ABG HCO3 25.6 mmol/L (22-26) 01/29/24 07:00 ABG O2 Saturation 88.0 % (90-100) L 01/29/24 07:00 ABG Base Excess 1.9 mmol/L (-2.0-2.0) 01/29/24 07:00 Arjun Test Pos 01/29/24 07:00 A-a Gradient 54.0 mmHg 01/29/24 07:00 FiO2 21.0 01/29/24 07:00 Blood Gas Comments Pt dagoberto well eb 01/29/24 07:00 Sodium 139 mmol/L (136-145) 01/29/24 05:52 Corrected Sodium 140 mmol/L (136-145) 01/29/24 05:52 Potassium 4.8 mmol/L (3.5-5.1) 01/29/24 05:52 Chloride 106 mmol/L (98-107) 01/29/24 05:52 Carbon Dioxide 24.2 mmol/L (21-32) 01/29/24 05:52 BUN 31 mg/dL (7-18) H 01/29/24 05:52 Creatinine 1.15 mg/dL (0.55-1.02) H 01/29/24 05:52 Est GFR (MDRD) Af Amer 58 (>60) L 01/29/24 05:52 Est GFR (MDRD) Non-Af 48 (>60) L 01/29/24 05:52 Glucose 123 mg/dL (65-99) H 01/29/24 05:52 Lactic Acid 0.7 mmol/L (0.4-2.0) 01/22/24 18:06 Calcium 8.6 mg/dL (8.5-10.1) 01/29/24 05:52 Corrected Calcium 10.1 mg/dL (8.5-10.1) 01/29/24 05:52 Total Bilirubin 0.20 mg/dL (0.2-1.0) 01/29/24 05:52 AST 49 Units/L (15-37) H 01/29/24 05:52 ALT 73 Units/L (12-78) 01/29/24 05:52 Alkaline Phosphatase 70 Units/L (46-116) 01/29/24 05:52 Creatine Kinase 70 Units/L (26-192) 01/23/24 00:56 Troponin I High Sens 5.6 ng/L (4.0-60.0) 01/23/24 00:56 B-Natriuretic Peptide 175 pg/mL (0-79) H 01/22/24 13:20 Total Protein 4.9 g/dL (6.4-8.2) L 01/29/24 05:52 Albumin 2.1 g/dL (3.4-5.0) L 01/29/24 05:52 Globulin 2.8 g/dL (2.5-4.5) 01/29/24 05:52 Albumin/Globulin Ratio 0.8 Ratio (1.1-2.1) L 01/29/24 05:52 Specimen Type Clean catch urine 01/22/24 18:20 Urine Color Pale yellow (YELLOW) 01/22/24 18:20 Urine Appearance Clear (CLEAR) 01/22/24 18:20 Urine pH 6.5 (5.0 - 8.0) 01/22/24 18:20 Ur Specific [place] 1.010 (1.000-1.030) 01/22/24 18:20 Urine Protein 2+ (NEGATIVE) 01/22/24 18:20 Urine Glucose (UA) Negative (NEGATIVE) 01/22/24 18:20 Urine Ketones Negative (NEGATIVE) 01/22/24 18:20 Urine Blood Negative (NEGATIVE) 01/22/24 18:20 Urine Nitrite Negative (NEGATIVE) 01/22/24 18:20 Urine Bilirubin Negative (NEGATIVE) 01/22/24 18:20 Urine Urobilinogen Normal (NORMAL) 01/22/24 18:20 Ur Leukocyte Esterase 2+ (NEGATIVE) 01/22/24 18:20 Urine RBC 0-2 /HPF (0-3) 01/22/24 18:20 Urine WBC 5-10 /HPF (0-5) A 01/22/24 18:20 Ur Squamous Epith Cells Rare /HPF (NEGATIVE) 01/22/24 18:20 Urine Bacteria Trace /HPF (NEGATIVE) 01/22/24 18:20 Ur Culture Indicated? Yes/culture set up 01/22/24 18:20 SARS-CoV-2 (PCR) Negative (NEGATIVE) 01/22/24 18:20 Influenza Type A (PCR) Negative (NEGATIVE) 01/22/24 18:20 Influenza Type B (PCR) Negative (NEGATIVE) 01/22/24 18:20 RSV (PCR) Negative (NEGATIVE) 01/22/24 18:20 Plan (1) Acute dyspnea: Status: Acute Plan: Plan for repeat labs, AM chest xray. Start robitussin, ambien 5mg, decrease solumedrol down to once daily. Continue IV antibiotics, respiratory therapy, and supplemental O2. (2) Weakness: Status: Acute (3) Afib: Status: Chronic Qualifiers: Atrial fibrillation type: persistent (not longstanding) Qualified Code(s): I48.19 - Other persistent atrial fibrillation (4) Hypertension: Status: Chronic Qualifiers: Hypertension type: essential hypertension Qualified Code(s): I10 - Essential (primary) hypertension (5) Anxiety: Status: Chronic (6) GERD (gastroesophageal reflux disease): Status: Chronic
--- NOTE | 2024-02-07 17:18 | PCM.PROG ---
Progress Note Progress Note for Day of Date of Exam: 01/29/24 Subjective Subjective: The patient is an 83-year-old white female patient of our private practice with bilateral pneumonia. The patient has been on IV antibiotics, IV steroids, respiratory therapy, and supplemental O2 since admission. She lost IV access sometime yesterday and has refused reinsertion. She has a chest xray this morning that showed persistent increased interstitial opacities may be infectious/inflammatory No significant change from yesterday. Morning ABG showed PH 7.460, Pc02 36, P02 51, Hco3 25.6, 02 sat 88%, Fi02 21%. AM labs: wbc 14.1, hgb 9.7, BUN 31/Creatinine 1.15. Her 02 SAT is 93% room air this morning. Patient complains that she continues to be short of breath upon exertion, but improved. She is cooperating well with physical therapy. Past Medical Family Social History Allergies: Allergies doxylamine [From NyQuil] Allergy (Verified 01/22/24 13:04) pseudoephedrine [From NyQuil] Allergy (Verified 01/22/24 13:04) Physical Exam Oriented: Normal Eyes: Normal Ear: Normal Nose: Normal Throat: Normal Respiratory: Diminished and Wheezes Cardiovascular: Edema Auscultation: Bowel Sounds: Normal Tenderness: Normal Skin: Decreased Turgur Musculoskeletal: Motor Deficit Psychiatric: Anxiety Affect: Anxious Speech Pattern: Clear Laboratory and Diagnostics 01/29/24 05:52 01/29/24 05:52 Labs: 01/22/24 18:06 Blood Blood Culture - Final 01/22/24 18:00 Blood Blood Culture - Final 01/22/24 13:15 Sputum - Expectorated Sputum Sputum Culture - Final Enterobacte Amnigenus Biogrp 1 01/22/24 13:15 Sputum - Expectorated Sputum - Final 01/22/24 18:20 Urine,Clean Catch Urine Culture - Final Laboratory WBC 14.1 X10^3/uL (3.6-10.0) H 01/29/24 05:52 RBC 3.15 X10^6/uL (3.5-5.4) L 01/29/24 05:52 Hgb 9.7 g/dL (12.0-16.0) L 01/29/24 05:52 Hct 29.9 % (36.0-47.0) L 01/29/24 05:52 MCV 94.8 fL (80.0-100.0) 01/29/24 05:52 MCH 30.7 pg (27.0-34.0) 01/29/24 05:52 MCHC 32.4 g/dL (33.0-35.0) L 01/29/24 05:52 RDW 18.3 % (11.6-16.5) H 01/29/24 05:52 Plt Count 227 X10^3/uL (150.0-450.0) 01/29/24 05:52 Plt Count Comment Adequate (ADEQUATE) 01/29/24 05:52 MPV 8.8 fL (7.4-11.0) 01/29/24 05:52 Neut % (Auto) 80.4 % (42.0-75.0) H 01/29/24 05:52 Lymph % (Auto) 7.7 % (21.0-51.0) L 01/29/24 05:52 [place] % (Auto) 11.6 % (0.0-13.0) 01/29/24 05:52 Eos % (Auto) 0.2 % (0.9-2.9) L 01/29/24 05:52 Baso % (Auto) 0.1 % (0.2-1.0) L 01/29/24 05:52 Neut # (Auto) 11.3 x10^3/uL (2.2-4.8) H 01/29/24 05:52 Lymph # (Auto) 1.1 X10^3/uL (1.3-2.9) L 01/29/24 05:52 [place] # (Auto) 1.6 x10^3/uL (0.3-0.8) H 01/29/24 05:52 Eos # (Auto) 0.0 x10^3/uL (0.0-0.2) 01/29/24 05:52 Baso # (Auto) 0.0 X10^3/uL (0.0-0.1) 01/29/24 05:52 Absolute Nucleated RBC 0.2 /100WBC 01/29/24 05:52 Total Counted 100 01/29/24 05:52 Neutrophils % (Manual) 72 % (39-76) 01/29/24 05:52 Lymphocytes % (Manual) 9 % (13-43) L 01/29/24 05:52 Monocytes % (Manual) 19 % (4-9) H 01/29/24 05:52 Atypical Lymphocytes Few A 01/29/24 05:52 Plt Morphology Comment Normal (NORMAL) 01/29/24 05:52 RBC Morphology Abnormal (NORMAL) A 01/29/24 05:52 Anisocytosis Slight A 01/29/24 05:52 Target Cells Slight A 01/27/24 08:55 D-Dimer 0.89 ug/ml (0.0-0.57) H 01/22/24 13:20 Sample Site Rra 01/29/24 07:00 ABG pH 7.460 (7.35-7.45) H 01/29/24 07:00 ABG pCO2 36.0 mmHg (35.0-45.0) 01/29/24 07:00 ABG pO2 51.0 mmHg (80.0-100.0) L 01/29/24 07:00 ABG HCO3 25.6 mmol/L (22-26) 01/29/24 07:00 ABG O2 Saturation 88.0 % (90-100) L 01/29/24 07:00 ABG Base Excess 1.9 mmol/L (-2.0-2.0) 01/29/24 07:00 Arjun Test Pos 01/29/24 07:00 A-a Gradient 54.0 mmHg 01/29/24 07:00 FiO2 21.0 01/29/24 07:00 Blood Gas Comments Pt dagoberto well eb 01/29/24 07:00 Sodium 139 mmol/L (136-145) 01/29/24 05:52 Corrected Sodium 140 mmol/L (136-145) 01/29/24 05:52 Potassium 4.8 mmol/L (3.5-5.1) 01/29/24 05:52 Chloride 106 mmol/L (98-107) 01/29/24 05:52 Carbon Dioxide 24.2 mmol/L (21-32) 01/29/24 05:52 BUN 31 mg/dL (7-18) H 01/29/24 05:52 Creatinine 1.15 mg/dL (0.55-1.02) H 01/29/24 05:52 Est GFR (MDRD) Af Amer 58 (>60) L 01/29/24 05:52 Est GFR (MDRD) Non-Af 48 (>60) L 01/29/24 05:52 Glucose 123 mg/dL (65-99) H 01/29/24 05:52 Lactic Acid 0.7 mmol/L (0.4-2.0) 01/22/24 18:06 Calcium 8.6 mg/dL (8.5-10.1) 01/29/24 05:52 Corrected Calcium 10.1 mg/dL (8.5-10.1) 01/29/24 05:52 Total Bilirubin 0.20 mg/dL (0.2-1.0) 01/29/24 05:52 AST 49 Units/L (15-37) H 01/29/24 05:52 ALT 73 Units/L (12-78) 01/29/24 05:52 Alkaline Phosphatase 70 Units/L (46-116) 01/29/24 05:52 Creatine Kinase 70 Units/L (26-192) 01/23/24 00:56 Troponin I High Sens 5.6 ng/L (4.0-60.0) 01/23/24 00:56 B-Natriuretic Peptide 175 pg/mL (0-79) H 01/22/24 13:20 Total Protein 4.9 g/dL (6.4-8.2) L 01/29/24 05:52 Albumin 2.1 g/dL (3.4-5.0) L 01/29/24 05:52 Globulin 2.8 g/dL (2.5-4.5) 01/29/24 05:52 Albumin/Globulin Ratio 0.8 Ratio (1.1-2.1) L 01/29/24 05:52 Specimen Type Clean catch urine 01/22/24 18:20 Urine Color Pale yellow (YELLOW) 01/22/24 18:20 Urine Appearance Clear (CLEAR) 01/22/24 18:20 Urine pH 6.5 (5.0 - 8.0) 01/22/24 18:20 Ur Specific [place] 1.010 (1.000-1.030) 01/22/24 18:20 Urine Protein 2+ (NEGATIVE) 01/22/24 18:20 Urine Glucose (UA) Negative (NEGATIVE) 01/22/24 18:20 Urine Ketones Negative (NEGATIVE) 01/22/24 18:20 Urine Blood Negative (NEGATIVE) 01/22/24 18:20 Urine Nitrite Negative (NEGATIVE) 01/22/24 18:20 Urine Bilirubin Negative (NEGATIVE) 01/22/24 18:20 Urine Urobilinogen Normal (NORMAL) 01/22/24 18:20 Ur Leukocyte Esterase 2+ (NEGATIVE) 01/22/24 18:20 Urine RBC 0-2 /HPF (0-3) 01/22/24 18:20 Urine WBC 5-10 /HPF (0-5) A 01/22/24 18:20 Ur Squamous Epith Cells Rare /HPF (NEGATIVE) 01/22/24 18:20 Urine Bacteria Trace /HPF (NEGATIVE) 01/22/24 18:20 Ur Culture Indicated? Yes/culture set up 01/22/24 18:20 SARS-CoV-2 (PCR) Negative (NEGATIVE) 01/22/24 18:20 Influenza Type A (PCR) Negative (NEGATIVE) 01/22/24 18:20 Influenza Type B (PCR) Negative (NEGATIVE) 01/22/24 18:20 RSV (PCR) Negative (NEGATIVE) 01/22/24 18:20 Plan (1) Acute dyspnea: Status: Acute Plan: One time dose of lasix. Plan for repeat labs, AM chest xray. Con tinue respiratory therapy, and supplemental O2 PRN. (2) Weakness: Status: Acute (3) Afib: Status: Chronic Qualifiers: Atrial fibrillation type: persistent (not longstanding) Qualified Code(s): I48.19 - Other persistent atrial fibrillation (4) Hypertension: Status: Chronic Qualifiers: Hypertension type: essential hypertension Qualified Code(s): I10 - Essential (primary) hypertension (5) Anxiety: Status: Chronic (6) GERD (gastroesophageal reflux disease): Status: Chronic
--- NOTE | 2024-02-07 17:19 | PCM.DCPLAN ---
DISCHARGE SUMMARY Admission Date Date of Admission: 01/22/24 Discharge Date Discharge Date: 01/30/24 Admission Diagnoses (1) Acute dyspnea: Status: Acute (2) Weakness: Status: Acute (3) Afib: Status: Chronic (4) Hypertension: Status: Chronic (5) Anxiety: Status: Chronic (6) GERD (gastroesophageal reflux disease): Status: Chronic Discharge Diagnoses Discharge Diagnosis: Improved dyspnea, same as admission Discharge Medications Discharge Medications: Home Medication List azithromycin 250 mg tablet (Zithromax) 250 mg PO QDAY #6 tabs 01/30/24 [Rx] prednisone 10 mg tablet 10 mg PO DIRECTED #11 tabs 01/30/24 [Rx] Prescriptions: azithromycin [Zithromax] [facility] prednisone [facility] Hospital Course Latest Lab Results: Laboratory Last Values WBC 14.1 X10^3/uL (3.6-10.0) H 01/29/24 05:52 RBC 3.15 X10^6/uL (3.5-5.4) L 01/29/24 05:52 Hgb 9.7 g/dL (12.0-16.0) L 01/29/24 05:52 Hct 29.9 % (36.0-47.0) L 01/29/24 05:52 MCV 94.8 fL (80.0-100.0) 01/29/24 05:52 MCH 30.7 pg (27.0-34.0) 01/29/24 05:52 MCHC 32.4 g/dL (33.0-35.0) L 01/29/24 05:52 RDW 18.3 % (11.6-16.5) H 01/29/24 05:52 Plt Count 227 X10^3/uL (150.0-450.0) 01/29/24 05:52 Plt Count Comment Adequate (ADEQUATE) 01/29/24 05:52 MPV 8.8 fL (7.4-11.0) 01/29/24 05:52 Neut % (Auto) 80.4 % (42.0-75.0) H 01/29/24 05:52 Lymph % (Auto) 7.7 % (21.0-51.0) L 01/29/24 05:52 [place] % (Auto) 11.6 % (0.0-13.0) 01/29/24 05:52 Eos % (Auto) 0.2 % (0.9-2.9) L 01/29/24 05:52 Baso % (Auto) 0.1 % (0.2-1.0) L 01/29/24 05:52 Neut # (Auto) 11.3 x10^3/uL (2.2-4.8) H 01/29/24 05:52 Lymph # (Auto) 1.1 X10^3/uL (1.3-2.9) L 01/29/24 05:52 [place] # (Auto) 1.6 x10^3/uL (0.3-0.8) H 01/29/24 05:52 Eos # (Auto) 0.0 x10^3/uL (0.0-0.2) 01/29/24 05:52 Baso # (Auto) 0.0 X10^3/uL (0.0-0.1) 01/29/24 05:52 Absolute Nucleated RBC 0.2 /100WBC 01/29/24 05:52 Total Counted 100 01/29/24 05:52 Neutrophils % (Manual) 72 % (39-76) 01/29/24 05:52 Lymphocytes % (Manual) 9 % (13-43) L 01/29/24 05:52 Monocytes % (Manual) 19 % (4-9) H 01/29/24 05:52 Atypical Lymphocytes Few A 01/29/24 05:52 Plt Morphology Comment Normal (NORMAL) 01/29/24 05:52 RBC Morphology Abnormal (NORMAL) A 01/29/24 05:52 Anisocytosis Slight A 01/29/24 05:52 Target Cells Slight A 01/27/24 08:55 D-Dimer 0.89 ug/ml (0.0-0.57) H 01/22/24 13:20 Sample Site Rra 01/29/24 07:00 ABG pH 7.460 (7.35-7.45) H 01/29/24 07:00 ABG pCO2 36.0 mmHg (35.0-45.0) 01/29/24 07:00 ABG pO2 51.0 mmHg (80.0-100.0) L 01/29/24 07:00 ABG HCO3 25.6 mmol/L (22-26) 01/29/24 07:00 ABG O2 Saturation 88.0 % (90-100) L 01/29/24 07:00 ABG Base Excess 1.9 mmol/L (-2.0-2.0) 01/29/24 07:00 Arjun Test Pos 01/29/24 07:00 A-a Gradient 54.0 mmHg 01/29/24 07:00 FiO2 21.0 01/29/24 07:00 Blood Gas Comments Pt dagoberto well eb 01/29/24 07:00 Sodium 139 mmol/L (136-145) 01/29/24 05:52 Corrected Sodium 140 mmol/L (136-145) 01/29/24 05:52 Potassium 4.8 mmol/L (3.5-5.1) 01/29/24 05:52 Chloride 106 mmol/L (98-107) 01/29/24 05:52 Carbon Dioxide 24.2 mmol/L (21-32) 01/29/24 05:52 BUN 31 mg/dL (7-18) H 01/29/24 05:52 Creatinine 1.15 mg/dL (0.55-1.02) H 01/29/24 05:52 Est GFR (MDRD) Af Amer 58 (>60) L 01/29/24 05:52 Est GFR (MDRD) Non-Af 48 (>60) L 01/29/24 05:52 Glucose 123 mg/dL (65-99) H 01/29/24 05:52 Lactic Acid 0.7 mmol/L (0.4-2.0) 01/22/24 18:06 Calcium 8.6 mg/dL (8.5-10.1) 01/29/24 05:52 Corrected Calcium 10.1 mg/dL (8.5-10.1) 01/29/24 05:52 Total Bilirubin 0.20 mg/dL (0.2-1.0) 01/29/24 05:52 AST 49 Units/L (15-37) H 01/29/24 05:52 ALT 73 Units/L (12-78) 01/29/24 05:52 Alkaline Phosphatase 70 Units/L (46-116) 01/29/24 05:52 Creatine Kinase 70 Units/L (26-192) 01/23/24 00:56 Troponin I High Sens 5.6 ng/L (4.0-60.0) 01/23/24 00:56 B-Natriuretic Peptide 175 pg/mL (0-79) H 01/22/24 13:20 Total Protein 4.9 g/dL (6.4-8.2) L 01/29/24 05:52 Albumin 2.1 g/dL (3.4-5.0) L 01/29/24 05:52 Globulin 2.8 g/dL (2.5-4.5) 01/29/24 05:52 Albumin/Globulin Ratio 0.8 Ratio (1.1-2.1) L 01/29/24 05:52 Specimen Type Clean catch urine 01/22/24 18:20 Urine Color Pale yellow (YELLOW) 01/22/24 18:20 Urine Appearance Clear (CLEAR) 01/22/24 18:20 Urine pH 6.5 (5.0 - 8.0) 01/22/24 18:20 Ur Specific [place] 1.010 (1.000-1.030) 01/22/24 18:20 Urine Protein 2+ (NEGATIVE) 01/22/24 18:20 Urine Glucose (UA) Negative (NEGATIVE) 01/22/24 18:20 Urine Ketones Negative (NEGATIVE) 01/22/24 18:20 Urine Blood Negative (NEGATIVE) 01/22/24 18:20 Urine Nitrite Negative (NEGATIVE) 01/22/24 18:20 Urine Bilirubin Negative (NEGATIVE) 01/22/24 18:20 Urine Urobilinogen Normal (NORMAL) 01/22/24 18:20 Ur Leukocyte Esterase 2+ (NEGATIVE) 01/22/24 18:20 Urine RBC 0-2 /HPF (0-3) 01/22/24 18:20 Urine WBC 5-10 /HPF (0-5) A 01/22/24 18:20 Ur Squamous Epith Cells Rare /HPF (NEGATIVE) 01/22/24 18:20 Urine Bacteria Trace /HPF (NEGATIVE) 01/22/24 18:20 Ur Culture Indicated? Yes/culture set up 01/22/24 18:20 SARS-CoV-2 (PCR) Negative (NEGATIVE) 01/22/24 18:20 Influenza Type A (PCR) Negative (NEGATIVE) 01/22/24 18:20 Influenza Type B (PCR) Negative (NEGATIVE) 01/22/24 18:20 RSV (PCR) Negative (NEGATIVE) 01/22/24 18:20 Hospital Course: The patient is an 83-year-old white female patient of our private practice who was a direct admit on 01/21 with shortness of breath and weakness. She had recent ly been hospitalized for treatment of pneumonia prior to this stay. Since admission, patient has been treated with IV antibiotics, IV steroids, aggressive respiratory therapy, supplemental 02, gentle IV hydration. She did lose IV access on the evening of 01/27 and has refused re-insertion since. She has been treated with a couple dose of lasix throughout stay and tolerated well. We obtained a CT chest on 01/22 that showed a new finding of a 5mm left upper lobe pleural based nodule recommending CT chest without contrast in 12 months to follow. We have discussed with her that she will need a environmental services lead evaluation on outpatient basis. We also obtained an echocardiogram on 01/22 that showed normal ejetion fraction, valve disease, and moderate pulmonary hypertension. We have recommended for her for a routine follow up with her catalog librarian on outpatient basis. Her sputum culture did grow out enterobacte amnigenus biogrp 1, sensitive to the IV rocephin she has been treated with. Admission ABG: PH 7.450, P02, 36, P02 <37 HC03 25, 02 sat 63, fio2 21. Yesterday's ABG showed improvement with PH 7.460, Pc02 36, P02 51, Hco3 25.6, 02 sat 88%, Fi02 21%. Yesterday she was able to maintain oxygenation of 93-94% on room air. She did require supplemental 02 during the night. Her 02 Sat is 97% on 2 LPM this morning. AM chest xray showed No acute cardiopulmonary abnormality. AM labs: hgb 9.7, wbc 14.1, bun 31, creatinine 1.15. Patient states that she is feeling much improved, so we will allow her to discharge home on PO abx and po steroids. She will need to hold her methotrexate for 1 week. She is scheduled for a hospital follow up at private practice on 02/06/24 at 3PM. Please see discharge plan for list of discharge medications and modifications that we made, electronic medical record for diagnostic tests and labs. The patient was instructed to return to the ER if condition changed or worsened unexpectedly.
== END 2024-01-30 13:35 | disposition home health service (06) | DRG 177 ==
LOC: MED/SURG
PROVIDERS: ADMIT Internal Medicine; ATTEND Internal Medicine
DX: N18.9 Chronic kidney disease, unspecified; R91.1 Solitary pulmonary nodule; Z79.01 Long term (current) use of anticoagulants; K21.9 Gastro-esophageal reflux disease without esophagitis; I48.19 Other persistent atrial fibrillation; F41.8 Other specified anxiety disorders; J15.69 Pneumonia due to other Gram-negative bacteria; J96.01 Acute respiratory failure with hypoxia; E87.1 Hypo-osmolality and hyponatremia; R26.89 Other abnormalities of gait and mobility; Z20.822 Contact with and (suspected) exposure to COVID-19; Z90.5 Acquired absence of kidney; I27.20 Pulmonary hypertension, unspecified; R53.1 Weakness; I12.9 Hypertensive chronic kidney disease with stage 1 through stage 4 chronic kidney disease, or unspecified chronic kidney disease; R73.09 Other abnormal glucose; N17.8 Other acute kidney failure

== ENCOUNTER 2024-02-29 15:33 | Inpatient (IN) ==
[2024-02-29] MEDS ORDERED: MILK OF MAGNESIA PO PRN (18:28)
[2024-02-29] MEDS ORDERED: RESTORIL CAP 15 MG PO PRN (18:28)
[2024-02-29] MEDS ORDERED: ZANAFLEX PO PRN (18:28)
[2024-02-29] MEDS: PriLOSEC PO SCH (20:56)
[2024-02-29] MEDS: NEURONTIN CAP 300 MG PO SCH (20:57)
[2024-02-29] MEDS: LOPRESSOR TAB 25 MG PO SCH (20:57)
[2024-02-29] MEDS: ELIQUIS PO SCH (20:57)
[2024-02-29] MEDS: ANCEF VIAL 1 GRAM IVP SCH (22:11)
[2024-02-29] MEDS: NORCO 5/325 MG TAB PO PRN (23:41)
[2024-03-01 06:18] LABS: BASOPHILS % (AUTO) 0.3 % (0.2-1.0); EOSINOPHILS # (AUTO) 0.2 x10^3/uL (0.0-0.2); EOSINOPHILS % (AUTO) 2.3 % (0.9-2.9); HEMATOCRIT 25.8 % (36.0-47.0); HEMOGLOBIN 8.6 g/dL (12.0-16.0); LYMPHOCYTES # (AUTO) 1.7 X10^3/uL (1.3-2.9); LYMPHOCYTES % (AUTO) 20.2 % (21.0-51.0); MEAN CORPUSCULAR HEMOGLOBIN 28.5 pg (27.0-34.0); MEAN CORPUSCULAR HGB CONC 33.3 g/dL (33.0-35.0); MEAN CORPUSCULAR VOLUME 85.6 fL (80.0-100.0); MEAN PLATELET VOLUME 7.1 fL (7.4-11.0); MONOCYTES # (AUTO) 1.2 x10^3/uL (0.3-0.8); MONOCYTES % (AUTO) 14.2 % (0.0-13.0); NEUTROPHILS # (AUTO) 5.4 x10^3/uL (2.2-4.8); PLATELET COUNT 263 X10^3/uL (150.0-450.0); RED BLOOD COUNT 3.01 X10^6/uL (3.5-5.4); RED CELL DISTRIBUTION WIDTH 17.5 % (11.6-16.5); WHITE BLOOD COUNT 8.6 X10^3/uL (3.6-10.0)
[2024-03-01 06:35] LABS: ALANINE AMINOTRANSFERASE 13 Units/L (12-78); ALBUMIN 2.1 g/dL (3.4-5.0); ALKALINE PHOSPHATASE 69 Units/L (46-116); ASPARTATE AMINO TRANSFERASE 28 Units/L (15-37); BLOOD UREA NITROGEN 26 mg/dL (7-18); CALCIUM 8.8 mg/dL (8.5-10.1); CARBON DIOXIDE 27.5 mmol/L (21-32); CHLORIDE 101 mmol/L (98-107); COR CA(FOR HYPOALB) 10.3 mg/dL (8.5-10.1); CREATININE 1.14 mg/dL (0.55-1.02); GLUCOSE 87 mg/dL (65-99); POTASSIUM 4.2 mmol/L (3.5-5.1); SODIUM 135 mmol/L (136-145); TOTAL PROTEIN 5.7 g/dL (6.4-8.2); eGFR NON BLACK RACES 48 (>60)
--- NOTE | 2024-03-01 08:08 | DR.UPDATE ---
H&P UPDATE Review Yes Any changes to H&P?: No
[2024-03-01] MEDS: COZAAR PO SCH (09:58)
--- NOTE | 2024-03-01 12:19 | PCM.PROG ---
Progress Note Progress Note for Day of Date of Exam: 03/01/24 Subjective Subjective: An 84-year-old white female in the swing bed program after being admitted to [facility] on 02/21 following a fall that resulted in a left femur fracture, and L2, L3, and T23 vertebral fractures. She is status post open reduction and fixation of the right proximal femur fracture, specifically a two- part reverse obliquity, and has undergone a cemented bipolar hemiarthroplasty using a [place] Accolade C implant performed by Dr. Espinal. The patient has a history of chronic kidney disease, with recent labs showing BUN 6 and creatinine 0.91. Hemoglobin was noted to be 8.6, and she received one unit of packed red blood cells on 02/21. She is currently on cefazolin for infection prophylaxis. Her recovery continues to be monitored, with a focus on managing her pain, optimizing her mobility through physical therapy, and monitoring her renal function and overall hematologic status. Past Medical Family Social History Allergies: Allergies doxylamine [From NyQuil] Allergy (Verified 01/22/24 13:04) pseudoephedrine [From NyQuil] Allergy (Verified 01/22/24 13:04) Vital Signs and I&O's Intake and Output: Intake & Output 02/27/24 02/28/24 02/29/24 03/01/24 11:59 11:59 11:59 11:59 Intake Total 260 / 260 Output Total 480 / 480 Balance -220 / -220 Physical Exam Oriented: Normal Eyes: Normal Ear: Normal Nose: Normal Throat: Normal Respiratory: Normal Cardiovascular: Normal : Normal Palpation: Normal Tenderness: Normal Skin: Wound Musculoskeletal: Back:Lumbar and Motor Deficit Psychiatric: Normal Mood Description: Calm Affect: Normal Speech Pattern: Clear and Appropriate Laboratory and Diagnostics 03/01/24 05:49 03/01/24 05:49 Labs: Laboratory WBC 8.6 X10^3/uL (3.6-10.0) 03/01/24 05:49 RBC 3.01 X10^6/uL (3.5-5.4) L 03/01/24 05:49 Hgb 8.6 g/dL (12.0-16.0) L 03/01/24 05:49 Hct 25.8 % (36.0-47.0) L 03/01/24 05:49 MCV 85.6 fL (80.0-100.0) 03/01/24 05:49 MCH 28.5 pg (27.0-34.0) 03/01/24 05:49 MCHC 33.3 g/dL (33.0-35.0) 03/01/24 05:49 RDW 17.5 % (11.6-16.5) H 03/01/24 05:49 Plt Count 263 X10^3/uL (150.0-450.0) 03/01/24 05:49 MPV 7.1 fL (7.4-11.0) L 03/01/24 05:49 Neut % (Auto) 63.0 % (42.0-75.0) 03/01/24 05:49 Lymph % (Auto) 20.2 % (21.0-51.0) L 03/01/24 05:49 [place] % (Auto) 14.2 % (0.0-13.0) H 03/01/24 05:49 Eos % (Auto) 2.3 % (0.9-2.9) 03/01/24 05:49 Baso % (Auto) 0.3 % (0.2-1.0) 03/01/24 05:49 Neut # (Auto) 5.4 x10^3/uL (2.2-4.8) H 03/01/24 05:49 Lymph # (Auto) 1.7 X10^3/uL (1.3-2.9) 03/01/24 05:49 [place] # (Auto) 1.2 x10^3/uL (0.3-0.8) H 03/01/24 05:49 Eos # (Auto) 0.2 x10^3/uL (0.0-0.2) 03/01/24 05:49 Baso # (Auto) 0.0 X10^3/uL (0.0-0.1) 03/01/24 05:49 Absolute Nucleated RBC 0.1 /100WBC 03/01/24 05:49 Sodium 135 mmol/L (136-145) L 03/01/24 05:49 Corrected Sodium TNP 03/01/24 05:49 Potassium 4.2 mmol/L (3.5-5.1) 03/01/24 05:49 Chloride 101 mmol/L (98-107) 03/01/24 05:49 Carbon Dioxide 27.5 mmol/L (21-32) 03/01/24 05:49 BUN 26 mg/dL (7-18) H 03/01/24 05:49 Creatinine 1.14 mg/dL (0.55-1.02) H 03/01/24 05:49 Est GFR (MDRD) Af Amer 58 (>60) L 03/01/24 05:49 Est GFR (MDRD) Non-Af 48 (>60) L 03/01/24 05:49 Glucose 87 mg/dL (65-99) 03/01/24 05:49 Calcium 8.8 mg/dL (8.5-10.1) 03/01/24 05:49 Corrected Calcium 10.3 mg/dL (8.5-10.1) H 03/01/24 05:49 Total Bilirubin 0.60 mg/dL (0.2-1.0) 03/01/24 05:49 AST 28 Units/L (15-37) 03/01/24 05:49 ALT 13 Units/L (12-78) 03/01/24 05:49 Alkaline Phosphatase 69 Units/L (46-116) 03/01/24 05:49 Total Protein 5.7 g/dL (6.4-8.2) L 03/01/24 05:49 Albumin 2.1 g/dL (3.4-5.0) L 03/01/24 05:49 Globulin 3.6 g/dL (2.5-4.5) 03/01/24 05:49 Albumin/Globulin Ratio 0.6 Ratio (1.1-2.1) L 03/01/24 05:49 Plan (1) History of repair of hip fracture: Status: Acute Narrative Support Text: WOUND CARE PER DR METCALF ORDERS IV ATBX PHYSICAL THERAPY RESUME HOME MEDICATIONS (2) Weakness: Status: Acute (3) Hypertension: Status: Chronic Qualifiers: Hypertension type: essential hypertension Qualified Code(s): I10 - Essential (primary) hypertension (4) GERD (gastroesophageal reflux disease): Status: Chronic
--- NOTE | 2024-03-01 12:36 | PT/OTEVAL ---
PT/OT OBJECTIVES - HISTORY Prescription: OT consult Diagnosis: s/p L femural fracture, L2 L3 T2,3 CKD Precautions: WBAT on L Leg, back precaution, Posterior hip precaution Prior Level of Function: Independent Other, comment: uses TLSO brace and L knee brace Other: prior to hospitalization, pt lives with in a single level home with ramp and few steps. Pt reports being independent with ADL and iADLs. Pt has rollator walker for functional mobility. Other DME:shower chair, BSC - COGNITION Mental Status: Alert, Oriented, Name, Date, Place, Purpose Communication Status: Verbal Ability to Follow Directions: 2 Step Affect: Calm - PAIN Back Pain Scale: No Pain Comments: 3/10 at rest; up to 6/10 during sitting/transitional movements No signs of pain Pain Scale: No Pain Comments: No reports of pain at time of evaluation. Right Hip Pain Scale: No Pain Comments: R hip, remy nurse was notified L pelvis Pain Scale: Discomfort Comments: nursing made aware - BED MOBILITY Rolling: Maximum Rolling Comment: with pillow in between knees Scooting: Maximum - TRANSFERS Supine to Sit: Maximum Supine Comment: back brace placed after sitting on EOB Sit to Stand: Maximum Sit to Stand Comment: Able to adhere with WB precaution, hip and back precaution - ADL'S Feeding: Setup Grooming: Setup Upper Body ADL: Minimum Lower Body ADL: Maximum, X1 Toileting: Moderate Hygeine: Moderate - BALANCE Dynamic Sitting: Good Standing: Fair Static Sitting: Good Standing: Fair - NEUROMOTOR/SENSATION Catracho. Lower Ext Sensation: WFL Coordination: WFL [place]. Upper Ext Sensation: WFL Coordination: WFL - HAND DOMINANCE Extremity Function: Hand Dominance: Right - ROM Bilateral UE ROM: WFL Muscle Tone: WFL Right UE Muscle Tone: WFL Left ROM: WFL Muscle Tone: WFL - STRENGTH Bilateral LE Strength Number: 4 Other comment: 3- Bilateral UE Strength Number: 3 Right LE Strength Number: 3 Other comment: 3-/5 grossly graded Left LE Strength Number: 3 Other comment: 3+/5 grossly graded Right UE Strength Number: 3 Other comment: 3+/5 Left Strength Number: 3 Other comment: 3+/5 - TREATMENT Date: 03/01/24 Time: 09:50 Treatment Type: Evaluation Treatment Provided: Other - TOTAL TREATMENT TIME Total Time: 70 - POST ASSESSMENT Post Assessment Comment: pt was seated on recliner chair with call button within reach. Pt has TLSO brace and knee brace on. - EXIT DISPOSITION Exit Position: CHAIR Call light in reach: Yes Bed Alarm On: NO PT/OT ASSESSMENT - OT Problem List: Decreased Mobility ADL's, Decreased Dressing, Decreased Bathing, Decreased Grooming, Decreased UE Strength - PT GOALS Short Term Goals Days: 10 Building Architect Goals Days: 20 - OT GOALS Short Term Goals Days: 10 Mobility for ADL's: pt will be able to transfer to toilet with LRAD with mod A Dressing: pt will perform LB dressing with AE with mod A Bathing: pt will perform seated bathing on EOB with AE with mod A Upper Ext. Strength/Use: pt will improve BUE strength to 4/5 necessary for ADL and transfers Building Architect Goals Days: 20 Mobility for ADL's: pt will be able to transfer to toilet with LRAD with supv AA Dressing: pt will perform LB dressing with AE with supv A Bathing: pt will perform bathing in bathroom with AE with supv A Upper Ext. Strength/Use: pt will improve BUE strength to 5/5 necessary for ADL and transfers - PATIENT GOALS Patient/Family Goals: return to PLOF Goals Discussed with Patient/Family: Yes Rehabilitation Potential: good Justification for Potential: G family support, high level of PLOF - PLAN Suggested Treatment Plan: Therapeutic Activity, Self Care Training, Neuro Re- education, Therapeutic Ex with HEP, Patient Education, Family Education - FREQUENCY AND DURATION OT: 5x a week x hospital stay Expected Continuation of Care at Discharge: Home Anticipated Equipment Needs: hip kit
--- NOTE | 2024-03-01 14:24 | PT/OTEVAL ---
PT/OT OBJECTIVES - HISTORY Prescription: PT Consult Diagnosis: L Posterior Hip Replacement (d/t Femur Fx); T12, L2, L3 Fractures s/p Fall Precautions: Fall Risk, WBAT LLE with Posterior Hip Precautions, Spinal Precautions/TLSO PMH: Anxiety, HTN, Neuropathy, GERD, Lupus, CKD, AFib, Renal Mass with 1/4 L Kidney Removed, AFib, Hysterectomy, Ortho Sx Prior Level of Function: Independent Other: Per patient report- she resides at home with her in a single story home with ramp to enter. PLOF: Independent within home and facility with rollator primarily. Pt reports short distance driving as needed. can assist minimally but did recently have R shoulder surgery. DME: Rollator, Bedside Commode, Shower Chair History of Present Illness: Mrs. Quinn is an 84 year old female who presented to [facility] ED on 02/21/2024 following a mechanical fall at home (tripping over a crate). Pt with primarily complaints of L hip pain but also reported low back pain. CT of pelvis shows fracture of L femur involving the neck with anterior angulation and CT scan of spine showed age indeterminate fractures of T12, L2 and L3. Pt was admitted for further treatment and on 02/22/2024 underwent cemented bipolar hemiarthroplasty of L hip. Course of hospitalization also included wound wash out with recommendation for wound vac to L hip. Also recommended for patient to have [place] Hyperextension TLSO when OOB. Pt was stabilized medically and transferred to [facility] on the evening of 02/29/2024 for admission to swing bed program. - COGNITION Mental Status: Alert, Oriented, Name, Date, Place, Purpose Communication Status: Verbal Ability to Follow Directions: 2 Step Affect: Calm - PAIN Back Pain Scale: Discomfort Comments: "It just a dull, ache" No signs of pain Comments: No reports of pain at time of evaluation. Right Hip Comments: R hip, remy nurse was notified L pelvis Comments: nursing made aware Left Hip Pain Scale: Mild Comments: 2-3/10 - BED MOBILITY Rolling: Minimal - TRANSFERS Supine to Sit: Moderate Supine Comment: Supine > Sideyling > Sitting Sit to Stand: Moderate Sit or Stand Pivot: Moderate Safety (requires cues for:): Weight Bearing Precaution, Hip Precautions, Hand Placement Precaution - BALANCE Dynamic Sitting: Fair Standing: Total Assist Static Sitting: Fair Standing: Poor - NEUROMOTOR/SENSATION Catracho. Lower Ext Sensation: WFL Coordination: WFL Proprioception: WFL Catracho. Upper Ext Sensation: WFL Coordination: WFL - ROM Bilateral LE ROM: WFL Muscle Tone: WFL Comment: L Hip and Knee NT due to posterior hip precautions & knee immobilizer - STRENGTH Bilateral LE Strength Number: 4 Right LE Strength Number: 3 Other comment: 3+/5 Left LE Strength Number: 3 Other comment: 3-/5 Bilateral UE Strength Number: 3 Right UE Strength Number: 3 Other comment: 3+/5 Left Strength Number: 3 Other comment: 3+/5 - GAIT Pt. ambulates how many feet?: 40 Amount of Assistance Required: Minimal Type of Assistive Device: Rolling Walker - TREATMENT Date: 03/01/24 Time: 12:15 Treatment Type: Evaluation Treatment Provided: Gait, Therapeutic Activities - TOTAL TREATMENT TIME Total Time: 105 - POST ASSESSMENT Post Assessment Comment: Pt was found supine in bed in room and agreeable to participation in PT services. Pt able to provide history & PLOF information. Pt reports L hip incisional pain at 2-3/10 and low back pain as discomfor described as "dull, ache". Pt education provided on both posterior hip precautions (pt able to recall 1/3) and spinal precautions. Pt with TLSO brace as well for OOB activity and L knee immobilizer donned (came from previous hospital with this on). Pt able to perform rolling to L and R with use of siderail with min assist and pillow between knees to maintain total hip precautions. Pt mod assist for transition from sidelying to sitting at EOB. Once at EOB, dependent to don TLSO brace. Pt then required mod assist for functional transfers with focus on proper hand placement and faciliation of COM over TUYET. Pt able to ambulate for 40ft with FWW with min/mod assist and wheel chair follow for safety. Pt does easily fatigue with frequent therapeutic rest breaks as needed but patient noted with excellent motivation for participation. Pt transitioned to recliner chair post session and left with call phillips in reach and all needs met. Pt would benefit from continued participation in PT Services to address all deficits and facilitate highest level of function. - EXIT DISPOSITION Exit Position: CHAIR Call light in reach: Yes PT/OT ASSESSMENT - PT Problem List: Decreased Bed Mobility, Decreased Transfers, Decreased Gait, Decreased Balance, Decreased Safety, Decreased LE Strength, Other - PT GOALS Short Term Goals Days: 10 Mobility: Pt will perform bed mobility tasks with touch assist Transfers: Pt will perform functional transfers with touch assist Gait: Pt will ambulate 150ft with FWW with touch assist Balance: Pt will increase static standing balance to good Others: Pt will recall 3/3 posterior total hip precautions Fpc Goals Days: 20 Mobility: Pt will perform bed mobility tasks with mod I Transfers: Pt will perform functional transfers with mod I Gait: Pt will ambulate 300ft with rollator with mod I Balance: Pt will increase dynamic standing balance to fair ROM/Strength: Pt will increase BLE strength to 5/5 - OT GOALS Short Term Goals Days: 10 Mobility for ADL's: pt will be able to transfer to toilet with LRAD with mod A Dressing: pt will perform LB dressing with AE with mod A Bathing: pt will perform seated bathing on EOB with AE with mod A Upper Ext. Strength/Use: pt will improve BUE strength to 4/5 necessary for ADL and transfers Fpc Goals Days: 20 Mobility for ADL's: pt will be able to transfer to toilet with LRAD with supv AA Dressing: pt will perform LB dressing with AE with supv A Bathing: pt will perform bathing in bathroom with AE with supv A Upper Ext. Strength/Use: pt will improve BUE strength to 5/5 necessary for ADL and transfers - PATIENT GOALS Patient/Family Goals: "I want to get my strength back so I can go home" Goals Discussed with Patient/Family: Yes Rehabilitation Potential: Good to meet stated goals Justification for Potential: Facilitate highest level of function and safe discharge planning - PLAN Suggested Treatment Plan: Bed Mobility Training, Therapeutic Activity, Gait Training, Neuro Re-education, Therapeutic Ex with HEP, Patient Education, Other - FREQUENCY AND DURATION PT: 5-6x per week x 20 days Expected Continuation of Care at Discharge: Home Health
[2024-03-01] MEDS: ANCEF VIAL 1 GRAM 1 G in NS 100 ML IV 100 ML IV SCH (14:56)
[2024-03-01] MEDS: NS 250 ML IV 250 ML IV ONE (15:02)
[2024-03-01] MEDS: RESTORIL CAP 15 MG PO PRN (21:58)
[2024-03-02] MEDS: CORDARONE TAB 200 MG PO SCH (09:00)
[2024-03-03] MEDS: CORDARONE TAB 200 MG PO SCH (09:20)
[2024-03-03 20:44] VITALS: BMI 25.2
[2024-03-04 05:16] LABS: BASOPHILS % (AUTO) 0.2 % (0.2-1.0); EOSINOPHILS # (AUTO) 0.1 x10^3/uL (0.0-0.2); EOSINOPHILS % (AUTO) 1.1 % (0.9-2.9); HEMATOCRIT 22.8 % (36.0-47.0); HEMOGLOBIN 7.4 g/dL (12.0-16.0); LYMPHOCYTES # (AUTO) 2.1 X10^3/uL (1.3-2.9); MEAN CORPUSCULAR HGB CONC 32.4 g/dL (33.0-35.0); MEAN CORPUSCULAR VOLUME 86.6 fL (80.0-100.0); MEAN PLATELET VOLUME 7.5 fL (7.4-11.0); MONOCYTES # (AUTO) 1.3 x10^3/uL (0.3-0.8); MONOCYTES % (AUTO) 11.8 % (0.0-13.0); NEUTROPHILS # (AUTO) 7.6 x10^3/uL (2.2-4.8); NEUTROPHILS % (AUTO) 67.9 % (42.0-75.0); PLATELET COUNT 320 X10^3/uL (150.0-450.0); RED BLOOD COUNT 2.64 X10^6/uL (3.5-5.4); RED CELL DISTRIBUTION WIDTH 17.2 % (11.6-16.5); WHITE BLOOD COUNT 11.2 X10^3/uL (3.6-10.0)
[2024-03-04 05:28] LABS: ALANINE AMINOTRANSFERASE 10 Units/L (12-78); ALBUMIN 1.8 g/dL (3.4-5.0); ALKALINE PHOSPHATASE 76 Units/L (46-116); ASPARTATE AMINO TRANSFERASE 21 Units/L (15-37); BLOOD UREA NITROGEN 23 mg/dL (7-18); CALCIUM 8.6 mg/dL (8.5-10.1); CARBON DIOXIDE 29.4 mmol/L (21-32); CHLORIDE 102 mmol/L (98-107); COR CA(FOR HYPOALB) 10.4 mg/dL (8.5-10.1); CREATININE 1.09 mg/dL (0.55-1.02); GLUCOSE 95 mg/dL (65-99); SODIUM 136 mmol/L (136-145); TOTAL PROTEIN 5.4 g/dL (6.4-8.2); eGFR NON BLACK RACES 51 (>60)
[2024-03-04 16:40] LABS: RETICULOCYTE % 2.42 % (0.8-2.2)
[2024-03-04 19:06] LABS: HEMATOCRIT 23.4 % (36.0-47.0); HEMOGLOBIN 7.6 g/dL (12.0-16.0)
[2024-03-05] MEDS ORDERED: INJECTAFER IV ONE (01:50)
[2024-03-05] MEDS ORDERED: NS 250 ML IV 250 ML IV ONE (01:52)
[2024-03-05] MEDS: INJECTAFER 750 MG in NS 250 ML IV 250 ML IV NR (02:10)
[2024-03-05 06:22] LABS: BASOPHILS % (AUTO) 0.4 % (0.2-1.0); EOSINOPHILS # (AUTO) 0.2 x10^3/uL (0.0-0.2); EOSINOPHILS % (AUTO) 2.3 % (0.9-2.9); HEMATOCRIT 21.6 % (36.0-47.0); HEMOGLOBIN 7.1 g/dL (12.0-16.0); LYMPHOCYTES # (AUTO) 1.9 X10^3/uL (1.3-2.9); LYMPHOCYTES % (AUTO) 22.2 % (21.0-51.0); MEAN CORPUSCULAR HEMOGLOBIN 28.4 pg (27.0-34.0); MEAN CORPUSCULAR HGB CONC 32.8 g/dL (33.0-35.0); MEAN CORPUSCULAR VOLUME 86.6 fL (80.0-100.0); MEAN PLATELET VOLUME 7.5 fL (7.4-11.0); MONOCYTES # (AUTO) 0.9 x10^3/uL (0.3-0.8); NEUTROPHILS # (AUTO) 5.5 x10^3/uL (2.2-4.8); NEUTROPHILS % (AUTO) 64.1 % (42.0-75.0); PLATELET COUNT 323 X10^3/uL (150.0-450.0); RED CELL DISTRIBUTION WIDTH 17.5 % (11.6-16.5); WHITE BLOOD COUNT 8.5 X10^3/uL (3.6-10.0)
--- NOTE | 2024-03-05 09:31 | RAD ---
EXAM:KUBHISTORY:ConstipationCOMPARISON: .br.br.br.br.br.br and nonobstructive. No abnormal masses or abnormal calcifications are identified. There is a moderate amount of stool predominantly in the ascending colon, distal descending colon sigmoid and rectum. Regional skeleton is osteopenic but intact. Patient is status post left hip hemiarthroplasty.IMPRESSION:No acute findingsModerate stoolTHIS IS AN ELECTRONICALLY VERIFIED FINAL REPORT03/05/2024 9:28 AM - Electronically signed by Russell Rucker MD
[2024-03-05] MEDS: INFeD or DEXFERRUM 25 MG in NS 100 ML IV 100 ML IV ONE (09:33)
[2024-03-05] MEDS: HEMOCYTE-PLUS PO SCH (09:33)
[2024-03-05] MEDS: DULCOLAX SUPPOSITORY 10 MG RECTAL ONE (09:34)
[2024-03-05] MEDS: ZOFRAN INJ 4 MG VIAL IVP PRN (10:49)
[2024-03-05] MEDS: INFeD or DEXFERRUM 975 MG in NS 500 ML IV 500 ML IV ONE (12:19)
[2024-03-05] MEDS ORDERED: MILK OF MAGNESIA PO STA (13:53)
[2024-03-05] MEDS: MILK OF MAGNESIA PO ONE (14:22)
[2024-03-05] MEDS: BUTT CREAM (COMPOUND) TOP PRN (15:52)
[2024-03-05] MEDS: COLACE CAP 100 MG PO SCH (21:31)
[2024-03-06 05:53] LABS: BASOPHILS % (AUTO) 0.2 % (0.2-1.0); EOSINOPHILS # (AUTO) 0.2 x10^3/uL (0.0-0.2); EOSINOPHILS % (AUTO) 1.2 % (0.9-2.9); HEMATOCRIT 23.1 % (36.0-47.0); HEMOGLOBIN 7.5 g/dL (12.0-16.0); LYMPHOCYTES # (AUTO) 1.9 X10^3/uL (1.3-2.9); LYMPHOCYTES % (AUTO) 11.5 % (21.0-51.0); MEAN CORPUSCULAR HEMOGLOBIN 28.4 pg (27.0-34.0); MEAN CORPUSCULAR HGB CONC 32.7 g/dL (33.0-35.0); MEAN PLATELET VOLUME 7.4 fL (7.4-11.0); MONOCYTES # (AUTO) 1.5 x10^3/uL (0.3-0.8); MONOCYTES % (AUTO) 9.5 % (0.0-13.0); NEUTROPHILS # (AUTO) 12.5 x10^3/uL (2.2-4.8); NEUTROPHILS % (AUTO) 77.6 % (42.0-75.0); PLATELET COUNT 388 X10^3/uL (150.0-450.0); RED BLOOD COUNT 2.66 X10^6/uL (3.5-5.4); RED CELL DISTRIBUTION WIDTH 17.5 % (11.6-16.5); WHITE BLOOD COUNT 16.1 X10^3/uL (3.6-10.0)
[2024-03-06 06:10] LABS: ALBUMIN 1.9 g/dL (3.4-5.0); ALKALINE PHOSPHATASE 86 Units/L (46-116); BLOOD UREA NITROGEN 15 mg/dL (7-18); CALCIUM 9.1 mg/dL (8.5-10.1); CARBON DIOXIDE 30.5 mmol/L (21-32); CHLORIDE 103 mmol/L (98-107); COR CA(FOR HYPOALB) 10.8 mg/dL (8.5-10.1); CREATININE 0.94 mg/dL (0.55-1.02); GLUCOSE 101 mg/dL (65-99); MAGNESIUM 1.8 mg/dL (2.0-2.9); POTASSIUM 4.7 mmol/L (3.5-5.1); SODIUM 136 mmol/L (136-145); TOTAL PROTEIN 5.7 g/dL (6.4-8.2); eGFR NON BLACK RACES > 60 (>60)
[2024-03-06 06:58] LABS: ALANINE AMINOTRANSFERASE 7 Units/L (12-78); ASPARTATE AMINO TRANSFERASE 44 Units/L (15-37)
[2024-03-06] MEDS ORDERED: CONSULT PHARMACY - POTASSIUM & MAGNESIUM XX SCH (08:00)
[2024-03-06] MEDS: MAG-OX TAB PO SCH (08:31)
--- NOTE | 2024-03-06 08:49 | RAD ---
EXAMINATION:CHEST, 1 VIEWHISTORY:sob, leukocytosis ; .COMPARISON STUDY:01/30/2024TECHNIQUE:A single view of the chest was obtained.FINDINGS:. Heart size is borderline. No acute infiltrates. There is no pneumothorax. Hilar and mediastinal structures and bony structures are unremarkable. Dextroscoliosis. Tortuous aorta. Hilar and mediastinal structures and bony structures unchanged. Slight increased interstitial markings.IMPRESSION:No acute process in the chest.THIS IS AN ELECTRONICALLY VERIFIED FINAL REPORT03/06/2024 8:46 AM - Electronically signed by Aries Meadows MD
[2024-03-06] MEDS ORDERED: MILK OF MAGNESIA PO SCH (09:00)
[2024-03-06 11:48] LABS: BILIRUBIN,URINE NEGATIVE (NEGATIVE); BLOOD/HEMOGLOBIN,URINE 3+ (NEGATIVE); GLUCOSE, URINE NEGATIVE (NEGATIVE); KETONES,URINE NEGATIVE (NEGATIVE); LEUKOCYTE ESTERASE ,URINE 3+ (NEGATIVE); NITRITES,URINE POSITIVE (NEGATIVE); PROTEIN,URINE 3+ (NEGATIVE); UROBILINOGEN,URINE NORMAL (NORMAL)
[2024-03-06 11:49] LABS: APPEARANCE,URINE HAZY (CLEAR); COLOR,URINE YELLOW (YELLOW)
[2024-03-06 11:56] LABS: BACTERIA,URINE TRACE /HPF (NEGATIVE); SQUAMOUS EPITHELIAL CELL,UR RARE /HPF (NEGATIVE)
[2024-03-06] MEDS: MILK OF MAGNESIA PO PRN (15:42)
--- NOTE | 2024-03-06 17:10 | PCM.PROG ---
Progress Note Progress Note for Day of Date of Exam: 03/05/24 Subjective Subjective: The patient is an 84-year-old white female who was admitted to [facility] on 02/29/24, under swing bed status due to a recent left hip fracture. The patient is tolerating all medications well. Patient's labs revealed Iron 15 and Hgb 7.1. Pt is to receive an iron infusion. Past Medical Family Social History Allergies: Allergies doxylamine [From NyQuil] Allergy (Verified 01/22/24 13:04) pseudoephedrine [From NyQuil] Allergy (Verified 01/22/24 13:04) Vital Signs and I&O's Intake and Output: Intake & Output 03/04/24 03/05/24 03/06/24 03/07/24 11:59 11:59 11:59 11:59 Intake Total 1248 / 1248 1765 / 1765 1574 / 1574 707 / 707 Output Total 850 / 850 1100 / 1100 1000 / 1000 300 / 300 Balance 398 / 398 665 / 665 574 / 574 407 / 407 Physical Exam Oriented: Normal Eyes: Normal Ear: Normal Nose: Normal Throat: Normal Respiratory: Normal Cardiovascular: Normal : Normal Tenderness: Normal Skin: Wound Musculoskeletal: Back:Lumbar and Motor Deficit Psychiatric: Normal Mood Description: Calm Affect: Normal Speech Pattern: Clear and Appropriate Laboratory and Diagnostics 03/06/24 05:28 03/06/24 05:28 Labs: Laboratory WBC 16.1 X10^3/uL (3.6-10.0) H 03/06/24 05:28 RBC 2.66 X10^6/uL (3.5-5.4) L 03/06/24 05:28 Hgb 7.5 g/dL (12.0-16.0) L 03/06/24 05:28 Hct 23.1 % (36.0-47.0) L 03/06/24 05:28 MCV 87.0 fL (80.0-100.0) 03/06/24 05:28 MCH 28.4 pg (27.0-34.0) 03/06/24 05:28 MCHC 32.7 g/dL (33.0-35.0) L 03/06/24 05:28 RDW 17.5 % (11.6-16.5) H 03/06/24 05:28 Plt Count 388 X10^3/uL (150.0-450.0) 03/06/24 05:28 MPV 7.4 fL (7.4-11.0) 03/06/24 05:28 Neut % (Auto) 77.6 % (42.0-75.0) H 03/06/24 05:28 Lymph % (Auto) 11.5 % (21.0-51.0) L 03/06/24 05:28 [place] % (Auto) 9.5 % (0.0-13.0) 03/06/24 05:28 Eos % (Auto) 1.2 % (0.9-2.9) 03/06/24 05:28 Baso % (Auto) 0.2 % (0.2-1.0) 03/06/24 05:28 Neut # (Auto) 12.5 x10^3/uL (2.2-4.8) H 03/06/24 05:28 Lymph # (Auto) 1.9 X10^3/uL (1.3-2.9) 03/06/24 05:28 [place] # (Auto) 1.5 x10^3/uL (0.3-0.8) H 03/06/24 05:28 Eos # (Auto) 0.2 x10^3/uL (0.0-0.2) 03/06/24 05:28 Baso # (Auto) 0.0 X10^3/uL (0.0-0.1) 03/06/24 05:28 Absolute Nucleated RBC 0.1 /100WBC 03/06/24 05:28 Absolute Retic 0.0653 10^6/uL 03/04/24 04:20 Percent Retic 2.42 % (0.8-2.2) H 03/04/24 04:20 Sodium 136 mmol/L (136-145) 03/06/24 05:28 Corrected Sodium TNP 03/06/24 05:28 Potassium 4.7 mmol/L (3.5-5.1) 03/06/24 05:28 Chloride 103 mmol/L (98-107) 03/06/24 05:28 Carbon Dioxide 30.5 mmol/L (21-32) 03/06/24 05:28 BUN 15 mg/dL (7-18) 03/06/24 05:28 Creatinine 0.94 mg/dL (0.55-1.02) 03/06/24 05:28 Est GFR (MDRD) Af Amer > 60 (>60) 03/06/24 05:28 Est GFR (MDRD) Non-Af > 60 (>60) 03/06/24 05:28 Glucose 101 mg/dL (65-99) H 03/06/24 05:28 Calcium 9.1 mg/dL (8.5-10.1) 03/06/24 05:28 Corrected Calcium 10.8 mg/dL (8.5-10.1) H 03/06/24 05:28 Magnesium 1.8 mg/dL (2.0-2.9) L 03/06/24 05:28 Iron 15 ug/dL (50-175) L 03/04/24 16:40 TIBC 188 ug/dL (250-450) L 03/04/24 16:40 Transferrin 155 mg/dL (202-364) L 03/04/24 16:40 Ferritin 347 ng/mL (8-252) H 03/04/24 16:40 Total Bilirubin 0.50 mg/dL (0.2-1.0) 03/06/24 05:28 AST 44 Units/L (15-37) H 03/06/24 05:28 ALT 7 Units/L (12-78) L 03/06/24 05:28 Alkaline Phosphatase 86 Units/L (46-116) 03/06/24 05:28 Total Protein 5.7 g/dL (6.4-8.2) L 03/06/24 05:28 Albumin 1.9 g/dL (3.4-5.0) L 03/06/24 05:28 Globulin 3.8 g/dL (2.5-4.5) 03/06/24 05:28 Albumin/Globulin Ratio 0.5 Ratio (1.1-2.1) L 03/06/24 05:28 Vitamin B12 231 pg/mL (193-986) 03/04/24 16:40 Folate 5.0 ng/mL (>8.6) L 03/04/24 16:40 Specimen Type Clean catch urine 03/06/24 11:40 Urine Color Yellow (YELLOW) 03/06/24 11:40 Urine Appearance Hazy (CLEAR) 03/06/24 11:40 Urine pH 6.0 (5.0 - 8.0) 03/06/24 11:40 Ur Specific [place] 1.015 (1.000-1.030) 03/06/24 11:40 Urine Protein 3+ (NEGATIVE) 03/06/24 11:40 Urine Glucose (UA) Negative (NEGATIVE) 03/06/24 11:40 Urine Ketones Negative (NEGATIVE) 03/06/24 11:40 Urine Blood 3+ (NEGATIVE) 03/06/24 11:40 Urine Nitrite Positive (NEGATIVE) 03/06/24 11:40 Urine Bilirubin Negative (NEGATIVE) 03/06/24 11:40 Urine Urobilinogen Normal (NORMAL) 03/06/24 11:40 Ur Leukocyte Esterase 3+ (NEGATIVE) 03/06/24 11:40 Urine RBC 5-10 /HPF (0-3) A 03/06/24 11:40 Urine WBC Tntc /HPF (0-5) A 03/06/24 11:40 Ur Squamous Epith Cells Rare /HPF (NEGATIVE) 03/06/24 11:40 Urine Bacteria Trace /HPF (NEGATIVE) 03/06/24 11:40 Ur Culture Indicated? Yes/culture set up 03/06/24 11:40 Stl Occult Blood (IFOB) Positive (NEGATIVE) A 03/05/24 15:35 Plan (1) History of repair of hip fracture: Status: Acute Narrative Support Text: 1. Continue swingbed status. 2 Continue physical therapy as ordered. 3. Continue wound VAC per Dr. Espinal/orthopedics orders. 4. Iron Infusion 5. For further orders, see chart (2) Weakness: Status: Acute (3) Hypertension: Status: Chronic Qualifiers: Hypertension type: essential hypertension Qualified Code(s): I10 - Essential (primary) hypertension (4) GERD (gastroesophageal reflux disease): Status: Chronic
[2024-03-07 05:00] LABS: BASOPHILS % (AUTO) 0.2 % (0.2-1.0); EOSINOPHILS # (AUTO) 0.1 x10^3/uL (0.0-0.2); EOSINOPHILS % (AUTO) 0.8 % (0.9-2.9); LYMPHOCYTES # (AUTO) 2.5 X10^3/uL (1.3-2.9); LYMPHOCYTES % (AUTO) 16.7 % (21.0-51.0); MEAN CORPUSCULAR HEMOGLOBIN 28.6 pg (27.0-34.0); MEAN CORPUSCULAR VOLUME 86.8 fL (80.0-100.0); MEAN PLATELET VOLUME 7.5 fL (7.4-11.0); MONOCYTES # (AUTO) 1.5 x10^3/uL (0.3-0.8); MONOCYTES % (AUTO) 10.3 % (0.0-13.0); NEUTROPHILS # (AUTO) 10.7 x10^3/uL (2.2-4.8); PLATELET COUNT 361 X10^3/uL (150.0-450.0); RED BLOOD COUNT 2.24 X10^6/uL (3.5-5.4); RED CELL DISTRIBUTION WIDTH 17.5 % (11.6-16.5); WHITE BLOOD COUNT 14.8 X10^3/uL (3.6-10.0)
[2024-03-07 05:07] LABS: HEMOGLOBIN 6.4 g/dL (12.0-16.0)
[2024-03-07 05:08] LABS: HEMATOCRIT 19.4 % (36.0-47.0)
[2024-03-07] MEDS: PROTONIX INJ 40 MG VIAL IVP SCH (09:31)
[2024-03-07] MEDS: LASIX IVP NR (15:44)
[2024-03-07] MEDS: INVanz INJ 1 GRAM VIAL 1 G in NS 100 ML IV 100 ML IV SCH (19:10)
[2024-03-07] MEDS: NS 250 ML IV 250 ML IV ONE ×3 (19:25→21:51)
[2024-03-08 03:13] LABS: HEMATOCRIT 29.2 % (36.0-47.0); HEMOGLOBIN 9.6 g/dL (12.0-16.0)
[2024-03-08 07:35] LABS: BASOPHILS % (AUTO) 0.2 % (0.2-1.0); EOSINOPHILS # (AUTO) 0.2 x10^3/uL (0.0-0.2); EOSINOPHILS % (AUTO) 1.6 % (0.9-2.9); HEMATOCRIT 28.7 % (36.0-47.0); HEMOGLOBIN 9.5 g/dL (12.0-16.0); LYMPHOCYTES # (AUTO) 1.6 X10^3/uL (1.3-2.9); LYMPHOCYTES % (AUTO) 13.5 % (21.0-51.0); MEAN CORPUSCULAR HEMOGLOBIN 28.8 pg (27.0-34.0); MEAN CORPUSCULAR VOLUME 87.2 fL (80.0-100.0); MEAN PLATELET VOLUME 7.3 fL (7.4-11.0); MONOCYTES # (AUTO) 1.4 x10^3/uL (0.3-0.8); MONOCYTES % (AUTO) 11.1 % (0.0-13.0); NEUTROPHILS % (AUTO) 73.6 % (42.0-75.0); PLATELET COUNT 339 X10^3/uL (150.0-450.0); RED CELL DISTRIBUTION WIDTH 16.5 % (11.6-16.5); WHITE BLOOD COUNT 12.2 X10^3/uL (3.6-10.0)
[2024-03-08 07:53] LABS: ALANINE AMINOTRANSFERASE 8 Units/L (12-78); ALBUMIN 1.9 g/dL (3.4-5.0); ALKALINE PHOSPHATASE 89 Units/L (46-116); ASPARTATE AMINO TRANSFERASE 22 Units/L (15-37); BLOOD UREA NITROGEN 20 mg/dL (7-18); CARBON DIOXIDE 30.7 mmol/L (21-32); CHLORIDE 102 mmol/L (98-107); COR CA(FOR HYPOALB) 10.7 mg/dL (8.5-10.1); CREATININE 1.19 mg/dL (0.55-1.02); GLUCOSE 92 mg/dL (65-99); POTASSIUM 4.3 mmol/L (3.5-5.1); SODIUM 136 mmol/L (136-145); TOTAL PROTEIN 5.7 g/dL (6.4-8.2); eGFR NON BLACK RACES 46 (>60)
[2024-03-08] MEDS: PREPARATION H OINT RECTAL SCH (09:27)
--- NOTE | 2024-03-08 12:28 | PCM.PROG ---
Progress Note Progress Note for Day of Date of Exam: 03/06/24 Subjective Subjective: The patient is an 84-year-old female, status post left femur fracture repair, currently on swingbed status for physical therapy, which she is tolerating well. Labs today show WBC 16.1, Hgb 7.5, and magnesium 1.8. The patient is complaining of shortness of breath, and a chest X-ray has been o rdered. CBC and UA will be rechecked for further evaluation. Past Medical Family Social History Allergies: Allergies doxylamine [From NyQuil] Allergy (Verified 01/22/24 13:04) pseudoephedrine [From NyQuil] Allergy (Verified 01/22/24 13:04) Vital Signs and I&O's Intake and Output: Intake & Output 03/05/24 03/06/24 03/07/24 03/08/24 11:59 11:59 11:59 11:59 Intake Total 1765 / 1765 1574 / 1574 1161 / 1161 698 / 698 Output Total 1100 / 1100 1000 / 1000 400 / 400 200 / 200 Balance 665 / 665 574 / 574 761 / 761 498 / 498 Physical Exam Oriented: Normal Eyes: Normal Ear: Normal Nose: Normal Throat: Normal Respiratory: Normal Cardiovascular: Normal : Normal Tenderness: Normal Skin: Wound Musculoskeletal: Back:Lumbar and Motor Deficit Psychiatric: Normal Mood Description: Calm Affect: Normal Speech Pattern: Clear and Appropriate Laboratory and Diagnostics 03/08/24 07:02 03/08/24 07:02 Labs: 03/06/24 11:40 Urine,Clean Catch Urine Culture - Preliminary Laboratory WBC 14.8 X10^3/uL (3.6-10.0) H 03/07/24 04:10 RBC 2.24 X10^6/uL (3.5-5.4) L 03/07/24 04:10 Hgb 6.4 g/dL (12.0-16.0) L* 03/07/24 04:10 Hct 19.4 % (36.0-47.0) L* 03/07/24 04:10 MCV 86.8 fL (80.0-100.0) 03/07/24 04:10 MCH 28.6 pg (27.0-34.0) 03/07/24 04:10 MCHC 33.0 g/dL (33.0-35.0) 03/07/24 04:10 RDW 17.5 % (11.6-16.5) H 03/07/24 04:10 Plt Count 361 X10^3/uL (150.0-450.0) 03/07/24 04:10 MPV 7.5 fL (7.4-11.0) 03/07/24 04:10 Neut % (Auto) 72.0 % (42.0-75.0) 03/07/24 04:10 Lymph % (Auto) 16.7 % (21.0-51.0) L 03/07/24 04:10 [place] % (Auto) 10.3 % (0.0-13.0) 03/07/24 04:10 Eos % (Auto) 0.8 % (0.9-2.9) L 03/07/24 04:10 Baso % (Auto) 0.2 % (0.2-1.0) 03/07/24 04:10 Neut # (Auto) 10.7 x10^3/uL (2.2-4.8) H 03/07/24 04:10 Lymph # (Auto) 2.5 X10^3/uL (1.3-2.9) 03/07/24 04:10 [place] # (Auto) 1.5 x10^3/uL (0.3-0.8) H 03/07/24 04:10 Eos # (Auto) 0.1 x10^3/uL (0.0-0.2) 03/07/24 04:10 Baso # (Auto) 0.0 X10^3/uL (0.0-0.1) 03/07/24 04:10 Absolute Nucleated RBC 0.2 /100WBC 03/07/24 04:10 Absolute Retic 0.0653 10^6/uL 03/04/24 04:20 Percent Retic 2.42 % (0.8-2.2) H 03/04/24 04:20 Sodium 136 mmol/L (136-145) 03/06/24 05:28 Corrected Sodium TNP 03/06/24 05:28 Potassium 4.7 mmol/L (3.5-5.1) 03/06/24 05:28 Chloride 103 mmol/L (98-107) 03/06/24 05:28 Carbon Dioxide 30.5 mmol/L (21-32) 03/06/24 05:28 BUN 15 mg/dL (7-18) 03/06/24 05:28 Creatinine 0.94 mg/dL (0.55-1.02) 03/06/24 05:28 Est GFR (MDRD) Af Amer > 60 (>60) 03/06/24 05:28 Est GFR (MDRD) Non-Af > 60 (>60) 03/06/24 05:28 Glucose 101 mg/dL (65-99) H 03/06/24 05:28 Calcium 9.1 mg/dL (8.5-10.1) 03/06/24 05:28 Corrected Calcium 10.8 mg/dL (8.5-10.1) H 03/06/24 05:28 Magnesium 2.3 mg/dL (2.0-2.9) 03/07/24 04:10 Iron 15 ug/dL (50-175) L 03/04/24 16:40 TIBC 188 ug/dL (250-450) L 03/04/24 16:40 Transferrin 155 mg/dL (202-364) L 03/04/24 16:40 Ferritin 347 ng/mL (8-252) H 03/04/24 16:40 Total Bilirubin 0.50 mg/dL (0.2-1.0) 03/06/24 05:28 AST 44 Units/L (15-37) H 03/06/24 05:28 ALT 7 Units/L (12-78) L 03/06/24 05:28 Alkaline Phosphatase 86 Units/L (46-116) 03/06/24 05:28 Total Protein 5.7 g/dL (6.4-8.2) L 03/06/24 05:28 Albumin 1.9 g/dL (3.4-5.0) L 03/06/24 05:28 Globulin 3.8 g/dL (2.5-4.5) 03/06/24 05:28 Albumin/Globulin Ratio 0.5 Ratio (1.1-2.1) L 03/06/24 05:28 Vitamin B12 231 pg/mL (193-986) 03/04/24 16:40 Folate 5.0 ng/mL (>8.6) L 03/04/24 16:40 Specimen Type Clean catch urine 03/06/24 11:40 Urine Color Yellow (YELLOW) 03/06/24 11:40 Urine Appearance Hazy (CLEAR) 03/06/24 11:40 Urine pH 6.0 (5.0 - 8.0) 03/06/24 11:40 Ur Specific [place] 1.015 (1.000-1.030) 03/06/24 11:40 Urine Protein 3+ (NEGATIVE) 03/06/24 11:40 Urine Glucose (UA) Negative (NEGATIVE) 03/06/24 11:40 Urine Ketones Negative (NEGATIVE) 03/06/24 11:40 Urine Blood 3+ (NEGATIVE) 03/06/24 11:40 Urine Nitrite Positive (NEGATIVE) 03/06/24 11:40 Urine Bilirubin Negative (NEGATIVE) 03/06/24 11:40 Urine Urobilinogen Normal (NORMAL) 03/06/24 11:40 Ur Leukocyte Esterase 3+ (NEGATIVE) 03/06/24 11:40 Urine RBC 5-10 /HPF (0-3) A 03/06/24 11:40 Urine WBC Tntc /HPF (0-5) A 03/06/24 11:40 Ur Squamous Epith Cells Rare /HPF (NEGATIVE) 03/06/24 11:40 Urine Bacteria Trace /HPF (NEGATIVE) 03/06/24 11:40 Ur Culture Indicated? Yes/culture set up 03/06/24 11:40 Stl Occult Blood (IFOB) Positive (NEGATIVE) A 03/05/24 15:35 Blood Type O POSITIVE 03/07/24 06:08 Antibody Screen Negative 03/07/24 06:08 Crossmatch See Detail 03/07/24 06:08 Plan (1) History of repair of hip fracture: Status: Acute Narrative Support Text: MONITOR CBC UA CXR (2) Weakness: Status: Acute (3) Hypertension: Status: Chronic Qualifiers: Hypertension type: essential hypertension Qualified Code(s): I10 - Essential (primary) hypertension (4) GERD (gastroesophageal reflux disease): Status: Chronic
--- NOTE | 2024-03-08 12:28 | PCM.PROG ---
Progress Note Progress Note for Day of Date of Exam: 03/07/24 Subjective Subjective: The 84-year-old female, status post left femur fracture repair, remains on swingbed status for physical therapy, which she continues to tolerate well. However, her hemoglobin has decreased to 6.4, with a hematocrit of 19.4. In response, the patient has received 2 units of PRBC. Her WBC remains elevated. Additionally, a fecal occult blood test returned positive, and daily collection for monitoring has been initiated. A chest X-ray shows a borderline heart size with no acute infiltrates or pneumothorax. Slightly increased interstitial markings were noted, but there is no evidence of an acute process in the chest. Dextroscoliosis and a tortuous aorta were observed, with no changes in hilar, mediastinal, or bony structures. The urinalysis revealed WBCs too numerous to count (TNTC) and 5-10 RBCs, with the urine culture still pending. She is on IV Abx. The patient will continue to be monitored closely for any further changes, and repeat labs will be ordered as needed to assess her response to treatment and monitor her condition. Past Medical Family Social History Allergies: Allergies doxylamine [From NyQuil] Allergy (Verified 01/22/24 13:04) pseudoephedrine [From NyQuil] Allergy (Verified 01/22/24 13:04) Vital Signs and I&O's Vital Signs: Vital Signs Temperature 98.2 F Pulse Rate [Left Brachial] 78 Respiratory Rate 18 Blood Pressure [Left Arm] 137/64 O2 Sat by Pulse Oximetry 99 Intake and Output: Intake & Output 03/05/24 03/06/24 03/07/24 03/08/24 11:59 11:59 11:59 11:59 Intake Total 1765 / 1765 1574 / 1574 1161 / 1161 2390 / 2390 Output Total 1100 / 1100 1000 / 1000 400 / 400 1350 / 1350 Balance 665 / 665 574 / 574 761 / 761 1040 / 1040 Physical Exam Oriented: Normal Eyes: Normal Ear: Normal Nose: Normal Throat: Normal Respiratory: Normal Cardiovascular: Normal : Normal Tenderness: Normal Skin: Wound Musculoskeletal: Back:Lumbar and Motor Deficit Psychiatric: Normal Mood Description: Calm Affect: Normal Speech Pattern: Clear and Appropriate Laboratory and Diagnostics 03/08/24 07:02 03/08/24 07:02 Labs: 03/06/24 11:40 Urine,Clean Catch Urine Culture - Final Pseudomonas Aeruginosa Laboratory WBC 12.2 X10^3/uL (3.6-10.0) H 03/08/24 07:02 RBC 3.30 X10^6/uL (3.5-5.4) L 03/08/24 07:02 Hgb 9.5 g/dL (12.0-16.0) L 03/08/24 07:02 Hct 28.7 % (36.0-47.0) L 03/08/24 07:02 MCV 87.2 fL (80.0-100.0) 03/08/24 07:02 MCH 28.8 pg (27.0-34.0) 03/08/24 07:02 MCHC 33.0 g/dL (33.0-35.0) 03/08/24 07:02 RDW 16.5 % (11.6-16.5) 03/08/24 07:02 Plt Count 339 X10^3/uL (150.0-450.0) 03/08/24 07:02 MPV 7.3 fL (7.4-11.0) L 03/08/24 07:02 Neut % (Auto) 73.6 % (42.0-75.0) 03/08/24 07:02 Lymph % (Auto) 13.5 % (21.0-51.0) L 03/08/24 07:02 [place] % (Auto) 11.1 % (0.0-13.0) 03/08/24 07:02 Eos % (Auto) 1.6 % (0.9-2.9) 03/08/24 07:02 Baso % (Auto) 0.2 % (0.2-1.0) 03/08/24 07:02 Neut # (Auto) 9.0 x10^3/uL (2.2-4.8) H 03/08/24 07:02 Lymph # (Auto) 1.6 X10^3/uL (1.3-2.9) 03/08/24 07:02 [place] # (Auto) 1.4 x10^3/uL (0.3-0.8) H 03/08/24 07:02 Eos # (Auto) 0.2 x10^3/uL (0.0-0.2) 03/08/24 07:02 Baso # (Auto) 0.0 X10^3/uL (0.0-0.1) 03/08/24 07:02 Absolute Nucleated RBC 0.3 /100WBC 03/08/24 07:02 Absolute Retic 0.0653 10^6/uL 03/04/24 04:20 Percent Retic 2.42 % (0.8-2.2) H 03/04/24 04:20 Sodium 136 mmol/L (136-145) 03/08/24 07:02 Corrected Sodium TNP 03/08/24 07:02 Potassium 4.3 mmol/L (3.5-5.1) 03/08/24 07:02 Chloride 102 mmol/L (98-107) 03/08/24 07:02 Carbon Dioxide 30.7 mmol/L (21-32) 03/08/24 07:02 BUN 20 mg/dL (7-18) H 03/08/24 07:02 Creatinine 1.19 mg/dL (0.55-1.02) H 03/08/24 07:02 Est GFR (MDRD) Af Amer 55 (>60) L 03/08/24 07:02 Est GFR (MDRD) Non-Af 46 (>60) L 03/08/24 07:02 Glucose 92 mg/dL (65-99) 03/08/24 07:02 Calcium 9.0 mg/dL (8.5-10.1) 03/08/24 07:02 Corrected Calcium 10.7 mg/dL (8.5-10.1) H 03/08/24 07:02 Magnesium 2.3 mg/dL (2.0-2.9) 03/07/24 04:10 Iron 15 ug/dL (50-175) L 03/04/24 16:40 TIBC 188 ug/dL (250-450) L 03/04/24 16:40 Transferrin 155 mg/dL (202-364) L 03/04/24 16:40 Ferritin 347 ng/mL (8-252) H 03/04/24 16:40 Total Bilirubin 0.50 mg/dL (0.2-1.0) 03/08/24 07:02 AST 22 Units/L (15-37) 03/08/24 07:02 ALT 8 Units/L (12-78) L 03/08/24 07:02 Alkaline Phosphatase 89 Units/L (46-116) 03/08/24 07:02 Total Protein 5.7 g/dL (6.4-8.2) L 03/08/24 07:02 Albumin 1.9 g/dL (3.4-5.0) L 03/08/24 07:02 Globulin 3.8 g/dL (2.5-4.5) 03/08/24 07:02 Albumin/Globulin Ratio 0.5 Ratio (1.1-2.1) L 03/08/24 07:02 Vitamin B12 231 pg/mL (193-986) 03/04/24 16:40 Folate 5.0 ng/mL (>8.6) L 03/04/24 16:40 Specimen Type Clean catch urine 03/06/24 11:40 Urine Color Yellow (YELLOW) 03/06/24 11:40 Urine Appearance Hazy (CLEAR) 03/06/24 11:40 Urine pH 6.0 (5.0 - 8.0) 03/06/24 11:40 Ur Specific [place] 1.015 (1.000-1.030) 03/06/24 11:40 Urine Protein 3+ (NEGATIVE) 03/06/24 11:40 Urine Glucose (UA) Negative (NEGATIVE) 03/06/24 11:40 Urine Ketones Negative (NEGATIVE) 03/06/24 11:40 Urine Blood 3+ (NEGATIVE) 03/06/24 11:40 Urine Nitrite Positive (NEGATIVE) 03/06/24 11:40 Urine Bilirubin Negative (NEGATIVE) 03/06/24 11:40 Urine Urobilinogen Normal (NORMAL) 03/06/24 11:40 Ur Leukocyte Esterase 3+ (NEGATIVE) 03/06/24 11:40 Urine RBC 5-10 /HPF (0-3) A 03/06/24 11:40 Urine WBC Tntc /HPF (0-5) A 03/06/24 11:40 Ur Squamous Epith Cells Rare /HPF (NEGATIVE) 03/06/24 11:40 Urine Bacteria Trace /HPF (NEGATIVE) 03/06/24 11:40 Ur Culture Indicated? Yes/culture set up 03/06/24 11:40 Stl Occult Blood (IFOB) Positive (NEGATIVE) A 03/07/24 17:55 Blood Type O POSITIVE 03/07/24 06:08 Antibody Screen Negative 03/07/24 06:08 Crossmatch See Detail 03/07/24 06:08 Plan (1) History of repair of hip fracture: Status: Acute Narrative Support Text: IV ABX DAILY IFOB AM LABS (2) Weakness: Status: Acute (3) Hypertension: Status: Chronic Qualifiers: Hypertension type: essential hypertension Qualified Code(s): I10 - Essential (primary) hypertension (4) GERD (gastroesophageal reflux disease): Status: Chronic
--- NOTE | 2024-03-10 08:37 | PCM.PROG ---
Progress Note Progress Note for Day of Date of Exam: 03/09/24 Subjective Subjective: The 84-year-old female, status post left femur fracture repair, remains on swingbed status for physical therapy. This morning she is resting comfortably in bed. No acute events overnight. Labs/imaging: WBC 12.2, hemoglobin 9.5, platelets 339, sodium 136, potassium 4.3, creatinine 1.19, gluco se 92. Urine culture positive for pseuomonas. She is currently receiving Cefazolin and Ertapenem. Patient is doing well physical therapy. Additionally, a fecal occult blood test returned positive, and daily collection for monitoring. Otherwise, continue with current treatment plan. Continue to closely monitor and follow up labs/imaging. Past Medical Family Social History Allergies: Allergies doxylamine [From NyQuil] Allergy (Verified 01/22/24 13:04) pseudoephedrine [From NyQuil] Allergy (Verified 01/22/24 13:04) Review of Systems ROS changes noted: see HPI Vital Signs and I&O's Vital Signs: Vital Signs Temperature 97.5 F Pulse Rate [Left Brachial] 69 Respiratory Rate 17 Blood Pressure [Left Arm] 159/62 O2 Sat by Pulse Oximetry 92 Intake and Output: Intake & Output 03/06/24 03/07/24 03/08/24 03/09/24 23:59 23:59 23:59 23:59 Intake Total 1055 / 1055 1627 / 1627 2633 / 2633 Output Total 900 / 900 400 / 400 1550 / 1550 Balance 155 / 155 1227 / 1227 1083 / 1083 Physical Exam Oriented: Normal Eyes: Normal Ear: Normal Nose: Normal Throat: Normal Respiratory: Normal Cardiovascular: Normal : Normal Tenderness: Normal Skin: Wound Musculoskeletal: Back:Lumbar and Motor Deficit Psychiatric: Normal Mood Description: Calm Affect: Normal Speech Pattern: Clear and Appropriate Laboratory and Diagnostics 03/08/24 07:02 03/08/24 07:02 Labs: 03/06/24 11:40 Urine,Clean Catch Urine Culture - Final Pseudomonas Aeruginosa Laboratory WBC 12.2 X10^3/uL (3.6-10.0) H 03/08/24 07:02 RBC 3.30 X10^6/uL (3.5-5.4) L 03/08/24 07:02 Hgb 9.5 g/dL (12.0-16.0) L 03/08/24 07:02 Hct 28.7 % (36.0-47.0) L 03/08/24 07:02 MCV 87.2 fL (80.0-100.0) 03/08/24 07:02 MCH 28.8 pg (27.0-34.0) 03/08/24 07:02 MCHC 33.0 g/dL (33.0-35.0) 03/08/24 07:02 RDW 16.5 % (11.6-16.5) 03/08/24 07:02 Plt Count 339 X10^3/uL (150.0-450.0) 03/08/24 07:02 MPV 7.3 fL (7.4-11.0) L 03/08/24 07:02 Neut % (Auto) 73.6 % (42.0-75.0) 03/08/24 07:02 Lymph % (Auto) 13.5 % (21.0-51.0) L 03/08/24 07:02 [place] % (Auto) 11.1 % (0.0-13.0) 03/08/24 07:02 Eos % (Auto) 1.6 % (0.9-2.9) 03/08/24 07:02 Baso % (Auto) 0.2 % (0.2-1.0) 03/08/24 07:02 Neut # (Auto) 9.0 x10^3/uL (2.2-4.8) H 03/08/24 07:02 Lymph # (Auto) 1.6 X10^3/uL (1.3-2.9) 03/08/24 07:02 [place] # (Auto) 1.4 x10^3/uL (0.3-0.8) H 03/08/24 07:02 Eos # (Auto) 0.2 x10^3/uL (0.0-0.2) 03/08/24 07:02 Baso # (Auto) 0.0 X10^3/uL (0.0-0.1) 03/08/24 07:02 Absolute Nucleated RBC 0.3 /100WBC 03/08/24 07:02 Absolute Retic 0.0653 10^6/uL 03/04/24 04:20 Percent Retic 2.42 % (0.8-2.2) H 03/04/24 04:20 Sodium 136 mmol/L (136-145) 03/08/24 07:02 Corrected Sodium TNP 03/08/24 07:02 Potassium 4.3 mmol/L (3.5-5.1) 03/08/24 07:02 Chloride 102 mmol/L (98-107) 03/08/24 07:02 Carbon Dioxide 30.7 mmol/L (21-32) 03/08/24 07:02 BUN 20 mg/dL (7-18) H 03/08/24 07:02 Creatinine 1.19 mg/dL (0.55-1.02) H 03/08/24 07:02 Est GFR (MDRD) Af Amer 55 (>60) L 03/08/24 07:02 Est GFR (MDRD) Non-Af 46 (>60) L 03/08/24 07:02 Glucose 92 mg/dL (65-99) 03/08/24 07:02 Calcium 9.0 mg/dL (8.5-10.1) 03/08/24 07:02 Corrected Calcium 10.7 mg/dL (8.5-10.1) H 03/08/24 07:02 Magnesium 2.3 mg/dL (2.0-2.9) 03/07/24 04:10 Iron 15 ug/dL (50-175) L 03/04/24 16:40 TIBC 188 ug/dL (250-450) L 03/04/24 16:40 Transferrin 155 mg/dL (202-364) L 03/04/24 16:40 Ferritin 347 ng/mL (8-252) H 03/04/24 16:40 Total Bilirubin 0.50 mg/dL (0.2-1.0) 03/08/24 07:02 AST 22 Units/L (15-37) 03/08/24 07:02 ALT 8 Units/L (12-78) L 03/08/24 07:02 Alkaline Phosphatase 89 Units/L (46-116) 03/08/24 07:02 Total Protein 5.7 g/dL (6.4-8.2) L 03/08/24 07:02 Albumin 1.9 g/dL (3.4-5.0) L 03/08/24 07:02 Globulin 3.8 g/dL (2.5-4.5) 03/08/24 07:02 Albumin/Globulin Ratio 0.5 Ratio (1.1-2.1) L 03/08/24 07:02 Vitamin B12 231 pg/mL (193-986) 03/04/24 16:40 Folate 5.0 ng/mL (>8.6) L 03/04/24 16:40 Specimen Type Clean catch urine 03/06/24 11:40 Urine Color Yellow (YELLOW) 03/06/24 11:40 Urine Appearance Hazy (CLEAR) 03/06/24 11:40 Urine pH 6.0 (5.0 - 8.0) 03/06/24 11:40 Ur Specific [place] 1.015 (1.000-1.030) 03/06/24 11:40 Urine Protein 3+ (NEGATIVE) 03/06/24 11:40 Urine Glucose (UA) Negative (NEGATIVE) 03/06/24 11:40 Urine Ketones Negative (NEGATIVE) 03/06/24 11:40 Urine Blood 3+ (NEGATIVE) 03/06/24 11:40 Urine Nitrite Positive (NEGATIVE) 03/06/24 11:40 Urine Bilirubin Negative (NEGATIVE) 03/06/24 11:40 Urine Urobilinogen Normal (NORMAL) 03/06/24 11:40 Ur Leukocyte Esterase 3+ (NEGATIVE) 03/06/24 11:40 Urine RBC 5-10 /HPF (0-3) A 03/06/24 11:40 Urine WBC Tntc /HPF (0-5) A 03/06/24 11:40 Ur Squamous Epith Cells Rare /HPF (NEGATIVE) 03/06/24 11:40 Urine Bacteria Trace /HPF (NEGATIVE) 03/06/24 11:40 Ur Culture Indicated? Yes/culture set up 03/06/24 11:40 Stl Occult Blood (IFOB) Positive (NEGATIVE) A 03/07/24 17:55 Blood Type O POSITIVE 03/07/24 06:08 Antibody Screen Negative 03/07/24 06:08 Crossmatch See Detail 03/07/24 06:08 Plan (1) History of repair of hip fracture: Status: Acute (2) Weakness: Status: Acute (3) Hypertension: Status: Chronic Qualifiers: Hypertension type: essential hypertension Qualified Code(s): I10 - Essential (primary) hypertension (4) GERD (gastroesophageal reflux disease): Status: Chronic
--- NOTE | 2024-03-10 11:37 | PCM.PROG ---
Progress Note Progress Note for Day of Date of Exam: 03/10/24 Subjective Subjective: The 84-year-old female, status post left femur fracture repair, remains on swingbed status for physical therapy. She is resting in bed this morning. No acute events overnight. Labs/imaging: WBC 12.2, hemoglobin 9.5, platelets 339, sodium 136, potassium 4.3, creatinine 1.19, glucose 92. Urine culture positive for pseuomonas. She is currently receiving Cefazolin and Ertapenem. Patient is doing well physical therapy. Otherwise, continue with current treatment plan. Continue to closely monitor and follow up labs/imaging. Past Medical Family Social History Allergies: Allergies doxylamine [From NyQuil] Allergy (Verified 01/22/24 13:04) pseudoephedrine [From NyQuil] Allergy (Verified 01/22/24 13:04) Review of Systems ROS changes noted: see HPI Vital Signs and I&O's Vital Signs: Vital Signs Temperature 97.2 F Pulse Rate [Left Brachial] 64 Respiratory Rate 18 Blood Pressure [Left Arm] 136/75 O2 Sat by Pulse Oximetry 94 Intake and Output: Intake & Output 03/07/24 03/08/24 03/09/24 03/10/24 23:59 23:59 23:59 23:59 Intake Total 1627 / 1627 2633 / 2633 1183 / 1183 222 / 222 Output Total 400 / 400 1550 / 1550 Balance 1227 / 1227 1083 / 1083 1183 / 1183 222 / 222 Physical Exam Oriented: Normal Eyes: Normal Ear: Normal Nose: Normal Throat: Normal Respiratory: Normal Cardiovascular: Normal : Normal Tenderness: Normal Skin: Wound Musculoskeletal: Back:Lumbar and Motor Deficit Psychiatric: Normal Mood Description: Calm Affect: Normal Speech Pattern: Clear and Appropriate Laboratory and Diagnostics 03/08/24 07:02 03/08/24 07:02 Labs: 03/06/24 11:40 Urine,Clean Catch Urine Culture - Final Pseudomonas Aeruginosa Laboratory WBC 12.2 X10^3/uL (3.6-10.0) H 03/08/24 07:02 RBC 3.30 X10^6/uL (3.5-5.4) L 03/08/24 07:02 Hgb 9.5 g/dL (12.0-16.0) L 03/08/24 07:02 Hct 28.7 % (36.0-47.0) L 03/08/24 07:02 MCV 87.2 fL (80.0-100.0) 03/08/24 07:02 MCH 28.8 pg (27.0-34.0) 03/08/24 07:02 MCHC 33.0 g/dL (33.0-35.0) 03/08/24 07:02 RDW 16.5 % (11.6-16.5) 03/08/24 07:02 Plt Count 339 X10^3/uL (150.0-450.0) 03/08/24 07:02 MPV 7.3 fL (7.4-11.0) L 03/08/24 07:02 Neut % (Auto) 73.6 % (42.0-75.0) 03/08/24 07:02 Lymph % (Auto) 13.5 % (21.0-51.0) L 03/08/24 07:02 [place] % (Auto) 11.1 % (0.0-13.0) 03/08/24 07:02 Eos % (Auto) 1.6 % (0.9-2.9) 03/08/24 07:02 Baso % (Auto) 0.2 % (0.2-1.0) 03/08/24 07:02 Neut # (Auto) 9.0 x10^3/uL (2.2-4.8) H 03/08/24 07:02 Lymph # (Auto) 1.6 X10^3/uL (1.3-2.9) 03/08/24 07:02 [place] # (Auto) 1.4 x10^3/uL (0.3-0.8) H 03/08/24 07:02 Eos # (Auto) 0.2 x10^3/uL (0.0-0.2) 03/08/24 07:02 Baso # (Auto) 0.0 X10^3/uL (0.0-0.1) 03/08/24 07:02 Absolute Nucleated RBC 0.3 /100WBC 03/08/24 07:02 Absolute Retic 0.0653 10^6/uL 03/04/24 04:20 Percent Retic 2.42 % (0.8-2.2) H 03/04/24 04:20 Sodium 136 mmol/L (136-145) 03/08/24 07:02 Corrected Sodium TNP 03/08/24 07:02 Potassium 4.3 mmol/L (3.5-5.1) 03/08/24 07:02 Chloride 102 mmol/L (98-107) 03/08/24 07:02 Carbon Dioxide 30.7 mmol/L (21-32) 03/08/24 07:02 BUN 20 mg/dL (7-18) H 03/08/24 07:02 Creatinine 1.19 mg/dL (0.55-1.02) H 03/08/24 07:02 Est GFR (MDRD) Af Amer 55 (>60) L 03/08/24 07:02 Est GFR (MDRD) Non-Af 46 (>60) L 03/08/24 07:02 Glucose 92 mg/dL (65-99) 03/08/24 07:02 Calcium 9.0 mg/dL (8.5-10.1) 03/08/24 07:02 Corrected Calcium 10.7 mg/dL (8.5-10.1) H 03/08/24 07:02 Magnesium 2.3 mg/dL (2.0-2.9) 03/07/24 04:10 Iron 15 ug/dL (50-175) L 03/04/24 16:40 TIBC 188 ug/dL (250-450) L 03/04/24 16:40 Transferrin 155 mg/dL (202-364) L 03/04/24 16:40 Ferritin 347 ng/mL (8-252) H 03/04/24 16:40 Total Bilirubin 0.50 mg/dL (0.2-1.0) 03/08/24 07:02 AST 22 Units/L (15-37) 03/08/24 07:02 ALT 8 Units/L (12-78) L 03/08/24 07:02 Alkaline Phosphatase 89 Units/L (46-116) 03/08/24 07:02 Total Protein 5.7 g/dL (6.4-8.2) L 03/08/24 07:02 Albumin 1.9 g/dL (3.4-5.0) L 03/08/24 07:02 Globulin 3.8 g/dL (2.5-4.5) 03/08/24 07:02 Albumin/Globulin Ratio 0.5 Ratio (1.1-2.1) L 03/08/24 07:02 Vitamin B12 231 pg/mL (193-986) 03/04/24 16:40 Folate 5.0 ng/mL (>8.6) L 03/04/24 16:40 Specimen Type Clean catch urine 03/06/24 11:40 Urine Color Yellow (YELLOW) 03/06/24 11:40 Urine Appearance Hazy (CLEAR) 03/06/24 11:40 Urine pH 6.0 (5.0 - 8.0) 03/06/24 11:40 Ur Specific [place] 1.015 (1.000-1.030) 03/06/24 11:40 Urine Protein 3+ (NEGATIVE) 03/06/24 11:40 Urine Glucose (UA) Negative (NEGATIVE) 03/06/24 11:40 Urine Ketones Negative (NEGATIVE) 03/06/24 11:40 Urine Blood 3+ (NEGATIVE) 03/06/24 11:40 Urine Nitrite Positive (NEGATIVE) 03/06/24 11:40 Urine Bilirubin Negative (NEGATIVE) 03/06/24 11:40 Urine Urobilinogen Normal (NORMAL) 03/06/24 11:40 Ur Leukocyte Esterase 3+ (NEGATIVE) 03/06/24 11:40 Urine RBC 5-10 /HPF (0-3) A 03/06/24 11:40 Urine WBC Tntc /HPF (0-5) A 03/06/24 11:40 Ur Squamous Epith Cells Rare /HPF (NEGATIVE) 03/06/24 11:40 Urine Bacteria Trace /HPF (NEGATIVE) 03/06/24 11:40 Ur Culture Indicated? Yes/culture set up 03/06/24 11:40 Stl Occult Blood (IFOB) Positive (NEGATIVE) A 03/07/24 17:55 Blood Type O POSITIVE 03/07/24 06:08 Antibody Screen Negative 03/07/24 06:08 Crossmatch See Detail 03/07/24 06:08 Plan (1) History of repair of hip fracture: Status: Acute (2) Weakness: Status: Acute (3) Hypertension: Status: Chronic Qualifiers: Hypertension type: essential hypertension Qualified Code(s): I10 - Essential (primary) hypertension (4) GERD (gastroesophageal reflux disease): Status: Chronic
[2024-03-11] MEDS: NS 250 ML IV 250 ML IV ONE (01:06)
[2024-03-11 06:25] LABS: BASOPHILS % (AUTO) 0.2 % (0.2-1.0); EOSINOPHILS # (AUTO) 0.2 x10^3/uL (0.0-0.2); EOSINOPHILS % (AUTO) 2.5 % (0.9-2.9); HEMATOCRIT 28.6 % (36.0-47.0); HEMOGLOBIN 9.4 g/dL (12.0-16.0); LYMPHOCYTES # (AUTO) 1.5 X10^3/uL (1.3-2.9); LYMPHOCYTES % (AUTO) 18.2 % (21.0-51.0); MEAN CORPUSCULAR HEMOGLOBIN 29.3 pg (27.0-34.0); MEAN CORPUSCULAR HGB CONC 32.8 g/dL (33.0-35.0); MEAN CORPUSCULAR VOLUME 89.3 fL (80.0-100.0); MEAN PLATELET VOLUME 7.3 fL (7.4-11.0); MONOCYTES # (AUTO) 1.4 x10^3/uL (0.3-0.8); MONOCYTES % (AUTO) 16.4 % (0.0-13.0); NEUTROPHILS # (AUTO) 5.2 x10^3/uL (2.2-4.8); NEUTROPHILS % (AUTO) 62.7 % (42.0-75.0); PLATELET COUNT 307 X10^3/uL (150.0-450.0); RED CELL DISTRIBUTION WIDTH 17.3 % (11.6-16.5); WHITE BLOOD COUNT 8.2 X10^3/uL (3.6-10.0)
[2024-03-11 06:36] LABS: ALANINE AMINOTRANSFERASE 9 Units/L (12-78); ALBUMIN 1.8 g/dL (3.4-5.0); ALKALINE PHOSPHATASE 87 Units/L (46-116); ASPARTATE AMINO TRANSFERASE 23 Units/L (15-37); BLOOD UREA NITROGEN 15 mg/dL (7-18); CALCIUM 8.8 mg/dL (8.5-10.1); CARBON DIOXIDE 29.9 mmol/L (21-32); CHLORIDE 103 mmol/L (98-107); COR CA(FOR HYPOALB) 10.6 mg/dL (8.5-10.1); CREATININE 1.04 mg/dL (0.55-1.02); GLUCOSE 86 mg/dL (65-99); POTASSIUM 3.9 mmol/L (3.5-5.1); SODIUM 136 mmol/L (136-145); TOTAL PROTEIN 5.3 g/dL (6.4-8.2); eGFR NON BLACK RACES 54 (>60)
[2024-03-11] MEDS: ELIQUIS PO SCH (15:18)
--- NOTE | 2024-03-11 17:06 | PCM.PROG ---
Progress Note Progress Note for Day of Date of Exam: 03/11/24 Subjective Subjective: The 84-year-old female, status post left femur fracture repair, continues on swingbed status for physical therapy. Labs today show hemoglobin 9.4, creatinine 1.04, and BUN 15, indicating stable renal function. She continues to receive Cefazolin and Ertapenem for the treatment of Pseudomonas per her urine culture. The patient is progressing well with physical therapy, and the current treatment plan remains unchanged. Continue to closely monitor her labs and follow up with imaging as needed. Past Medical Family Social History Allergies: Allergies doxylamine [From NyQuil] Allergy (Verified 01/22/24 13:04) pseudoephedrine [From NyQuil] Allergy (Verified 01/22/24 13:04) Vital Signs and I&O's Intake and Output: Intake & Output 03/09/24 03/10/24 03/11/24 03/12/24 11:59 11:59 11:59 11:59 Intake Total 1543 / 1543 1384 / 1384 1698 / 1698 Output Total 600 / 600 Balance 943 / 943 1384 / 1384 1698 / 1698 Physical Exam Oriented: Normal Eyes: Normal Ear: Normal Nose: Normal Throat: Normal Respiratory: Normal Cardiovascular: Normal : Normal Tenderness: Normal Skin: Wound Musculoskeletal: Back:Lumbar and Motor Deficit Psychiatric: Normal Mood Description: Calm Affect: Normal Speech Pattern: Clear and Appropriate Laboratory and Diagnostics 03/11/24 06:03 03/11/24 06:03 Labs: 03/06/24 11:40 Urine,Clean Catch Urine Culture - Final Pseudomonas Aeruginosa Laboratory WBC 8.2 X10^3/uL (3.6-10.0) 03/11/24 06:03 RBC 3.20 X10^6/uL (3.5-5.4) L 03/11/24 06:03 Hgb 9.4 g/dL (12.0-16.0) L 03/11/24 06:03 Hct 28.6 % (36.0-47.0) L 03/11/24 06:03 MCV 89.3 fL (80.0-100.0) 03/11/24 06:03 MCH 29.3 pg (27.0-34.0) 03/11/24 06:03 MCHC 32.8 g/dL (33.0-35.0) L 03/11/24 06:03 RDW 17.3 % (11.6-16.5) H 03/11/24 06:03 Plt Count 307 X10^3/uL (150.0-450.0) 03/11/24 06:03 MPV 7.3 fL (7.4-11.0) L 03/11/24 06:03 Neut % (Auto) 62.7 % (42.0-75.0) 03/11/24 06:03 Lymph % (Auto) 18.2 % (21.0-51.0) L 03/11/24 06:03 [place] % (Auto) 16.4 % (0.0-13.0) H 03/11/24 06:03 Eos % (Auto) 2.5 % (0.9-2.9) 03/11/24 06:03 Baso % (Auto) 0.2 % (0.2-1.0) 03/11/24 06:03 Neut # (Auto) 5.2 x10^3/uL (2.2-4.8) H 03/11/24 06:03 Lymph # (Auto) 1.5 X10^3/uL (1.3-2.9) 03/11/24 06:03 [place] # (Auto) 1.4 x10^3/uL (0.3-0.8) H 03/11/24 06:03 Eos # (Auto) 0.2 x10^3/uL (0.0-0.2) 03/11/24 06:03 Baso # (Auto) 0.0 X10^3/uL (0.0-0.1) 03/11/24 06:03 Absolute Nucleated RBC 0.1 /100WBC 03/11/24 06:03 Absolute Retic 0.0653 10^6/uL 03/04/24 04:20 Percent Retic 2.42 % (0.8-2.2) H 03/04/24 04:20 Sodium 136 mmol/L (136-145) 03/11/24 06:03 Corrected Sodium TNP 03/11/24 06:03 Potassium 3.9 mmol/L (3.5-5.1) 03/11/24 06:03 Chloride 103 mmol/L (98-107) 03/11/24 06:03 Carbon Dioxide 29.9 mmol/L (21-32) 03/11/24 06:03 BUN 15 mg/dL (7-18) 03/11/24 06:03 Creatinine 1.04 mg/dL (0.55-1.02) H 03/11/24 06:03 Est GFR (MDRD) Af Amer > 60 (>60) 03/11/24 06:03 Est GFR (MDRD) Non-Af 54 (>60) L 03/11/24 06:03 Glucose 86 mg/dL (65-99) 03/11/24 06:03 Calcium 8.8 mg/dL (8.5-10.1) 03/11/24 06:03 Corrected Calcium 10.6 mg/dL (8.5-10.1) H 03/11/24 06:03 Magnesium 2.3 mg/dL (2.0-2.9) 03/07/24 04:10 Iron 15 ug/dL (50-175) L 03/04/24 16:40 TIBC 188 ug/dL (250-450) L 03/04/24 16:40 Transferrin 155 mg/dL (202-364) L 03/04/24 16:40 Ferritin 347 ng/mL (8-252) H 03/04/24 16:40 Total Bilirubin 0.50 mg/dL (0.2-1.0) 03/11/24 06:03 AST 23 Units/L (15-37) 03/11/24 06:03 ALT 9 Units/L (12-78) L 03/11/24 06:03 Alkaline Phosphatase 87 Units/L (46-116) 03/11/24 06:03 Total Protein 5.3 g/dL (6.4-8.2) L 03/11/24 06:03 Albumin 1.8 g/dL (3.4-5.0) L 03/11/24 06:03 Globulin 3.5 g/dL (2.5-4.5) 03/11/24 06:03 Albumin/Globulin Ratio 0.5 Ratio (1.1-2.1) L 03/11/24 06:03 Vitamin B12 231 pg/mL (193-986) 03/04/24 16:40 Folate 5.0 ng/mL (>8.6) L 03/04/24 16:40 Specimen Type Clean catch urine 03/06/24 11:40 Urine Color Yellow (YELLOW) 03/06/24 11:40 Urine Appearance Hazy (CLEAR) 03/06/24 11:40 Urine pH 6.0 (5.0 - 8.0) 03/06/24 11:40 Ur Specific [place] 1.015 (1.000-1.030) 03/06/24 11:40 Urine Protein 3+ (NEGATIVE) 03/06/24 11:40 Urine Glucose (UA) Negative (NEGATIVE) 03/06/24 11:40 Urine Ketones Negative (NEGATIVE) 03/06/24 11:40 Urine Blood 3+ (NEGATIVE) 03/06/24 11:40 Urine Nitrite Positive (NEGATIVE) 03/06/24 11:40 Urine Bilirubin Negative (NEGATIVE) 03/06/24 11:40 Urine Urobilinogen Normal (NORMAL) 03/06/24 11:40 Ur Leukocyte Esterase 3+ (NEGATIVE) 03/06/24 11:40 Urine RBC 5-10 /HPF (0-3) A 03/06/24 11:40 Urine WBC Tntc /HPF (0-5) A 03/06/24 11:40 Ur Squamous Epith Cells Rare /HPF (NEGATIVE) 03/06/24 11:40 Urine Bacteria Trace /HPF (NEGATIVE) 03/06/24 11:40 Ur Culture Indicated? Yes/culture set up 03/06/24 11:40 Stl Occult Blood (IFOB) Positive (NEGATIVE) A 03/07/24 17:55 Blood Type O POSITIVE 03/07/24 06:08 Antibody Screen Negative 03/07/24 06:08 Crossmatch See Detail 03/07/24 06:08 Plan (1) History of repair of hip fracture: Status: Acute Narrative Support Text: - Continue Cefazolin and Ertapenem for the treatment of Pseudomonas UTI. - Continue physical therapy to support recovery from left femur fracture repair. - Recheck labs as scheduled to monitor for any trends in anemia or renal f unction. (2) Weakness: Status: Acute (3) Hypertension: Status: Chronic Qualifiers: Hypertension type: essential hypertension Qualified Code(s): I10 - Essential (primary) hypertension (4) GERD (gastroesophageal reflux disease): Status: Chronic
--- NOTE | 2024-03-11 17:06 | PCM.PROG ---
Progress Note Progress Note for Day of Date of Exam: 03/08/24 Subjective Subjective: The 84-year-old female, status post left femur fracture repair, remains on swingbed status for physical therapy and continues to do well with her sessions. Today's labs show WBC 12.2, hemoglobin 9.5, BUN 20, and creatinine 1.19. She is receiving Cefazolin and Ertapenemurine. Her urine culture was positive for Pseudomonas. The current treatment plan will be maintained, and labs will continue to be monitored closely. Past Medical Family Social History Allergies: Allergies doxylamine [From NyQuil] Allergy (Verified 01/22/24 13:04) pseudoephedrine [From NyQuil] Allergy (Verified 01/22/24 13:04) Vital Signs and I&O's Intake and Output: Intake & Output 03/09/24 03/10/24 03/11/24 03/12/24 11:59 11:59 11:59 11:59 Intake Total 1543 / 1543 1384 / 1384 1698 / 1698 Output Total 600 / 600 Balance 943 / 943 1384 / 1384 1698 / 1698 Physical Exam Oriented: Normal Eyes: Normal Ear: Normal Nose: Normal Throat: Normal Respiratory: Normal Cardiovascular: Normal : Normal Tenderness: Normal Skin: Wound Musculoskeletal: Back:Lumbar and Motor Deficit Psychiatric: Normal Mood Description: Calm Affect: Normal Speech Pattern: Clear and Appropriate Laboratory and Diagnostics 03/11/24 06:03 03/11/24 06:03 Labs: 03/06/24 11:40 Urine,Clean Catch Urine Culture - Final Pseudomonas Aeruginosa Laboratory WBC 8.2 X10^3/uL (3.6-10.0) 03/11/24 06:03 RBC 3.20 X10^6/uL (3.5-5.4) L 03/11/24 06:03 Hgb 9.4 g/dL (12.0-16.0) L 03/11/24 06:03 Hct 28.6 % (36.0-47.0) L 03/11/24 06:03 MCV 89.3 fL (80.0-100.0) 03/11/24 06:03 MCH 29.3 pg (27.0-34.0) 03/11/24 06:03 MCHC 32.8 g/dL (33.0-35.0) L 03/11/24 06:03 RDW 17.3 % (11.6-16.5) H 03/11/24 06:03 Plt Count 307 X10^3/uL (150.0-450.0) 03/11/24 06:03 MPV 7.3 fL (7.4-11.0) L 03/11/24 06:03 Neut % (Auto) 62.7 % (42.0-75.0) 03/11/24 06:03 Lymph % (Auto) 18.2 % (21.0-51.0) L 03/11/24 06:03 [place] % (Auto) 16.4 % (0.0-13.0) H 03/11/24 06:03 Eos % (Auto) 2.5 % (0.9-2.9) 03/11/24 06:03 Baso % (Auto) 0.2 % (0.2-1.0) 03/11/24 06:03 Neut # (Auto) 5.2 x10^3/uL (2.2-4.8) H 03/11/24 06:03 Lymph # (Auto) 1.5 X10^3/uL (1.3-2.9) 03/11/24 06:03 [place] # (Auto) 1.4 x10^3/uL (0.3-0.8) H 03/11/24 06:03 Eos # (Auto) 0.2 x10^3/uL (0.0-0.2) 03/11/24 06:03 Baso # (Auto) 0.0 X10^3/uL (0.0-0.1) 03/11/24 06:03 Absolute Nucleated RBC 0.1 /100WBC 03/11/24 06:03 Absolute Retic 0.0653 10^6/uL 03/04/24 04:20 Percent Retic 2.42 % (0.8-2.2) H 03/04/24 04:20 Sodium 136 mmol/L (136-145) 03/11/24 06:03 Corrected Sodium TNP 03/11/24 06:03 Potassium 3.9 mmol/L (3.5-5.1) 03/11/24 06:03 Chloride 103 mmol/L (98-107) 03/11/24 06:03 Carbon Dioxide 29.9 mmol/L (21-32) 03/11/24 06:03 BUN 15 mg/dL (7-18) 03/11/24 06:03 Creatinine 1.04 mg/dL (0.55-1.02) H 03/11/24 06:03 Est GFR (MDRD) Af Amer > 60 (>60) 03/11/24 06:03 Est GFR (MDRD) Non-Af 54 (>60) L 03/11/24 06:03 Glucose 86 mg/dL (65-99) 03/11/24 06:03 Calcium 8.8 mg/dL (8.5-10.1) 03/11/24 06:03 Corrected Calcium 10.6 mg/dL (8.5-10.1) H 03/11/24 06:03 Magnesium 2.3 mg/dL (2.0-2.9) 03/07/24 04:10 Iron 15 ug/dL (50-175) L 03/04/24 16:40 TIBC 188 ug/dL (250-450) L 03/04/24 16:40 Transferrin 155 mg/dL (202-364) L 03/04/24 16:40 Ferritin 347 ng/mL (8-252) H 03/04/24 16:40 Total Bilirubin 0.50 mg/dL (0.2-1.0) 03/11/24 06:03 AST 23 Units/L (15-37) 03/11/24 06:03 ALT 9 Units/L (12-78) L 03/11/24 06:03 Alkaline Phosphatase 87 Units/L (46-116) 03/11/24 06:03 Total Protein 5.3 g/dL (6.4-8.2) L 03/11/24 06:03 Albumin 1.8 g/dL (3.4-5.0) L 03/11/24 06:03 Globulin 3.5 g/dL (2.5-4.5) 03/11/24 06:03 Albumin/Globulin Ratio 0.5 Ratio (1.1-2.1) L 03/11/24 06:03 Vitamin B12 231 pg/mL (193-986) 03/04/24 16:40 Folate 5.0 ng/mL (>8.6) L 03/04/24 16:40 Specimen Type Clean catch urine 03/06/24 11:40 Urine Color Yellow (YELLOW) 03/06/24 11:40 Urine Appearance Hazy (CLEAR) 03/06/24 11:40 Urine pH 6.0 (5.0 - 8.0) 03/06/24 11:40 Ur Specific [place] 1.015 (1.000-1.030) 03/06/24 11:40 Urine Protein 3+ (NEGATIVE) 03/06/24 11:40 Urine Glucose (UA) Negative (NEGATIVE) 03/06/24 11:40 Urine Ketones Negative (NEGATIVE) 03/06/24 11:40 Urine Blood 3+ (NEGATIVE) 03/06/24 11:40 Urine Nitrite Positive (NEGATIVE) 03/06/24 11:40 Urine Bilirubin Negative (NEGATIVE) 03/06/24 11:40 Urine Urobilinogen Normal (NORMAL) 03/06/24 11:40 Ur Leukocyte Esterase 3+ (NEGATIVE) 03/06/24 11:40 Urine RBC 5-10 /HPF (0-3) A 03/06/24 11:40 Urine WBC Tntc /HPF (0-5) A 03/06/24 11:40 Ur Squamous Epith Cells Rare /HPF (NEGATIVE) 03/06/24 11:40 Urine Bacteria Trace /HPF (NEGATIVE) 03/06/24 11:40 Ur Culture Indicated? Yes/culture set up 03/06/24 11:40 Stl Occult Blood (IFOB) Positive (NEGATIVE) A 03/07/24 17:55 Blood Type O POSITIVE 03/07/24 06:08 Antibody Screen Negative 03/07/24 06:08 Crossmatch See Detail 03/07/24 06:08 Plan (1) History of repair of hip fracture: Status: Acute (2) Weakness: Status: Acute Narrative Support Text: - Continue antibiotic therapy with Cefazolin and Ertapenem for treatment of Pseudomonas UTI. - Continue physical therapy to enhance mobility and aid in the recovery from left femur fracture repair. - Maintain the patient on swingbed status for rehabilitation until she reaches her mobility goals and can safely transition to home or long-term care, if indicated. - Regular follow-up labs and imaging to ensure the patients infection is resolving and that there are no complications with her fracture repair. - Monitor labs (3) Hypertension: Status: Chronic Qualifiers: Hypertension type: essential hypertension Qualified Code(s): I10 - Essential (primary) hypertension (4) GERD (gastroesophageal reflux disease): Status: Chronic
[2024-03-11] MEDS: MIRALAX POWDER (1 DOSE 17 G) PO SCH (21:09)
[2024-03-12] MEDS: LEVAQUIN TAB 500 MG PO SCH (10:55)
[2024-03-12] MEDS: PROTONIX TAB 40 MG PO SCH (10:55)
[2024-03-13 06:20] LABS: MEAN CORPUSCULAR VOLUME 89.4 fL (80.0-100.0)
[2024-03-13 06:28] LABS: BASOPHILS % (AUTO) 0.3 % (0.2-1.0); EOSINOPHILS # (AUTO) 0.2 x10^3/uL (0.0-0.2); EOSINOPHILS % (AUTO) 3.1 % (0.9-2.9); HEMATOCRIT 29.3 % (36.0-47.0); HEMOGLOBIN 9.6 g/dL (12.0-16.0); LYMPHOCYTES # (AUTO) 1.4 X10^3/uL (1.3-2.9); LYMPHOCYTES % (AUTO) 19.8 % (21.0-51.0); MEAN CORPUSCULAR HEMOGLOBIN 29.4 pg (27.0-34.0); MEAN CORPUSCULAR HGB CONC 32.9 g/dL (33.0-35.0); MEAN PLATELET VOLUME 7.3 fL (7.4-11.0); MONOCYTES # (AUTO) 1.1 x10^3/uL (0.3-0.8); NEUTROPHILS # (AUTO) 4.4 x10^3/uL (2.2-4.8); NEUTROPHILS % (AUTO) 61.8 % (42.0-75.0); PLATELET COUNT 277 X10^3/uL (150.0-450.0); RED BLOOD COUNT 3.28 X10^6/uL (3.5-5.4); RED CELL DISTRIBUTION WIDTH 18.1 % (11.6-16.5); WHITE BLOOD COUNT 7.2 X10^3/uL (3.6-10.0)
[2024-03-13 06:49] LABS: ALANINE AMINOTRANSFERASE 12 Units/L (12-78); ALBUMIN 1.8 g/dL (3.4-5.0); ALKALINE PHOSPHATASE 88 Units/L (46-116); ASPARTATE AMINO TRANSFERASE 23 Units/L (15-37); BLOOD UREA NITROGEN 13 mg/dL (7-18); CALCIUM 8.9 mg/dL (8.5-10.1); CARBON DIOXIDE 29.2 mmol/L (21-32); CHLORIDE 101 mmol/L (98-107); COR CA(FOR HYPOALB) 10.7 mg/dL (8.5-10.1); CREATININE 0.99 mg/dL (0.55-1.02); GLUCOSE 80 mg/dL (65-99); POTASSIUM 3.9 mmol/L (3.5-5.1); SODIUM 134 mmol/L (136-145); TOTAL PROTEIN 5.3 g/dL (6.4-8.2); eGFR NON BLACK RACES 57 (>60)
--- NOTE | 2024-03-13 11:01 | RAD ---
EXAMINATION: ELBOW, LEFT HISTORY: LT ELBOW PAIN; CARDIAC ARRHYTHMIA, HTN, PNA, GERD, LUPUS, ANEMIA, KIDNEY CA SX: LEFT PARTIAL NEPHRECT ISABEL . COMPARISON STUDY: None. TECHNIQUE: Two views left elbow frontal and lateral projections FINDINGS: Osseous structures appear intact. Elbow fat pads are not displaced. Soft tissue outlines appear nor mal. IMPRESSION: No acute bony process seen. THIS IS AN ELECTRONICALLY VERIFIED FINAL REPORT 03/13/2024 10:58 AM - Electronically signed by Haleigh Benito MD
[2024-03-14 06:47] LABS: BASOPHILS % (AUTO) 0.6 % (0.2-1.0); EOSINOPHILS # (AUTO) 0.3 x10^3/uL (0.0-0.2); EOSINOPHILS % (AUTO) 3.4 % (0.9-2.9); HEMATOCRIT 32.6 % (36.0-47.0); HEMOGLOBIN 10.5 g/dL (12.0-16.0); LYMPHOCYTES # (AUTO) 1.4 X10^3/uL (1.3-2.9); MEAN CORPUSCULAR HEMOGLOBIN 28.7 pg (27.0-34.0); MEAN CORPUSCULAR HGB CONC 32.1 g/dL (33.0-35.0); MEAN CORPUSCULAR VOLUME 89.4 fL (80.0-100.0); MEAN PLATELET VOLUME 7.1 fL (7.4-11.0); MONOCYTES # (AUTO) 1.1 x10^3/uL (0.3-0.8); MONOCYTES % (AUTO) 14.4 % (0.0-13.0); NEUTROPHILS # (AUTO) 4.9 x10^3/uL (2.2-4.8); NEUTROPHILS % (AUTO) 63.6 % (42.0-75.0); PLATELET COUNT 306 X10^3/uL (150.0-450.0); RED BLOOD COUNT 3.65 X10^6/uL (3.5-5.4); RED CELL DISTRIBUTION WIDTH 18.3 % (11.6-16.5); WHITE BLOOD COUNT 7.7 X10^3/uL (3.6-10.0)
[2024-03-14 06:59] LABS: ALANINE AMINOTRANSFERASE 13 Units/L (12-78); ALBUMIN 2.2 g/dL (3.4-5.0); ALKALINE PHOSPHATASE 115 Units/L (46-116); ASPARTATE AMINO TRANSFERASE 30 Units/L (15-37); BLOOD UREA NITROGEN 18 mg/dL (7-18); CALCIUM 9.3 mg/dL (8.5-10.1); CARBON DIOXIDE 31.7 mmol/L (21-32); CHLORIDE 104 mmol/L (98-107); COR CA(FOR HYPOALB) 10.7 mg/dL (8.5-10.1); CREATININE 1.12 mg/dL (0.55-1.02); GLUCOSE 90 mg/dL (65-99); POTASSIUM 4.2 mmol/L (3.5-5.1); SODIUM 139 mmol/L (136-145); TOTAL PROTEIN 6.1 g/dL (6.4-8.2); eGFR NON BLACK RACES 49 (>60)
[2024-03-15] MEDS: LEVAQUIN TAB 750 MG PO SCH (09:34)
[2024-03-18 05:01] LABS: BASOPHILS % (AUTO) 0.2 % (0.2-1.0); EOSINOPHILS # (AUTO) 0.2 x10^3/uL (0.0-0.2); EOSINOPHILS % (AUTO) 2.9 % (0.9-2.9); HEMATOCRIT 31.2 % (36.0-47.0); HEMOGLOBIN 10.2 g/dL (12.0-16.0); LYMPHOCYTES # (AUTO) 1.9 X10^3/uL (1.3-2.9); LYMPHOCYTES % (AUTO) 23.3 % (21.0-51.0); MEAN CORPUSCULAR HEMOGLOBIN 29.5 pg (27.0-34.0); MEAN CORPUSCULAR HGB CONC 32.8 g/dL (33.0-35.0); MEAN CORPUSCULAR VOLUME 89.9 fL (80.0-100.0); MEAN PLATELET VOLUME 7.7 fL (7.4-11.0); MONOCYTES # (AUTO) 1.2 x10^3/uL (0.3-0.8); MONOCYTES % (AUTO) 14.8 % (0.0-13.0); NEUTROPHILS # (AUTO) 4.8 x10^3/uL (2.2-4.8); NEUTROPHILS % (AUTO) 58.8 % (42.0-75.0); PLATELET COUNT 271 X10^3/uL (150.0-450.0); RED BLOOD COUNT 3.47 X10^6/uL (3.5-5.4); WHITE BLOOD COUNT 8.1 X10^3/uL (3.6-10.0)
[2024-03-18 05:17] LABS: ALANINE AMINOTRANSFERASE 19 Units/L (12-78); ALBUMIN 2.1 g/dL (3.4-5.0); ALKALINE PHOSPHATASE 107 Units/L (46-116); ASPARTATE AMINO TRANSFERASE 32 Units/L (15-37); BLOOD UREA NITROGEN 13 mg/dL (7-18); CALCIUM 8.9 mg/dL (8.5-10.1); CARBON DIOXIDE 30.2 mmol/L (21-32); CHLORIDE 105 mmol/L (98-107); COR CA(FOR HYPOALB) 10.4 mg/dL (8.5-10.1); GLUCOSE 82 mg/dL (65-99); POTASSIUM 3.7 mmol/L (3.5-5.1); SODIUM 139 mmol/L (136-145); TOTAL PROTEIN 5.7 g/dL (6.4-8.2); eGFR NON BLACK RACES 50 (>60)
[2024-03-18] MEDS ORDERED: CONSULT PHARMACY - POTASSIUM & MAGNESIUM XX SCH (07:00)
[2024-03-18] MEDS: K-DUR TAB 20 MEQ PO SCH (09:00)
[2024-03-19 06:39] LABS: BASOPHILS % (AUTO) 0.2 % (0.2-1.0); EOSINOPHILS # (AUTO) 0.3 x10^3/uL (0.0-0.2); EOSINOPHILS % (AUTO) 3.4 % (0.9-2.9); HEMOGLOBIN 10.3 g/dL (12.0-16.0); LYMPHOCYTES # (AUTO) 1.5 X10^3/uL (1.3-2.9); LYMPHOCYTES % (AUTO) 17.6 % (21.0-51.0); MEAN CORPUSCULAR HEMOGLOBIN 29.9 pg (27.0-34.0); MEAN CORPUSCULAR HGB CONC 33.2 g/dL (33.0-35.0); MEAN PLATELET VOLUME 7.5 fL (7.4-11.0); MONOCYTES # (AUTO) 1.3 x10^3/uL (0.3-0.8); MONOCYTES % (AUTO) 15.4 % (0.0-13.0); NEUTROPHILS # (AUTO) 5.4 x10^3/uL (2.2-4.8); NEUTROPHILS % (AUTO) 63.4 % (42.0-75.0); PLATELET COUNT 268 X10^3/uL (150.0-450.0); RED BLOOD COUNT 3.44 X10^6/uL (3.5-5.4); RED CELL DISTRIBUTION WIDTH 18.5 % (11.6-16.5); WHITE BLOOD COUNT 8.5 X10^3/uL (3.6-10.0)
[2024-03-19 06:56] LABS: ALANINE AMINOTRANSFERASE 22 Units/L (12-78); ALBUMIN 2.2 g/dL (3.4-5.0); ALKALINE PHOSPHATASE 120 Units/L (46-116); ASPARTATE AMINO TRANSFERASE 33 Units/L (15-37); BLOOD UREA NITROGEN 12 mg/dL (7-18); CALCIUM 8.8 mg/dL (8.5-10.1); CARBON DIOXIDE 30.5 mmol/L (21-32); CHLORIDE 104 mmol/L (98-107); COR CA(FOR HYPOALB) 10.2 mg/dL (8.5-10.1); CREATININE 1.19 mg/dL (0.55-1.02); GLUCOSE 82 mg/dL (65-99); SODIUM 137 mmol/L (136-145); TOTAL PROTEIN 5.9 g/dL (6.4-8.2); eGFR NON BLACK RACES 46 (>60)
[2024-03-19 10:45] VITALS: RESP 18
--- NOTE | 2024-03-19 13:23 | VAS ---
EXAM:Left lower extremity venous Doppler evaluationHISTORY:Left lower extremity edemaTECHNIQUE:Multiple grayscale sonographic images were obtained. Color duplex Doppler evaluation was performed.COMPARISON:NoneFINDINGS:Common femoral vein, superficial femoral vein, popliteal vein, and posterior tibial veins are patent demonstrating normal flow, compression, and distal augmentation.IMPRESSION:Exam negative for deep venous thrombosis left lower extremityTHIS IS AN ELECTRONICALLY VERIFIED FINAL REPORT03/19/2024 1:19 PM - Electronically signed by Russell Rucker MD
--- NOTE | 2024-03-19 17:45 | PCM.PROG ---
Progress Note Progress Note for Day of Date of Exam: 03/13/24 Subjective Subjective: The 84-year-old female, status post left femur fracture repair, continues on swingbed status for physical therapy. Todays labs show hemoglobin 9.6, WBC 7.2, and BUN/creatinine within normal limits, indicating stable renal function. Her iFOB test returned negative. She is currently on PO Levaquin. The preliminary wound culture from 03/13/24 indicates coagulase-negative Staphylococcus, with the gram stain from 03/12/24 showing rare gram-positive cocci and rare epithelial cells. The patient is progressing well with physical therapy but is now complaining of left elbow pain, for which an X-ray has been ordered. Past Medical Family Social History Allergies: Allergies doxylamine [From NyQuil] Allergy (Verified 01/22/24 13:04) pseudoephedrine [From NyQuil] Allergy (Verified 01/22/24 13:04) Vital Signs and I&O's Vital Signs: Vital Signs Pulse Rate 66 O2 Sat by Pulse Oximetry 98 Intake and Output: Intake & Output 03/11/24 03/12/24 03/13/24 03/14/24 11:59 11:59 11:59 11:59 Intake Total 1698 / 1698 1000 / 1000 1835 / 1835 Balance 1698 / 1698 1000 / 1000 1835 / 1835 Physical Exam Oriented: Normal Eyes: Normal Ear: Normal Nose: Normal Throat: Normal Respiratory: Normal Cardiovascular: Normal : Normal Tenderness: Normal Skin: Wound Musculoskeletal: Back:Lumbar and Motor Deficit Psychiatric: Normal Mood Description: Calm Affect: Normal Speech Pattern: Clear and Appropriate Laboratory and Diagnostics 03/19/24 06:10 03/19/24 06:10 Labs: 03/12/24 10:40 Leg - Left Wound Gram Stain - Final 03/12/24 10:40 Leg - Left Wound Culture - Preliminary 03/06/24 11:40 Urine,Clean Catch Urine Culture - Final Pseudomonas Aeruginosa Laboratory WBC 7.2 X10^3/uL (3.6-10.0) 03/13/24 06:05 RBC 3.28 X10^6/uL (3.5-5.4) L 03/13/24 06:05 Hgb 9.6 g/dL (12.0-16.0) L 03/13/24 06:05 Hct 29.3 % (36.0-47.0) L 03/13/24 06:05 MCV 89.4 fL (80.0-100.0) 03/13/24 06:05 MCH 29.4 pg (27.0-34.0) 03/13/24 06:05 MCHC 32.9 g/dL (33.0-35.0) L 03/13/24 06:05 RDW 18.1 % (11.6-16.5) H 03/13/24 06:05 Plt Count 277 X10^3/uL (150.0-450.0) 03/13/24 06:05 MPV 7.3 fL (7.4-11.0) L 03/13/24 06:05 Neut % (Auto) 61.8 % (42.0-75.0) 03/13/24 06:05 Lymph % (Auto) 19.8 % (21.0-51.0) L 03/13/24 06:05 [place] % (Auto) 15.0 % (0.0-13.0) H 03/13/24 06:05 Eos % (Auto) 3.1 % (0.9-2.9) H 03/13/24 06:05 Baso % (Auto) 0.3 % (0.2-1.0) 03/13/24 06:05 Neut # (Auto) 4.4 x10^3/uL (2.2-4.8) 03/13/24 06:05 Lymph # (Auto) 1.4 X10^3/uL (1.3-2.9) 03/13/24 06:05 [place] # (Auto) 1.1 x10^3/uL (0.3-0.8) H 03/13/24 06:05 Eos # (Auto) 0.2 x10^3/uL (0.0-0.2) 03/13/24 06:05 Baso # (Auto) 0.0 X10^3/uL (0.0-0.1) 03/13/24 06:05 Absolute Nucleated RBC 0.1 /100WBC 03/13/24 06:05 Absolute Retic 0.0653 10^6/uL 03/04/24 04:20 Percent Retic 2.42 % (0.8-2.2) H 03/04/24 04:20 Sodium 134 mmol/L (136-145) L 03/13/24 06:05 Corrected Sodium TNP 03/13/24 06:05 Potassium 3.9 mmol/L (3.5-5.1) 03/13/24 06:05 Chloride 101 mmol/L (98-107) 03/13/24 06:05 Carbon Dioxide 29.2 mmol/L (21-32) 03/13/24 06:05 BUN 13 mg/dL (7-18) 03/13/24 06:05 Creatinine 0.99 mg/dL (0.55-1.02) 03/13/24 06:05 Est GFR (MDRD) Af Amer > 60 (>60) 03/13/24 06:05 Est GFR (MDRD) Non-Af 57 (>60) L 03/13/24 06:05 Glucose 80 mg/dL (65-99) 03/13/24 06:05 Calcium 8.9 mg/dL (8.5-10.1) 03/13/24 06:05 Corrected Calcium 10.7 mg/dL (8.5-10.1) H 03/13/24 06:05 Magnesium 2.3 mg/dL (2.0-2.9) 03/07/24 04:10 Iron 15 ug/dL (50-175) L 03/04/24 16:40 TIBC 188 ug/dL (250-450) L 03/04/24 16:40 Transferrin 155 mg/dL (202-364) L 03/04/24 16:40 Ferritin 347 ng/mL (8-252) H 03/04/24 16:40 Total Bilirubin 0.40 mg/dL (0.2-1.0) 03/13/24 06:05 AST 23 Units/L (15-37) 03/13/24 06:05 ALT 12 Units/L (12-78) 03/13/24 06:05 Alkaline Phosphatase 88 Units/L (46-116) 03/13/24 06:05 Total Protein 5.3 g/dL (6.4-8.2) L 03/13/24 06:05 Albumin 1.8 g/dL (3.4-5.0) L 03/13/24 06:05 Globulin 3.5 g/dL (2.5-4.5) 03/13/24 06:05 Albumin/Globulin Ratio 0.5 Ratio (1.1-2.1) L 03/13/24 06:05 Vitamin B12 231 pg/mL (193-986) 03/04/24 16:40 Folate 5.0 ng/mL (>8.6) L 03/04/24 16:40 Specimen Type Clean catch urine 03/06/24 11:40 Urine Color Yellow (YELLOW) 03/06/24 11:40 Urine Appearance Hazy (CLEAR) 03/06/24 11:40 Urine pH 6.0 (5.0 - 8.0) 03/06/24 11:40 Ur Specific [place] 1.015 (1.000-1.030) 03/06/24 11:40 Urine Protein 3+ (NEGATIVE) 03/06/24 11:40 Urine Glucose (UA) Negative (NEGATIVE) 03/06/24 11:40 Urine Ketones Negative (NEGATIVE) 03/06/24 11:40 Urine Blood 3+ (NEGATIVE) 03/06/24 11:40 Urine Nitrite Positive (NEGATIVE) 03/06/24 11:40 Urine Bilirubin Negative (NEGATIVE) 03/06/24 11:40 Urine Urobilinogen Normal (NORMAL) 03/06/24 11:40 Ur Leukocyte Esterase 3+ (NEGATIVE) 03/06/24 11:40 Urine RBC 5-10 /HPF (0-3) A 03/06/24 11:40 Urine WBC Tntc /HPF (0-5) A 03/06/24 11:40 Ur Squamous Epith Cells Rare /HPF (NEGATIVE) 03/06/24 11:40 Urine Bacteria Trace /HPF (NEGATIVE) 03/06/24 11:40 Ur Culture Indicated? Yes/culture set up 03/06/24 11:40 Stl Occult Blood (IFOB) Negative (NEGATIVE) 03/12/24 15:10 Blood Type O POSITIVE 03/07/24 06:08 Antibody Screen Negative 03/07/24 06:08 Crossmatch See Detail 03/07/24 06:08 Plan (1) History of repair of hip fracture: Status: Acute Plan: - Continue PO Levaquin - Monitor labs and wound status - X-ray for left elbow pain - Continue physical therapy - Follow-up on wound culture results (2) Weakness: Status: Acute (3) Hypertension: Status: Chronic Qualifiers: Hypertension type: essential hypertension Qualified Code(s): I10 - Essential (primary) hypertension (4) GERD (gastroesophageal reflux disease): Status: Chronic
[2024-03-20 05:41] LABS: BASOPHILS % (AUTO) 0.4 % (0.2-1.0); EOSINOPHILS # (AUTO) 0.2 x10^3/uL (0.0-0.2); EOSINOPHILS % (AUTO) 2.1 % (0.9-2.9); HEMATOCRIT 32.4 % (36.0-47.0); HEMOGLOBIN 10.6 g/dL (12.0-16.0); LYMPHOCYTES # (AUTO) 1.4 X10^3/uL (1.3-2.9); MEAN CORPUSCULAR HEMOGLOBIN 29.2 pg (27.0-34.0); MEAN CORPUSCULAR HGB CONC 32.6 g/dL (33.0-35.0); MEAN CORPUSCULAR VOLUME 89.5 fL (80.0-100.0); MEAN PLATELET VOLUME 7.4 fL (7.4-11.0); MONOCYTES # (AUTO) 1.1 x10^3/uL (0.3-0.8); MONOCYTES % (AUTO) 13.6 % (0.0-13.0); NEUTROPHILS # (AUTO) 5.2 x10^3/uL (2.2-4.8); NEUTROPHILS % (AUTO) 65.9 % (42.0-75.0); PLATELET COUNT 275 X10^3/uL (150.0-450.0); RED BLOOD COUNT 3.62 X10^6/uL (3.5-5.4); RED CELL DISTRIBUTION WIDTH 19.4 % (11.6-16.5); WHITE BLOOD COUNT 7.9 X10^3/uL (3.6-10.0)
[2024-03-20 05:54] LABS: ALANINE AMINOTRANSFERASE 19 Units/L (12-78); ALBUMIN 2.3 g/dL (3.4-5.0); ALKALINE PHOSPHATASE 125 Units/L (46-116); ASPARTATE AMINO TRANSFERASE 27 Units/L (15-37); BLOOD UREA NITROGEN 10 mg/dL (7-18); CALCIUM 8.9 mg/dL (8.5-10.1); CARBON DIOXIDE 31.2 mmol/L (21-32); CHLORIDE 102 mmol/L (98-107); COR CA(FOR HYPOALB) 10.3 mg/dL (8.5-10.1); CREATININE 1.15 mg/dL (0.55-1.02); GLUCOSE 90 mg/dL (65-99); SODIUM 136 mmol/L (136-145); TOTAL PROTEIN 6.4 g/dL (6.4-8.2); eGFR NON BLACK RACES 48 (>60)
[2024-03-20 09:56] VITALS: BP 140/63; PULSE 70; TEMP 97.8; O2SAT 98
--- NOTE | 2024-03-20 15:19 | PCM.PROG ---
Progress Note Progress Note for Day of Date of Exam: 03/19/24 Subjective Subjective: The patient is an 84-year-old white female under swing bed therapy following a left femur fracture repair. She has a history of anemia, for which she received transfusions during her stay. Anticoagulant therapy for atrial fibrillation was temporarily held but has since been resumed. Today's labs show hemoglobin of 10.2, BUN 13, creatinine 1.10, and magnesium 2.3. The patient denies any blood in the stool or urine, and reports no chest pain or shortness of breath. Patient is noted to have some swelling to her LLE, and we will order a doppler to r/o DVT. Past Medical Family Social History Allergies: Allergies doxylamine [From NyQuil] Allergy (Verified 01/22/24 13:04) pseudoephedrine [From NyQuil] Allergy (Verified 01/22/24 13:04) Vital Signs and I&O's Intake and Output: Intake & Output 03/18/24 03/19/24 03/20/24 03/21/24 11:59 11:59 11:59 11:59 Intake Total 1060 / 1060 1140 / 1140 920 / 920 Balance 1060 / 1060 1140 / 1140 920 / 920 Physical Exam Oriented: Normal Eyes: Normal Ear: Normal Nose: Normal Throat: Normal Respiratory: Normal Cardiovascular: Normal : Normal Tenderness: Normal Skin: Wound Musculoskeletal: Back:Lumbar and Motor Deficit Psychiatric: Normal Mood Description: Calm Affect: Normal Speech Pattern: Clear and Appropriate Laboratory and Diagnostics 03/20/24 05:22 03/20/24 05:22 Labs: 03/12/24 10:40 Leg - Left Wound Gram Stain - Final 03/12/24 10:40 Leg - Left Wound Culture - Final Pseudomonas Aeruginosa 03/06/24 11:40 Urine,Clean Catch Urine Culture - Final Pseudomonas Aeruginosa Laboratory WBC 7.9 X10^3/uL (3.6-10.0) 03/20/24 05:22 RBC 3.62 X10^6/uL (3.5-5.4) 03/20/24 05:22 Hgb 10.6 g/dL (12.0-16.0) L 03/20/24 05:22 Hct 32.4 % (36.0-47.0) L 03/20/24 05:22 MCV 89.5 fL (80.0-100.0) 03/20/24 05:22 MCH 29.2 pg (27.0-34.0) 03/20/24 05:22 MCHC 32.6 g/dL (33.0-35.0) L 03/20/24 05:22 RDW 19.4 % (11.6-16.5) H 03/20/24 05:22 Plt Count 275 X10^3/uL (150.0-450.0) 03/20/24 05:22 MPV 7.4 fL (7.4-11.0) 03/20/24 05:22 Neut % (Auto) 65.9 % (42.0-75.0) 03/20/24 05:22 Lymph % (Auto) 18.0 % (21.0-51.0) L 03/20/24 05:22 [place] % (Auto) 13.6 % (0.0-13.0) H 03/20/24 05:22 Eos % (Auto) 2.1 % (0.9-2.9) 03/20/24 05:22 Baso % (Auto) 0.4 % (0.2-1.0) 03/20/24 05:22 Neut # (Auto) 5.2 x10^3/uL (2.2-4.8) H 03/20/24 05:22 Lymph # (Auto) 1.4 X10^3/uL (1.3-2.9) 03/20/24 05:22 [place] # (Auto) 1.1 x10^3/uL (0.3-0.8) H 03/20/24 05:22 Eos # (Auto) 0.2 x10^3/uL (0.0-0.2) 03/20/24 05:22 Baso # (Auto) 0.0 X10^3/uL (0.0-0.1) 03/20/24 05:22 Absolute Nucleated RBC 0.0 /100WBC 03/20/24 05:22 Absolute Retic 0.0653 10^6/uL 03/04/24 04:20 Percent Retic 2.42 % (0.8-2.2) H 03/04/24 04:20 Sodium 136 mmol/L (136-145) 03/20/24 05:22 Corrected Sodium TNP 03/20/24 05:22 Potassium 4.0 mmol/L (3.5-5.1) 03/20/24 05:22 Chloride 102 mmol/L (98-107) 03/20/24 05:22 Carbon Dioxide 31.2 mmol/L (21-32) 03/20/24 05:22 BUN 10 mg/dL (7-18) 03/20/24 05:22 Creatinine 1.15 mg/dL (0.55-1.02) H 03/20/24 05:22 Est GFR (MDRD) Af Amer 58 (>60) L 03/20/24 05:22 Est GFR (MDRD) Non-Af 48 (>60) L 03/20/24 05:22 Glucose 90 mg/dL (65-99) 03/20/24 05:22 Calcium 8.9 mg/dL (8.5-10.1) 03/20/24 05:22 Corrected Calcium 10.3 mg/dL (8.5-10.1) H 03/20/24 05:22 Magnesium 2.3 mg/dL (2.0-2.9) 03/18/24 04:12 Iron 15 ug/dL (50-175) L 03/04/24 16:40 TIBC 188 ug/dL (250-450) L 03/04/24 16:40 Transferrin 155 mg/dL (202-364) L 03/04/24 16:40 Ferritin 347 ng/mL (8-252) H 03/04/24 16:40 Total Bilirubin 0.50 mg/dL (0.2-1.0) 03/20/24 05:22 AST 27 Units/L (15-37) 03/20/24 05:22 ALT 19 Units/L (12-78) 03/20/24 05:22 Alkaline Phosphatase 125 Units/L (46-116) H 03/20/24 05:22 Total Protein 6.4 g/dL (6.4-8.2) 03/20/24 05:22 Albumin 2.3 g/dL (3.4-5.0) L 03/20/24 05:22 Globulin 4.1 g/dL (2.5-4.5) 03/20/24 05:22 Albumin/Globulin Ratio 0.6 Ratio (1.1-2.1) L 03/20/24 05:22 Vitamin B12 231 pg/mL (193-986) 03/04/24 16:40 Folate 5.0 ng/mL (>8.6) L 03/04/24 16:40 Specimen Type Clean catch urine 03/06/24 11:40 Urine Color Yellow (YELLOW) 03/06/24 11:40 Urine Appearance Hazy (CLEAR) 03/06/24 11:40 Urine pH 6.0 (5.0 - 8.0) 03/06/24 11:40 Ur Specific [place] 1.015 (1.000-1.030) 03/06/24 11:40 Urine Protein 3+ (NEGATIVE) 03/06/24 11:40 Urine Glucose (UA) Negative (NEGATIVE) 03/06/24 11:40 Urine Ketones Negative (NEGATIVE) 03/06/24 11:40 Urine Blood 3+ (NEGATIVE) 03/06/24 11:40 Urine Nitrite Positive (NEGATIVE) 03/06/24 11:40 Urine Bilirubin Negative (NEGATIVE) 03/06/24 11:40 Urine Urobilinogen Normal (NORMAL) 03/06/24 11:40 Ur Leukocyte Esterase 3+ (NEGATIVE) 03/06/24 11:40 Urine RBC 5-10 /HPF (0-3) A 03/06/24 11:40 Urine WBC Tntc /HPF (0-5) A 03/06/24 11:40 Ur Squamous Epith Cells Rare /HPF (NEGATIVE) 03/06/24 11:40 Urine Bacteria Trace /HPF (NEGATIVE) 03/06/24 11:40 Ur Culture Indicated? Yes/culture set up 03/06/24 11:40 Stl Occult Blood (IFOB) Negative (NEGATIVE) 03/12/24 15:10 Blood Type O POSITIVE 03/07/24 06:08 Antibody Screen Negative 03/07/24 06:08 Crossmatch See Detail 03/07/24 06:08 Plan (1) History of repair of hip fracture: Status: Acute Narrative Support Text: Status post left femur fracture repair. Continue with pain control and physical therapy. LLE doppler to r/o DVT (2) Weakness: Status: Acute (3) Hypertension: Status: Chronic Qualifiers: Hypertension type: essential hypertension Qualified Code(s): I10 - Essential (primary) hypertension (4) GERD (gastroesophageal reflux disease): Status: Chronic
== END 2024-03-20 14:30 | disposition home health service (06) | DRG 536 ==
LOC: MED/SURG 18:45
PROVIDERS: ADMIT Internal Medicine; ATTEND Internal Medicine
DX: K21.9 Gastro-esophageal reflux disease without esophagitis; R53.1 Weakness; S32.029A Unspecified fracture of second lumbar vertebra, initial encounter for closed fracture; N18.9 Chronic kidney disease, unspecified; M25.522 Pain in left elbow; I12.9 Hypertensive chronic kidney disease with stage 1 through stage 4 chronic kidney disease, or unspecified chronic kidney disease; S80.922A Unspecified superficial injury of left lower leg, initial encounter; B96.5 Pseudomonas (aeruginosa) (mallei) (pseudomallei) as the cause of diseases classified elsewhere; S22.029A Unspecified fracture of second thoracic vertebra, initial encounter for closed fracture; I48.91 Unspecified atrial fibrillation; Z98.890 Other specified postprocedural states; R06.02 Shortness of breath; W01.0XXA Fall on same level from slipping, tripping and stumbling without subsequent striking against object, initial encounter; Z65.8 Other specified problems related to psychosocial circumstances; N39.0 Urinary tract infection, site not specified; S32.039A Unspecified fracture of third lumbar vertebra, initial encounter for closed fracture; Z51.89 Encounter for other specified aftercare; Z59.86 Financial insecurity; K92.1 Melena; S72.092A Other fracture of head and neck of left femur, initial encounter for closed fracture; D64.89 Other specified anemias; K59.09 Other constipation